=== PATIENT | female | born 1950 | race Caucasian/White ===

== ENCOUNTER → 2017-07-28 10:14 | Outpatient (CLI) | payer MEDICARE, OTHER, SELFPAY | PROVIDERS: Family Provider Family Medicine Geriatric Medicine; PCP Family Medicine Geriatric Medicine; Visit Provider Family Medicine Geriatric Medicine | DX: I10 Essential (primary) hypertension (principal); E11.9 Type 2 diabetes mellitus without complications; E55.9 Vitamin D deficiency, unspecified ==

== ENCOUNTER 2017-09-12 08:30 | Outpatient (RCR) | payer MEDICARE, OTHER, SELFPAY ==
--- NOTE | 2017-05-26 12:43 | HP.PTEVAL_ITS ---
Patient's Visit Information ANA BRAGG is a 66 year old F referred to Physical Therapy by Lenny TELLO with a diagnosis of vertigo. Date of Evaluation: 05/26/17 Physical Therapist: Nav Lee DPT, OC - Visit Plan Frequency: 1-2x /Week Duration: 4-6 Weeks Plan: Treat positional ex and maneuvers as needed. Balance as needed after positional is resolved. Back to functiona and adaptation ex as necessary. - Subjective Subjective: April 25 fell on ice and hit head in parking lot. Went to [facility] for 10 days with concusiion and intracranial hemmorhage. Went to rehab in [place] for a number of weeks and then went home for home health. In the meantime went to neuro and sent for vestibular therapy instead of home health. Issues are dizzy and balance related. Had none of these prior. 5-6 Catscans and found a brain bleed. Had patch for dizzyness whcih helped. Takes meclizine to this day which helps. Doctor wants her to cut back but she cannot. Currently has head in a box feeling sometimes balance off. Gets spinning turning in bed or sits up or stand suddenly or lying down. It lasts 10 -15 seconds. Rarely feels normal. Gets tired quick and it is worse. Uses cane now, not prior. Wants to get back to normal as prior to this fall. No falls since this incident. Works at [employer] and wants to return 24 hours per week. Dresses self, shower self and bathroomI. House duties are suffereing. Staying home alot. Enjoys reading and gym but cannot do that now. Last time was at gym was the week this happened at [facility] or [employer]. No recent MEDINA, nausea only if real dizzy. - Objective Walks with cane back to [facility] room mod I. Slow. Trasnfers I with UE. Steps reciprocal and needs rail. C/S AROM is hesitant but not painful. UE AROM WFL adn strength 4+/5. + L hallpike kevin for up torsional nystagmus 15 seconds...treated with Patrice Bowman and then much better after retesting but still positive and treated again. Walked out mod I with cane feeling some better. - Balance Scores Functional Gait Assessment Score: 19 % Disability: 36.6700 - Goals Goal 1:: Abolish dizzyness wtih position change Goal Time Frame: 2-4 Weeks Goal 2:: Pt feel 90% better overall and ready to get to gym again. Goal Time Frame: 4-6 Weeks Goal 3:: No dizzyness for a period of 2 weeks. Goal Time Frame: 4-6 Weeks - Rehabilitation Potential Physical Therapy Diagnosis: L PBBV and post concussion. Rehabilitation Potential: Good - Anticipated Interventions Patient/Client Instruction: Educate patient on: Condition, Plan of Care For the Purpose of:: To increase tolerance to activity/condition/position, To improve safety with gait Therapeutic Exercise to Include: Balance training Comment: positional ex and treatments. balance. return to function. For the Purpose of:: To improve balance, To improve safety with gait Thank you for the opportunity to evaluate your patient. For Medicare and Medicare HMO plans, please review the plan of care and approve it. It will need to be FAXED BACK to us at [phone] for Medicare purposes. Please let me know if there are questions or concerns regarding this plan of care. Physician Signature: Date:
--- NOTE | 2017-06-30 14:12 | HP.PTREVAL_ITS ---
Lenny Chi Konstantin, It has been my pleasure to treat ANA BRAGG over the last 4 visits for vertigo. Please see the progress note below for an update on the physical therapy plan of care! Subjective: Only dizzy if real tired adn it is more balance than dizzy. Spinning and dizzy is gone. Not avoiding kya activities except working frequently as she fatigues. Still using cane out and about. Objective/Function: No change to FGA, no dizzyness with VOR horiz or vertical. Plan Plan: f/u two weeks and as needed for 2-4 weeks for balance progression and ensure progress. Goals Goal 1:: Abolish dizzyness wtih position change Goal Time Frame: 2-4 Weeks Goal Progress: Goal Met Goal 2:: Pt feel 90% better overall and ready to get to gym again. Goal Time Frame: 4-6 Weeks Goal Progress: Progressing Goal 3:: No dizzyness for a period of 2 weeks. Goal Time Frame: 4-6 Weeks Goal Progress: Goal Met Goal 4:: 26/30 FGA and feel 75% improved balance. Goal Time Frame: 2-4 Weeks Goal Progress: NEW GOAL Anticipated Interventions Patient/Client Instruction: Educate patient on: Condition, Plan of Care For the Purpose of:: To increase tolerance to activity/condition/position, To improve safety with gait Therapeutic Exercise to Include: Balance training Comment: positional ex and treatments. balance. return to function. For the Purpose of:: To improve balance, To improve safety with gait Please do not hesitate to contact me at [phone] by phone or Fax: if you have questions or concerns regarding this new plan of care! Sincerely, Nav Lee, DPT, OC
--- NOTE | 2017-08-29 10:08 | HP.PTREVAL_ITS ---
Lenny Chi Konstantin, It has been my pleasure to treat ANA BRAGG over the last 7 visits for vertigo. Please see the progress note below for an update on the physical therapy plan of care! Subjective: kjnkj Objective/Function: Improving FGA no positive positional tests. Plan Plan: f/u two weeks for FGA, check positional and see if patient more confident to work in garden or give workaround of holding on to stick etc. Goals Goal 1:: Abolish dizzyness wtih position change Goal Time Frame: 2-4 Weeks Goal Progress: Goal Met Goal 2:: Pt feel 90% better overall and ready to get to gym again. Goal Time Frame: 4-6 Weeks Goal Progress: Progressing Goal 3:: No dizzyness for a period of 2 weeks. Goal Time Frame: 4-6 Weeks Goal Progress: Goal Met Goal 4:: 26/30 FGA and feel 75% improved balance. Goal Time Frame: 2-4 Weeks Goal Progress: Goal Met Goal 5:: Bend and recover adn walk on grass without AD safe and I. Goal Time Frame: 2-4 Weeks Goal Progress: NEW GOAL Anticipated Interventions Patient/Client Instruction: Educate patient on: Condition, Plan of Care For the Purpose of:: To increase tolerance to activity/condition/position, To improve safety with gait Therapeutic Exercise to Include: Balance training Comment: positional ex and treatments. balance. return to function. For the Purpose of:: To improve balance, To improve safety with gait Please do not hesitate to contact me at [phone] by phone or Fax: if you have questions or concerns regarding this new plan of care! Sincerely, Nav Lee, ERIST, OC
--- NOTE | 2017-09-12 08:47 | HP.PTDCSUM_ITS ---
HP - PT D/C Summary It has been my pleasure to treat ANA BRAGG under orders from Lenny Pryor , for the diagnosis of vertigo for a total of 8 visit(s). Discharge Date: 09/12/17 Please see the following information for a summary of their discharge status. - Subjective Subjective: Pretty good, no dizzyness and normal activities. Practicing bending over and getting better. Balance is pretty good, no falls, uses cane outside every now and then. Will see Konstantin next week. - Overall Improvement % Improvement: 90 - Objective Objective/Function: - B Hallpike. FGA very good and much improved - Goals Goal 1:: Abolish dizzyness wtih position change Goal Progress: Goal Met Goal 2:: Pt feel 90% better overall and ready to get to gym again. Goal Progress: Goal Met Goal 3:: No dizzyness for a period of 2 weeks. Goal Progress: Goal Met Goal 4:: FGA and feel 75% improved balance. Goal Progress: Goal Met Goal 5:: Bend and recover adn walk on grass without AD safe and I. Goal Progress: subjectively - Plan Plan: D/C - D/C Information Discharge Comments: Doing well, no dizzyness and much improved balance. Will f/ u with doctor next week and continue home balance ex. If there are questions or concerns regarding this patient's physical therapy, please feel free to call me at [phone]. Thank you for the referral of this patient. Sincerely, Nav Lee, DPT, OC
--- NOTE | 2017-09-12 08:52 | HP.PTCOM ---
PT Communication Note 09/12/[address] Lenny Pryor , Sincerely, Nav Lee, DPT, OC Contact Information
== END 2017-09-12 19:00 | disposition home or self-care (01) ==
LOC: PT 08:30
PROVIDERS: Family Provider Family Medicine Geriatric Medicine; PCP Family Medicine Geriatric Medicine; Visit Provider Family Medicine Geriatric Medicine
DX: I62.9 Nontraumatic intracranial hemorrhage, unspecified (principal)
CPT/HCPCS: 97162; 97530

== ENCOUNTER 2017-12-01 10:00 | Outpatient (RCR) | payer MEDICARE, OTHER, SELFPAY ==
--- NOTE | 2017-11-28 09:57 | HP.PTEVAL ---
Patient's Visit Information ANA BRAGG is a 67 year old F referred to Physical Therapy by Lenny Pryor with a diagnosis of intracranial hemmorhage. Date of Evaluation: 11/28/17 Physical Therapist: Nav Lee DPT, OC - Visit Plan Frequency: 1-2x /Week Duration: 2-4 Weeks Plan: 1-2x/week for 2-4 as needed for positional and balance treatemnts and other vestibular if necessary. - Subjective Subjective: Balance is still off and now getting dizzy again. Had PT prior and was better qithout dizzyness for a month and balance was better. Now it is occurring with lying and sitiing up and dissyness/spinning lasts a couple minutes. Usually happens when rolls to L. Used a cane for a while. Fell 2x outside once while weeding last week and the other time in the shower looking up getting dizzyness. Saw neurologist and head is better. Was back to normal for a month after September treatments, no psinning and decent balance. Came back around Labor day. Woke up in middle of night one time. Hard to walk straight for 2 days at one point. Works with handicap at [email or web address] and is hard, has missed some days. - Objective Wallks staggery but I back to PT I. c/s AROM WFL but hesitant to look up. + R HD up torsional for 12 seconds. + L HD up torsional 3 seconds. Treated with R Gracie today and education. FGA - Balance Scores Functional Gait Assessment Score: 23 % Disability: 23.3400 - Goals Goal 1:: abolish vertigo with lying down. Goal Time Frame: 4-6 Weeks Goal 2:: Balance at 26/30 adn feel 100% back to normal without AD. Goal Time Frame: 2-4 Weeks - Rehabilitation Potential Physical Therapy Diagnosis: BPPV Rehabilitation Potential: Good - Anticipated Interventions Patient/Client Instruction: Educate patient on: Condition, Plan of Care For the Purpose of:: To increase tolerance to activity/condition/position Therapeutic Exercise to Include: Balance training Comment: positional For the Purpose of:: To increase tolerance to activity/condition/position, To improve gait and locomotor functions Thank you for the opportunity to evaluate your patient. For Medicare and Medicare HMO plans, please review the plan of care and approve it. It will need to be FAXED BACK to us at [phone] for Medicare purposes. Please let me know if there are questions or concerns regarding this plan of care. Physician Signature: Date:
--- NOTE | 2018-02-07 10:54 | HP.PT.NRP ---
HP - Discharge Summary (1) - Patient Information ANA BRAGG was seen in my office for initial evaluation on 11/28/17. The following Plan of Care was established for this patient: Initial Frequency: 1-2x /Week Initial Duration: 2-4 Weeks - Anticipated Interventions Patient/Client Instruction: Educate patient on: Condition, Plan of Care For the Purpose of:: To increase tolerance to activity/condition/position Therapeutic Exercise to Include: Balance training For the Purpose of:: To increase tolerance to activity/condition/position, To improve gait and locomotor functions This patient was last seen in our office 12/01/17. Pertinent comments regarding their Physical therapy will appear below: Pt seen for two visits of positional treatments adn was to f/u weekly until dizzyness gone. She has neglected to scheudle any further visits. at this point, it has been over two months and I will discontinue due to non attendance. At this point I will be discontinuing this patient from physical therapy. I would be happy to see this patient again in the future if found appropriate by the physician. Thank you! Nav Lee, DPT, OC
== END 2017-12-01 19:00 | disposition home or self-care (01) ==
LOC: PT 10:00
PROVIDERS: Family Provider Family Medicine Geriatric Medicine; PCP Family Medicine Geriatric Medicine; Visit Provider Family Medicine Geriatric Medicine
DX: I62.9 Nontraumatic intracranial hemorrhage, unspecified (principal); R42 Dizziness and giddiness; R26.89 Other abnormalities of gait and mobility
CPT/HCPCS: 97162; 97530

== ENCOUNTER → 2018-03-22 12:43 | Outpatient (CLI) | payer MEDICARE, SELFPAY ==
[2018-03-22 13:24] LABS: Absolute Neutrophil Count 2.5 X10^3/uL (2.0-7.7); Basophil# 0.03 X10^3/uL; Basophil% 0.7 % (0-1); Eosinophil# 0.07 X10^3/uL; Eosinophils% 1.6 % (0-5); Hematocrit 34.1 % (37-47); Hemoglobin 9.6 g/dl (12.0-15.0); Lymphocyte % 33.7 % (19-41); Mean Corp Hgb Conc 28.2 g/gl (32-36); Mean Corpuscular Hgb 19.7 pg (27.0-32.0); Monocyte# 0.39 X10^3/uL; Monocyte% 8.8 % (0-10); Neutrophil # 2.45 X10^3/uL (2.7-7.7); Platelet Count 295 K/mm3 (150-450); RBC Distribution Width CV 18.7 % (11.6-14.6); RBC Distribution Width SD 47.5 fl (35.1-43.9); Red Blood Count 4.87 M/mm3 (4.2-5.4); White Blood Count 4.5 K/mm3 (4.4-11.0)
[2018-03-22 13:26] LABS: Differential Indicated SCAN CRITERIA MET; POSITIVE COUNT NO; POSITIVE DIFFERENTIAL NO; POSITIVE MORPHOLOGY YES
[2018-03-22 14:00] LABS: Vitamin D,25 Hydroxy 18.3 ng/mL (29.95-100.01)
[2018-03-22 14:07] LABS: ALB/GLOB Ratio 1.1 RATIO (0.9-2.4); AST(SGOT) 14 U/L (15-37); Alanine Aminotransfer ALT/SGPT 16 U/L (13-56); Albumin, Serum 3.9 g/dL (3.2-5.0); Alkaline Phosphatase 82 U/L (45-117); Anion Gap 8 (5-15); BUN 9 mg/dL (7-18); BUN/Creat Ratio 13.5 RATIO (10-20); Calcium,Total 8.6 mg/dL (8.5-10.1); Chloride 110 mmol/L (98-107); Creatinine, Serum 0.67 mg/dL (0.55-1.02); EST Glomerular Filtration Rate 94 mL/min (>60); Est Glom Filt Rate - Afr Amer 114 mL/min (>60); Globulin 3.6 g/dL (2.2-4.2); Glucose 103 mg/dL (74-106); Potassium 3.7 mmol/L (3.5-5.1); Protein, Total 7.5 g/dL (6.4-8.2); Sodium Level 142 mmol/L (136-145); Thyroid Stim Hormone (TSH) 0.55 uIU/mL (0.358-3.74)
== END ==
PROVIDERS: Family Provider Family Medicine Geriatric Medicine; PCP Family Medicine Geriatric Medicine; Visit Provider Family Medicine Geriatric Medicine
DX: E11.9 Type 2 diabetes mellitus without complications (principal); I10 Essential (primary) hypertension; E55.9 Vitamin D deficiency, unspecified
CPT/HCPCS: 36415; 80053; 82306; 84443; 85025

== ENCOUNTER → 2018-05-19 10:52 | Outpatient (CLI) | payer MEDICARE, SELFPAY | PROVIDERS: Family Provider Family Medicine Geriatric Medicine; PCP Family Medicine Geriatric Medicine; Referring Provider Family Medicine Geriatric Medicine; Visit Provider Family Medicine Geriatric Medicine | DX: R68.83 Chills (without fever) (principal) | CPT/HCPCS: 87633 ==

== ENCOUNTER → 2018-09-08 10:30 | Outpatient (CLI) | payer MEDICARE, SELFPAY ==
--- NOTE | 2018-09-05 12:30 | HP.PCM_ITS ---
History and Physical History and Physical Patient Name: Ada SilvermanOB: 1950 From: ALEJANDRO COLUNGA PA-C DATE OF SURGERY: 09/20/2018 SCHEDULED PROCEDURE: Left reverse total shoulder arthroplasty HISTORY OF PRESENT ILLNESS: Preoperative history and physical exam was performed on September 04, 2018. This is a 68-year-old female who is been having ongoing pain in her nondominant left shoulder for several months. Patient's pain is primarily with overhead use or reaching out to the side. She has pain over the lateral aspect of the shoulder. Pain can reach as high as a 10/10 with activity. Patient states the pain does awaken her at night. Patient has had MRI which does show glenohumeral osteoarthritis and rotator cuff tear of the left shoulder. Patient has tried tramadol, Tylenol, as needed for pain control. She has not seen significant improvement. She does have limited motion in the left side when compared to her right dominant shoulder. Patient denies any chest pain, shortness of breath, fevers chills, recent infections. Patient does have a medical history pertinent for pulmonary embolism in 2012. She was initially treated with Xarelto it had repeat CT scans which were negative. Patient has been off anticoagulation. Patient has also had previous gastric bypass in 2013. She is unable to take aspirin or any nonsteroidal anti-inflammatories due to gastric bypass. After failing conservative measures and discussing treatment options with Dr. Pérez Jung, the patient does wish to proceed with a left reverse total shoulder arthroplasty. REVIEW OF SYSTEMS: ROS: Const: Reports change in appetite, but denies anorexia, fever, hard of hearing, vision problems CV: Denies chest pain, heart murmur, irregular heartbeat and peripheral vascular disease. Resp: Denies asthma, cough, pneumonia, sleep apnea, SOB, tuberculosis and wheezing. GI: Denies constipation, diarrhea, difficulty swallowing, heartburn, nausea, bloody stools and vomiting. : Urinary: denies incontinence. Musculo: Reports trouble walking, but denies leg swelling, limp and weakness. Skin: Reports history of shingles, but denies Raynaud's and tattoo. Neuro: Denies ambulatory dysfunction, dizziness, numbness/tingling and tremor. Psych: Reports depression and insomnia, but denies anxiety, mental illness and stress. Michael/Lymph: Denies anemia, bleeding/bruising tendency and past transfusion. Reviewed, no changes. PAST MEDICAL HISTORY: Advance Care Plan: No Advance Directives Effective Date: 04/14/2018 PMH: Medical Problems: Arthritis History Of Phlebitis - 2012 Pulmonary Embolism - 2012 Accidents: RT Ankle Fracture 1975 Brain Injury - (04/2017) FALL Surgical Hx: Colon Resection - 2013 [facility] Hysterectomy - 1987 [facility] Tubal Ligation - 1976 [facility] Rt knee Unicompartmental, Gastric Bypass 2013 [facility], Carpal Tunnel Release RT Hip Replacement RT - (07/01/2014) [email or web address] Paul Cataracts Removed Knee Replacement LT - (07/14/2015) [email or web address] Revision RT Uni To TKR - (11/20/2015) [email or web address] Anesthesia Complications: None Assistive Devices: None Reviewed, no changes. SOCIAL HISTORY: SH: Marital: .Occupation: [email or web address].Work Status: Currently Working.Hand Dominance: Right-handed. Personal Habits: Cigarette Use: Never Smoked Cigarettes.Alcohol: Occasionally.Drug Use: Denies Use.Enjoy Exercising: Exercises 1-3 X/Week. Reviewed and updated. VITALS: Ht: 63 Wt: 227lb Wt k.967 BMI: 40.2 BP: 160/92 Pulse: 64 T: 98.4 T: 36.9C ALLERGIES: Aspirin Steroids Anti-Inflammatories NSAIDs MEDICATIONS: Effexor XR 150 mg 1 cap PO daily, Vitamin D 5000 Units 1 tab PO daily, Multivitamins 1 cap PO daily, Tramadol HCL 50 mg 1-2 by mouth every 4-6 hours as needed pain, Vitamin B12 1 injection monthly, Gabapentin 300 mg 2 caps qpm PRE-OP EXAM: General appearance:NORMAL Other: Eyes: Conjunctivae and lids: NORMAL Pupils: ERR Ears, Nose, Mouth, and Throat: NORMAL Other: Inspection of lips, teeth and gums: NORMAL Other: Neck: Examination of neck: no masses noted. Respiratory: Assessment of respiratory effort: NORMAL Other: Auscultation of lungs: clear to auscultation no wheezes, rhonchi or rales. Cardiovascular: Auscultation of heart: regular rate and rhythm, no murmurs, gallops or rubs. Gastrointestinal: Exam of abdomen: soft, nontender, nondistended bowel sounds present. PHYSICAL EXAMINATION: On exam of the left shoulder it is cool to touch without erythema. Range of motion left shoulder external rotation 10, internal rotation back pocket, fo rward elevation 90 actively and 100 passively. Patient does have scapular dyskinesia on the left. Positive crepitus with range of motion. Resisted range of motion: 4/5 supraspinatus strength on the left. Sensation intact to light touch. Neurovascularly intact. IMAGING STUDIES: Previous x-rays of the left shoulder reveal severe glenohumeral osteoarthritis with complete loss of joint space, subchondral sclerosis, and large inferior osteophytes on both the glenoid and humeral head. [facility] 2018 which does reveal rotator cuff tear with severe cuff tear arthropathy with severe arthrosis of the joint and retracted rotator cuff. IMPRESSION: 1. Severe right shoulder rotator cuff arthropathy with severe glenohumeral osteoarthritis and retracted rotator cuff tear 2. History of pulmonary embolism 2012. 3. History of gastric bypass 2013: Unable to take aspirin or nonsteroidal anti- inflammatories PLAN: Dr. Pérez Jung did discuss and review with the patient all treatment options including surgical versus nonsurgical options. Patient does wish to proceed with the above-stated procedure. Potential risks, benefits, and complications of the procedure were discussed in detail including but not limited to , infection, nerve and blood vessel damage, persistent pain, numbness, tingling, paresthesias, blood clot, pulmonary embolism, and requirement for possible further surgery. The patient expressed full understanding and has no further questions for the doctor. Patient does agree to proceed with the above-stated procedure and has signed the surgery consent form. This dictation was created using voice recognition software. Phonetic and/or grammatical errors may exist.. ___ I have re-examined the patient. There are no clinical changes since date of exam. ___ See progress notes for changes. ___ Dictated on admission Date: Time: Signature:
[2018-09-08 10:22] VITALS: BP 158/77; PULSE 61; RESP 16; TEMP 36.4; O2SAT 100; BMI 40.3
[2018-09-08 11:10] LABS: Absolute Lymphocyte Count 1.29 X10^3/ul (0.83-4.51); Absolute Neutrophil Count 2.2 X10^3/uL (2.0-7.7); Basophil# 0.02 X10^3/uL; Basophil% 0.5 % (0-1); Eosinophil# 0.11 X10^3/uL; Eosinophils% 2.7 % (0-5); Hematocrit 30.7 % (37-47); Hemoglobin 8.9 g/dl (12.0-15.0); Lymphocyte # 1.29 X10^3/ul (4.0); Lymphocyte % 32.2 % (19-41); Mean Corpuscular Hgb 19.6 pg (27.0-32.0); Mean Corpuscular Volume 67.6 fL (81-99); Mean Platelet Vol. 10.1 fl (6.2-12.0); Neutrophil # 2.18 X10^3/uL (2.7-7.7); Neutrophil % 54.4 % (47-70); POSITIVE DIFFERENTIAL NO; Platelet Count 271 K/mm3 (150-450); RBC Distribution Width CV 18.7 % (11.6-14.6); RBC Distribution Width SD 45.4 fl (35.1-43.9); Red Blood Count 4.54 M/mm3 (4.2-5.4)
[2018-09-08 11:11] LABS: Differential Indicated SCAN CRITERIA MET; POSITIVE COUNT NO; POSITIVE MORPHOLOGY YES
[2018-09-08 11:17] LABS: International Normalized Ratio 1.1; Prothrombin Time (Protime)PT. 13.5 SECONDS (11.7-14.9)
[2018-09-08 11:18] LABS: Partial Thromboplast Time 27.5 Seconds (24.1-36.2)
[2018-09-08 11:20] LABS: AST(SGOT) 14 U/L (15-37); Alanine Aminotransfer ALT/SGPT 12 U/L (13-56); Albumin, Serum 3.4 g/dL (3.2-5.0); Alkaline Phosphatase 77 U/L (45-117); Anion Gap 2 (5-15); BUN 11 mg/dL (7-18); BUN/Creat Ratio 17.2 RATIO (10-20); Bilirubin, Direct 0.09 mg/dL (0.00-0.30); Calcium,Total 8.5 mg/dL (8.5-10.1); Chloride 110 mmol/L (98-107); Creatinine, Serum 0.64 mg/dL (0.55-1.02); EST Glomerular Filtration Rate 99 mL/min (>60); Est Glom Filt Rate - Afr Amer 120 mL/min (>60); Estimated Creatinine Clearance 45.78 ml/min; Globulin 3.2 g/dL (2.2-4.2); Glucose 98 mg/dL (74-106); Potassium 4.2 mmol/L (3.5-5.1); Protein, Total 6.6 g/dL (6.4-8.2); Sodium Level 141 mmol/L (136-145)
[2018-09-08 11:42] LABS: Hypochromasia 2+; Microcytosis 1+
== END ==
PROVIDERS: Anesthesiology; Family Provider Family Medicine Geriatric Medicine; PCP Family Medicine Geriatric Medicine; Referring Provider Specialist; Visit Provider Specialist
DX: Z01.812 Encounter for preprocedural laboratory examination (principal); M19.011 Primary osteoarthritis, right shoulder; M75.102 Unspecified rotator cuff tear or rupture of left shoulder, not specified as traumatic; Z86.711 Personal history of pulmonary embolism; Z98.84 Bariatric surgery status; Z79.899 Other long term (current) drug therapy; Z88.6 Allergy status to analgesic agent; Z96.652 Presence of left artificial knee joint
CPT/HCPCS: 80048; 80076; 83036; 85025; 85610; 85730; 87081

== ENCOUNTER → 2018-10-19 12:03 | Outpatient (CLI) | payer MEDICARE, SELFPAY ==
[2018-09-08 10:22] VITALS: BMI 40.3
[2018-10-19 12:16] VITALS: BP 153/98; PULSE 67; RESP 16; TEMP 36.6; O2SAT 98; BMI 38.9
== END ==
PROVIDERS: Family Provider Family Medicine Geriatric Medicine; PCP Family Medicine Geriatric Medicine; Referring Provider Family Medicine Geriatric Medicine; Visit Provider Family Medicine Geriatric Medicine
DX: D50.9 Iron deficiency anemia, unspecified (principal); K90.9 Intestinal malabsorption, unspecified
CPT/HCPCS: 96365; J1756; J7050; A4216

== ENCOUNTER → 2018-10-23 12:59 | Outpatient (CLI) | payer MEDICARE, SELFPAY ==
[2018-10-19 12:16] VITALS: BMI 38.9
[2018-10-23 12:40] LABS: Absolute Lymphocyte Count 1.52 X10^3/uL (0.83-4.51); Absolute Neutrophil Count 2.6 X10^3/uL (2.0-7.7); Basophil# 0.03 X10^3/uL; Basophil% 0.6 % (0-1); Eosinophil# 0.17 X10^3/uL; Eosinophils% 3.5 % (0-5); Hematocrit 33.9 % (37-47); Hemoglobin 9.5 g/dL (12.0-15.0); Lymphocyte # 1.52 X10^3/ul (4.0); Lymphocyte % 31.7 % (19-41); Mean Corpuscular Hgb 19.4 pg (27.0-32.0); Mean Corpuscular Volume 69.2 fL (81-99); Mean Platelet Vol. 10.7 fl (6.2-12.0); Monocyte# 0.42 X10^3/uL; Monocyte% 8.8 % (0-10); NRBC Flagged by Analyzer 0 % (0-5); Neutrophil # 2.64 X10^3/uL (2.7-7.7); Neutrophil % 55.2 % (47-70); POSITIVE MORPHOLOGY YES; Platelet Count 311 K/mm3 (150-450); RBC Distribution Width CV 20.8 % (11.6-14.6); RBC Distribution Width SD 46.8 fl (35.1-43.9); White Blood Count 4.8 K/mm3 (4.4-11.0)
[2018-10-23 12:42] LABS: Differential Indicated SCAN CRITERIA MET
[2018-10-23 13:04] LABS: Vitamin D,25 Hydroxy 23.7 ng/mL (29.95-100.01)
[2018-10-23 13:06] LABS: Anisocytosis 1+; Hypochromasia 2+; Platelet Estimate ADEQUATE (ADEQ); Polychromasia 1+
[2018-10-23 13:07] LABS: Ovalocyte 1+
[2018-10-23 13:18] VITALS: BP 137/48; PULSE 65; RESP 16; TEMP 35.9; O2SAT 100; BMI 38.9
[2018-10-23 13:26] LABS: ALB/GLOB Ratio 0.9 RATIO (0.9-2.4); AST(SGOT) 15 U/L (15-37); Alanine Aminotransfer ALT/SGPT 17 U/L (13-56); Albumin, Serum 3.5 g/dL (3.2-5.0); Alkaline Phosphatase 85 U/L (45-117); Anion Gap 6 (5-15); BUN 8 mg/dL (7-18); BUN/Creat Ratio 11.2 RATIO (10-20); Calcium,Total 8.9 mg/dL (8.5-10.1); Chloride 107 mmol/L (98-107); Cholesterol 175 mg/dL (200); Creatinine, Serum 0.71 mg/dL (0.55-1.02); EST Glomerular Filtration Rate 87 mL/min (>60); Est Glom Filt Rate - Afr Amer 106 mL/min (>60); Estimated Creatinine Clearance 45.78 ml/min; Globulin 3.7 g/dL (2.2-4.2); Glucose 114 mg/dL (74-106); High Density Lipoprotein 72 mg/dL; Potassium 4.3 mmol/L (3.5-5.1); Protein, Total 7.2 g/dL (6.4-8.2); Sodium Level 141 mmol/L (136-145); Thyroid Stim Hormone (TSH) 1.27 uIU/mL (0.358-3.74); Triglycerides 76 mg/dL; Very Low Density Lipoprotein 15 mg/dL (5-40)
== END ==
PROVIDERS: Family Provider Family Medicine Geriatric Medicine; PCP Family Medicine Geriatric Medicine; Referring Provider Family Medicine Geriatric Medicine; Visit Provider Family Medicine Geriatric Medicine
DX: E55.9 Vitamin D deficiency, unspecified (principal); E11.9 Type 2 diabetes mellitus without complications; E78.5 Hyperlipidemia, unspecified; I10 Essential (primary) hypertension; D50.9 Iron deficiency anemia, unspecified; K90.9 Intestinal malabsorption, unspecified
CPT/HCPCS: 96365; 36415; 80053; 80061; 82306; 84443; 85025; J1756; J7050; A4216

== ENCOUNTER → 2018-10-25 09:58 | Outpatient (CLI) | payer MEDICARE, SELFPAY ==
[2018-10-19 12:16] VITALS: BMI 38.9
[2018-10-23 13:18] VITALS: BMI 38.9
[2018-10-25 10:13] VITALS: BP 154/82; PULSE 65; RESP 16; TEMP 36.1; BMI 35.4
== END ==
PROVIDERS: Family Provider Family Medicine Geriatric Medicine; PCP Family Medicine Geriatric Medicine; Referring Provider Family Medicine Geriatric Medicine; Visit Provider Family Medicine Geriatric Medicine
DX: D50.9 Iron deficiency anemia, unspecified (principal); K90.9 Intestinal malabsorption, unspecified
CPT/HCPCS: 96365; J1756; J7050

== ENCOUNTER → 2018-10-27 09:34 | Outpatient (CLI) | payer MEDICARE, SELFPAY ==
[2018-10-19 12:16] VITALS: BMI 38.9
[2018-10-25 10:13] VITALS: BMI 35.4
[2018-10-27 09:57] VITALS: BP 129/85; PULSE 64; RESP 18; TEMP 36.4; O2SAT 99; BMI 35.4
== END ==
PROVIDERS: Family Provider Family Medicine Geriatric Medicine; PCP Family Medicine Geriatric Medicine; Referring Provider Family Medicine Geriatric Medicine; Visit Provider Family Medicine Geriatric Medicine
DX: D50.9 Iron deficiency anemia, unspecified (principal); K90.9 Intestinal malabsorption, unspecified
CPT/HCPCS: 96365; J1756; J7050; A4216

== ENCOUNTER → 2018-10-30 13:56 | Outpatient (CLI) | payer MEDICARE, SELFPAY ==
[2018-10-19 12:16] VITALS: BMI 38.9
[2018-10-27 09:57] VITALS: BMI 35.4
[2018-10-30 14:12] VITALS: BP 134/65; PULSE 73; RESP 16; TEMP 36.6; O2SAT 100; BMI 35.4
== END ==
PROVIDERS: Family Provider Family Medicine Geriatric Medicine; PCP Family Medicine Geriatric Medicine; Referring Provider Family Medicine Geriatric Medicine; Visit Provider Family Medicine Geriatric Medicine
DX: D50.9 Iron deficiency anemia, unspecified (principal); K90.9 Intestinal malabsorption, unspecified
CPT/HCPCS: 96365; J1756; J7050; A4216

== ENCOUNTER → 2018-11-03 13:25 | Outpatient (CLI) | payer MEDICARE, SELFPAY ==
[2018-10-30 14:12] VITALS: BMI 35.4
[2018-11-03 13:51] LABS: Hematocrit 36.7 % (37-47); Hemoglobin 10.4 g/dL (12.0-15.0); POSITIVE MORPHOLOGY YES
== END ==
PROVIDERS: Family Provider Family Medicine Geriatric Medicine; PCP Family Medicine Geriatric Medicine; Referring Provider Family Medicine Geriatric Medicine; Visit Provider Family Medicine Geriatric Medicine
DX: D50.9 Iron deficiency anemia, unspecified (principal); D64.9 Anemia, unspecified
CPT/HCPCS: 36415; 85014; 85018

== ENCOUNTER → 2019-01-08 | Outpatient (CLI) | payer MEDICARE, SELFPAY ==
[2018-10-30 14:12] VITALS: BMI 35.4
--- NOTE | 2019-01-08 17:15 | RAD_ITS ---
STUDY: X-RAY - ABDOMEN/PELVIS REASON FOR EXAM: Female, 68 years old. Abdominal cramps TECHNIQUE: 3 COMPARISON: None. FINDINGS: Normal visualized lung bases. There is an unremarkable bowel gas pattern. There is no demonstrated free abdominal air. The visualized liver, spleen and kidneys are grossly normal in size and morphology. Surgical clips in the left upper quadrant. Normal soft tissue structures. Degenerative vertebral changes. A right hip prosthesis is noted. RAD/Abd Inc Decub and/or Erect IMPRESSION: No acute pathology of the abdomen and pelvis. Electronically Signed: Jacky Stout DO at 21:49 EDT Tel [phone], Service support ,
== END | disposition home or self-care (01) ==
PROVIDERS: Family Provider Family Medicine Geriatric Medicine; PCP Family Medicine Geriatric Medicine; Referring Provider Family Medicine Geriatric Medicine; Visit Provider Family Medicine Geriatric Medicine
DX: N39.0 Urinary tract infection, site not specified (principal); R10.9 Unspecified abdominal pain
CPT/HCPCS: 74019; 87086; 87088

== ENCOUNTER 2019-01-12 18:47 | Emergency (ER) | payer MEDICARE, SELFPAY ==
[2018-10-30 14:12] VITALS: BMI 35.4
[2019-01-12 18:48] VITALS: BP 162/122; PULSE 114; RESP 17; TEMP 36.7; O2SAT 97; BMI 40.7
--- NOTE | 2019-01-12 18:59 | CT_ITS ---
We are attempting to reach an attending provider to discuss findings. An addendum with communication details will be sent when the communication is complete. HISTORY: CONSTIPATION X 2 WEEKS, NO MEDICATIONS HELPING, HX GASTRIC BYPASS, DIAB, SMALL BOWEL OBSTRUCTION IN PAST TECHNIQUE: Helically acquired images were obtained of the abdomen and pelvis following the intravenous administration of 100ML ml of Gastrografin Tamp; 100mL Isovue-370 Iodinated contrast. 2D reformats. Oral contrast was administered. A radiation dose optimization technique was used for this scan. COMPARISON: X-ray from January 08, 2019 FINDINGS: # of images incl. paperwork: [id number] LUNG BASES: Within the posterior aspect of the left lower lobe there is a pulmonary nodule that measures 9 mm, as measured on lung windows. Some pleural parenchymal scarring is present adjacent to osteophytes in the azygoesophageal recess. Surgical clips are present within the posterior mediastinum inferiorly at the gastroesophageal junction related to the patient's gastric bypass CT abdomen: Degenerative disc disease with enthesophytes and facet arthropathy. Previous right hip prosthesis. Left hip arthritis. Sacroiliac joint arthritis. Hip enthesophytes. The gallbladder is distended. Some tiny gallstones are present within the gallbladder fundus near the gallbladder neck. Liver, spleen, pancreas, and right adrenal gland, are normal. Within the medial limb of the left adrenal gland there is a 17 x 15 mm adrenal nodule of the density of about 60 Hounsfield units.. The left kidney is normal. The right kidney has a in exophytic mass extending inferiorly from the inferior pole of the right kidney that measures 8.8 cm in long axis dimensions. This mass is a central density of -3 Hounsfield units, consistent with a benign cyst. The mass may be contributing to minimal right hydronephrosis. I cannot follow the right ureter all the way to the pelvis, but the visualized portions of the right ureter are without stones. The aorta is diseased with atherosclerotic plaque and tortuous. There is dense calcific plaque at the origin of the SMA, the celiac trunk, each of the renal arteries, and the SCOTT. All of those vessels, however, do appear to be patent.. CT pelvis: Large abdominal and pelvic ascites is present. The uterus is not identified and may have been resected. The appendix is not identified. The bladder is mildly decompressed. Abscesses are present within the pelvis. There likely has been rupture of the bowel lumen. Whether this is from acute appendicitis, terminal ileitis, or colitis I cannot differentiate. The possibility of the disease within the pelvis been related to a ruptured ovarian lesion is also within the differential. There are some calcifications associated with the right adnexal rim enhancing loculated mass. Within the right adnexal, right hemipelvis region the largest most focal area of loculated fluid with rim enhancement and calcification measures 7.9 x 6.1 cm. There are some additional loculations and rim enhancement posteriorly around the pelvic ascites. CT/Abdomen/Pelvis WITH Contrast IMPRESSION: Indeterminant study. Large ascites extending up around the liver and spleen and within the pelvis. The focal pathology is within the right hemipelvis with areas that it least a 7.9 x 6.1 cm loculated rim-enhancing fluid collection that contains some calcifications. I cannot determine if this is due to perhaps a ruptured benign cystic teratoma, a ruptured appendicitis, or additional possible small bowel or colonic rupture and resultant abscess. I believe ruptured right ovarian neoplasm is the most likely etiology, however, tubo-ovarian abscess is within the differential. A ruptured appendix and resultant abscess with appendicolith is also within the differential. I does believe that is less likely. Individualized dose optimization techniques were used for this CT. at 2200 Reported and signed by: Carlos Martinez MD Electronically Signed: Carlos Martinez MD at 21:59 EDT Tel , Service support ,
--- NOTE | 2019-01-12 19:03 | ED.DCSUM_ITS ---
History of Present Illness Chief Complaint: Constipation Informant: Patient Onset: Days Context: Gradual Onset Timing: Intermittent Current Severity: Moderate Maximum Severity: Moderate Narrative: The patient presents to the emergency department with abdominal cramping. The patient states that she has been having the symptoms for about the past 10 days. She is been having pain in bilateral lower quadrants. She is been nauseated with a few bouts of vomiting. She states that she saw her primary care in the office a few days ago. She had plain films of her abdomen was diagnosed with constipation. She states she took magnesium citrate and laxatives. She states that she is been moving her bowels and is been loose and watery. She states however, that her pain is not improved. She denies any fevers. She denies any chills or sweats. She did have a gastric bypass done 4 years ago at [facility]. She is not on anticoagulants. Prior similar symptoms: No Recent Illness/Hospitalization: No Past Medical History - Allergies and Home Meds Allergies/Adverse Reactions: Allergies aspirin Adverse Reaction (Verified 09/08/18 09:55) Other D/T STOMACH SURGERY NSAIDS (Non-Steroidal Anti-Inflamma Adverse Reaction (Verified 09/08/18 09:55) Other D/T STOMACH SURGERY STEROIDS Adverse Reaction (Uncoded 09/08/18 09:55) Other D/T STOMACH SURGERY Primary Care Physician: Lenny Pryor Chi, MD [Primary Care Provider] - Prior records reviewed: Yes Past Medical History: - Surgical History: cataract, gastric bypass, hysterectomy, total hip arthroplasty, total knee arthroplasty, - Smoking Status: Never smoker - Family History Paternal Family History: Reports: Hypertension Maternal Family History: Reports: Cancer, Diabetes, Heart Disease, Hypertension Review of Systems General: Denies: Chills, Fever, Sweats Eyes: Denies: Visual changes - bilaterally, Diplopia ENT: Denies: Rhinorrhea, Sore throat Cardiovascular: Denies: Chest pain, Palpitations Respiratory: Denies: Dyspnea, Cough, Dyspnea on exertion Gastrointestinal: Reports: Abdominal pain, Nausea, Constipation. Denies: Vomiting, Diarrhea, Melena, Hematochezia Genitourinary: Denies: Dysuria, Hematuria, Frequency Musculoskeletal: Denies: Back pain, Extremity Pain Skin: Denies: Rash, Wounds Neurological: Denies: Headache, Weakness, Numbness Physical Exam Vital Signs/Narrative: Vital Signs Temp Pulse Resp BP Pulse Ox 11/01/19 18:48 98.1 F 114 H 17 162/122 H 97 Inital Vital Signs reviewed: Yes General: Well nourished, Well developed, No Acute Distress Head: Normocephalic, Atraumatic Eyes: Perrl, EOMI ENT: Moist mucous membranes, No rhinorrhea Neck: Supple, Nontender Cardiovascular: Regular rate, Regular rhythm, No murmurs Respiratory: No distress, CTA bilaterally, Chest nontender Abdomen: Soft, Nondistended, Normal bowel sounds, Tender. Negative for: Guarding, Rebound tenderness Back: Nontender, Normal Inspection Extremities: Nontender, No edema Skin: Normal color, No rash Neurological: Alert, Oriented x3, Cranial nerves II-XII grossly intact, Normal Strength, Normal Sensation Psychological: Normal affect, Normal Mood Diagnostic/Tx/Re-eval Clinical Impression(s) from Imaging Studies Abdomen/Pelvis CT 01/12/19 18:59 IMPRESSION: Indeterminant study. Large ascites extending up around the liver and spleen and within the pelvis. The focal pathology is within the right hemipelvis with areas that it least a 7.9 x 6.1 cm loculated rim-enhancing fluid collection that contains some calcifications. I cannot determine if this is due to perhaps a ruptured benign cystic teratoma, a ruptured appendicitis, or additional possible small bowel or colonic rupture and resultant abscess. I believe ruptured right ovarian neoplasm is the most likely etiology, however, tubo-ovarian abscess is within the differential. A ruptured appendix and resultant abscess with appendicolith is also within the differential. I does believe that is less likely. Individualized dose optimization techniques were used for this CT. at 2200 Reported and signed by: Carlos Martinez MD Electronically Signed: Carlos Martinez MD at 21:59 EDT Tel , Service support , ADDENDUM: 01/12/19 3123 IMPRESSION: Indeterminant study. Large ascites extending up around the liver and spleen and within the pelvis. The focal pathology is within the right hemipelvis with areas that it least a 7.9 x 6.1 cm loculated rim-enhancing fluid collection that contains some calcifications. I cannot determine if this is due to perhaps a ruptured benign cystic teratoma, a ruptured appendicitis, or additional possible small bowel or colonic rupture and resultant abscess. I believe ruptured right ovarian neoplasm is the most likely etiology, however, tubo-ovarian abscess is within the differential. A ruptured appendix and resultant abscess with appendicolith is also within the differential. I does believe that is less likely. Individualized dose optimization techniques were used for this CT. at 2200 Reported and signed by: Carlos Martinez MD N.B. : The above information has been verbally conveyed by Carlos Martinez MD to Fuad Smith MD, MD, on 01/12/2019 22:06:43 (ET). Electronically Signed: Carlos Martinez MD at 21:59 EDT Tel , Service support , ADDENDUM: 01/12/19 2215 IMPRESSION: Indeterminant study. Large ascites extending up around the liver and spleen and within the pelvis. The focal pathology is within the right hemipelvis with areas that it least a 7.9 x 6.1 cm loculated rim-enhancing fluid collection that contains some calcifications. I cannot determine if this is due to perhaps a ruptured benign cystic teratoma, a ruptured appendicitis, or additional possible small bowel or colonic rupture and resultant abscess. I believe ruptured right ovarian neoplasm is the most likely etiology, however, tubo-ovarian abscess is within the differential. A ruptured appendix and resultant abscess with appendicolith is also within the differential. I does believe that is less likely. Individualized dose optimization techniques were used for this CT. at 2200 Reported and signed by: Carlos Martinez MD Electronically Signed: Carlos Martinez MD at 22:06 EDT Tel , Service support , N.B. : The above information has been verbally conveyed by Carlos Martinez MD to Fuad Smith MD, MD, on 01/12/2019 22:06:43 (ET). Abnormal Lab Results 01/12/19 01/12/19 01/12/19 19:10 19:10 20:25 WBC 9.0 RBC 5.40 Hgb 13.9 Hct 45.2 MCV 83.7 MCH 25.7 L MCHC 30.8 L RDW Std Deviation 62.1 H RDW Coeff of Pawel 20.3 H Plt Count 368 MPV 10.4 Immature Gran % (Auto) 0.200 Neut % (Auto) 70.3 H Lymph % (Auto) 16.8 L [place] % (Auto) 8.3 Eos % (Auto) 3.7 Baso % (Auto) 0.7 Absolute Neuts (auto) 6.3 Absolute Lymphs (auto) 1.50 Nucleated RBC % 0 Platelet Estimate ADEQUATE Anisocytosis 1+ Ovalocytes 1+ Sodium 139 Potassium 4.3 Chloride 105 Carbon Dioxide 27.0 Anion Gap 7 BUN 12 Creatinine 0.71 Estim Creat Clear Calc 45.78 Est GFR (MDRD) Af Amer 106 Est GFR (MDRD) Non-Af 88 BUN/Creatinine Ratio 17.0 Glucose 194 H Calcium 8.8 Total Bilirubin 0.50 AST 18 ALT 10 L Alkaline Phosphatase 81 Total Protein 6.9 Albumin 3.3 Globulin 3.6 Albumin/Globulin Ratio 0.9 Urine Color Yellow Urine Clarity Clear Urine pH 6.0 Ur Specific [place] 1.015 Urine Protein Negative Urine Glucose (UA) Normal Urine Ketones 5 H Urine Occult Blood Negative Urine Nitrite Negative Urine Bilirubin Negative Urine Urobilinogen Normal Ur Leukocyte Esterase 500 H Urine RBC 0 SEEN Urine WBC 10-25 SEEN Ur Squamous Epith Cells 0-5 SEEN Ur Transition Epith Cell 0-5 SEEN Urine Bacteria 0 SEEN Hyaline Casts 0-5 SEEN Urine Mucus 1+ - Medical Decision Making Patient presents to the emergency department with worsening lower quadrant pain. Clinically, she does not sound as if she is constipated. She is moving her b owels without issue. She is been nauseated with few bouts of vomiting. I was concerned for bowel obstruction especially given her prior surgery. Screening labs were obtained and were unremarkable. The patient was given analgesics with some improvement. She was given fluids. The patient underwent CT which showed multiple abnormal findings. It does appear as if she has a primary ovarian mass with pelvic abscess and no ascites. I did review this with the radiologist. I do feel the patient is going to require higher level of care. She was discussed with Dr. Padilla, gynecologic oncologist at [facility] and accepted. She will be transferred. Working on Impression 1. Pelvic mass 2. New ascites 3. Pelvic abscess ED Disposition - Plan for ED Patient: Referrals: Lenny Pryor Chi, MD [Primary Care Provider] -
[2019-01-12] MEDS: 0.9% Normal Saline 1,000 ML 1000 ML IV (19:20)
[2019-01-12] MEDS: proMETHazine 25 MG/ML Syringe 6.25 MG IV (19:20)
[2019-01-12] MEDS: Morphine 4 MG/ML Syringe IV ×2 (19:20→21:12)
[2019-01-12 19:56] LABS: Absolute Neutrophil Count 6.3 X10^3/uL (2.0-7.7); Basophil# 0.06 X10^3/uL; Basophil% 0.7 % (0-1); Eosinophil# 0.33 X10^3/uL; Eosinophils% 3.7 % (0-5); Hematocrit 45.2 % (37-47); Hemoglobin 13.9 g/dL (12.0-15.0); Lymphocyte % 16.8 % (19-41); Mean Corp Hgb Conc 30.8 g/dL (32-36); Mean Corpuscular Hgb 25.7 pg (27.0-32.0); Mean Corpuscular Volume 83.7 fL (81-99); Mean Platelet Vol. 10.4 fl (6.2-12.0); Monocyte# 0.74 X10^3/uL; Monocyte% 8.3 % (0-10); NRBC Flagged by Analyzer 0 % (0-5); Neutrophil % 70.3 % (47-70); POSITIVE MORPHOLOGY YES; Platelet Count 368 K/mm3 (150-450); RBC Distribution Width CV 20.3 % (11.6-14.6); RBC Distribution Width SD 62.1 fl (35.1-43.9)
[2019-01-12 20:10] LABS: ALB/GLOB Ratio 0.9 RATIO (0.9-2.4); AST(SGOT) 18 U/L (15-37); Alanine Aminotransfer ALT/SGPT 10 U/L (13-56); Albumin, Serum 3.3 g/dL (3.2-5.0); Alkaline Phosphatase 81 U/L (45-117); Anion Gap 7 (5-15); BUN 12 mg/dL (7-18); Calcium,Total 8.8 mg/dL (8.5-10.1); Chloride 105 mmol/L (98-107); Creatinine, Serum 0.71 mg/dL (0.55-1.02); EST Glomerular Filtration Rate 88 mL/min (>60); Est Glom Filt Rate - Afr Amer 106 mL/min (>60); Estimated Creatinine Clearance 45.78 ml/min; Globulin 3.6 g/dL (2.2-4.2); Glucose 194 mg/dL (74-106); Potassium 4.3 mmol/L (3.5-5.1); Protein, Total 6.9 g/dL (6.4-8.2); Sodium Level 139 mmol/L (136-145)
[2019-01-12 20:13] LABS: Differential Indicated SCAN CRITERIA MET
[2019-01-12 20:39] LABS: Bacteria 0 SEEN /hpf (None Seen); Red Blood Cells-Urine 0 SEEN /hpf (0-5)
[2019-01-12 20:52] LABS: Anisocytosis 1+; Ovalocyte 1+; Platelet Estimate ADEQUATE (ADEQ)
[2019-01-12 20:52] LABS: Color, Urine Yellow (Yellow); Glucose, Dipstick Normal (Normal); Ketone-Dipstick 5 mg/dl (Negative); Leukocyte Esterase-Dipstick 500 /ul (Negative); Nitrite-Dipstick Negative (Negative); Occult Blood-Urine Negative /ul (Negative); Protein-Dipstick Negative (Negative); Specific Gravity, Urine 1.015 (1.002-1.030); Urine Bilirubin Dipstick Negative (Negative); Urine Clarity Clear (Clear); Urine Urobilinogen Normal (Normal)
[2019-01-12 21:01] LABS: Hyaline Cast 0-5 SEEN /lpf (0-5); Mucous, Urine 1+ /hpf (<or=2+)
[2019-01-12 21:02] LABS: Squamous Epithelial Cells - UA 0-5 SEEN /hpf (5-10)
[2019-01-12 21:03] LABS: Transitional Epithelial - Ur 0-5 SEEN /hpf (0-5)
[2019-01-12 21:04] LABS: White Blood Cells 10-25 SEEN /hpf (0-5)
[2019-01-12 21:05] VITALS: BP 161/75; PULSE 84; RESP 18; O2SAT 100
[2019-01-12] MEDS: HYDROmorphone 1 MG/ML Syringe IV (22:51)
[2019-01-12 23:20] VITALS: BP 162/72; PULSE 67; RESP 18; TEMP 36.9; O2SAT 94
== END 2019-01-12 23:51 | disposition short-term general hospital (02) ==
LOC: ED 19:42
PROVIDERS: Emergency Provider Emergency Medicine; Family Provider Family Medicine Geriatric Medicine; PCP Family Medicine Geriatric Medicine
DX: R19.00 Intra-abdominal and pelvic swelling, mass and lump, unspecified site (principal); R18.8 Other ascites; N73.9 Female pelvic inflammatory disease, unspecified; K59.00 Constipation, unspecified; Z82.49 Family history of ischemic heart disease and other diseases of the circulatory system; Z88.6 Allergy status to analgesic agent; Z98.84 Bariatric surgery status; Z90.710 Acquired absence of both cervix and uterus
CPT/HCPCS: 74177; 80053; 81001; 85025; 96361; 96365; 96375; 96376; 99284; J7030; J7050; Q9967; A4216

== ENCOUNTER 2019-01-21 01:28 | Inpatient (IN) | payer MEDICARE, SELFPAY ==
[2019-01-21] VITALS (17 sets, daily range): BP systolic 130–168; BP diastolic 78–124; PULSE 88–128; RESP 16–23; TEMP 35.7–37.1; O2SAT 90–100; BMI 43.4; BMI 42.5
--- NOTE | 2019-01-21 01:38 | CT_ITS ---
STUDY: CT ABDOMEN AND PELVIS WITHOUT CONTRAST REASON FOR EXAM: Female, 68 years old. Recent diagnosis of ovarian cancer and prior gastric bypass surgery and hysterectomy. RADIATION DOSAGE (If Supplied By Facility): CTDIvol = ( 20.39 ) mGy, DLP = ( 1064.48 ) mGycm TECHNIQUE: Transaxial images were obtained from the dome of the diaphragm to the symphysis pubis without oral contrast, and without intravenous contrast. Sagittal and coronal images were reconstructed. Individualized dose optimization techniques were used for this CT. COMPARISON: 01/12/2019. FINDINGS: There is mild bilateral basilar atelectasis. There is minimal left effusion. The visualized portions of the heart are within normal limits. Normal liver. Gallbladder is overdistended with tiny increased density along the gallbladder neck which may indicate small stones. Normal spleen. Normal pancreas. There is large amount of ascites, increased in the interval. Mild hypertrophy of the bilateral adrenal glands. There is a large round, low-attenuation structure within the lower pole of the right kidney measuring 8.0 x 8.2 cm compatible with a simple cyst. Remainder of the right kidney within normal limits. Normal left kidney. There is suggestion of partial gastrectomy with sutures at the level of the stomach. Normal small intestine. The colon is a normal in caliber with scattered nonspecific debris. Distinct appendix not visualized. There is diffuse atherosclerotic calcification of the abdominal aorta, without a demonstrated aneurysm. Normal inferior vena cava. Normal retroperitoneum. There is evidence of irregular appearance with soft tissue density involving the anterior peritoneal fat which may indicate omental metastases. Urinary bladder is decompressed. Masslike density within the right side of the pelvis demonstrated measuring approximately 6.9 x 5.5 cm. Given expected location of the right adnexa, this could represent an ovarian neoplasm. There is evidence of ascites within the pelvis. Normal abdominal wall. There are diffuse degenerative changes of the visualized lumbar spine. CT/Abdomen/Pelvis without Cont IMPRESSION: Large amount of ascites, overall progressed in the interval. Questionable irregular stranding of the anterior peritoneal fat which may indicate omental caking/metastases in the context of right pelvic/ovarian mass. Right renal cyst as described above. Remainder of abdominal viscera are unremarkable. Electronically Signed: Alycia Hull MD at 3:20 EST , Service support ,
--- NOTE | 2019-01-21 01:38 | RAD_ITS ---
STUDY: X-RAY CHEST REASON FOR EXAM: Female, 68 years old. Shortness of breath. TECHNIQUE: Single AP portable view of the chest. COMPARISON: 11/21/2015. FINDINGS: The lungs are underexpanded with mild right perihilar atelectasis, otherwise clear. There is no demonstrated pleural abnormality. Normal size heart. Normal mediastinum and tu. Normal visualized pulmonary arteries. There is atherosclerotic calcification of the aortic arch with tortuosity. There are diffuse degenerative changes of the visualized thoracic spine. There is degenerative osteoarthritis of the bilateral shoulders. There is no demonstrated abnormality of the visualized soft tissue structures of the upper abdomen. RAD/Chest 1 View (Portable) IMPRESSION: Right perihilar atelectasis, otherwise no acute process identified. Electronically Signed: Alycia Hull MD at 2:38 EST , Service support ,
--- NOTE | 2019-01-21 01:54 | ED.VIS.GEN ---
History of Present Illness Chief Complaint: Abd Pain Narrative: Patient presenting for evaluation secondary to abdominal pain, nausea and vomiting, inability to tolerate p.o., and shortness of breath. Patient has had a recent history of diagnosis within the last week of ovarian cancer. Patient was at [facility] for this, and was discharged on Tuesday with symptomatic treatment pending a treatment plan. Patient was informed that she was informed of her positive biopsy results this weekend, and states that they were going to come up with a treatment plan for her by next Tuesday. Patient states that progressively since she has been discharged she has been dealing with increasing abdominal girth, inability to wear her close, shortness of breath, and tonight she has developed worsening abdominal pain with inability to tolerate p.o. Patient denies any fevers. She denies any chest pain. Past Medical History - Allergies and Home Meds Allergies/Adverse Reactions: Allergies aspirin Adverse Reaction (Verified 09/08/18 09:55) Other D/T STOMACH SURGERY NSAIDS (Non-Steroidal Anti-Inflamma Adverse Reaction (Verified 09/08/18 09:55) Other D/T STOMACH SURGERY STEROIDS Adverse Reaction (Uncoded 09/08/18 09:55) Other D/T STOMACH SURGERY Primary Care Physician: Lenny Pryor Chi, MD [Primary Care Provider] - Past Medical History: - - Ovarian cancer Surgical History: cataract, gastric bypass, hysterectomy, total hip arthroplasty, total knee arthroplasty, - Smoking Status: Never smoker - Family History Paternal Family History: Reports: Hypertension Maternal Family History: Reports: Cancer, Diabetes, Heart Disease, Hypertension Review of Systems General: Reports: Malaise. Denies: Fever Eyes: Denies: Visual changes - bilaterally, Diplopia ENT: Denies: Rhinorrhea, Sore throat Cardiovascular: Denies: Chest pain Respiratory: Reports: Dyspnea Gastrointestinal: Reports: Abdominal pain, Nausea, Vomiting, - - Abdominal distention Genitourinary: Denies: Dysuria, Hematuria, Frequency Musculoskeletal: Denies: Back pain, Extremity Pain Skin: Denies: Rash, Wounds Neurological: Denies: Headache, Weakness, Numbness Psych: Denies: Depression Endocrine: Denies: Polyuria, Polydipsia Hematologic: Denies: Easy bruising Physical Exam Vital Signs/Narrative: Vital Signs Temp Pulse Resp BP Pulse Ox 01/21/19 01:34 96.3 F L 118 H 23 H 154/124 H 94 01/21/19 01:30 96.3 F L 101 H 22 H 157/102 H 90 Inital Vital Signs reviewed: Yes General: - - Somewhat ill-appearing female, no acute distress currently Head: Normocephalic, Atraumatic Eyes: Perrl, EOMI. Negative for: Pale conjunctiva, Scleral icterus ENT: Moist mucous membranes Neck: Supple, Nontender Cardiovascular: Regular rhythm, No murmurs, Tachycardia, - - 2+ radial pulses bilaterally symmetric Respiratory: - - Somewhat increased work of respiration with shallow respirations, but no abnormal lung sounds Abdomen: - - Abdomen is distended and diffusely tender but not rigid. No evidence of guarding or rebound. Back: Nontender, Normal Inspection Extremities: Nontender, No edema Skin: Normal color, No rash Neurological: Alert, Oriented x3, Cranial nerves II-XII grossly intact, Normal Strength, Normal Sensation Psychological: Normal affect, Normal Mood Diagnostic/Tx/Re-eval Chest X-Ray - ED: 1 View, Read by ED Physician, Read by Radiologist, - - Poor inspiratory effort, but no evidence of acute infiltrate - Medical Decision Making Patient presented for evaluation secondary to abdominal pain, nausea and vomiting, and shortness of breath in the setting of recent diagnosis of ovarian cancer. IV was established laboratory studies were obtained. Patient was given a dose of morphine and Zofran as well as fluids for treatment of her symptoms. Laboratory work-up of the patient shows interval development of a leukocytosis. Metabolic panel demonstrates mild acidosis with bicarbonate of 20 with no elevation of the patient's anion gap. Chest x-ray by my personal review as well as radiology shows poor inspiration but no evidence of acute pathology. CT abdomen and pelvis demonstrates interval development of severe ascites within the abdomen as well as inflammation of the patient's mesentery likely consistent with metastasis of the patient's tumor. Patient at this time has symptomatic ascites with significant abdominal distention causing a decreased functional capacity of the patient's lungs with hypoxia requiring oxygen supplementation. Given the fact that this is the weekend, and there is no interventional radiology available I did offer to the patient that I could attempt therapeutic paracentesis in the emergency department. This was to avoid to the patient having to wait until Tuesday at this facility for intervention, versus being transferred to [facility]. As noted in the procedure note she did consent to this. Unfortunately as also noted in the procedure note I was unsuccessful and being able to drain the patient's ascites. The patient will be admitted for supplemental oxygen, hydration, pain control, and for therapeutic paracentesis. Procedures Procedure(s): Patient was given informed written consent about abdominal paracentesis for therapeutic reasons. Risks included bleeding, infection, ascites leak, intestinal perforation, procedure failure, and pain. Patient voiced understanding of these risks and signed informed consent. Patient was placed supine. Abdominal ultrasound was utilized to localize the patient's ascites fluid, and to ensure that the epigastric vessels were not overlying the left lower quadrant site where paracentesis was decided to be performed. The site was marked with a skin marker. Patient's skin was prepped with chlorhexidine. Due to the patient having a pendulous abdomen, traction was applied via nursing in a superior and rightward direction. Patient was draped in a sterile fashion, and then was again prepped with chlorhexidine. Patient was anesthetized using 1% lidocaine, a total of 10 cc and was infiltrated using a 25-gauge needle. A small incision was made utilizing a 11 blade scalpel. Thoracentesis kit with a safety needle was utilized, and was affixed to a 60 cc syringe to test for placement within the peritoneum. This was incrementally advanced at 0.5 cm intervals with withdrawal of the plunger. Initially this was advanced to a level of approximately 4 cm. I was able to get a small amount of fluid, and I attempted to advance the catheter over the safety needle. The safety needle was then removed and the catheter was attached to a vacuum bottle. There was no fluid removed at this time. The catheter was removed. A sterile ultrasound was used for a second attempt. A second safety needle was utilized under direct ultrasound guidance. It was guided into a pocket of ascities. There was good return of ascities into the 60cc syringe and about 20cc was removed into the syringe. The catheter was slid into the peritoneum over the needle and then the apparatus was again attached to a new vacuum bottle. There was no return of ascities despite positioning of the patient, abdominal pressure, and manipulation of the catheter. At this time the procedure was aborted. Absorbent dressing was placed over top of the patient's puncture site. Patient tolerated all of this procedure well. ED Disposition - Plan for ED Patient: Disposition: Acute Care Hospital [facility] Diagnosis: Ascites, Ovarian cancer, Hypoxia Referrals: Konstantin,Lenny Chi, MD [Primary Care Provider] -
[2019-01-21] MEDS: morphine 8 MG/ML Syringe IV (02:15)
[2019-01-21] MEDS: 0.9% Normal Saline 1,000 ML 1000 ML IV (02:15)
[2019-01-21] MEDS: proMETHazine 25 MG/ML Syringe 6.25 MG IV (02:16)
[2019-01-21 02:29] LABS: Absolute Lymphocyte Count 1.01 X10^3/uL (0.83-4.51); Absolute Neutrophil Count 11.8 X10^3/uL (2.0-7.7); Basophil# 0.08 X10^3/uL; Basophil% 0.5 % (0-1); Eosinophil# 0.26 X10^3/uL; Eosinophils% 1.8 % (0-5); Hematocrit 45.9 % (37-47); Hemoglobin 14.4 g/dL (12.0-15.0); Lymphocyte # 1.01 X10^3/ul (4.0); Lymphocyte % 6.9 % (19-41); Mean Corp Hgb Conc 31.4 g/dL (32-36); Mean Corpuscular Hgb 26.3 pg (27.0-32.0); Mean Corpuscular Volume 83.8 fL (81-99); Mean Platelet Vol. 9.5 fl (6.2-12.0); Monocyte% 8.9 % (0-10); NRBC Flagged by Analyzer 0 % (0-5); Neutrophil # 11.75 X10^3/uL (2.7-7.7); Neutrophil % 80.7 % (47-70); Platelet Count 514 K/mm3 (150-450); RBC Distribution Width CV 17.9 % (11.6-14.6); RBC Distribution Width SD 52.6 fl (35.1-43.9); Red Blood Count 5.48 M/mm3 (4.2-5.4); White Blood Count 14.6 K/mm3 (4.4-11.0)
[2019-01-21 02:47] LABS: ALB/GLOB Ratio 0.7 RATIO (0.9-2.4); AST(SGOT) 12 U/L (15-37); Alanine Aminotransfer ALT/SGPT 12 U/L (13-56); Albumin, Serum 2.5 g/dL (3.2-5.0); Alkaline Phosphatase 57 U/L (45-117); Anion Gap 14 (5-15); BUN 26 mg/dL (7-18); BUN/Creat Ratio 35.5 RATIO (10-20); Chloride 99 mmol/L (98-107); Creatinine, Serum 0.73 mg/dL (0.55-1.02); EST Glomerular Filtration Rate 84 mL/min (>60); Est Glom Filt Rate - Afr Amer 102 mL/min (>60); Estimated Creatinine Clearance 45.78 ml/min; Globulin 3.7 g/dL (2.2-4.2); Glucose 173 mg/dL (74-106); Potassium 4.6 mmol/L (3.5-5.1); Protein, Total 6.2 g/dL (6.4-8.2); Sodium Level 133 mmol/L (136-145)
[2019-01-21 03:25] LABS: International Normalized Ratio 1.5; Prothrombin Time (Protime)PT. 17.8 SECONDS (11.7-14.9)
[2019-01-21] MEDS: Morphine 4 MG/ML Syringe IV (05:52)
--- NOTE | 2019-01-21 06:11 | HP.PCM_ITS ---
History of Present Illness The patient is a 68 year old F [] Past Medical History Past Medical History (Chronic Problems): Chronic Problems Osteoarthritis of knees, bilateral (Chronic) Depression (Chronic) Degenerative joint disease (DJD) of lumbar spine (Chronic) Spinal stenosis (Chronic) MARIA ANTONIA (obstructive sleep apnea) (Chronic) Generalized osteoarthrosis (Chronic) Adult BMI 30+ (Chronic) Vitamin B12 deficiency (Chronic) Pulmonary embolism (Chronic) Neuropathic pain (Chronic) Allergies aspirin Adverse Reaction (Verified 09/08/18 09:55) Other D/T STOMACH SURGERY NSAIDS (Non-Steroidal Anti-Inflamma Adverse Reaction (Verified 09/08/18 09:55) Other D/T STOMACH SURGERY STEROIDS Adverse Reaction (Uncoded 09/08/18 09:55) Other D/T STOMACH SURGERY Home Medications: Ambulatory Orders Medication Instructions Recorded Cyanocobalamin (Vitamin B-12) 1,000 mcg IM QMONTH 06/18/14 [Vitamin B-12] Gabapentin [Neurontin] 600 mg PO QHS 06/18/14 Cholecalciferol (VIT D3) [Vitamin 1,000 unit PO DAILY 09/08/18 D] Venlafaxine XR [Effexor Xr] 75 mg PO QHS 09/08/18 traMADol [Ultram (G)] 100 mg PO QHS 09/08/18 Surgical History: cataract, gastric bypass, hysterectomy, total hip arthroplasty, total knee arthroplasty, - Psychiatric History: Depression [employer]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 Smoking Status: Never smoker - *Family History Paternal History Items: Hypertension Maternal History Items: Cancer, Diabetes, Heart Disease, Hypertension - Physical Exam Vitals/I&O's: Vital Signs Temp Pulse Resp BP Pulse Ox 98.7 F 109 H 19 H 156/118 H 98 01/21/19 05:00 01/21/19 05:00 01/21/19 05:00 01/21/19 05:00 01/21/19 05:00 Oxygen Flow Rate (L/min) 2 Oxygen Delivery Method Nasal Cannula Weight: 111.3 kg Body Mass Index (BMI) 43.4 Finger Stick Blood Glucose 129 Intake and Output for Last 24 Hours 01/19/19 01/20/19 01/21/19 23:59 23:59 23:59 Intake Total 1000 / 1000 Balance 1000 / 1000 Laboratory Results 01/21/19 02:10: WBC 14.6 H, RBC 5.48 H, Hgb 14.4, Hct 45.9, MCV 83.8, MCH 26.3 L , MCHC 31.4 L, RDW Std Deviation 52.6 H, RDW Coeff of Pawel 17.9 H, Plt Count 514 H, MPV 9.5, Immature Gran % (Auto) 1.200 H, Neut % (Auto) 80.7 H, Lymph % (Auto) 6.9 L, [place] % (Auto) 8.9, Eos % (Auto) 1.8, Baso % (Auto) 0.5, Absolute Neuts (auto) 11.8 H, Absolute Lymphs (auto) 1.01, Nucleated RBC % 0 01/21/19 02:10: Sodium 133 L, Potassium 4.6, Chloride 99, Carbon Dioxide 20.0 L, Anion Gap 14, BUN 26 H, Creatinine 0.73, Estim Creat Clear Calc 45.78, Est GFR (MDRD) Af Amer 102, Est GFR (MDRD) Non-Af 84, BUN/Creatinine Ratio 35.5 H, Glucose 173 H, Calcium 9.0, Total Bilirubin 0.40, AST 12 L, ALT 12 L, Alkaline Phosphatase 57, Total Protein 6.2 L, Albumin 2.5 L, Globulin 3.7, Albumin/Globulin Ratio 0.7 L 01/21/19 02:10: PT 17.8 H, INR 1.5, APTT 41.0 H Assessment/Plan All Active Problems Medical management (Acute)
--- NOTE | 2019-01-21 08:26 | PCM.HP.STD ---
Problem List (1) Morbid (severe) obesity due to excess calories Status: Chronic (2) History of gastric bypass Status: Chronic (3) Ascites Status: Chronic Qualifiers: Ascites type: malignant Qualified Code(s): R18.0 - Malignant ascites (4) Ovarian cancer Status: Chronic (5) Degenerative joint disease (DJD) of lumbar spine Status: Chronic (6) Depression Status: Chronic (7) Generalized osteoarthrosis Status: Chronic (8) Neuropathic pain Status: Chronic (9) MARIA ANTONIA (obstructive sleep apnea) Status: Chronic (10) Spinal stenosis Status: Chronic (11) Vitamin B12 deficiency Status: Chronic (12) Hyponatremia Status: Acute (13) Thrombocytosis Status: Acute (14) Coagulopathy Status: Acute (15) Hyperglycemia Status: Acute (16) Pulmonary embolus Status: Resolved History of Present Illness Date of Admission: 01/21/19 Chief Complaint: SOB The patient is a 68 year old F with a past medical history of osteoarthritis, pulmonary embolus in 2013, obesity, hx of Gastric bypass(lost 200 lbs) and recently diagnosed Ovarian CA who presented to the ED at [facility] on 01/21/19 c/o SOB. She was recently at [facility] for abdominal distention and ascites and was diagnosed with ovarian cancer on a diagnostic paracentesis. she tells me that only 2 small tubes of fluid were removed. She was discharged on 01/16/2019. In the evening of 01/16/2019 she suddenly developed shortness of breath which is getting progressively worse. Also complains of chest pain and this is worse when she takes a deep breath. She has nausea and also has vomiting. She is unable to take any significant amount of food or fluid. She tells me she is gained 30 pounds over the past 3 weeks. She is vomiting basically everything that is put in her mouth. she is extremely constipated and has had only a few small BM's in the past few weeks despite stool softeners , laxatives and enemas at [facility]. She is having reflux of gastric acid into her mouth. she is also c/o sweats but, has not taken her temperature. she denies cough, dysuria. Vital signs at presentation to the emergency department were temperature 96.3, pulse rate 101, blood pressure 157/102, respiratory rate 22 and she was 90% saturated on room air. Oxygen saturation on 2 L/min is 94 to 100% and she feels better and the respiratory rate came down. The white blood cell count is elevated at 14.6 and she has 81% neutrophils and 1.2% immature granulocytes. Platelets are high at 514,000. PT is 17.8. Sodium was low at 133 and the carbon dioxide is 20. Potassium is 4.6. The BUN is 26 with a creatinine of 0.73. Random blood sugar is elevated at 173. LFTs are unremarkable. Albumin is low at 2.5. A noncontrasted CT scan of the abdomen and pelvis today shows a large amount of ascites with irregular stranding of the anterior peritoneal fat which may indicate omental caking/metastasis in the context of ovarian CA. There is a right pelvic mass. There is mild bilateral hypertrophy of the adrenal glands and a right renal cyst. I ordered a D-Dimer which is markedly elevated at 10.45. She has an irregular heart rate and after stat CTA of the chest/abdomen/pelvis she will be transferred to the progressive care unit. Past Medical History Past Medical History (Chronic Problems): Chronic Problems Ascites (Chronic) Ovarian cancer (Chronic) Morbid (severe) obesity due to excess calories (Chronic) History of gastric bypass (Chronic) Depression (Chronic) Degenerative joint disease (DJD) of lumbar spine (Chronic) Spinal stenosis (Chronic) MARIA ANTONIA (obstructive sleep apnea) (Chronic) Generalized osteoarthrosis (Chronic) Vitamin B12 deficiency (Chronic) Neuropathic pain (Chronic) Allergies aspirin Adverse Reaction (Verified 09/08/18 09:55) Other D/T STOMACH SURGERY NSAIDS (Non-Steroidal Anti-Inflamma Adverse Reaction (Verified 09/08/18 09:55) Other D/T STOMACH SURGERY STEROIDS Adverse Reaction (Uncoded 09/08/18 09:55) Other D/T STOMACH SURGERY Home Medications: Ambulatory Orders Medication Instructions Recorded Cyanocobalamin (Vitamin B-12) 1,000 mcg IM QMONTH 06/18/14 [Vitamin B-12] Gabapentin [Neurontin] 600 mg PO QHS 06/18/14 Cholecalciferol (VIT D3) [Vitamin 1,000 unit PO DAILY 09/08/18 D] Venlafaxine XR [Effexor Xr] 75 mg PO QHS 09/08/18 traMADol [Ultram (G)] 100 mg PO QHS 09/08/18 Acetaminophen [Tylenol Extra 1,000 mg PO Q6H PRN PRN 01/21/19 Strength] Oxycodone [Oxyir] 5 mg PO Q4H PRN PRN 01/21/19 Surgical History: cataract, gastric bypass, hysterectomy, total hip arthroplasty, total knee arthroplasty, - Psychiatric History: Depression 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 She has maternal aunt with cervical cancer., Diabetes, Heart Disease, Hypertension Review of Systems Constitutional: Reports: Night Sweats. Denies: Chills, Fever, Weight Change Eyes: Denies: Blurred vision HEENT: Denies: Difficulty Swallowing, Head Aches, Sinus Congestion, Sinus Drainage Cardiovascular: Reports: Chest Pain - With deep breaths, - - Is unable to lie flat due to shortness of breath. Denies: Light Headedness, Palpitations, Syncope Respiratory: Reports: Shortness of Breath, Shortness of breath at rest, Shortness of breath upon exertion. Denies: Cough, Hemoptysis, Sputum production, Wheezing Gastrointestinal: Reports: Abdominal Pain, Nausea, Vomiting Genitourinary: Denies: Dysuria Musculoskeletal: Denies: Joint Pain, Joint Tenderness Skin: Reports: - - She has 2 puncture sites on the abdomen from paracentesis at [facility] and from the Ed today with attempted paracentesis. Denies: Jaundice, Rash, Wounds Neurological: Denies: Numbness, Tingling, Focal weakness Psychiatric: Denies: Anxiety, Depression, Homicidal Ideations, Suicidal Ideations Endocrine: Reports: - - She has gained 30 pounds in the past 3 weeks. Hematologic/ Lymphatic: Denies: Easy Bruising, Easy Bleeding VTE Information - Inpt Only VTE Present on Admission: No VTE Mechan Device Prophylaxis: Knee High CIARAN Hose VTE Pharm Prophylaxis ordered?: Yes Patient Problems: Active and Suspected Problems Hyponatremia (Acute) Thrombocytosis (Acute) Coagulopathy (Acute) Hyperglycemia (Acute) - Physical Exam Vitals/I&O's: Vital Signs Temp Pulse Resp BP Pulse Ox 97.7 F L 114 H 22 H 159/79 H 99 01/21/19 07:50 01/21/19 07:50 01/21/19 07:50 01/21/19 07:50 01/21/19 07:50 Oxygen Flow Rate (L/min) 2 Oxygen Delivery Method Nasal Cannula Weight: 239 lb 13.807 oz Body Mass Index (BMI) 42.5 Finger Stick Blood Glucose 129 Intake and Output for Last 24 Hours 01/19/19 01/20/19 01/21/19 23:59 23:59 23:59 Intake Total 1000 / 1000 Output Total 100 / 100 Balance 900 / 900 General: Alert, Oriented x3, Cooperative, Well developed, Well nourished, - - looks uncomfortable HEENT: Atraumatic, PERRLA, EOMI, Normocephalic Oral: Dry Mucosa Neck: Supple, No JVD, Negative Carotid Bruits, No Nodes, Trachea Midline, - - Carotids have brisk upstroke and good pulse volume bilaterally Lungs: Clear to auscultation, Normal air movement, Diminished - in the bases Cardiovascular: Normal S1, Normal S2, No murmurs, Irregular Rate, No rub noted, No Gallop Abdomen: Bowel Sounds Present, Soft, Distended, Tender - mild tenderness with palpation diffusely but, no guarding Extremities: No clubbing, No edema, No Calf Tenderness, Cyanosis - of the toes BL, Diminished Peripheral Pulses, - - The pedal pulses are not palpable and the feet are very cold with cyanotic toes. I can doppler the PT pulses and the R DP easily but, it was very difficult to find the L DP and it was very weak. Skin: No rashes, No breakdown Musculoskeletal: No Tenderness to Palpation of Joints or Extremities Neurological: Cranial nerves II-XII grossly intact, Neuro grossly intact Psych/Mental Status: Normal Affect, Appropriate, - - frustrated because she was in the hospital recently and she feels worse not better and she is trying to deal with the recent diagnosis of Ovarian CA. Laboratory Results 01/21/19 02:10: WBC 14.6 H, RBC 5.48 H, Hgb 14.4, Hct 45.9, MCV 83.8, MCH 26.3 L, MCHC 31.4 L, RDW Std Deviation 52.6 H, RDW Coeff of Pawel 17.9 H, Plt Count 514 H, MPV 9.5, Immature Gran % (Auto) 1.200 H, Neut % (Auto) 80.7 H, Lymph % (Auto) 6.9 L, [place] % (Auto) 8.9, Eos % (Auto) 1.8, Baso % (Auto) 0.5, Absolute Neuts (auto) 11.8 H, Absolute Lymphs (auto) 1.01, Nucleated RBC % 0 01/21/19 02:10: Sodium 133 L, Potassium 4.6, Chloride 99, Carbon Dioxide 20.0 L, Anion Gap 14, BUN 26 H, Creatinine 0.73, Estim Creat Clear Calc 45.78, Est GFR (MDRD) Af Amer 102, Est GFR (MDRD) Non-Af 84, BUN/Creatinine Ratio 35.5 H, Glucose 173 H, Calcium 9.0, Total Bilirubin 0.40, AST 12 L, ALT 12 L, Alkaline Phosphatase 57, Total Protein 6.2 L, Albumin 2.5 L, Globulin 3.7, Albumin/Globulin Ratio 0.7 L 01/21/19 02:10: PT 17.8 H, INR 1.5, APTT 41.0 H 01/21/19 02:10: D-Dimer Quant (PE/DVT) Pending Current Medications Cyanocobalamin (Vitamin B12) 1,000 mcg IM QMONTH ONE Stop: 02/11/19 10:01 Gabapentin (Neurontin) 600 mg PO QHS [facility] Sodium Chloride () 250 mls @ 15 mls/hr IV .[id number] PRN PRN Reason: Saline Flush Sodium Chloride () 10 - 40 ml IV UD PRN PRN Reason: SALINE FLUSH Tramadol HCl (Ultram) 100 mg PO QHS [facility] Venlafaxine HCl (Effexor Xr) 75 mg PO QHS [facility] Assessment/Plan All Active Problems Hyponatremia (Acute) Thrombocytosis (Acute) Coagulopathy (Acute) Hyperglycemia (Acute) Pulmonary embolus (Resolved) Pulmonary embolism (Resolved) Impressions 1. SOB- sudden onset. Recently diagnosed with Ovarian CA with ascites. + hx of VTE in the past. Elevated D-Dimer but, CTA of the chest negative for PE. No calf pain. SOB likely related to severe ascites. Therapeutic paracentesis in the AM. PT, PTT in the AM. 2. recently diagnosed ovarian CA - at [facility]. Wants to see a oncologist in [place]. Will consult Dr. Kessler/Jatin to see her tomorrow. 3. severe ascites - malignant. 4. hx of gastric bypass - having early satiety and nausea 5. constipation 6. MARIA ANTONIA 7. Depression 8. OA 9. spinal stenosis 10. Hyponatremia 11. hx of PE in the past 12. coagulopathy - mild Therapeutic US with paracentesis in the AM Recheck the lab in the AM Consult [place] [facility]-patient would like a second opinion and she would like to be treated in [place] rather than in [place] at the [facility] Start Lasix 40 mg IV twice daily and Aldactone 25 mg twice daily Supplemental oxygen Lovenox 40 mg subcu daily for DVT prophylaxis, hold in the a.m. for paracentesis Dulcolax suppository now for constipation Start lactulose twice daily for chronic constipation Protonix 40 mg p.o. daily for ulcer prophylaxis - may have an ulceration now due to recent stress.....may need endoscopy if the Nausea does not resolve Code Visit Inpatient E&M: 32692 Init Hosp L3
[2019-01-21 08:35] LABS: D-Dimer Quantitative (DVT/PE) 10.45 FEU/ug/m (0.27-0.49)
--- NOTE | 2019-01-21 08:46 | NURSING ---
Respiratory aware of order for ABG's.
[2019-01-21 09:06] LABS: Allen Test POS; Base Excess -2 mmol/L (-2 to +2); Bicarbonate 22.9 mmol/L (22-26); Blood Gas Specimen Type ART; O2 Delivery Device Nasal Can; PO2 106 mmHG (75-100); SITE R Radial; SO2 98 % (95-99); Time Given 852; Total Carbon Dioxide 24 mmol/L; pCO2 38.7 mmHg (35-45); pH 7.38 (7.35-7.45)
--- NOTE | 2019-01-21 09:11 | CT_ITS ---
STUDY: CTA OF THE ABDOMINAL AORTA AND BILATERAL LOWER EXTREMITIES REASON FOR EXAM: Female, 68 years old. Elevated d-dimer, diminished pulses in the lower extremities, history of ovarian cancer RADIATION DOSAGE (If Supplied By Facility): CTDIvol = ( 11.38 ) mGy, DLP = ( 3098.54 ) mGycm TECHNIQUE: Axial CT angiography multi-detector data acquisition was obtained from the to the following intravenous administration of IV Isovue 370 125. Axial images and MIP images were reconstructed from the axial data set. Post-processing of the angiographic images was performed, with multiplanar reformation and 3D reconstruction. Individualized dose optimization techniques were used for this CT. TECHNICAL QUALITY: Good COMPARISON: None. Descriptors of Narrowing: None (0%) Mild (< 50%) Moderate (50-70%) Severe (70-90%) Subtotal/Total Occlusion (90-100%) Non-Evaluable (technically non-diagnostic FINDINGS: Abdominal aorta: Mild atherosclerotic calcifications and tortuosity. No significant stenosis. Celiac and superior mesenteric arteries: Calcifications at the origin of the celiac axis with moderate stenosis. The superior mesenteric artery is unremarkable. Inferior mesenteric artery: No demonstrated narrowing. Right renal artery(arteries): Mild atherosclerotic calcifications at its origin. Left renal artery(arteries): Mild atherosclerotic calcifications at its origin. Right common iliac artery: No demonstrated narrowing. Right external iliac artery: No demonstrated narrowing. Right internal iliac artery: No demonstrated narrowing. Left common iliac artery: No demonstrated narrowing. Left external iliac artery: No demonstrated narrowing. Left internal iliac artery: No demonstrated narrowing. RIGHT LOWER EXTREMITY Right common femoral artery: No demonstrated narrowing. Right profundus femoris: No demonstrated narrowing. Right superficial femoral: No demonstrated narrowing. Right popliteal artery: Difficult to evaluate due to knee prosthesis. Right tibioperoneal trunk: No demonstrated narrowing. Right anterior tibial artery: No demonstrated narrowing. Right posterior tibial artery: No demonstrated narrowing. Right peroneal artery: No demonstrated narrowing. LEFT LOWER EXTREMITY Left common femoral artery: No demonstrated narrowing. Left profundus femoris: No demonstrated narrowing. Left superficial femoral: No demonstrated narrowing. Left popliteal artery: Difficult to evaluate due to new prosthesis. Left tibioperoneal trunk: No demonstrated narrowing. Left anterior tibial artery: No demonstrated narrowing. Left posterior tibial artery: No demonstrated narrowing. Left peroneal artery: No demonstrated narrowing. Incidentally noted is large ascites. The gallbladder is distended. There may be small gallstones. There is no evidence of bowel obstruction. CT/CTA Abd w/Runoff W/WO Contrast IMPRESSION: No significant stenosis in both lower extremities with 3 vessels runoff to the lower legs. Atherosclerotic changes at the origin of the celiac axis. Large amount of ascites. Electronically Signed: Daren Berger MD at 12:02 EST Tel , Service support ,
--- NOTE | 2019-01-21 09:11 | CT_ITS ---
STUDY: CTA CHEST REASON FOR EXAM: Female, 68 years old. Elevated d-dimer, diminished pulses RADIATION DOSAGE (If Supplied By Facility): CTDIvol = ( 11.38 ) mGy, DLP = ( 3098.54 ) mGycm TECHNIQUE: The examination was performed with the intravenous administration of IV 100mL Isovue-370 125. Post-processing of the angiographic images was performed, with multiplanar reformation and 3D reconstruction. Individualized dose optimization techniques were used for this CT. COMPARISON: None. FINDINGS: There is limited enhancement of the main pulmonary artery and right and left pulmonary arteries. There is limited enhancement of the bilateral peripheral pulmonary arteries. There is no demonstrated pulmonary embolism. There is atherosclerotic calcification of the aortic arch with tortuosity. There is no demonstrated aortic dissection. Normal heart and pericardium. There are calcifications of the coronary arteries. Normal mediastinum. Normal hilar regions. There is peribronchial thickening. The lungs are well expanded. Normal pulmonary parenchyma. Small left pleural effusion. Normal chest wall structures. There are degenerative changes of thoracic spine. Limited cuts through the upper abdomen show postsurgical changes at the GE junction with retrocardiac hiatal hernia. There are cirrhotic changes within the liver and diffuse ascites CT/CTA Chest W/WO Contrast IMPRESSION: No demonstrated PE, or thoracic aortic aneurysm or dissection. However, the contrast bolus within the pulmonary arteries is not optimal and a subtle filling defect could be present overlooked, particularly in the distal vessels Chronic interstitial changes in both lung st[place], no superimposed infiltrate, there is a small left pleural effusion Degenerative bony changes Cirrhotic liver with diffuse ascites Post surgical changes at the GE junction with retrocardiac hiatal hernia Electronically Signed: Rainer Mcguire MD at 11:39 EST , Service support ,
[2019-01-21 09:12] LABS: Hemoglobin A1c 5.7 % (4.2-6.3)
--- NOTE | 2019-01-21 09:12 | RAD_ITS ---
STUDY: X-RAY - ABDOMEN/PELVIS REASON FOR EXAM: Female, 68 years old. Lower abdominal pain, constipation TECHNIQUE: 3 AP views COMPARISON: 01/08/2019 FINDINGS: Normal visualized lung bases. There is an unremarkable bowel gas pattern. There is no demonstrated free abdominal air. The visualized liver, spleen and kidneys are grossly normal in size and morphology. Normal soft tissue structures. There are diffuse degenerative changes of the visualized lumbar spine, and pelvis. Replaced right hip joint free of complication RAD/Abdomen Single View IMPRESSION: No acute findings, no interval change Electronically Signed: Rainer Mcguire MD at 10:46 EST , Service support ,
--- NOTE | 2019-01-21 09:20 | EKG12_ITS ---
Test Reason : TACHYCARDIA Blood Pressure : / mmHG Vent. Rate : 115 BPM Atrial Rate : 115 BPM P-R Int : 136 ms QRS Dur : 084 ms QT Int : 302 ms P-R-T Axes : -09 117 -49 degrees QTc Int : 417 ms Sinus tachycardia with Premature atrial complexes Left posterior fascicular block Cannot rule out Anterior infarct , age undetermined ST & T wave abnormality, consider inferior ischemia Abnormal ECG When compared with ECG of 21-JAN-2019 10:05, MANUAL COMPARISON REQUIRED, DATA IS UNCONFIRMED Confirmed by MERCEDES ORTIZ ([id number]), industrial editor JEAN CARLOS CANALES ([id number]) on 01/26/2019 11:33:38 AM Referred By: JERZY Confirmed By:MERCEDES ORTIZ
[2019-01-21] MEDS: proMETHazine 25 MG/ML Syringe 12.5 MG IV ×3 (09:28→18:16)
[2019-01-21] MEDS: 0.9% Saline Lock 10 ML Syringe IV ×2 (09:29→20:13)
[2019-01-21 10:12] LABS: Thyroid Stim Hormone (TSH) 4.22 uIU/mL (0.358-3.74)
[2019-01-21] MEDS: Furosemide 40 MG/4 ML Vial IV (14:14)
[2019-01-21 15:11] LABS: Bacteria 0 SEEN /hpf (None Seen); Mucous, Urine 0 SEEN /hpf (<or=2+); Red Blood Cells-Urine 0 SEEN /hpf (0-5); Squamous Epithelial Cells - UA 0 SEEN /hpf (5-10)
[2019-01-21 15:14] LABS: Color, Urine Yellow (Yellow); Glucose, Dipstick Normal (Normal); Ketone-Dipstick 5 mg/dl (Negative); Leukocyte Esterase-Dipstick 25 /ul (Negative); Nitrite-Dipstick Negative (Negative); Occult Blood-Urine Negative /ul (Negative); Protein-Dipstick Negative (Negative); Urine Bilirubin Dipstick Negative (Negative); Urine Clarity Sl. Cloudy (Clear); Urine Urobilinogen Normal (Normal)
[2019-01-21 15:23] LABS: White Blood Cells 0-5 SEEN /hpf (0-5)
[2019-01-21 15:28] LABS: Urine Sodium 83 mmol/L (Not Establ.)
--- NOTE | 2019-01-21 16:28 | US_ITS ---
PROCEDURE: Ultrasound guided paracentesis. DATE OF EXAMINATION: January 22, 2019. INDICATION: Female, 68 years old. Ascites. PHYSICIAN: Doug Isaacs M.D. TECHNIQUE: The risks, benefits, and alternatives to the procedure were explained to the patient. The specific risks of bleeding, infection, and damage to bowel were detailed and accepted. Witnessed informed consent was obtained. The abdomen was ultrasonographically surveyed. An appropriate pocket of fluid was identified at the left upper quadrant. The skin were cleaned and prepped in the usual sterile fashion. Using ultrasound guidance, the peritoneal cavity was accessed with a 5-Nepalese paracentesis needle/catheter system. The trocar was removed. A total of 7400 ml of elliott-colored fluid were removed from the peritoneal cavity. The catheter was removed and a sterile dressing was applied. The procedure was well tolerated. US/Paracentesis with US IMPRESSION: Ultrasound guided paracentesis. Electronically Signed: Doug Isaacs, at 14:26 EST , Service support ,
[2019-01-21] MEDS: fentaNYL 25 MCG Patch TRANSDERM. (17:18)
[2019-01-21] MEDS: Bisacodyl 10 MG Suppository RECTAL (17:18)
[2019-01-21] MEDS: fentaNYL 100 MCG/2 ML Ampul 25 MCG IV (20:13)
[2019-01-21] MEDS: Enoxaparin 40 MG/0.4 ML Syringe SC (21:34)
[2019-01-21] MEDS: Lactulose 20 GM/30 ML UDC PO (21:35)
[2019-01-21] MEDS: Pantoprazole Sodium 40 MG Tablet PO (21:35)
[2019-01-21] MEDS: Venlafaxine XR 75 MG Capsule PO (21:35)
[2019-01-21] MEDS: Spironolactone 25 MG Tablet PO (21:36)
[2019-01-22] VITALS (12 sets, daily range): BP systolic 129–151; BP diastolic 61–105; PULSE 89–114; RESP 12–20; TEMP 36.2–36.8; O2SAT 96–100
--- NOTE | 2019-01-22 00:15 | EKG12_ITS ---
Test Reason : Blood Pressure : / mmHG Vent. Rate : 114 BPM Atrial Rate : 114 BPM P-R Int : 144 ms QRS Dur : 086 ms QT Int : 314 ms P-R-T Axes : 006 088 -44 degrees QTc Int : 432 ms Sinus tachycardia with occasional Premature ventricular complexes T wave abnormality, consider inferior ischemia Abnormal ECG When compared with ECG of 20-NOV-2015 19:58, Premature ventricular complexes are now Present Vent. rate has increased BY 43 BPM T wave inversion now evident in Inferior leads Nonspecific T wave abnormality now evident in Anterolateral leads Confirmed by CHRISTIN DRUMMOND, PAU ([id number]), makeup editor VANESSA TONEY ([id number]) on 01/30/2019 1:20:46 PM Referred By: CAYLA Confirmed By:MARIAM WALLER MD
[2019-01-22] MEDS: 0.9% Saline Lock 10 ML Syringe IV ×11 (01:52→20:54)
[2019-01-22] MEDS: fentaNYL 100 MCG/2 ML Ampul 25 MCG IV ×5 (01:52→20:53)
[2019-01-22] MEDS: proMETHazine 25 MG/ML Syringe 12.5 MG IV ×5 (02:10→18:47)
[2019-01-22] MEDS: proCHLORPERazine 10 MG/2 ML Vial 5 MG IV (05:40)
[2019-01-22 06:06] LABS: International Normalized Ratio 1.6; Prothrombin Time (Protime)PT. 18.5 SECONDS (11.7-14.9)
[2019-01-22 06:07] LABS: Partial Thromboplast Time 44.9 Seconds (24.1-36.2)
[2019-01-22 06:11] LABS: Anion Gap 14 (5-15); BUN 30 mg/dL (7-18); BUN/Creat Ratio 32.3 RATIO (10-20); Calcium,Total 8.9 mg/dL (8.5-10.1); Chloride 96 mmol/L (98-107); Creatinine, Serum 0.93 mg/dL (0.55-1.02); EST Glomerular Filtration Rate 64 mL/min (>60); Est Glom Filt Rate - Afr Amer 78 mL/min (>60); Estimated Creatinine Clearance 49.22 ml/min; Glucose 190 mg/dL (74-106); Magnesium 2.2 mg/dL (1.6-2.6); Phosphorus 3.8 mg/dL (2.5-4.9); Potassium 4.6 mmol/L (3.5-5.1); Sodium Level 133 mmol/L (136-145)
--- NOTE | 2019-01-22 08:23 | PN_ITS ---
Subjective: Chief complaint: Follow-up after admission for massive ascites and recently diagnosed ovarian cancer as well as shortness of breath. Patient seen and examined. No acute events overnight. Today, she said that her breathing is getting better especially but she has been not ambulating much. She still having abdominal distention, no abdominal pain. Denied nausea or vomiting. Her vital signs are stable. - Physical Exam Vitals/I&O's: Vital Signs Temp Pulse Resp BP Pulse Ox 97.8 F 96 14 141/89 H 97 01/22/19 07:50 01/22/19 07:50 01/22/19 07:50 01/22/19 07:50 01/22/19 07:50 Oxygen Flow Rate (L/min) 1 Oxygen Delivery Method Nasal Cannula Weight: 239 lb 13.807 oz Body Mass Index (BMI) 42.5 Finger Stick Blood Glucose 129 Intake and Output for Last 24 Hours 01/20/19 01/21/19 01/22/19 23:59 23:59 23:59 Intake Total 1100 / 1100 0 / 0 Output Total 200 / 200 325 / 325 Balance 900 / 900 -325 / -325 General: Alert, Oriented x3, Cooperative, No apparent distress HEENT: Atraumatic, PERRLA, EOMI, Normocephalic Oral: Moist Mucosa, No Gingival or Mucosal Lesions/ Ulcerations Neck: Supple, No JVD, Negative Carotid Bruits, Trachea Midline, Thyroid Normal Size and Texture Lungs: Clear to auscultation, No rhonchi, No wheeze, No rales, Diminished Cardiovascular: Regular rate, Regular Rhythm, Normal S1, Normal S2, PMI Normal Abdomen: Bowel Sounds Present, Soft, Non Tender, Distended, Obese, - - Ascites. Extremities: No clubbing, No cyanosis, No edema Skin: No rashes, No breakdown Lymphatic: No Cervical, Supraclavicular, or Inguinal Adenopathy Neurological: Cranial nerves II-XII grossly intact, Motor Exam 5/5 strength throughout Psych/Mental Status: Normal Affect, Appropriate, Alert and oriented to time, p lace, person, mood and affect Laboratory Results 01/21/19 02:10: D-Dimer Quant (PE/DVT) 10.45 H* 01/21/19 02:10: Hemoglobin A1c 5.7 01/21/19 02:10: TSH 4.22 H 01/21/19 09:01: Specimen Type ART, Sample Site R Radial, pH 7.38, Bicarbonate Actual 22.9, POC Total CO2 24, Base Excess -2, O2 Saturation 98, ABG pCO2 38.7, ABG pO2 106 H, Paramjit Test POS, O2 Delivery Device Nasal Can, Liter Flow 2.0, Blood Gas Notified Whom RD DRUMMOND, Blood Gas Notified Time 852 01/21/19 15:02: Urine Creatinine 40.70 01/21/19 15:02: Urine Color Yellow, Urine Clarity Sl. Cloudy, Urine pH 5.0, Ur Specific [place] 1.010, Urine Protein Negative, Urine Glucose (UA) Normal, Urine Ketones 5 H, Urine Occult Blood Negative, Urine Nitrite Negative, Urine Bilirubin Negative, Urine Urobilinogen Normal, Ur Leukocyte Esterase 25 H, Urine RBC 0 SEEN, Urine WBC 0-5 SEEN, Ur Squamous Epith Cells 0 SEEN, Urine Bacteria 0 SEEN, Urine Mucus 0 SEEN 01/21/19 15:02: Ur Random Sodium 83 01/22/19 05:25: PT 18.5 H, INR 1.6, APTT 44.9 H 01/22/19 05:25: Sodium 133 L, Potassium 4.6, Chloride 96 L, Carbon Dioxide 23.0, Anion Gap 14, BUN 30 H, Creatinine 0.93, Estim Creat Clear Calc 49.22, Est GFR (MDRD) Af Amer 78, Est GFR (MDRD) Non-Af 64, BUN/Creatinine Ratio 32.3 H, Glucose 190 H, Calcium 8.9, Phosphorus 3.8, Magnesium 2.2 Clinical Impression(s) from Imaging Studies Abdomen/Pelvis CT 01/21/19 01:38 IMPRESSION: Large amount of ascites, overall progressed in the interval. Questionable irregular stranding of the anterior peritoneal fat which may indicate omental caking/metastases in the context of right pelvic/ovarian mass. Right renal cyst as described above. Remainder of abdominal viscera are unremarkable. Electronically Signed: Alycia Hull MD at 3:20 EST , Service support , Chest X-Ray 01/21/19 01:38 IMPRESSION: Right perihilar atelectasis, otherwise no acute process identified. Electronically Signed: Alycia Hull MD at 2:38 EST , Service support , Abdomen/Pelvis CTA 01/21/19 09:11 IMPRESSION: No significant stenosis in both lower extremities with 3 vessels runoff to the lower legs. Atherosclerotic changes at the origin of the celiac axis. Large amount of ascites. Electronically Signed: Daren Berger MD at 12:02 EST Tel , Service support , Chest CTA 01/21/19 09:11 IMPRESSION: No demonstrated PE, or thoracic aortic aneurysm or dissection. However, the contrast bolus within the pulmonary arteries is not optimal and a subtle filling defect could be present overlooked, particularly in the distal vessels Chronic interstitial changes in both lung strickalnd, no superimposed infiltrate, there is a small left pleural effusion Degenerative bony changes Cirrhotic liver with diffuse ascites Post surgical changes at the GE junction with retrocardiac hiatal hernia Electronically Signed: Rainer Mcguire MD at 11:39 EST , Service support , KUB X-Ray 01/21/19 09:12 IMPRESSION: No acute findings, no interval change Electronically Signed: Rainer Mcguire MD at 10:46 EST , Service support , Current Medications Cyanocobalamin (Vitamin B12) 1,000 mcg IM QMONTH ONE Stop: 02/11/19 10:01 Fentanyl (Duragesic Patch) 25 mcg TRANSDERM. Q3D@1000 ZHOU Last Admin: 01/21/19 17:18 Dose: 25 mcg Documented by: Fentanyl Citrate (Sublimaze (100mcg Ampule)) 25 mcg IV Q3H PRN PRN Reason: pain >4 Last Admin: 01/22/19 01:52 Dose: 25 mcg Documented by: Furosemide (Lasix) 40 mg IV BID@1000,1800 ZHOU Gabapentin (Neurontin) 600 mg PO QHS ZHOU Last Admin: 01/21/19 21:41 Dose: Not Given Documented by: Sodium Chloride () 250 mls @ 15 mls/hr IV .[id number] PRN PRN Reason: Saline Flush Lactulose (Chronulac, Cephulac) 20 gm PO BID [facility] Last Admin: 01/21/19 21:35 Dose: 20 gm Documented by: Pantoprazole Sodium (Protonix) 40 mg PO DAILY [facility] Promethazine HCl (Phenergan) 12.5 mg IV Q4H PRN PRN PRN Reason: NAUSEA/VOMITING Last Admin: 01/22/19 06:14 Dose: 12.5 mg Documented by: Simethicone (Mylicon) 80 mg PO PCHS [facility] Last Admin: 01/21/19 22:52 Dose: Not Given Documented by: Sodium Chloride () 10 - 40 ml IV UD PRN PRN Reason: SALINE FLUSH Last Admin: 01/22/19 06:14 Dose: 10 ml Documented by: Spironolactone (Aldactone) 25 mg PO BID [facility] Last Admin: 01/21/19 21:36 Dose: 25 mg Documented by: Tramadol HCl (Ultram) 50 mg PO Q6H PRN PRN PRN Reason: pain 2-4 Venlafaxine HCl (Effexor Xr) 75 mg PO QHS [facility] Last Admin: 01/21/19 21:35 Dose: 75 mg Documented by: Medical Necessity - Tobacco Use Smoking Status: Never smoker Assessment/Plan This is a 68 years old female patient presented to the emergency room because of abdominal pain shortness of breath and she was found to have massive ascites in context of recent diagnosis of ovarian cancer and she was admitted for treatment. #1 massive ascites: CT scan abdomen and pelvis without contrast revealed large amount of ascites, no other acute findings. CTA abdomen reviewed, no evidence of significant vascular disease. On CTA chest, it was reported as liver cirrhosis with diffuse ascites although on the CT scan abdomen, liver was reported as normal. This ascites is likely malignant secondary to ovarian cancer. Paracentesis attempted in the ED yesterday but failed. Still symptomatic with abdominal distention and pain. Her vital signs are stable. She is on IV Lasix and Aldactone. Plan for therapeutic paracentesis today. TSH was slightly high but free T4 and total T4 was normal. Plan: Repeat CBC and BMP tomorrow morning. 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 Sodium is 133, remained stable. #3 coagulopathy: Unclear etiology, could be related to cancer versus liver cirrhosis. INR today is 1.6, no evidence of active bleeding. Hemoglobin and hematocrit are stable. #4 elevated d-dimer: CTA chest was negative for PE or dissection. Unclear etiology. #5 recent diagnosis of ovarian cancer: This was diagnosed around 2 weeks ago, never been treated for it. Oncology consulted. #6 depression: Continue Effexor. #7 DVT prophylaxis: SCDs. This note was generated with [employer] dictation software. It may contain incorrect words, spelling, and punctuation that were not noted in checking the note before signing. Code Visit Inpatient E&M: 08830 Subs Hosp L2
[2019-01-22] MEDS: Spironolactone 25 MG Tablet PO ×2 (08:36→20:58)
[2019-01-22] MEDS: Furosemide 40 MG/4 ML Vial IV ×2 (08:38→17:08)
[2019-01-22 08:50] LABS: Free T3 1.7 pg/mL (2.18-3.98); T4 Free Direct 1.25 ng/dL (0.76-1.46); T4 Total, Thyroxin 8.4 ug/dL (4.8-13.9)
--- NOTE | 2019-01-22 11:07 | CASEMGMT ---
Assessment- SW completed assessment with patient. Her was also present Living situation- Patient lives with her in a 1 story home with 3 entry steps. PCP: Dr Pryor Specialists: Dr Padilla- Pipe Straightener with [facility] who specializes in chemo for women with gynecologic cancers. She is planning on switching to [facility] Oncology Pharmacy: [facility] DME: cane, walker, and bedside commode ADL's/IADL's: Patient is normally independent in all activities of daily living. Past SNF/rehab: None Past HH: None LW: No POA: No SW met with patient and her . SW introduced self and role at [facility]. Patient was lying in bed noticeably short of breath. She agreed to proceed with assessment questions. SW kept it short. At this time patient is not sure she will need anything. CARLITA and RN CM to follow. Celsa GUTIERREZ QUALITY ASSURANCE SUPERVISOR CHASSIS
--- NOTE | 2019-01-22 13:06 | CON.PCM_ITS ---
- Problem List (1) Ovarian cancer Status: Chronic (2) Ascites Status: Chronic Qualifiers: Ascites type: malignant Qualified Code(s): R18.0 - Malignant ascites Consult Referring Physician: Hospitalist Consult Results: Advanced ovarian cancer Subjective Date of Service:: 01/22/19 Chief Complaint: Abdominal distention History of Present Illness: 68-year-old female with medical history notable for morbid obesity despite prior gastric bypass, history of pulmonary embolism postoperative but no prior history of malignancies. He is status post hysterectomy several decades ago for benign disease with excessive bleeding. She presents with a 1 to 2 months history of increasing abdominal distention, constipation, nausea and vomiting, and anorexia but yet gaining weight. She was seen at [facility] ER January 12, [address] scan of the abdomen and pelvis revealed ascites and an adnexal mass among other abnormalities concerning for bowel involvement in the malignant process. She was transferred to [facility] where she underwent a biopsy and was seen by [facility] KEE[facility] oncology,Dr Smith, who informed the patient that she has an advanced ovarian cancer, that surgery and chemotherapy make part of the treatment though a definitive treatment plan was not made yet. She was discharged with a follow-up in 2 weeks. However, she experienced increasing abdominal pain and dyspnea and came back to [facility] ER and got admitted to the medical service. Past Medical History: Chronic Problems Ascites (Chronic) Ovarian cancer (Chronic) Morbid (severe) obesity due to excess calories (Chronic) History of gastric bypass (Chronic) Depression (Chronic) Degenerative joint disease (DJD) of lumbar spine (Chronic) Spinal stenosis (Chronic) MARIA ANTONIA (obstructive sleep apnea) (Chronic) Generalized osteoarthrosis (Chronic) Vitamin B12 deficiency (Chronic) Neuropathic pain (Chronic) Past Medical/Surgical History: Past Medical History - Most Recent Inpatient Visit Past Medical History Start: 01/21/19 07:54 Text: Status: Complete Freq: ONCE Protocol: Document 01/21/19 07:54 TC (Rec: 01/21/19 08:14 TC [id number]) BMI Required to complete PMH What is Patient's BMI 42.5 Neurologic Medical History Hx Stroke/TIA No Hx Dementia/Alzheimer's No Hx Parkinson's Disease No Hx Seizures No Hx Multiple Sclerosis No Hx Migraines No Cardiac Medical History VTE Present on Admission No Hx of Deep Vein Thrombosis/VTE/PE Yes: DVT in genet legs, PE 2014 Hx Hypertension Yes: RESOLVED AFTER GASTRIC SX X 5 YEARS Hx Chest Pain/Angina Yes Hx Heart Attack Yes: 20YEARS AGO Hx Cardiac Surgery/Stents/Etc. 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 SPECIALIST 2 YRS MOODISPAW Hx Anticoagulant Therapy Yes: was on in the past Query Text:(Coumadin, Aspirin, Plavix, Xarelto, etc.) Hx Pain in Legs when Walking/Leg Cramps Yes Respiratory Medical History Hx COPD No Hx Emphysema No Hx Smoking No Smoking Status Never smoker Hx Tobacco Use in last 12 months No Hx Sleep Apnea Yes: RESOLVED CPAP No: since lost weight BIPAP No STOP Results Positive GI Medical History Hx Ulcer Yes: IN PAST Hx Hepatitis No Hx Cirrhosis No Hx GI Bleed No Hx Unplanned Weight Loss No Genitourinary Medical History Indwelling Catheter in Place on Arrival/ No Admission Hx Renal Disease No Hx Dialysis No Musculoskeletal History Hx Arthritis Yes: knee, ankle, feet, shoulder, lower back. Hx Rheumatoid Arthritis No Endocrine Medical History Hx Diabetes Yes: previous Hx Thyroid Disease No Hematologic Medical History Hx of Blood Transfusion No Hx of Transfusion in last 3 Months No Ever experience any problems with No transfusion(s)? Hx of Preganancy in last 3 Months No Nurse Filling Out Transfusion & TCLEVIDEN Questions: Date: 01/21/19 Time: 08:13 Psycho/Social Medical History Hx Depression Yes Hx Anxiety Yes Hx Behavior Disorder No Hx Alcohol Use No Hx Substance Use No Other Medical History Hx Blood Disorders No Hx Anemia Yes Hx Cancer Yes: ovarian Cancer Hx Drug Resistant Organism No Wound/Pressure Injury Present on Arrival No /Admission Query Text:If yes, chart assessment in Shift/Clinical Findings Central Line/PICC/VAD Present on Arrival No /Admission Antibiotics within last 7 days? No Risk for Readmission Number of Risk Factors 8 At Risk for Readmission Patient is At Risk For Readmission Patient is eligible for Call Back Y Paternal Family History: Hypertension Maternal Family History: Cancer - Her maternal grandmother had breast cancer. She has maternal aunt with cervical cancer., Diabetes, Heart Disease, Hypertension - Social History Smoking Status: Never smoker Tobacco Use: Non-smoker Alcohol: None Drugs: None Allergies/Adverse Reactions: Allergy/AdvReac Type Severity Reaction Status Date / Time aspirin AdvReac Other Verified 09/08/18 09:55 NSAIDS (Non-Steroidal AdvReac Other Verified 09/08/18 09:55 Anti-Inflamma STEROIDS AdvReac Other Uncoded 09/08/18 09:55 Review of Systems Constitutional:: Reports: Weakness, Fatigue, Weight gain, Appetite change. Denies: Fever, Sweats, Weight loss, Chills Cardiovascular:: Reports: Dyspnea on exertion, Peripheral edema, Shortness of breath. Denies: Chest pain, Palpitations, Orthopnea, PND Respiratory: Reports: Shortness of Breath. Denies: Cough, Hemoptysis, Wheezing Gastrointestinal:: Reports: Abdominal pain, Nausea, Vomiting, Constipation. Denies: Diarrhea, Hematochezia Genitourinary: Denies: Dysuria, Hematuria, 15, Flank pain Musculoskeletal:: Reports: Back pain. Denies: Myalgia, Arthralgia Skin: Reports: -. Denies: Rash, Skin Changes, Wounds Neurological:: Denies: Headache, Dizziness, Visual changes, Tinnitus, Hearing loss Psychiatric: Denies: Anxiety, Depression, Homicidal Ideations, Suicidal Ideations Vital Signs Height 5 ft 3 in Weight: 108.8 kg Weight in Pounds 239.9 lbs Pulse Ox 100 Temperature 98.1 F Pulse Rate 104 Respiratory Rate 20 Blood Pressure 150/75 Blood Pressure Position Semi-Fowlers - Physical Exam General: Alert, Oriented x3, No apparent distress, - - Morbidly obese, ECOG 2 HEENT: Atraumatic, PERRLA, EOMI, Normocephalic Oropharynx:: Dry mucosa Neck:: Supple, Trachea midline. Negative for: JVD, bilateral Cardiac:: Regular rate, Regular rhythm, Normal S1, Normal S2. Negative for: Murmur Lungs: Clear to auscultation, Diminished - At the bases, Excusion symmetrical. Negative for: Rhonchi, Wheezes Abdomen:: Non-tender - No peritonism, Distended, Obese Extremities:: Edema. Negative for: Cyanosis Neurological: Neuro grossly intact Skin:: Ecchymosis - At sites of venipuncture. Negative for: Lesions, Rash, Petechiae Psychiatric:: Appropriate affect, Euthymic Lymphatics:: Negative for: Cervical lymphadenopathy, Supraclavicular lymphadenopathy Laboratory Data: Laboratory Tests 01/22/19 01/22/19 01/22/19 Range/Units 05:25 05:25 05:25 PT 18.5 H (11.7-14.9) SECONDS INR 1.6 APTT 44.9 H (24.1-36.2) Seconds Sodium 133 L (136-145) mmol/L Potassium 4.6 (3.5-5.1) mmol/L Chloride 96 L (98-107) mmol/L Carbon Dioxide 23.0 (21.0-32.0) mmol/L Anion Gap 14 (5-15) BUN 30 H (7-18) mg/dL Creatinine 0.93 (0.55-1.02) mg/dL Estim Creat Clear Calc 49.22 ml/min Est GFR (MDRD) Af Amer 78 (>60) mL/min Est GFR (MDRD) Non-Af 64 (>60) mL/min BUN/Creatinine Ratio 32.3 H (10-20) RATIO Glucose 190 H (74-106) mg/dL Calcium 8.9 (8.5-10.1) mg/dL Phosphorus 3.8 (2.5-4.9) mg/dL Magnesium 2.2 (1.6-2.6) mg/dL Free T4 1.25 (0.76-1.46) ng/dL Thyroxine (T4) 8.4 (4.8-13.9) ug/dL Free T3 pg/dL 1.7 L (2.18-3.98) pg/mL Urine Color (Yellow) Urine Clarity (Clear) Urine pH (5.0 - 8.0) Ur Specific [place] (1.002-1.030) Urine Protein (Negative) mg/dl Urine Glucose (UA) (Normal) mg/dl Urine Ketones (Negative) mg/dl Urine Occult Blood (Negative) /ul Urine Nitrite (Negative) Urine Bilirubin (Negative) mg/dL Urine Urobilinogen (Normal) mg/dl Ur Leukocyte Esterase (Negative) /ul Urine RBC (0-5) /hpf Urine WBC (0-5) /hpf Ur Squamous Epith Cells (5-10) /hpf Urine Bacteria (None Seen) /hpf Urine Mucus (<or=2+) /hpf Ur Random Sodium (Not Establ.) mmol/L Urine Creatinine (NO RANGE EST.) mg/dL 01/21/19 01/21/19 01/21/19 Range/Units 15:02 15:02 15:02 PT (11.7-14.9) SECONDS INR APTT (24.1-36.2) Seconds Sodium (136-145) mmol/L Potassium (3.5-5.1) mmol/L Chloride (98-107) mmol/L Carbon Dioxide (21.0-32.0) mmol/L Anion Gap (5-15) BUN (7-18) mg/dL Creatinine (0.55-1.02) mg/dL Estim Creat Clear Calc ml/min Est GFR (MDRD) Af Amer (>60) mL/min Est GFR (MDRD) Non-Af (>60) mL/min BUN/Creatinine Ratio (10-20) RATIO Glucose (74-106) mg/dL Calcium (8.5-10.1) mg/dL Phosphorus (2.5-4.9) mg/dL Magnesium (1.6-2.6) mg/dL Free T4 (0.76-1.46) ng/dL Thyroxine (T4) (4.8-13.9) ug/dL Free T3 pg/dL (2.18-3.98) pg/mL Urine Color Yellow (Yellow) Urine Clarity Sl. Cloudy (Clear) Urine pH 5.0 (5.0 - 8.0) Ur Specific [place] 1.010 (1.002-1.030) Urine Protein Negative (Negative) mg/dl Urine Glucose (UA) Normal (Normal) mg/dl Urine Ketones 5 H (Negative) mg/dl Urine Occult Blood Negative (Negative) /ul Urine Nitrite Negative (Negative) Urine Bilirubin Negative (Negative) mg/dL Urine Urobilinogen Normal (Normal) mg/dl Ur Leukocyte Esterase 25 H (Negative) /ul Urine RBC 0 SEEN (0-5) /hpf Urine WBC 0-5 SEEN (0-5) /hpf Ur Squamous Epith Cells 0 SEEN (5-10) /hpf Urine Bacteria 0 SEEN (None Seen) /hpf Urine Mucus 0 SEEN (<or=2+) /hpf Ur Random Sodium 83 (Not Establ.) mmol/L Urine Creatinine 40.70 (NO RANGE EST.) mg/dL Diagnostic Data: Diagnostic Data Abdomen/Pelvis CT 01/21/19 01:38 IMPRESSION: Large amount of ascites, overall progressed in the interval. Questionable irregular stranding of the anterior peritoneal fat which may indicate omental caking/metastases in the context of right pelvic/ovarian mass. Right renal cyst as described above. Remainder of abdominal viscera are unremarkable. Electronically Signed: Alycia Hull MD at 3:20 EST , Service support , Chest X-Ray 01/21/19 01:38 IMPRESSION: Right perihilar atelectasis, otherwise no acute process identified. Electronically Signed: Alycia Hull MD at 2:38 EST , Service support , Abdomen/Pelvis CTA 01/21/19 09:11 IMPRESSION: No significant stenosis in both lower extremities with 3 vessels runoff to the lower legs. Atherosclerotic changes at the origin of the celiac axis. Large amount of ascites. Electronically Signed: Daren Berger MD at 12:02 EST Tel , Service support , Chest CTA 01/21/19 09:11 IMPRESSION: No demonstrated PE, or thoracic aortic aneurysm or dissection. However, the contrast bolus within the pulmonary arteries is not optimal and a subtle filling defect could be present overlooked, particularly in the distal vessels Chronic interstitial changes in both lung strickland, no superimposed infiltrate, there is a small left pleural effusion Degenerative bony changes Cirrhotic liver with diffuse ascites Post surgical changes at the GE junction with retrocardiac hiatal hernia Electronically Signed: Rainer Mcguire MD at 11:39 EST , Service support , KUB X-Ray 01/21/19 09:12 IMPRESSION: No acute findings, no interval change Electronically Signed: Rainer Mcguire MD at 10:46 EST , Service support , Assessment and Plan 68-year-old female with malignant ascites and adnexal mass that appears to involve the bowel most consistent with an advanced complicated, ruptured ovarian cancer. Abdominal abscess formation due to bowel involvement cannot be ruled out. Standard treatment is surgical debulking followed by systemic chemo therapy. I met with the patient and her and advised [facility]CR[employer] [employer]OOK KEEPER oncology surgical evaluation. Patient was recently seen at [facility] by Dr Smith, and a follow-up appointment for definitive management was given to her but she is too anxious to wait. I offered them an evaluation at [facility] but she decli blair. She however would favor receiving any systemic chemotherapy locally at [place] close to home which I would be happy to prescribe after surgery. Patient is a high risk for surgical morbidity and mortality due to her comorbid obesity, and history of pulmonary embolism postop. Hemalatha Kessler MD Teacher Tutor, [facility] Divisions of Medical Oncology & Hematology Department of Internal Medicine [place] [id number] This note was generated using a voice recognition system software. Although it was reviewed by the author prior to finalization, it may still contain incorrect words, spelling, and punctuation that were not noted when reviewing prior to saving. If a clinically significant typo or inaccurately typed phrase is noted, please notify the author. Medications: Prescriptions This Visit Medication Instructions Recorded Acetaminophen [Tylenol Extra 1,000 mg PO Q6H PRN PRN 01/21/19 Strength] Oxycodone [Oxyir] 5 mg PO Q4H PRN PRN 01/21/19 Medications Added to Medication List This Visit Category Date Time Status Cyanocobalamin [Vitamin B12] Med 02/11/19 10:00 Once 1,000 mcg IM QMONTH ONE Furosemide [Lasix] Med 01/22/19 10:00 Active 40 mg IV BID@1000,1800 Pantoprazole Sodium [Protonix] Med 01/22/19 10:00 Active 40 mg PO DAILY Primary Care Provider: Lenny Pryor MD Referring Provider:
--- NOTE | 2019-01-22 18:21 | DS.PCM_ITS ---
Discharge Date and Diagnosis Date of Admission: 01/21/19 Date of Discharge: 01/22/19 - Primary Discharge Diagnosis #1 massive malignant ascites, status post therapeutic paracentesis. #2 right adnexal mass with bowel involvement, possible ruptured ovarian cancer versus abdominal abscess. 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 #4 coagulopathy, could be secondary to cancer versus liver cirrhosis. #5 elevated d-dimer, CTA chest was negative for PE or dissection. #6 recent diagnosis of ovarian cancer, never been treated for it. - Secondary Discharge Diagnosis Chronic Problems Ascites (Chronic) Ovarian cancer (Chronic) Morbid (severe) obesity due to excess calories (Chronic) History of gastric bypass (Chronic) Depression (Chronic) Degenerative joint disease (DJD) of lumbar spine (Chronic) Spinal stenosis (Chronic) MARIA ANTONIA (obstructive sleep apnea) (Chronic) Generalized osteoarthrosis (Chronic) Vitamin B12 deficiency (Chronic) Neuropathic pain (Chronic) Hospital Course and Treatment Imaging Results: Clinical Impression(s) from Imaging Studies Abdomen/Pelvis CT 01/21/19 01:38 IMPRESSION: Large amount of ascites, overall progressed in the interval. Questionable irregular stranding of the anterior peritoneal fat which may indicate omental caking/metastases in the context of right pelvic/ovarian mass. Right renal cyst as described above. Remainder of abdominal viscera are unremarkable. Electronically Signed: Alycia Hull MD at 3:20 EST , Service support , Chest X-Ray 01/21/19 01:38 IMPRESSION: Right perihilar atelectasis, otherwise no acute process identified. Electronically Signed: Alycia Hull MD at 2:38 EST , Service support , Abdomen/Pelvis CTA 01/21/19 09:11 IMPRESSION: No significant stenosis in both lower extremities with 3 vessels runoff to the lower legs. Atherosclerotic changes at the origin of the celiac axis. Large amount of ascites. Electronically Signed: Daren Berger MD at 12:02 EST Tel , Service support , Chest CTA 01/21/19 09:11 IMPRESSION: No demonstrated PE, or thoracic aortic aneurysm or dissection. However, the contrast bolus within the pulmonary arteries is not optimal and a subtle filling defect could be present overlooked, particularly in the distal vessels Chronic interstitial changes in both lung strickland, no superimposed infiltrate, there is a small left pleural effusion Degenerative bony changes Cirrhotic liver with diffuse ascites Post surgical changes at the GE junction with retrocardiac hiatal hernia Electronically Signed: Ranier Mcguire MD at 11:39 EST , Service support , KUB X-Ray 01/21/19 09:12 IMPRESSION: No acute findings, no interval change Electronically Signed: Rainer Mcguire MD at 10:46 EST , Service support , Paracentesis Ultrasound 01/21/19 16:28 IMPRESSION: Ultrasound guided paracentesis. Electronically Signed: Doug Isaacs, at 14:26 EST , Service support , Dr. Kessler, oncology. Operations: None Procedures: Paracentesis Summary of Care Provided: This is a 68 years old female patient presented to the emergency room because of abdominal pain shortness of breath and she was found to have massive ascites in context of recent diagnosis of ovarian cancer. #1 massive malignant ascites: In the setting of recent diagnosis of ovarian cancer. She underwent there with paracentesis and 7400 mL of elliott-colored fluid was drained. CT scan abdomen and pelvis without contrast revealed large amount of ascites, no other acute findings. CTA abdomen reviewed, no evidence of significant vascular disease. On CTA chest, it was reported as liver cirrhosis with diffuse ascites although on the CT scan abdomen, liver was reported as normal. #2 right adnexal mass with bone involvement, possible ruptured ovarian cancer versus abdominal abscesses: Oncology consulted and reviewed the imaging studies. Dr. Kessler stated that there is bone involvement of the right adnexal mass which could be ruptured ovarian cancer and abdominal abscesses formation cannot be ruled out. He states that at this time, no indication for chemotherapy and patient is need to be evaluated for debulking surgery and then she may need to be treated with chemotherapy after surgery. He recommended to transfer the patient back to [facility] for evaluation. 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 Sodium was 133, remained stable. #3 coagulopathy: There was no clear-cut etiology, could be related to cancer versus liver cirrhosis. INR today is 1.6, no evidence of active bleeding. Hemoglobin and hematocrit are stable. #4 elevated d-dimer: CTA chest was negative for PE or dissection. Unclear etiology. #5 recent diagnosis of ovarian cancer: This was diagnosed around 2 weeks ago, never been treated for it. Patient transferred to [facility] for evaluation for debulking surgery of the ovarian cancer according to oncology recommendations, I spoke with the transfer line and I spoke with the [employer] oncologist at the [facility] and patient was accepted for transfer. Patient was transferred in stable condition. This note was generated with [email or web address] dictation software. It may contain incorrect words, spelling, and punctuation that were not noted in checking the note before signing. - Physical Exam Vitals/I&O's: Vital Signs Temp Pulse Resp BP Pulse Ox 97.8 F 114 H 17 134/75 H 97 01/22/19 16:05 01/22/19 16:05 01/22/19 16:05 01/22/19 16:05 01/22/19 16:05 Oxygen Flow Rate (L/min) [4] 1 Oxygen Flow Rate (L/min) [3] 1 Oxygen Flow Rate (L/min) [2] 1 Oxygen Flow Rate (L/min) [1 ( 1 Initial Baseline)] Oxygen Flow Rate (L/min) 1 Oxygen Delivery Method [4] Nasal Cannula Oxygen Delivery Method [3] Nasal Cannula Oxygen Delivery Method [2] Nasal Cannula Oxygen Delivery Method [1 ( Nasal Cannula Initial Baseline)] Oxygen Delivery Method Nasal Cannula Weight: 239 lb 13.807 oz Body Mass Index (BMI) 42.5 Finger Stick Blood Glucose 129 Intake and Output for Last 24 Hours 01/20/19 01/21/19 01/22/19 23:59 23:59 23:59 Intake Total 1100 / 1100 360 / 360 Output Total 200 / 200 7925 / 7925 Balance 900 / 900 -7565 / -7565 General: Alert, Oriented x3, Cooperative, No apparent distress HEENT: Atraumatic, PERRLA, EOMI, Normocephalic Oral: Moist Mucosa, No Gingival or Mucosal Lesions/ Ulcerations Neck: Supple, No JVD, Negative Carotid Bruits, Trachea Midline, Thyroid Normal Size and Texture Lungs: Clear to auscultation, Normal air movement, No rhonchi, No wheeze, No rales, Diminished Cardiovascular: Regular rate, Regular Rhythm, Normal S1, Normal S2, PMI Normal Abdomen: Bowel Sounds Present, Soft, Non Tender, No Hepato-splenomegaly, Distended Extremities: No clubbing, No cyanosis, No edema Skin: No rashes, No breakdown Lymphatic: No Cervical, Supraclavicular, or Inguinal Adenopathy Neurological: Cranial nerves II-XII grossly intact, Neuro grossly intact Psych/Mental Status: Normal Affect, Appropriate Laboratory Results 01/22/19 05:25: PT 18.5 H, INR 1.6, APTT 44.9 H 01/22/19 05:25: Sodium 133 L, Potassium 4.6, Chloride 96 L, Carbon Dioxide 23.0, Anion Gap 14, BUN 30 H, Creatinine 0.93, Estim Creat Clear Calc 49.22, Est GFR (MDRD) Af Amer 78, Est GFR (MDRD) Non-Af 64, BUN/Creatinine Ratio 32.3 H, Glucose 190 H, Calcium 8.9, Phosphorus 3.8, Magnesium 2.2 01/22/19 05:25: Free T4 1.25, Thyroxine (T4) 8.4, Free T3 pg/dL 1.7 L Current Medications Cyanocobalamin (Vitamin B12) 1,000 mcg IM QMONTH ONE Stop: 02/11/19 10:01 Fentanyl (Duragesic Patch) 25 mcg TRANSDERM. Q3D@1000 Z[facility] Last Admin: 01/21/19 17:18 Dose: 25 mcg Documented by: Fentanyl Citrate (Sublimaze (100mcg Ampule)) 25 mcg IV Q3H PRN PRN Reason: pain >4 Last Admin: 01/22/19 17:37 Dose: 25 mcg Documented by: Furosemide (Lasix) 40 mg IV BID@1000,1800 [facility] Last Admin: 01/22/19 17:08 Dose: 40 mg Documented by: Gabapentin (Neurontin) 600 mg PO QHS [facility] Last Admin: 01/21/19 21:41 Dose: Not Given Documented by: Sodium Chloride () 250 mls @ 15 mls/hr IV .[id number] PRN PRN Reason: Saline Flush Lactulose (Chronulac, Cephulac) 20 gm PO BID [facility] Last Admin: 01/22/19 08:28 Dose: Not Given Documented by: Pantoprazole Sodium (Protonix) 40 mg PO DAILY [facility] Last Admin: 01/22/19 08:49 Dose: Not Given Documented by: Promethazine HCl (Phenergan) 12.5 mg IV Q4H PRN PRN PRN Reason: NAUSEA/VOMITING Last Admin: 01/22/19 14:26 Dose: 12.5 mg Documented by: Simethicone (Mylicon) [address] [facility] Last Admin: 01/22/19 17:09 Dose: 80 mg Documented by: Sodium Chloride () 10 - 40 ml IV UD PRN PRN Reason: SALINE FLUSH Last Admin: 01/22/19 17:37 Dose: 10 ml Documented by: Spironolactone (Aldactone) 25 mg PO BID [facility] Last Admin: 01/22/19 08:36 Dose: 25 mg Documented by: Tramadol HCl (Ultram) 50 mg PO Q6H PRN PRN PRN Reason: pain 2-4 Venlafaxine HCl (Effexor Xr) 75 mg PO QHS [facility] Last Admin: 01/21/19 21:35 Dose: 75 mg Documented by: Home Medications: Medications to take at Discharge Cyanocobalamin (Vitamin B-12) [Vitamin B-12] 1,000 mcg IM QMONTH 06/18/14 Gabapentin [Neurontin] 600 mg PO QHS 06/18/14 Cholecalciferol (VIT D3) [Vitamin D] 1,000 unit PO DAILY 09/08/18 Venlafaxine XR [Effexor Xr] 75 mg PO QHS 09/08/18 traMADol [Ultram (G)] 100 mg PO QHS 09/08/18 Acetaminophen [Tylenol Extra Strength] 1,000 mg PO Q6H PRN PRN 01/21/19 Oxycodone [Oxyir] 5 mg PO Q4H PRN PRN 01/21/19 Primary Care Physician: Lenny Pryor Chi, MD [Primary Care Provider] - Disposition: Acute care Hospital Minutes spent on discharge:: 32 Patient Condition:: Stable Medical Necessity - Tobacco Use Smoking Status: Never smoker Tobacco Use: Non-smoker Meaningful Use Info Meaningful Use Diagnoses (Choose all that apply): None applicable Code Visit Inpatient E&M: 52279 Disch Hosp
--- NOTE | 2019-01-22 18:37 | NURSING ---
REPORT CALLED TO NELL KNOX AT [facility]
[2019-01-22] MEDS: Gabapentin 600 MG Tablet PO (20:58)
[2019-01-22] MEDS: Venlafaxine XR 75 MG Capsule PO (20:58)
== END 2019-01-22 21:15 | disposition short-term general hospital (02) | DRG 755 ==
LOC: ED 07:08 → MS3 07:22 → PCU 10:34
PROVIDERS: Admitting Provider Internal Medicine; Emergency Provider Emergency Medicine; Family Provider Family Medicine Geriatric Medicine; PCP Family Medicine Geriatric Medicine; Visit Provider Hospitalist
DX: C56.9 Malignant neoplasm of unspecified ovary (principal); R18.0 Malignant ascites; E22.2 Syndrome of inappropriate secretion of antidiuretic hormone; D68.9 Coagulation defect, unspecified; Z68.41 Body mass index [BMI] 40.0-44.9, adult; L02.211 Cutaneous abscess of abdominal wall; F32.9 Major depressive disorder, single episode, unspecified; Z86.711 Personal history of pulmonary embolism; Z90.710 Acquired absence of both cervix and uterus; E66.01 Morbid (severe) obesity due to excess calories; Z98.84 Bariatric surgery status; G47.33 Obstructive sleep apnea (adult) (pediatric); R79.89 Other specified abnormal findings of blood chemistry; K74.60 Unspecified cirrhosis of liver; K59.00 Constipation, unspecified
CPT/HCPCS: 36415; 36600; 49083; 71045; 71275; 74018; 74176; 75635; 80048; 80053; 81001; 82570; 82803; 83036; 83735; 84100; 84300; 84436; 84439; 84443; 84481; 85025; 85379; 85610; 85730; 87086; 87088; 93005; 97802; 99251; 99285; Q9967; A4216; G0463; J1940

== ENCOUNTER 2019-01-29 15:43 | Emergency (ER) | payer MEDICARE, SELFPAY ==
[2019-01-21 07:54] VITALS: BMI 42.5
[2019-01-29 15:45] VITALS: BP 135/88; PULSE 96; RESP 18; TEMP 36.7; O2SAT 100; BMI 38.2
--- NOTE | 2019-01-29 16:16 | ED.DCSUM_ITS ---
History of Present Illness Chief Complaint: Abd Pain Narrative: Patient presenting for evaluation secondary to abdominal pain nausea vomiting and shortness of breath. Patient has the recent unfortunate diagnosis of metastatic ovarian cancer. She was at this facility approximately a week ago secondary to hypoxia as a result of massive ascites and was admitted and had ultrasound-guided paracentesis for drainage. Patient had a right sided anterior chest port placed at [facility] last week, and was started on chemotherapy last Tuesday. Patient reports that since she has had her chemotherapy she has had progressively worsening abdominal pain, distention, and now has persistent nausea and vomiting and reports that she is unable to keep anything down. She denies any chest pain. She denies any fevers associated with this. Pain in her abdomen is diffuse and aching and throbbing. Review of systems otherwise negative. Past Medical History - Allergies and Home Meds Allergies/Adverse Reactions: Allergies aspirin Adverse Reaction (Verified 09/08/18 09:55) Other D/T STOMACH SURGERY NSAIDS (Non-Steroidal Anti-Inflamma Adverse Reaction (Verified 09/08/18 09:55) Other D/T STOMACH SURGERY STEROIDS Adverse Reaction (Uncoded 09/08/18 09:55) Other D/T STOMACH SURGERY Primary Care Physician: Lenny Pryor Chi, MD [Primary Care Provider] - Past Medical History: - - Ovarian cancer Surgical History: cataract, gastric bypass, hysterectomy, total hip arthroplasty, total knee arthroplasty, - Smoking Status: Never smoker - Family History Maternal Family History: Reports: Cancer - Her maternal grandmother had breast cancer. She has maternal aunt with cervical cancer., Diabetes, Heart Disease, Hypertension Paternal Family History: Reports: Hypertension Review of Systems General: Denies: Chills, Fever, Sweats Eyes: Denies: Visual changes - bilaterally, Diplopia ENT: Denies: Rhinorrhea, Sore throat Cardiovascular: Denies: Chest pain, Palpitations Respiratory: Reports: Dyspnea Gastrointestinal: Reports: Abdominal pain, Nausea, Vomiting Genitourinary: Denies: Dysuria, Hematuria, Frequency Musculoskeletal: Denies: Back pain, Extremity Pain Skin: Denies: Rash, Wounds Neurological: Denies: Headache, Weakness, Numbness Physical Exam Vital Signs/Narrative: Vital Signs Temp Pulse Resp BP Pulse Ox 01/29/19 15:45 98.1 F 96 18 135/88 H 100 Inital Vital Signs reviewed: Yes General: Well nourished, Well developed, No Acute Distress Head: Normocephalic, Atraumatic Eyes: Perrl, EOMI. Negative for: Pale conjunctiva ENT: Moist mucous membranes, No rhinorrhea Neck: Supple, Nontender Cardiovascular: Regular rate, Regular rhythm, No murmurs Respiratory: No distress, CTA bilaterally, Chest nontender Abdomen: - - Multiple areas of bruising on patient's abdomen. Mild distention. No guarding or rebound tenderness noted. Mild diffuse tenderness. Extremities: Nontender, Edema Skin: Normal color Neurological: Alert, Oriented x3, Cranial nerves II-XII grossly intact, Normal Strength, Normal Sensation Psychological: Normal affect, Normal Mood Diagnostic/Tx/Re-eval - Medical Decision Making Patient presented secondary to abdominal pain and nausea and vomiting in setting of recent diagnosis with cancer. Patient had an IV established through her chest port, and was given Dilaudid Zofran and fluids. She had improvement of her heart rate, and significant improvement of her nausea as well as her pain. CBC does not demonstrate evidence of significant neutropenia or leukopenia. Chemistry does not show significant electrolyte derangements. Mild elevation of the patient's potassium. Patient was able to pass a p.o. challenge in the emergency department. I had a discussion with Dr. Moscoso who was covering for [facility] oncology, and he states that he will call patient tomorrow and will follow her up in the office on Tuesday. Patient will be discharged with a course of Phenergan suppositories to be taken when she has refractory vomiting. Patient voices understanding of discharge instructions, and she was discharged significantly improved condition. ED Disposition - Plan for ED Patient: Disposition: Home or Assisted Living Diagnosis: Nausea and vomiting, Ovarian cancer Instructions: VOMITING (8y-Adult) Prescriptions: proMETHazine suppository [Phenergan Suppository] 25 mg RECTAL Q6H PRN PRN #20 suppos. PRN Reason: Nausea Prescription Printed Referrals: Gonzalo Moscoso DO [STAFF PHYSICIAN] - (Tuesday at 3pm)
[2019-01-29] MEDS: 0.9% Normal Saline 1,000 ML 1000 ML IV ×2 (16:32→18:22)
[2019-01-29] MEDS: HYDROmorphone 1 MG/ML Syringe IV (16:33)
[2019-01-29] MEDS: Ondansetron 4 MG/2 ML Vial IV (16:33)
[2019-01-29 16:49] LABS: Absolute Lymphocyte Count 0.31 X10^3/uL (0.83-4.51); Absolute Neutrophil Count 10.9 X10^3/uL (2.0-7.7); Eosinophils% 0.9 % (0-5); Hematocrit 38.4 % (37-47); Hemoglobin 12.2 g/dL (12.0-15.0); Lymphocyte # 0.31 X10^3/ul (4.0); Lymphocyte % 2.7 % (19-41); Mean Corp Hgb Conc 31.8 g/dL (32-36); Mean Corpuscular Hgb 26.7 pg (27.0-32.0); Mean Platelet Vol. 10.5 fl (6.2-12.0); Monocyte# 0.08 X10^3/uL; Monocyte% 0.7 % (0-10); NRBC Flagged by Analyzer 0 % (0-5); Neutrophil # 10.91 X10^3/uL (2.7-7.7); POSITIVE DIFFERENTIAL YES; Platelet Count 317 K/mm3 (150-450); RBC Distribution Width CV 16.8 % (11.6-14.6); RBC Distribution Width SD 48.6 fl (35.1-43.9); Red Blood Count 4.57 M/mm3 (4.2-5.4); White Blood Count 11.6 K/mm3 (4.4-11.0)
[2019-01-29 17:02] LABS: ALB/GLOB Ratio 0.6 RATIO (0.9-2.4); AST(SGOT) 26 U/L (15-37); Alanine Aminotransfer ALT/SGPT 30 U/L (13-56); Albumin, Serum 2.1 g/dL (3.2-5.0); Alkaline Phosphatase 55 U/L (45-117); Anion Gap 8 (5-15); BUN 33 mg/dL (7-18); BUN/Creat Ratio 40.6 RATIO (10-20); Calcium,Total 8.1 mg/dL (8.5-10.1); Chloride 100 mmol/L (98-107); Creatinine, Serum 0.81 mg/dL (0.55-1.02); EST Glomerular Filtration Rate 75 mL/min (>60); Est Glom Filt Rate - Afr Amer 91 mL/min (>60); Estimated Creatinine Clearance 68.92 ml/min; Globulin 3.4 g/dL (2.2-4.2); Glucose 218 mg/dL (74-106); Potassium 5.2 mmol/L (3.5-5.1); Protein, Total 5.5 g/dL (6.4-8.2); Sodium Level 131 mmol/L (136-145)
[2019-01-29 17:46] LABS: Differential Indicated SCAN CRITERIA MET
[2019-01-29 17:50] LABS: Anisocytosis 1+; Hypochromasia 1+; Ovalocyte 1+; Platelet Estimate ADEQUATE (ADEQ)
[2019-01-29 17:54] VITALS: BP 130/84; PULSE 102; RESP 16; O2SAT 96
[2019-01-29 18:19] LABS: International Normalized Ratio 1.9; Partial Thromboplast Time 38.8 Seconds (24.1-36.2); Prothrombin Time (Protime)PT. 21.8 SECONDS (11.7-14.9)
[2019-01-29] MEDS: oxyCODONE 5 MG Tablet PO (18:22)
[2019-01-29 19:04] VITALS: BP 135/88; PULSE 99; RESP 16; O2SAT 96
== END 2019-01-29 19:41 | disposition home or self-care (01) ==
PROVIDERS: Emergency Provider Emergency Medicine; Family Provider Family Medicine Geriatric Medicine; PCP Family Medicine Geriatric Medicine
DX: R11.2 Nausea with vomiting, unspecified (principal); C56.9 Malignant neoplasm of unspecified ovary; R18.8 Other ascites; Z82.49 Family history of ischemic heart disease and other diseases of the circulatory system; Z88.6 Allergy status to analgesic agent; Z45.2 Encounter for adjustment and management of vascular access device; Z90.710 Acquired absence of both cervix and uterus; Z98.84 Bariatric surgery status
CPT/HCPCS: 36591; 80053; 85025; 85610; 85730; 99285; J7030; A4216; J2405

== ENCOUNTER 2019-01-31 16:24 | Inpatient (IN) | payer MEDICARE, SELFPAY ==
[2019-01-31] VITALS (8 sets, daily range): BP systolic 134–177; BP diastolic 74–133; PULSE 84–106; RESP 13–18; TEMP 36.4–36.8; O2SAT 97–100; BMI 38.9; BMI 43.5; BMI 43.6
--- NOTE | 2019-01-31 16:40 | EKG12_ITS ---
Test Reason : SOB Blood Pressure : / mmHG Vent. Rate : 093 BPM Atrial Rate : 170 BPM P-R Int : 128 ms QRS Dur : 078 ms QT Int : 330 ms P-R-T Axes : 032 112 020 degrees QTc Int : 410 ms Sinus tachycardia with Blocked Premature atrial complexes Left posterior fascicular block Nonspecific T wave abnormality Abnormal ECG Confirmed by CHRISTIN DRUMMOND, PAU ([id number]), photography editor JEAN CARLOS CANALES ([id number]) on 02/02/2019 12:37:06 PM Referred By: Apurva Alfaro Confirmed By:MARIAM WALLER MD
--- NOTE | 2019-01-31 16:45 | RAD_ITS ---
STUDY: X-RAY CHEST REASON FOR EXAM: Female, 68 years old. Chest pain, SOB. TECHNIQUE: Portable chest. COMPARISON: 01/21/2019. FINDINGS: Port-A-Cath terminates in the superior vena cava. Low lung volumes. The lungs are clear. There is no demonstrated pleural abnormality. Normal size heart. Normal mediastinum and tu. Normal visualized pulmonary arteries. Normal visualized aortic arch and descending thoracic aorta. Degenerative changes of the shoulders bilaterally. Mild degenerative changes of the thoracic spine. Soft tissues and bony structures are otherwise unremarkable. RAD/Chest 1 View (Portable) IMPRESSION: No acute findings. Electronically Signed: Arina Saucedo MD at 17:09 EST Tel , Service support ,
[2019-01-31] MEDS: Morphine 4 MG/ML Syringe IV (17:05)
[2019-01-31] MEDS: Ondansetron 4 MG/2 ML Vial IV (17:06)
[2019-01-31 17:12] LABS: Absolute Lymphocyte Count 0.32 X10^3/uL (0.83-4.51); Absolute Neutrophil Count 1.5 X10^3/uL (2.0-7.7); Basophil# 0.01 X10^3/uL; Basophil% 0.5 % (0-1); Eosinophil# 0.12 X10^3/uL; Eosinophils% 5.9 % (0-5); Hematocrit 39.4 % (37-47); Hemoglobin 12.5 g/dL (12.0-15.0); Lymphocyte # 0.32 X10^3/ul (4.0); Lymphocyte % 15.8 % (19-41); Mean Corp Hgb Conc 31.7 g/dL (32-36); Mean Corpuscular Hgb 26.5 pg (27.0-32.0); Mean Corpuscular Volume 83.7 fL (81-99); Mean Platelet Vol. 9.6 fl (6.2-12.0); Monocyte# 0.05 X10^3/uL; Monocyte% 2.5 % (0-10); NRBC Flagged by Analyzer 0 % (0-5); Neutrophil # 1.51 X10^3/uL (2.7-7.7); Neutrophil % 74.8 % (47-70); POSITIVE DIFFERENTIAL YES; POSITIVE MORPHOLOGY YES; Platelet Count 272 K/mm3 (150-450); RBC Distribution Width CV 16.1 % (11.6-14.6); RBC Distribution Width SD 46.8 fl (35.1-43.9); Red Blood Count 4.71 M/mm3 (4.2-5.4)
[2019-01-31 17:20] LABS: Differential Indicated SCAN CRITERIA MET
[2019-01-31 17:23] LABS: International Normalized Ratio 2.1; Prothrombin Time (Protime)PT. 23.9 SECONDS (11.7-14.9)
[2019-01-31 17:25] LABS: ALB/GLOB Ratio 0.7 RATIO (0.9-2.4); AST(SGOT) 47 U/L (15-37); Alanine Aminotransfer ALT/SGPT 42 U/L (13-56); Albumin, Serum 2.2 g/dL (3.2-5.0); Alkaline Phosphatase 52 U/L (45-117); Anion Gap 9 (5-15); BUN 23 mg/dL (7-18); BUN/Creat Ratio 37.3 RATIO (10-20); Chloride 101 mmol/L (98-107); Creatinine, Serum 0.62 mg/dL (0.55-1.02); EST Glomerular Filtration Rate 103 mL/min (>60); Est Glom Filt Rate - Afr Amer 124 mL/min (>60); Estimated Creatinine Clearance 45.78 ml/min; Globulin 3.1 g/dL (2.2-4.2); Glucose 203 mg/dL (74-106); Potassium 4.9 mmol/L (3.5-5.1); Protein, Total 5.3 g/dL (6.4-8.2); Sodium Level 133 mmol/L (136-145)
[2019-01-31 17:51] LABS: Differential Comment SCANNED
--- NOTE | 2019-01-31 17:58 | ED.DCSUM_ITS ---
- ER Visit Summary Date of Service: 01/31/19 Chief Complaint: Shortness of breath History of Present Illness: The patient is a 68 F with shortness of breath which is gradual in onset and continuous. She attributes to increasing ascites. She has abdominal and back pain, decreased oral intake, nausea, vomiting, and decreased energy. She has a history of metastatic ovarian cancer. She is currently on chemotherapy and follows with Dr. Moscoso. Last chemotherapy was 6 days ago. She had a paracentesis 2 weeks ago where they drained 14 L. She also had a CTA of her chest on January 21 which was negative for PE. Physical Examination: Afebrile and vital signs unremarkable except for heart rate of 103. Patient appears uncomfortable. Lungs are clear. Heart is regular. Abdomen is distended with fluid wave. Test Results: EKG showed sinus rhythm at a rate of 93 with PACs. Chest x-ray showed nothing acute. White count 2.0, sodium 133, glucose 203, BUN 23, AST 47, INR 2.1 and PTT 36. Troponin normal. Emergency Department Course and Treatment: Patient was treated with morphine and Zofran while awaiting results. Labs, EKG, and chest x-ray as above. Patient will likely need diuresis and paracentesis. Hospitalist was contacted for further care. Oncology did call in, and they will be rounding tomorrow to see her. Treatment Plan: As above Disposition: Admission Impression: 1. Ascites 2. Ovarian cancer This note was generated with [employer] dictation software. It may contain incorrect words, spelling, and punctuation that were not noted in review of the chart prior to signing ED Disposition - Plan for ED Patient: Referrals: Lenny Pryor Chi, MD [Primary Care Provider] -
--- NOTE | 2019-01-31 18:04 | NURSING ---
307 RONN ASCITES, OVARIAN CA
--- NOTE | 2019-01-31 18:45 | HP.PCM_ITS ---
Problem List (1) Ascites Status: Acute Qualifiers: Ascites type: malignant Qualified Code(s): R18.0 - Malignant ascites (2) Ovarian cancer Status: Chronic History of Present Illness Date of Admission: 01/31/19 The patient is a 68 year old F who was recently diagnosed with metastatic ovarian cancer (1 month ago) who has had a progressive onset and worsening of SOB. She is attributing this to her ascites. She has had a CTA of her chest on 01/21 that was neg for PE and a B LE dopplers about 1 week ago that was neg for DVT. She states that she has had a paracentesis about 2 weeks ago (01/21) where 14 L were removed and that did improve her SOB at that time. She is also c/o nausea/vomiting/abdominal pain and poor PO intake. Her last chemo was 6 days ago and when she has completed her bruno-adjuvant chemo she is to undergo tumor debulking at [facility]. She sees Dr. Moscoso for oncology and he is aware that she is here. Her sats are stable on 2 L NC. She is not moving much because she states that staying still makes her more comfortable. She is expressing that she just wants all of this to be done. She states that her family is not all that accepting of this yet and is adamant that she be treated. She states that she would not want heroic measures in the event of a CPA. Past Medical History Past Medical History (Chronic Problems): Chronic Problems Ovarian cancer (Chronic) Morbid (severe) obesity due to excess calories (Chronic) History of gastric bypass (Chronic) Depression (Chronic) Degenerative joint disease (DJD) of lumbar spine (Chronic) Spinal stenosis (Chronic) MARIA ANTONIA (obstructive sleep apnea) (Chronic) Generalized osteoarthrosis (Chronic) Vitamin B12 deficiency (Chronic) Neuropathic pain (Chronic) Allergies aspirin Adverse Reaction (Verified 01/31/19 16:24) Other D/T STOMACH SURGERY NSAIDS (Non-Steroidal Anti-Inflamma Adverse Reaction (Verified 01/31/19 16:24) Other D/T STOMACH SURGERY STEROIDS Adverse Reaction (Uncoded 01/31/19 16:24) Other D/T STOMACH SURGERY Home Medications: Ambulatory Orders Medication Instructions Recorded Cyanocobalamin (Vitamin B-12) 1,000 mcg IM QMONTH 06/18/14 [Vitamin B-12] Gabapentin [Neurontin] 600 mg PO QHS 06/18/14 Cholecalciferol (VIT D3) [Vitamin 1,000 unit PO DAILY 09/08/18 D] Venlafaxine XR [Effexor Xr] 75 mg PO QHS 09/08/18 traMADol [Ultram (G)] 100 mg PO QHS 09/08/18 Acetaminophen [Tylenol Extra 1,000 mg PO Q6H PRN PRN 01/21/19 Strength] Oxycodone [Oxyir] 5 mg PO Q4H PRN PRN 01/21/19 proMETHazine suppository 25 mg RECTAL Q6H PRN PRN #20 01/29/19 [Phenergan Suppository] suppos. Surgical History: cataract, gastric bypass, hysterectomy, total hip arthroplasty, total knee arthroplasty, - Psychiatric History: Depression [employer] History: No pertinent [employer] history Lives: Spouse/ Significant Other Smoking Status: Never smoker Tobacco Use: Non-smoker Alcohol: None Drugs: None - *Family History Maternal History Items: Cancer - Her maternal grandmother had breast cancer. She has maternal aunt with cervical cancer., Diabetes, Heart Disease, Hypertension Paternal History Items: Hypertension Review of Systems Constitutional: Reports: Anorexia, Malaise, Weakness, Weight Change, Fatigue. Denies: Chills, Fever, Night Sweats Eyes: Denies: Blurred vision, Cataracts, Conjunctivae Inflammation, Double vision, Drainage, Eyelid Inflammation, Pain, Redness, Vision Change HEENT: Denies: Difficulty Hearing, Difficulty Swallowing, Dysphasia, Ear Pain, Eye Pain, Hard of Hearing, Head Aches, Hearing Changes, Nasal bleeding, Nasal Congestion, Post Nasal Drip, Sinus Congestion, Sinus Drainage, Sore Throat, Visual Changes Cardiovascular: Reports: Edema, Orthopnea. Denies: Chest Pain, Claudication, Chest Pressure, Chest Tightness, Heaviness, Light Headedness, Palpitations, Paroxysmal Noc. Dyspnea, Syncope Respiratory: Reports: Shortness of Breath, Shortness of breath at rest, Shortness of breath upon exertion. Denies: Cough, Hemoptysis, Pleuritic Pain, Sputum production, Wheezing Gastrointestinal: Reports: Abdominal Pain, Constipation, Dyspepsia, Nausea. Denies: Diarrhea, Hematemesis, Hematochezia, Melena, Vomiting Genitourinary: Reports: Dysuria, Frequency, Hematuria, Hesitancy, Incontinence, Nocturia, Retention, Urgency Musculoskeletal: Denies: Arm Pain, Back Pain, Foot Pain, Hand Pain, Joint Pain, Joint stiffness, Joint swelling, Joint Tenderness, Leg Pain, Muscle pain, Neck Pain, Shoulder Pain Skin: Denies: Dryness, Jaundice, Lesions, Pruritis, Rash, Skin Changes, Wounds Neurological: Denies: Balance problems, Blurred vision, Double vision, Slurred speech, Confusion, Difficulty swallowing, Focal weakness, Headaches, Incoordination, Numbness, Tingling, Tremor, Seizures Psychiatric: Reports: Depression. Denies: Anxiety, Homicidal Ideations, Suicidal Ideations Endocrine: Reports: Change in Body Habitus. Denies: Heat/ Cold Intolerance, Polydipsia, Polyuria Hematologic/ Lymphatic: Reports: Easy Bruising. Denies: Adenopathy, Anemia, Easy Bleeding, Petechiae, Purpura VTE Information - Inpt Only VTE Present on Admission: No VTE Mechan Device Prophylaxis: SCD's VTE Pharm Prophylaxis ordered?: Yes - Physical Exam Vitals/I&O's: Vital Signs Temp Pulse Resp BP Pulse Ox 97.5 F L 90 13 143/91 H 98 01/31/19 16:25 01/31/19 17:24 01/31/19 17:24 01/31/19 17:24 01/31/19 17:24 Oxygen Flow Rate (L/min) 2 Oxygen Delivery Method Nasal Cannula Weight: 99.79 kg Body Mass Index (BMI) 38.9 Finger Stick Blood Glucose 129 General: Alert, Oriented x3, Cooperative, Lethargic, - - appears fatigued, tearful at times, reluctant to move HEENT: Atraumatic, PERRLA, EOMI, Normocephalic, EAC Clear Oral: No Gingival or Mucosal Lesions/ Ulcerations, Dry Mucosa, - Neck: Supple, No JVD, Negative Carotid Bruits, Negative Hepatojugular Reflux, No Nodes, No Nuchal Rigidity, Trachea Midline, Thyroid Normal Size and Texture Lungs: No rhonchi, No wheeze, Diminished - Bases B, Short of Breath, Tachypneic Cardiovascular: Regular rate, Regular Rhythm, Normal S1, Normal S2, No murmurs, No Ectopic Activity, No rub noted, No Gallop, - - Med Port R Chest-clean and dry with well healing incision Abdomen: Bowel Sounds Present, Soft, Guarding, Hepatomegaly, Tender, No hernias noted, - - +Fluid wave, Ecchymosis abdomen 2/2 injections Extremities: Edema, Peripheral Pulses Normal Skin: No rashes, No breakdown, Ulcer/ Wound, - - appears mildly jaundice Musculoskeletal: No Tenderness to Palpation of Joints or Extremities, Muscle Wasting Lymphatic: No Cervical, Supraclavicular, or Inguinal Adenopathy Neurological: Cranial nerves II-XII grossly intact, Deep Tendon Reflexes 2+/4 and Symmetrical, Neuro grossly intact, Motor Exam 5/5 strength throughout Psych/Mental Status: Appropriate, Depressed, - - good eye contact Laboratory Results 01/31/19 17:00: WBC 2.0 L, RBC 4.71, Hgb 12.5, Hct 39.4, MCV 83.7, MCH 26.5 L, MCHC 31.7 L, RDW Std Deviation 46.8 H, RDW Coeff of Pawel 16.1 H, Plt Count 272, MPV 9.6, Immature Gran % (Auto) 0.500, Neut % (Auto) 74.8 H, Lymph % (Auto) 15.8 L, [place] % (Auto) 2.5, Eos % (Auto) 5.9 H, Baso % (Auto) 0.5, Absolute Neuts (auto) 1.5 L, Absolute Lymphs (auto) 0.32 L, Nucleated RBC % 0, Differential Comment SCANNED, Diff Path Review July01/31/19 17:00: Sodium 133 L, Potassium 4.9, Chloride 101, Carbon Dioxide 23.0, Anion Gap 9, BUN 23 H, Creatinine 0.62, Estim Creat Clear Calc 45.78, Est GFR (MDRD) Af Amer 124, Est GFR (MDRD) Non-Af 103, BUN/Creatinine Ratio 37.3 H, Glucose 203 H, Calcium 8.0 L, Total Bilirubin 0.40, AST 47 H, ALT 42, Alkaline Phosphatase 52, Troponin I < 0.015, Total Protein 5.3 L, Albumin 2.2 L, Globulin 3.1, Albumin/Globulin Ratio 0.7 L 01/31/19 17:00: PT 23.9 H, INR 2.1, APTT 36.0 Assessment/Plan All Active Problems Ascites (Acute) SOB -suspect related to acities -had an neg CTA 01/21 for this SOB -sats stable -CXR over all benign -diuresis and para in am -supplemental O2 as needed -may benefit from albumin with lasix if creatinine increases with diuresis Malignant Ascites -has had a paracentesis about 2 week ago where 12 L of fluid withdrawn -paracentesis tomorrow -Lasix today--> 40 mg BID -would consider Albumin tomorrow with paracentesis suspected to be large volume Ovarian Ca -diagnosed 1 month ago -has undergone 2 rounds of chemo -most recent was 6 days ago -plan is for debulking in future -pt having 2nd thoughts about going through all of this--> is clear that her treatment is to be life sustaining and not life saving -I encouraged her to talk further with Dr. Moscoso about her reservations (states he has mentioned palliative care to her) -pt very clear that she want no life saving measures in the event of of a cardiopulmonary arrest -PO intake has been very poor -med port R IJ placed at [facility] Tuesday (01/27)--> ok to use -consult Dr. Moscoso Hyperglycemia -check A1c -SSI q 6 hrs Neutropenia -2/2 chemo -repeat am CBC Mild Hyponatremia -suspect related to volume status -repeat lab in am B LE edema -had neg US per pt last week -repeat -diuresis Back and Abdominal Pain -Dilaudid 1 mg q 4 hrs prn Nausea -pt states that not much has helped -will trial low dose haldol for this IV -Para should help as well Depression -continue Effexor DVT prophylaxis -Lovenox SCD H/O gastric bypass -poor PO intake -will need to watch closely for nutritional deficiencies -MVI Code status -extensive d/w pt regarding this and she is very clear and of sound mind and in the event of a CPA she states that she would not want any heroic measures Code Visit Inpatient E&M: [id number] Init Hosp L3
[2019-01-31 19:57] LABS: Hemoglobin A1c 6.4 % (4.2-6.3)
[2019-01-31] MEDS: 0.9% Saline Lock 10 ML Syringe IV (20:10)
[2019-01-31] MEDS: proMETHazine 25 MG/ML Syringe 6.25 MG IV (20:49)
[2019-01-31] MEDS: HYDROmorphone 1 MG/ML Syringe IV (20:50)
--- NOTE | 2019-01-31 21:13 | NURSING ---
Imaging called pt to have a paracentesis on 02/01 requesting blood thinners be held..told the Deirdre Hubbard RN.
[2019-02-01] VITALS (15 sets, daily range): BP systolic 106–167; BP diastolic 62–105; PULSE 76–142; RESP 12–22; TEMP 36.4–36.9; O2SAT 96–100
[2019-02-01 00:01] LABS: Bedside Glucose 154 mg/dL (70-110)
[2019-02-01] MEDS: proMETHazine 25 MG/ML Syringe 6.25 MG IV ×4 (01:17→20:24)
[2019-02-01] MEDS: HYDROmorphone 1 MG/ML Syringe IV ×5 (01:18→22:40)
[2019-02-01] MEDS: Famotidine 200 MG/20 ML MDV 20 MG in 0.9% Normal Saline (Pres. free 8 ML 300 MG IV ×3 (02:34→22:39)
[2019-02-01] MEDS: BMX LIQUID 180 ML 10 ML PO ×3 (02:38→22:41)
[2019-02-01] MEDS: hydrALAZINE 20 MG/ML Vial 10 MG IV (04:08)
[2019-02-01 05:46] LABS: Bedside Glucose 168 mg/dL (70-110)
[2019-02-01] MEDS: 0.9% Saline Lock 10 ML Syringe IV ×3 (06:38→11:29)
[2019-02-01 06:48] LABS: Absolute Lymphocyte Count 0.28 X10^3/uL (0.83-4.51); Absolute Neutrophil Count 0.6 X10^3/uL (2.0-7.7); Basophil# 0.01 X10^3/uL; Eosinophil# 0.11 X10^3/uL; Eosinophils% 10.7 % (0-5); Hematocrit 39.6 % (37-47); Hemoglobin 12.2 g/dL (12.0-15.0); Lymphocyte # 0.28 X10^3/ul (4.0); Lymphocyte % 27.2 % (19-41); Mean Corp Hgb Conc 30.8 g/dL (32-36); Mean Corpuscular Hgb 26.1 pg (27.0-32.0); Mean Corpuscular Volume 84.8 fL (81-99); Mean Platelet Vol. 9.6 fl (6.2-12.0); Monocyte# 0.05 X10^3/uL; Monocyte% 4.9 % (0-10); NRBC Flagged by Analyzer 0 % (0-5); Neutrophil # 0.58 X10^3/uL (2.7-7.7); Neutrophil % 56.2 % (47-70); POSITIVE COUNT YES; POSITIVE DIFFERENTIAL YES; POSITIVE MORPHOLOGY YES; Platelet Count 270 K/mm3 (150-450); RBC Distribution Width CV 16.4 % (11.6-14.6); RBC Distribution Width SD 48.5 fl (35.1-43.9); Red Blood Count 4.67 M/mm3 (4.2-5.4)
[2019-02-01 06:57] LABS: International Normalized Ratio 1.2; Prothrombin Time (Protime)PT. 14.6 SECONDS (11.7-14.9)
[2019-02-01 07:00] LABS: Differential Indicated SCAN CRITERIA MET
[2019-02-01 07:04] LABS: ALB/GLOB Ratio 0.7 RATIO (0.9-2.4); AST(SGOT) 23 U/L (15-37); Alanine Aminotransfer ALT/SGPT 33 U/L (13-56); Albumin, Serum 2.1 g/dL (3.2-5.0); Alkaline Phosphatase 50 U/L (45-117); Anion Gap 7 (5-15); BUN 23 mg/dL (7-18); BUN/Creat Ratio 38.4 RATIO (10-20); Chloride 102 mmol/L (98-107); EST Glomerular Filtration Rate 106 mL/min (>60); Est Glom Filt Rate - Afr Amer 129 mL/min (>60); Estimated Creatinine Clearance 45.78 ml/min; Glucose 185 mg/dL (74-106); Magnesium 2.1 mg/dL (1.6-2.6); Phosphorus 2.4 mg/dL (2.5-4.9); Potassium 4.9 mmol/L (3.5-5.1); Protein, Total 5.1 g/dL (6.4-8.2); Sodium Level 133 mmol/L (136-145)
--- NOTE | 2019-02-01 09:13 | ONC.CON.INP2 ---
- Problem List (1) Ovarian cancer Status: Acute (2) Ascites Status: Acute Qualifiers: Ascites type: malignant Qualified Code(s): R18.0 - Malignant ascites (3) Chemotherapy induced nausea and vomiting Status: Acute (4) Chemotherapy induced neutropenia Status: Acute Subjective Chief Complaint: Shortness of Breath/Ascites History of Present Illness: HPI:?Patient is a 68-year-old female with a past medical history significant for left parietal extracranial hematoma and mild right frontal subarachnoid hemorrhage following a fall in April 2017,?osteoarthritis, pulmonary embolism in 2013, obesity, gastric bypass surgery (loss 200 pounds) and ovarian cancer. ? Patient presented to the emergency room at [facility] on 01/12/2019 with complaints of abdominal pain and cramping. Symptoms have been going on for about 10 days prior to presentation. She was nauseated as well and had vomited several times. She was seen by her PCP and initially diagnosed with constipation following plain films of the abdomen. She took magnesium citrate and had bowel movements to the point where they became loose and watery. Pain however did not improve. ? CT A/P 01/12/2019: LUNG BASES: Within the posterior aspect of the left lower lobe there is a pulmonary nodule that measures 9 mm, as measured on lung windows. Some pleural parenchymal scarring is present adjacent to osteophytes in the azygoesophageal recess. Surgical clips are present within the posterior mediastinum inferiorly at the gastroesophageal junction related to the patient's gastric bypass ? CT abdomen: Degenerative disc disease with enthesophytes and facet arthropathy. Previous right hip prosthesis. Left hip arthritis. Sacroiliac joint arthritis. Hip enthesophytes. ? The gallbladder is distended. Some tiny gallstones are present within the gallbladder fundus near the gallbladder neck. Liver, spleen, pancreas, and right adrenal gland, are normal. Within the medial limb of the left adrenal gland there is a 17 x 15 mm adrenal nodule of the density of about 60 Hounsfield units.. The left kidney is normal. The right kidney has a in exophytic mass extending inferiorly from the inferior pole of the right kidney that measures 8.8 cm in long axis dimensions. This mass is a central density of -3 Hounsfield units, consistent with a benign cyst. The mass may be contributing to minimal right hydronephrosis. I cannot follow the right ureter all the way to the pelvis, but the visualized portions of the right ureter are without stones. The aorta is diseased with atherosclerotic plaque and tortuous. There is dense calcific plaque at the origin of the SMA, the celiac trunk, each of the renal arteries, and the SCOTT. All of those vessels, however, do appear to be patent.. ? CT pelvis: Large abdominal and pelvic ascites is present. The uterus is not identified and may have been resected. The appendix is not identified. The bladder is mildly decompressed. Abscesses are present within the pelvis. There likely has been rupture of the bowel lumen. Whether this is from acute appendicitis, terminal ileitis, or colitis I cannot differentiate. The possibility of the disease within the pelvis been related to a ruptured ovarian lesion is also within the differential. There are some calcifications associated with the right adnexal rim enhancing loculated mass. Within the right adnexal, right hemipelvis region the largest most focal area of loculated fluid with rim enhancement and calcification measures 7.9 x 6.1 cm. There are some additional loculations and rim enhancement posteriorly around the pelvic ascites. ? Patient was transferred to the gynecologic oncology surgical service at [facility]. ? CA125 01/13 was 140 U/mL. ? Patient underwent CT guided biopsy of omental mass for cytology and culture on 01/15. ? Pathology: Pelvic mass, needle core biopsy ?High grade malignant neoplasm, favor poorly-differentiated carcinoma; see comment. COMMENT Needle core biopsy sections demonstrate an epithelioid and spindled malignant neoplasm, flanked at its edges focally by benign-appearing epithelium. ?Immunohistochemical stains were performed and evaluated at the [facility] using block A1, which show that the tumor is diffusely positive for AE1/3 and CAM5.2, but negative for D240 and calretinin. Additionally, the tumor shows partial PAX8 positivity, and diffuse PAX8 and ER expression by the benign appearing epithelium at its edges. ?These findings favor that this tumor is a poorly-differentiated carcinoma (as opposed to a mesothelioma or sarcoma), but it is difficult by histology to further classify it. ?Partial expression of PAX8, as well as the adjacent epithelium that is positive for PAX8 and ER, suggest that it could be Mullerian in origin, but are not entirely specific. ? Pain was controlled on a PO regimen. A significant portion of her pain was thought to be due to constipation as patient reported no bowel movement for about a week prior to admission and imaging demonstrated large stool burden. She received a bowel regimen of colace and miralax, a dulcolax suppository and fleet enema x2 over her stay with a bowel movement noted on HD#4. She was stable for discharge on HD#4. ? Patient discharge on 01/16. ? Presented back to the emergency department at [facility] on 01/21. CT abdomen and pelvis demonstrated progression of ascites with questionable irregular stranding of the anterior peritoneal fat potentially representing omental caking/metastases. ? Patient was admitted overnight and underwent therapeutic paracentesis of 800 cc and then transferred to [facility]. ? CTA A/P 01/21/2019: Abdominal aorta: ?Mild atherosclerotic calcifications and tortuosity. ?No significant stenosis. Celiac and superior mesenteric arteries: ?Calcifications at the origin of the celiac axis with moderate stenosis. ?The superior mesenteric artery is unremarkable. Inferior mesenteric artery: ?No demonstrated narrowing. Right renal artery(arteries): ?Mild atherosclerotic calcifications at its origin. Left renal artery(arteries): ?Mild atherosclerotic calcifications at its origin. ? ? Incidentally noted is large ascites. ?The gallbladder is distended. ?There may be small gallstones. ?There is no evidence of bowel obstruction. ? IMPRESSION: No significant stenosis in both lower extremities with 3 vessels runoff to the lower legs. Atherosclerotic changes at the origin of the celiac axis. Large amount of ascites. ? Transferred?back to [facility] 01/22/2019: from OSH in the setting of malignant ascites for symptomatic control.?Received paracentesis at outside hospital with 800cc?[procedure note indicates 7400 cc removed--no cytology performed PM 01/31/2019]?removed and symptomatic improvement. Patient exhibited some tachycardia upon arrival with irregularity, EKG showed LVH and PACs. Cardiology was consulted and echo was performed with EF 57%, cardiology recommended no further investigation. DVT ultrasounds were performed for LE edema, which were negative. Palliative medicine was consulted for nausea and pain control, and home medication was adjusted. CT from OSH was re-reviewed with radiology, and was found to show critical stenosis of the celiac artery with collaterals, bilateral occulusion of anterior tibial and peronial arteries. Vascular surgery was consulted to evaluate, and recommended?no?acute need for surgical intervention, statin therapy, and antiplatelet therapy. Plan was made to proceed with neoadjuvant chemotherapy, and patient received carbo/taxol on 01/25. Patient was noted to have 3 days of hallucinations on 01/25, and was placed on delirium precautions. Patient received a port with IR on 01/27?after ID approval. Patient was discharged on 01/27 (PPD0), hemodynamically stable and with follow up with editor continuity and script onc, for chemotherapy, and for repeat paracentesis in one week scheduled. ? Was seen back in emergency room on 2 days ago on 01/29 for worsening abdominal pain, distention and persistent nausea and vomiting. She was given IV hydration along with Dilaudid and Zofran. Patient was discharged with Phenergan suppositories and instructed to follow up locally. I saw the patient for the first time in the office yesterday. She was prostrate from nausea and pain. She was directed to the emergency room. Laboratory workup demonstrated neutropenia. No fever. She has massive ascites and requires therapeutic paracentesis. Her nausea and vomiting run controlled. She is not able to eat and therefore maintain any form of nutrition at this point. Past Medical History: Chronic Problems Morbid (severe) obesity due to excess calories (Chronic) History of gastric bypass (Chronic) Depression (Chronic) Degenerative joint disease (DJD) of lumbar spine (Chronic) Spinal stenosis (Chronic) MARIA ANTONIA (obstructive sleep apnea) (Chronic) Generalized osteoarthrosis (Chronic) Vitamin B12 deficiency (Chronic) Neuropathic pain (Chronic) Past Medical/Surgical History: Past Medical History - Most Recent Inpatient Visit Past Medical History Start: 01/31/19 18:26 Text: Status: Complete Freq: ONCE Protocol: Document 01/31/19 18:56 [facility] [place] (Rec: 01/31/19 18:58 [facility] [place] [id number]) BMI Required to complete PMH What is Patient's BMI 43.6 Past Medical History Unable History Recalled No Query Text:Pt Unable/Family Not Present Neurologic Medical History Hx Stroke/TIA No Hx Dementia/Alzheimer's No Hx Parkinson's Disease No Hx Seizures No Hx Multiple Sclerosis No Hx Migraines No Cardiac Medical History VTE Present on Admission No Hx of Deep Vein Thrombosis/VTE/PE Yes: DVT in genet legs, PE 2013 Hx Hypertension Yes: RESOLVED AFTER GASTRIC SX X 5 YEARS Hx Chest Pain/Angina Yes Hx Heart Attack Yes: 20YEARS AGO Hx Cardiac Surgery/Stents/Etc. No Hx Heart Failure No Hx Pacemaker/AICD No Hx Irregular Heartbeat and/or Afib Yes: Afib, Hx Anticoagulant Therapy Yes Query Text:(Coumadin, Aspirin, Plavix, Xarelto, etc.) Hx Pain in Legs when Walking/Leg Cramps Yes Respiratory Medical History Hx COPD No Hx Emphysema No Hx Smoking No Smoking Status Never smoker Hx Tobacco Use in last 12 months No Hx Sleep Apnea Yes: RESOLVED CPAP No BIPAP No STOP Results Positive GI Medical History Hx Ulcer Yes: IN PAST Hx Hepatitis No Hx Cirrhosis No Hx GI Bleed No Hx Unplanned Weight Loss No Genitourinary Medical History Indwelling Catheter in Place on Arrival/ No Admission Hx Renal Disease No Hx Dialysis No Musculoskeletal History Hx Arthritis Yes: knee, ankle, feet, shoulder, lower back. Hx Rheumatoid Arthritis No Endocrine Medical History Hx Diabetes Yes Hx Thyroid Disease No Hematologic Medical History Hx of Blood Transfusion No Hx of Transfusion in last 3 Months No Ever experience any problems with No transfusion(s)? Hx of Preganancy in last 3 Months No Nurse Filling Out Transfusion & SGESSEL Questions: Date: 01/31/19 Time: 18:58 Psycho/Social Medical History Hx Depression Yes Hx Anxiety Yes Hx Behavior Disorder No Hx Alcohol Use No Hx Substance Use No Other Medical History Hx Blood Disorders No Hx Anemia Yes Hx Cancer Yes: ovarian Cancer Hx Drug Resistant Organism No Wound/Pressure Injury Present on Arrival No: to be assessed per primary /Admission rn Query Text:If yes, chart assessment in Shift/Clinical Findings Central Line/PICC/VAD Present on Arrival Yes /Admission Antibiotics within last 7 days? No Risk for Readmission Number of Risk Factors 8 At Risk for Readmission Patient is At Risk For Readmission Patient is eligible for Call Back Y Paternal Family History: Hypertension Maternal Family History: Cancer - Her maternal grandmother had breast cancer. She has maternal aunt with cervical cancer., Diabetes, Heart Disease, Hypertension - Social History Lives: Spouse/ Significant Other Smoking Status: Never smoker Tobacco Use: Non-smoker Alcohol: None Drugs: None Allergies/Adverse Reactions: Allergy/AdvReac Type Severity Reaction Status Date / Time aspirin AdvReac Other Verified 01/31/19 16:24 NSAIDS (Non-Steroidal AdvReac Other Verified 01/31/19 16:24 Anti-Inflamma STEROIDS AdvReac Other Uncoded 01/31/19 16:24 Vital Signs Height 1.6 m Weight: 111.6 kg Weight in Pounds 246.0 lbs Pulse Ox 97 Temperature 97.6 F Pulse Rate 89 Respiratory Rate 18 Blood Pressure [BP] 130/92 Blood Pressure 128/88 Blood Pressure Position [BP] Semi-Fowlers Blood Pressure Position Semi-Fowlers - Physical Exam General: Alert, Oriented x3 Oropharynx:: Dry mucosa Cardiac:: Regular rhythm Lungs: Normal air movement Abdomen:: - - the abdomen is tensely distended. Laboratory Data: Laboratory Tests 02/01/19 02/01/19 02/01/19 Range/Units 06:35 06:35 06:35 WBC 1.0 L* (4.4-11.0) K/mm3 RBC 4.67 (4.2-5.4) M/mm3 Hgb 12.2 (12.0-15.0) g/dL Hct 39.6 (37-47) % MCV 84.8 (81-99) fL MCH 26.1 L (27.0-32.0) pg MCHC 30.8 L (32-36) g/dL RDW Std Deviation 48.5 H (35.1-43.9) fl RDW Coeff of Pawel 16.4 H (11.6-14.6) % Plt Count 270 (150-450) K/mm3 MPV 9.6 (6.2-12.0) fl Immature Gran % (Auto) 0.000 (0.0-0.9) % Neut % (Auto) 56.2 (47-70) % Lymph % (Auto) 27.2 (19-41) % Richardson % (Auto) 4.9 (0-10) % Eos % (Auto) 10.7 H (0-5) % Baso % (Auto) 1.0 (0-1) % Absolute Neuts (auto) 0.6 L (2.0-7.7) X10^3/uL Absolute Lymphs (auto) 0.28 L (0.83-4.51) X10^3/uL Nucleated RBC % 0 (0-5) % Differential Comment Diff Path Review July PT 14.6 (11.7-14.9) SECONDS INR 1.2 APTT (24.1-36.2) Seconds Sodium 133 L (136-145) mmol/L Potassium 4.9 (3.5-5.1) mmol/L Chloride 102 (98-107) mmol/L Carbon Dioxide 24.0 (21.0-32.0) mmol/L Anion Gap 7 (5-15) BUN 23 H (7-18) mg/dL Creatinine 0.60 (0.55-1.02) mg/dL Estim Creat Clear Calc 45.78 ml/min Est GFR (MDRD) Af Amer 129 (>60) mL/min Est GFR (MDRD) Non-Af 106 (>60) mL/min BUN/Creatinine Ratio 38.4 H (10-20) RATIO Glucose 185 H (74-106) mg/dL Hemoglobin A1c (4.2-6.3) % Calcium 8.0 L (8.5-10.1) mg/dL Phosphorus 2.4 L (2.5-4.9) mg/dL Magnesium 2.1 (1.6-2.6) mg/dL Total Bilirubin 0.40 (0.20-1.00) mg/dL AST 23 (15-37) U/L ALT 33 (13-56) U/L Alkaline Phosphatase 50 (45-117) U/L Troponin I (<0.045) ng/mL Total Protein 5.1 L (6.4-8.2) g/dL Albumin 2.1 L (3.2-5.0) g/dL Globulin 3.0 (2.2-4.2) g/dL Albumin/Globulin Ratio 0.7 L (0.9-2.4) RATIO POC Glucose (70-110) mg/dL 02/01/19 01/31/19 01/31/19 Range/Units 05:35 23:27 17:00 WBC (4.4-11.0) K/mm3 RBC (4.2-5.4) M/mm3 Hgb (12.0-15.0) g/dL Hct (37-47) % MCV (81-99) fL MCH (27.0-32.0) pg MCHC (32-36) g/dL RDW Std Deviation (35.1-43.9) fl RDW Coeff of Pawel (11.6-14.6) % Plt Count (150-450) K/mm3 MPV (6.2-12.0) fl Immature Gran % (Auto) (0.0-0.9) % Neut % (Auto) (47-70) % Lymph % (Auto) (19-41) % Richardson % (Auto) (0-10) % Eos % (Auto) (0-5) % Baso % (Auto) (0-1) % Absolute Neuts (auto) (2.0-7.7) X10^3/uL Absolute Lymphs (auto) (0.83-4.51) X10^3/uL Nucleated RBC % (0-5) % Differential Comment Diff Path Review PT (11.7-14.9) SECONDS INR APTT (24.1-36.2) Seconds Sodium (136-145) mmol/L Potassium (3.5-5.1) mmol/L Chloride (98-107) mmol/L Carbon Dioxide (21.0-32.0) mmol/L Anion Gap (5-15) BUN (7-18) mg/dL Creatinine (0.55-1.02) mg/dL Estim Creat Clear Calc ml/min Est GFR (MDRD) Af Amer (>60) mL/min Est GFR (MDRD) Non-Af (>60) mL/min BUN/Creatinine Ratio (10-20) RATIO Glucose (74-106) mg/dL Hemoglobin A1c 6.4 H (4.2-6.3) % Calcium (8.5-10.1) mg/dL Phosphorus (2.5-4.9) mg/dL Magnesium (1.6-2.6) mg/dL Total Bilirubin (0.20-1.00) mg/dL AST (15-37) U/L ALT (13-56) U/L Alkaline Phosphatase (45-117) U/L Troponin I (<0.045) ng/mL Total Protein (6.4-8.2) g/dL Albumin (3.2-5.0) g/dL Globulin (2.2-4.2) g/dL Albumin/Globulin Ratio (0.9-2.4) RATIO POC Glucose 168 H 154 H (70-110) mg/dL 01/31/19 01/31/19 01/31/19 Range/Units 17:00 17:00 17:00 WBC 2.0 L (4.4-11.0) K/mm3 RBC 4.71 (4.2-5.4) M/mm3 Hgb 12.5 (12.0-15.0) g/dL Hct 39.4 (37-47) % MCV 83.7 (81-99) fL MCH 26.5 L (27.0-32.0) pg MCHC 31.7 L (32-36) g/dL RDW Std Deviation 46.8 H (35.1-43.9) fl RDW Coeff of Pawel 16.1 H (11.6-14.6) % Plt Count 272 (150-450) K/mm3 MPV 9.6 (6.2-12.0) fl Immature Gran % (Auto) 0.500 (0.0-0.9) % Neut % (Auto) 74.8 H (47-70) % Lymph % (Auto) 15.8 L (19-41) % Richardson % (Auto) 2.5 (0-10) % Eos % (Auto) 5.9 H (0-5) % Baso % (Auto) 0.5 (0-1) % Absolute Neuts (auto) 1.5 L (2.0-7.7) X10^3/uL Absolute Lymphs (auto) 0.32 L (0.83-4.51) X10^3/uL Nucleated RBC % 0 (0-5) % Differential Comment SCANNED Diff Path Review July PT 23.9 H (11.7-14.9) SECONDS INR 2.1 APTT 36.0 (24.1-36.2) Seconds Sodium 133 L (136-145) mmol/L Potassium 4.9 (3.5-5.1) mmol/L Chloride 101 (98-107) mmol/L Carbon Dioxide 23.0 (21.0-32.0) mmol/L Anion Gap 9 (5-15) BUN 23 H (7-18) mg/dL Creatinine 0.62 (0.55-1.02) mg/dL Estim Creat Clear Calc 45.78 ml/min Est GFR (MDRD) Af Amer 124 (>60) mL/min Est GFR (MDRD) Non-Af 103 (>60) mL/min BUN/Creatinine Ratio 37.3 H (10-20) RATIO Glucose 203 H (74-106) mg/dL Hemoglobin A1c (4.2-6.3) % Calcium 8.0 L (8.5-10.1) mg/dL Phosphorus (2.5-4.9) mg/dL Magnesium (1.6-2.6) mg/dL Total Bilirubin 0.40 (0.20-1.00) mg/dL AST 47 H (15-37) U/L ALT 42 (13-56) U/L Alkaline Phosphatase 52 (45-117) U/L Troponin I < 0.015 (<0.045) ng/mL Total Protein 5.3 L (6.4-8.2) g/dL Albumin 2.2 L (3.2-5.0) g/dL Globulin 3.1 (2.2-4.2) g/dL Albumin/Globulin Ratio 0.7 L (0.9-2.4) RATIO POC Glucose (70-110) mg/dL Diagnostic Data: Diagnostic Data Chest X-Ray 01/31/19 16:45 IMPRESSION: No acute findings. Electronically Signed: Arina Saucedo MD at 17:09 EST Tel , Service support , Assessment and Plan 1) Ascites Assessment: -Presumably malignant and the cause of most of her symptoms including pain and nausea. Plan: -Paracentesis today. 2) Ovarian cancer. Assessment: -Stage unknown, but likely III/IV. -I discussed with the patient this morning that currently prognosis is not clear as she just had first chemotherapy treatment a week ago. Explained that if the cancer starts responding hopefully the ascites production will decrease and the continued hope would be that she would be a candidate for interval debulking surgery following cycle 3 of treatment. Plan: -Continue supportive care. 3) Neutropenia. Assessment: -given that she is hospitalized and significantly ill, growth factor indicated. Plan: -GranX 480 ?g daily until neutrophil recovery. 4) chemotherapy-induced nausea and vomiting. Assessment: -Partly driven by ascites. Plan: -It would be okay to increase Phenergan 12.5 mg IV every 6 hours when necessary. I also discussed with the patient this morning that I think discharged to skilled care would be very reasonable as she is currently considerable supportive care through the next couple weeks. I would also schedule for at least 2 therapeutic paracenteses week for the time being. Medications: Medications Added to Medication List This Visit Category Date Time Status Bmx Liquid Med 02/01/19 01:58 Active 10 ml PO Q3H PRN PRN Famotidine 200 MG/20 ML MDV [Pepcid 200 MG/20 ML MDV] Med 02/01/19 01:58 Active 20 mg 0.9% Normal Saline (Pres. free [Sodium Chloride] 8 ml IV Q12 Furosemide [Lasix] Med 02/01/19 10:00 Active 40 mg IV BID@1000,1800 Mag Hydrox/Al Hydrox/Simeth [Mylanta II] Med 02/01/19 01:57 Active 15 - 30 ml PO Q4H PRN PRN Nystatin Powder [Mycostatin Powder] Med 02/01/19 10:00 Active 1 applic TOPICAL BID Tbo-Filgrastim [Granix] Med 02/01/19 10:00 Active 480 mcg SC DAILY Primary Care Provider: Lenny Pryor MD Referring Provider: Apurva Alfaro DO
--- NOTE | 2019-02-01 09:22 | PN_ITS ---
Patient Problems: Active and Suspected Problems Chemotherapy induced nausea and vomiting (Acute) Chemotherapy induced neutropenia (Acute) Subjective: Follow-up on metastatic ovarian CA: Patient was seen and examined. She was tearful with her siblings and her present at the bedside. She expresses frustration generally about being sick and not sure what her prognosis is. She says she just wants to have some quality of life. She is on chemotherapy only to please her sisters. She denied any fever or chills or diarrhea. Complains of generalized pain, worse in her abdomen. Associated with nausea and poor appetite. She also has some pain in her mouth and on her tongue. Objective: General: Alert, Oriented x3, Cooperative, tearful at times HEENT: Atraumatic, PERRLA, EOMI, Normocephalic Oral: No Gingival or Mucosal Lesions/ Ulcerations, Dry Mucosa, whitish discoloration of tongue Neck: Supple, No JVD, Negative Carotid Bruits, Negative Hepatojugular Reflux, No Nodes, No Nuchal Rigidity, Trachea Midline, Thyroid Normal Size and Texture Lungs: No rhonchi, No wheeze, Diminished - at the lung bases, vesicular BS Cardiovascular: Regular rate, Regular Rhythm, Normal S1, Normal S2, No murmurs, No Ectopic Activity, No rub noted, No Gallop, - - Med Port R Chest-clean and dry with well healing incision Abdomen: Bowel Sounds Present, Soft, Guarding, Hepatomegaly, generalized tenderness, No hernias noted, - - +Fluid wave, Ecchymosis abdomen Extremities: Edema, Peripheral Pulses Normal Skin: No rashes, No breakdown, Ulcer/ Wound, - - appears mildly jaundice Musculoskeletal: No Tenderness to Palpation of Joints or Extremities, Muscle Wasting Lymphatic: No Cervical, Supraclavicular, or Inguinal Adenopathy Neurological: Cranial nerves II-XII grossly intact, Deep Tendon Reflexes 2+/4 and Symmetrical, Neuro grossly intact, Motor Exam 5/5 strength throughout Psych/Mental Status: Appropriate, Depressed Vitals/I&O's: Vital Signs Temp Pulse Resp BP Pulse Ox 97.6 F L 89 18 128/88 H 97 02/01/19 07:29 02/01/19 07:29 02/01/19 07:29 02/01/19 07:29 02/01/19 07:37 Oxygen Flow Rate (L/min) 2 Oxygen Delivery Method Nasal Cannula Weight: 111.6 kg Body Mass Index (BMI) 43.5 Finger Stick Blood Glucose 129 Intake and Output for Last 24 Hours 01/30/19 01/31/19 02/01/19 23:59 23:59 23:59 Intake Total 510 / 610 110 / 110 Output Total 175 / 175 Balance 510 / 435 -65 / -65 Laboratory Results 01/31/19 17:00: WBC 2.0 L, RBC 4.71, Hgb 12.5, Hct 39.4, MCV 83.7, MCH 26.5 L, MCHC 31.7 L, RDW Std Deviation 46.8 H, RDW Coeff of Pawel 16.1 H, Plt Count 272, MPV 9.6, Immature Gran % (Auto) 0.500, Neut % (Auto) 74.8 H, Lymph % (Auto) 15.8 L, [place] % (Auto) 2.5, Eos % (Auto) 5.9 H, Baso % (Auto) 0.5, Absolute Neuts (auto) 1.5 L, Absolute Lymphs (auto) 0.32 L, Nucleated RBC % 0, Differential Comment SCANNED, Diff Path Review July01/31/19 17:00: Sodium 133 L, Potassium 4.9, Chloride 101, Carbon Dioxide 23.0, Anion Gap 9, BUN 23 H, Creatinine 0.62, Estim Creat Clear Calc 45.78, Est GFR (MDRD) Af Amer 124, Est GFR (MDRD) Non-Af 103, BUN/Creatinine Ratio 37.3 H, Glucose 203 H, Calcium 8.0 L, Total Bilirubin 0.40, AST 47 H, ALT 42, Alkaline Phosphatase 52, Troponin I < 0.015, Total Protein 5.3 L, Albumin 2.2 L, Globulin 3.1, Albumin/Globulin Ratio 0.7 L 01/31/19 17:00: PT 23.9 H, INR 2.1, APTT 36.0 01/31/19 17:00: Hemoglobin A1c 6.4 H 01/31/19 23:27: POC Glucose 154 H 02/01/19 05:35: POC Glucose 168 H 02/01/19 06:35: WBC 1.0 L*, RBC 4.67, Hgb 12.2, Hct 39.6, MCV 84.8, MCH 26.1 L, MCHC 30.8 L, RDW Std Deviation 48.5 H, RDW Coeff of Pawel 16.4 H, Plt Count 270, MPV 9.6, Immature Gran % (Auto) 0.000, Neut % (Auto) 56.2, Lymph % (Auto) 27.2, [place] % (Auto) 4.9, Eos % (Auto) 10.7 H, Baso % (Auto) 1.0, Absolute Neuts (auto) 0.6 L, Absolute Lymphs (auto) 0.28 L, Nucleated RBC % 0, Diff Path Review July02/01/19 06:35: PT 14.6, INR 1.2 02/01/19 06:35: Sodium 133 L, Potassium 4.9, Chloride 102, Carbon Dioxide 24.0, Anion Gap 7, BUN 23 H, Creatinine 0.60, Estim Creat Clear Calc 45.78, Est GFR (MDRD) Af Amer 129, Est GFR (MDRD) Non-Af 106, BUN/Creatinine Ratio 38.4 H, Glucose 185 H, Calcium 8.0 L, Phosphorus 2.4 L, Magnesium 2.1, Total Bilirubin 0.40, AST 23, ALT 33, Alkaline Phosphatase 50, Total Protein 5.1 L, Albumin 2.1 L, Globulin 3.0, Albumin/Globulin Ratio 0.7 L Current Medications Acetaminophen (Tylenol) 650 mg PO Q6H PRN PRN PRN Reason: Non-cardiac pain (mod-severe) Al Hydroxide/Mg Hydroxide (Mylanta Ii) 15 - 30 ml PO Q4H PRN PRN PRN Reason: INDIGESTION Bisacodyl (Dulcolax) 10 mg RECTAL DAILY PRN PRN Reason: Constipation Furosemide (Lasix) 40 mg IV BID@1000,1800 ZHOU Hydralazine HCl (Apresoline Iv) 10 mg IV Q4H PRN PRN PRN Reason: SBP > 160 Last Admin: 02/01/19 04:08 Dose: 10 mg Documented by: Hydromorphone HCl (Dilaudid Inj) 1 mg IV Q4H PRN PRN PRN Reason: Pain Score 1-10/10 Last Admin: 02/01/19 05:30 Dose: 1 mg Documented by: Famotidine 20 mg/ Sodium (Chloride) 10 mls @ 300 mls/hr IV Q12 COUNT INCLUDES THE [facility] Last Infusion: 02/01/19 02:36 Dose: Infused Documented by: Insulin Human Lispro (Humalog Kwikpen (Bkc)) 0 unit SC Q6 ZHOU; Protocol Last Admin: 02/01/19 05:36 Dose: Not Given Documented by: Lidocaine/Diphenhydr/Alum/Mg/Simeth () 10 ml PO Q3H PRN PRN PRN Reason: sore mouth Last Admin: 02/01/19 05:39 Dose: 10 ml Documented by: Nutritional Formula (Lactose Free) (Glucerna Shake) 120 ml PO 4X/DAY COUNT INCLUDES THE [facility] Last Admin: 01/31/19 20:54 Dose: Not Given Documented by: Nystatin (Mycostatin Powder) 1 applic TOPICAL BID COUNT INCLUDES THE [facility]; Protocol Promethazine HCl (Phenergan) 6.25 mg IV Q4H PRN PRN PRN Reason: NAUSEA/VOMITING Last Admin: 02/01/19 09:06 Dose: 6.25 mg Documented by: Sodium Chloride () 10 - 40 ml IV UD PRN PRN Reason: SALINE FLUSH Last Admin: 02/01/19 09:06 Dose: 10 ml Documented by: Tbo-Filgrastim (Granix) 480 mcg SC DAILY COUNT INCLUDES THE [facility] Venlafaxine HCl (Effexor Xr) 75 mg PO QHS COUNT INCLUDES THE [facility] Last Admin: 01/31/19 21:05 Dose: Not Given Documented by: STROKE Vital Signs/Narrative: Vital Signs Temp Pulse Resp BP BP Pulse Ox 02/01/19 07:37 97 02/01/19 07:29 97.6 F L 89 18 128/88 H 100 02/01/19 05:26 109 H 130/92 H 98 Medical Necessity - Tobacco Use Smoking Status: Never smoker Tobacco Use: Non-smoker Assessment/Plan All Active Problems Chemotherapy induced nausea and vomiting (Acute) Chemotherapy induced neutropenia (Acute) Ascites (Acute) Ovarian cancer (Acute) 1. Dyspnea/acute hypoxic respiratory insufficiency secondary to progressive malignant ascites, On 2 L of oxygen, continue to wean off oxygen for SPO2 more than 94% 2. Malignant ascites secondary to #3, status post paracentesis 2 weeks ago, Going for repeat paracentesis today. Plan for IV albumin if patient should have more taken out during paracentesis Continue on lasix IV for now due to nausea, will switch to p.o. Lasix and Aldactone from tomorrow 3. Metastatic ovarian CA, on chemotherapy, oncology following Patient complains of generalized pain and nausea Continue on IV Dilaudid 4. Neutropenia, drop in WBC count to 1.0 from 2.0 Absolute neutrophil count of 600 We will continue on chemoprophylaxis 5. Hypophosphatemia, Phos 2.4, replaced, recheck in am 6. Hyperglycemia/prediabetes, HbA1c 6.4 7. DVT prophylaxis Code Visit Inpatient E&M: 59803 Subs Hosp L2
--- NOTE | 2019-02-01 10:51 | NURSING ---
information faxed to Hospice
[2019-02-01] MEDS: 0.9% Normal Saline 1,000 ML 100 ML IV (11:27)
[2019-02-01] MEDS: TBO-FILGRASTIM 480 MCG/0.8 ML ML SC (11:30)
[2019-02-01] MEDS: Furosemide 40 MG/4 ML Vial IV ×2 (11:30→18:54)
[2019-02-01] MEDS: Na Biphos/Potassium Phosphate PACKET 1 PACKET PO ×2 (11:34→14:39)
--- NOTE | 2019-02-01 11:34 | CASEMGMT ---
ABILIO LENZ Re-admission note: Prior Admission: 01/21/19 thru 01/22/19. Pt was just recently diagnoses with Metastatic Ovarian CA. Presented to ED with SOB and admitted with Ascites. Had Ultrasound-guided paracentesis and had 14 L removed. Transferred to [facility]. Had one ER visit between admissions on 01/29/18 for abd pain, N/V. Given IV dilaudid, Zofran, and fluids. Discharged home. Re-admitted 01/31/19. Presented to ER w/SOB, N/V, abd pain and poor PO intake. Admitted with: Ascites. Sees Dr Moscoso as an out-pt and getting chemo. Last chemo 6 days ago. Silke XIONGN RN CM
[2019-02-01] MEDS: Nystatin Powder 15gm Bottle 1 APPLIC TOPICAL ×2 (11:51→22:40)
[2019-02-01 12:20] LABS: Bedside Glucose 161 mg/dL (70-110)
--- NOTE | 2019-02-01 13:11 | CASEMGMT ---
Social Work Note Charge Nurse updated this worker that [facility] called pt's Palacio and Palacio was not agreeable to Palliative Care referral at this time. SW was asked to speak with pt regarding meeting with Palliative. SW met with pt and introduced self and role at [facility]. Pt is alert and orientated x4, has family present in room. Pt gave this worker permission to speak to her in front of her guest. One of the family members present is pt's sister Lucía. SW briefly educated pt on Palliative Care. Pt agreeable to initially meeting with [facility] to discuss Palliative Care. Pt asked that [facility] call her sister Lucía ([phone]) to arrange meeting time. SW placed a call to [facility] and spoke with RN Olesya. Olesya asked if she can speak with Lucía now with this worker's phone. SW brought this worker's phone into pt's room and handed phone to Lucía. Palliative Care meeting has been arranged for 3:00pm tomorrow. CARLITA asked pt and pt's family to make sure pt's Palacio knows about the meeting. Lucía states she will update pt's Palacio on meeting time. Plan: Palliative Care meeting tomorrow at 3:00pm Shelby SOUTH, [employer]
[2019-02-01] MEDS: Albumin Human 25% (100 mL) 25 GM/100 ML BAG IV (14:34)
--- NOTE | 2019-02-01 18:45 | US_ITS ---
PROCEDURE: Ultrasound guided paracentesis. DATE OF EXAMINATION: February 01, 2019. INDICATION: Female, 68 years old. Ascites. PHYSICIAN: Doug Isaacs M.D. TECHNIQUE: The risks, benefits, and alternatives to the procedure were explained to the patient. The specific risks of bleeding, infection, and damage to bowel were detailed and accepted. Witnessed informed consent was obtained. The abdomen was ultrasonographically surveyed. An appropriate pocket of fluid was identified at the right lower quadrant. The skin were cleaned and prepped in the usual sterile fashion. Using ultrasound guidance, the peritoneal cavity was accessed with a 5-[place] paracentesis needle/catheter system. The trocar was removed. A total of 7650 ml of elliott-colored fluid were removed from the peritoneal cavity. The catheter was removed and a sterile dressing was applied. The procedure was well tolerated. US/Paracentesis with US IMPRESSION: Ultrasound guided paracentesis. Electronically Signed: Doug Isaacs, at 12:38 EST , Service support ,
[2019-02-01] MEDS: NYSTATIN 500,000 UNIT/5 ML UDC 500000 UNIT PO (18:55)
--- NOTE | 2019-02-01 21:59 | ART_ITS ---
Reason For Study: Decreased pulses Procedure A bilateral lower extremity continuous wave Doppler with analog waveform analysis and ankle brachial indexes. Left Segmental Pressures Left brachial= 120mmHg. Left posterior tibial artery = 139mmHg. Left dorsalis pedis artery = 137mmHg. The left dorsalis pedis waveforms are triphasic. The left posterior tibial artery waveforms are triphasic. Right Segmental Pressures Right brachial= 115mmHg. Right posterior tibial artery = 148mmHg. Right dorsalis pedis artery = 146mmHg. The right dorsalis pedis waveforms are triphasic. The right posterior tibial artery waveforms are triphasic. Indices The right ankle brachial index by the dorsalis pedis is 1.22. The right ankle brachial index by the posterior tibial artery is 1.23. The left ankle brachial index by the dorsalis pedis is 1.14. The left ankle brachial index by the posterior tibial artery is 1.16. Interpretation Summary Normal bilateral lower extremity ankle brachial indices at rest. Normal bilateral posterior tibial and dorsalis pedis triphasic doppler waveforms Ordering Physician: Lisa Loja Referring Physician: Lenny Pryor Chi Performed By: Shelby Lundy RVT
[2019-02-01] MEDS: Venlafaxine XR 75 MG Capsule PO (22:40)
[2019-02-01] MEDS: Metoprolol Tartrate 5 MG/5 ML Vial IV (22:40)
--- NOTE | 2019-02-01 22:56 | NURSING ---
Patient requested for her Palacio to be called, this RN called and patient is talking to him now.
[2019-02-02] VITALS (9 sets, daily range): BP systolic 113–153; BP diastolic 67–81; PULSE 88–106; RESP 16–18; TEMP 36.2–36.6; O2SAT 98–100
[2019-02-02] MEDS: Ondansetron 4 MG/2 ML Vial IV (00:49)
[2019-02-02] MEDS: Metoprolol Tartrate 5 MG/5 ML Vial IV (02:40)
[2019-02-02] MEDS: proMETHazine 25 MG/ML Syringe 6.25 MG IV ×2 (02:40→06:47)
[2019-02-02] MEDS: 0.9% Saline Lock 10 ML Syringe IV ×7 (02:41→23:36)
[2019-02-02] MEDS: HYDROmorphone 1 MG/ML Syringe IV ×2 (03:00→08:40)
[2019-02-02 05:41] LABS: Absolute Lymphocyte Count 0.29 X10^3/uL (0.83-4.51); Absolute Neutrophil Count 0.2 X10^3/uL (2.0-7.7); Eosinophil# 0.03 X10^3/uL; Eosinophils% 4.5 % (0-5); Hematocrit 37.5 % (37-47); Hemoglobin 12.1 g/dL (12.0-15.0); Lymphocyte # 0.29 X10^3/ul (4.0); Lymphocyte % 43.9 % (19-41); Mean Corp Hgb Conc 32.3 g/dL (32-36); Mean Corpuscular Volume 83.7 fL (81-99); Mean Platelet Vol. 9.7 fl (6.2-12.0); Monocyte# 0.17 X10^3/uL; Monocyte% 25.8 % (0-10); NRBC Flagged by Analyzer 0 % (0-5); Neutrophil # 0.16 X10^3/uL (2.7-7.7); Neutrophil % 24.3 % (47-70); POSITIVE COUNT YES; POSITIVE DIFFERENTIAL YES; POSITIVE MORPHOLOGY YES; Platelet Count 212 K/mm3 (150-450); RBC Distribution Width CV 16.1 % (11.6-14.6); Red Blood Count 4.48 M/mm3 (4.2-5.4)
[2019-02-02 06:03] LABS: Albumin, Serum 1.9 g/dL (3.2-5.0); BUN 20 mg/dL (7-18); BUN/Creat Ratio 29.5 RATIO (10-20); Calcium,Total 7.4 mg/dL (8.5-10.1); Chloride 98 mmol/L (98-107); Creatinine, Serum 0.68 mg/dL (0.55-1.02); EST Glomerular Filtration Rate 92 mL/min (>60); Est Glom Filt Rate - Afr Amer 112 mL/min (>60); Estimated Creatinine Clearance 45.78 ml/min; Glucose 194 mg/dL (74-106); Phosphorus 2.9 mg/dL (2.5-4.9); Potassium 4.2 mmol/L (3.5-5.1); Sodium Level 131 mmol/L (136-145)
[2019-02-02 06:34] LABS: White Blood Count 0.7 K/mm3 (4.4-11.0)
[2019-02-02 06:35] LABS: Differential Indicated SCAN CRITERIA MET
--- NOTE | 2019-02-02 08:42 | PN_ITS ---
Patient Problems: Active and Suspected Problems Chemotherapy induced nausea and vomiting (Acute) Chemotherapy induced neutropenia (Acute) Subjective: Had high volume paracentesis yesterday. [place] better and was able to sit up for a while. Had loose BM yesterday and has flatus. However, frequent vomiting with ongoing nausea last pm after trying to eat. Pain under control with periodic hydromorphone. - Physical Exam Vitals/I&O's: Vital Signs Temp Pulse Resp BP Pulse Ox 97.9 F 88 18 114/75 98 02/02/19 02:35 02/02/19 02:50 02/02/19 03:35 02/02/19 02:50 02/02/19 06:45 Oxygen Flow Rate (L/min) [3] 2 Oxygen Flow Rate (L/min) [2] 2 Oxygen Flow Rate (L/min) [1 ( 2 Initial Baseline)] Oxygen Flow Rate (L/min) 2 Oxygen Delivery Method [3] Nasal Cannula Oxygen Delivery Method [2] Nasal Cannula Oxygen Delivery Method [1 ( Nasal Cannula Initial Baseline)] Oxygen Delivery Method Nasal Cannula Weight: 111.6 kg Body Mass Index (BMI) 43.5 Finger Stick Blood Glucose 129 Intake and Output for Last 24 Hours 01/31/19 02/01/19 02/02/19 23:59 23:59 23:59 Intake Total 510 / 610 1191.17 / 1191.17 Output Total 1375 / 1375 500 / 500 Balance 510 / 435 -183.83 / -183.83 -500 / -500 General: Alert, Oriented x3 Oral: Dry Mucosa Lungs: Normal air movement Cardiovascular: Regular Rhythm Abdomen: - - less distended. No tenderness. Fullness in the upper abdomen. Extremities: - - lower extremity swelling stable. Laboratory Results 02/01/19 12:00: POC Glucose 161 H 02/02/19 05:30: WBC 0.7 L*, RBC 4.48, Hgb 12.1, Hct 37.5, MCV 83.7, MCH 27.0, MCHC 32.3, RDW Std Deviation 47.0 H, RDW Coeff of Pawel 16.1 H, Plt Count 212, MPV 9.7, Immature Gran % (Auto) 1.500 H, Neut % (Auto) 24.3 L, Lymph % (Auto) 43.9 H , [place] % (Auto) 25.8 H, Eos % (Auto) 4.5, Baso % (Auto) 0.0, Absolute Neuts (auto) 0.2 L, Absolute Lymphs (auto) 0.29 L, Nucleated RBC % 0, Diff Path Review May foll 02/02/19 05:30: Sodium 131 L, Potassium 4.2, Chloride 98, Carbon Dioxide 25.0, BUN 20 H, Creatinine 0.68, Estim Creat Clear Calc 45.78, Est GFR (MDRD) Af Amer 112, Est GFR (MDRD) Non-Af 92, BUN/Creatinine Ratio 29.5 H, Glucose 194 H, Calcium 7.4 L, Phosphorus 2.9, Albumin 1.9 L Current Medications Acetaminophen (Tylenol) 650 mg PO Q6H PRN PRN PRN Reason: Non-cardiac pain (mod-severe) Al Hydroxide/Mg Hydroxide (Mylanta Ii) 15 - 30 ml PO Q4H PRN PRN PRN Reason: INDIGESTION Bisacodyl (Dulcolax) 10 mg RECTAL DAILY PRN PRN Reason: Constipation Furosemide (Lasix) 40 mg IV BID@1000,1800 ZHOU Last Admin: 02/01/19 18:54 Dose: 40 mg Documented by: Hydralazine HCl (Apresoline Iv) 10 mg IV Q4H PRN PRN PRN Reason: SBP > 160 Last Admin: 02/01/19 04:08 Dose: 10 mg Documented by: Hydromorphone HCl (Dilaudid Inj) 1 mg IV Q4H PRN PRN PRN Reason: Pain Score 1-10/10 Last Admin: 02/02/19 03:00 Dose: 1 mg Documented by: Famotidine 20 mg/ Sodium (Chloride) 10 mls @ 300 mls/hr IV Q12 [facility] Last Infusion: 02/01/19 22:49 Dose: Infused Documented by: Insulin Human Lispro (Humalog Kwikpen (Bkc)) 0 unit SC Q6 [facility]HOU; Protocol Last Admin: 02/02/19 05:17 Dose: Not Given Documented by: Lidocaine/Diphenhydr/Alum/Mg/Simeth () 10 ml PO Q3H PRN PRN PRN Reason: sore mouth Last Admin: 02/01/19 22:41 Dose: 10 ml Documented by: Nystatin (Mycostatin Powder) 1 applic TOPICAL BID [facility]; Protocol Last Admin: 02/01/19 22:40 Dose: 1 applicatio Documented by: Nystatin (Nystatin) 500,000 unit PO 4X/DAY [facility] Last Admin: 02/01/19 22:39 Dose: Not Given Documented by: Potassium Phos/Sodium Phos (Neutra-Phos Packet) 1 packet PO 4X/DAY [facility] Last Admin: 02/01/19 22:41 Dose: Not Given Documented by: Promethazine HCl (Phenergan) 12.5 mg IV Q6H [facility] Sodium Chloride () 10 - 40 ml IV UD PRN PRN Reason: SALINE FLUSH Last Admin: 02/02/19 06:47 Dose: 20 ml Documented by: Tbo-Filgrastim (Granix) 480 mcg SC DAILY [facility] Last Admin: 02/01/19 11:30 Dose: 480 mcg Documented by: Venlafaxine HCl (Effexor Xr) 75 mg PO QHS [facility] Last Admin: 02/01/19 22:40 Dose: 75 mg Documented by: Medical Necessity - Tobacco Use Smoking Status: Never smoker Tobacco Use: Non-smoker Assessment/Plan All Active Problems Chemotherapy induced nausea and vomiting (Acute) Chemotherapy induced neutropenia (Acute) Ascites (Acute) Ovarian cancer (Acute) 1) Ascites Assessment: -Presumably malignant and the cause of most of her symptoms including pain and nausea. Plan: -Would plan for US with potential paracentesis twice weekly. -Diuresis. -Would request cytology on next sample from paracentesis. 2) Ovarian cancer. Assessment: -Stage unknown, but likely III/IV. -Again reviewed with her that currently prognosis is not clear as she just had first chemotherapy treatment 8 days ago. Explained that if the cancer starts responding hopefully the ascites production will decrease and the continued hope would be that she would be a candidate for interval debulking surgery following cycle 3 of treatment. Plan: -Continue supportive care. 3) Neutropenia. Assessment: -Given that she is hospitalized and significantly ill, growth factor was indicated. -Remains neutropenic but afebrile. Plan: -GranX 480 ?g daily until neutrophil recovery. 4) Chemotherapy-induced nausea and vomiting. Assessment: -multifactorial. Patient has ongoing ascites. She also has history of gastric bypass surgery.she underwent EGD and colonoscopy on October 12, [address] Holland. I was able to get the reports. An EGD esophagus was normal. Gastric pouch was noted to be small. There were no mucosal abnormalities. The anastomotic site was easily transversed with the scope and random small bowel biopsies demonstrated unremarkable small intestinal mucosa. Colonoscopy significant for diverticular disease. Plan: -Stop Zofran. -Increase Phenergan to 12.5 mg IV and schedule dose q 6 hours. -Ascites management as above. -Encouraged her to remain NPO with exception of sips water. -IV H2 krystian. -May need to repeat EGD if nausea continues. -Would also consider TPN for the time being. 5) H/O DVT/PE. Assessment: -Patient had multiple PEs in 2013 following a long car trip to [place]. She remains at very high risk given active malignancy, obesity and immobility. -Nothing currently to suggest GI bleeding. Plan: -Restart anticoagulation with Lovenox for now.
[2019-02-02] MEDS: Nystatin Powder 15gm Bottle 1 APPLIC TOPICAL ×2 (09:08→20:48)
[2019-02-02] MEDS: Famotidine 200 MG/20 ML MDV 20 MG in 0.9% Normal Saline (Pres. free 8 ML 300 MG IV ×2 (09:14→20:55)
[2019-02-02] MEDS: proMETHazine 25 MG/ML Syringe 12.5 MG IV ×3 (09:15→20:36)
[2019-02-02] MEDS: TBO-FILGRASTIM 480 MCG/0.8 ML ML SC (09:15)
[2019-02-02] MEDS: BMX LIQUID 180 ML 10 ML PO ×2 (09:17→20:50)
--- NOTE | 2019-02-02 09:44 | EKG12_ITS ---
Test Reason : TACHYCARDIA Blood Pressure : / mmHG Vent. Rate : 090 BPM Atrial Rate : 090 BPM P-R Int : 122 ms QRS Dur : 102 ms QT Int : 330 ms P-R-T Axes : 033 104 -22 degrees QTc Int : 403 ms Normal sinus rhythm Nonspecific T wave abnormality Abnormal ECG When compared with ECG of 31-JAN-2019 17:02, MANUAL COMPARISON REQUIRED, DATA IS UNCONFIRMED Confirmed by ONEL DRUMMOND, RYAN ([id number]), legal editor JEAN CARLOS CANALES ([id number]) on 02/05/2019 10:08:56 AM Referred By: Apurva Alfaro Confirmed By:RYAN SYKES MD
--- NOTE | 2019-02-02 09:48 | NURSING ---
notified resp that ekg is ordered
[2019-02-02 10:12] LABS: Magnesium 1.6 mg/dL (1.6-2.6)
[2019-02-02 10:51] LABS: Pathologist Review Reviewed
[2019-02-02 10:52] LABS: Pathologist Review Reviewed
[2019-02-02] MEDS: Enoxaparin 40 MG/0.4 ML Syringe SC (10:53)
[2019-02-02 10:54] LABS: Pathologist Review Reviewed
[2019-02-02] MEDS: Furosemide 40 MG Tablet PO ×2 (10:54→18:25)
--- NOTE | 2019-02-02 10:55 | PN_ITS ---
Patient Problems: Active and Suspected Problems Chemotherapy induced nausea and vomiting (Acute) Chemotherapy induced neutropenia (Acute) Subjective: Follow-up on metastatic ovarian CA: Patient was seen and examined. She felt some relief after a paracentesis. More than 7.4 L of fluid were removed. She received IV albumin. Patient subsequently had abdominal discomfort with intractable nausea and vomiting. She complains of feeling very tired. Overnight, patient was tachycardic and received IV Lopressor. Appeared to have atrial fibrillation. EKG shows sinus tachycardia. When I discussed with her the goals of care, she states that she discussed her management plan with her and they have agreed to continue with the current management until there is nothing they could do anymore. Palliative care has been consulted. Discussed patient's care with oncology, oncology recommended continue with chemotherapy, if patient was agreeable, and also to do future twice weekly paracentesis, starting TPN for nutrition. Her Zofran was switched to Phenergan. Objective: Physcial exam: General: Alert, Oriented x3, Cooperative, tearful at times HEENT: Atraumatic, PERRLA, EOMI, Normocephalic Oral: No Gingival or Mucosal Lesions/ Ulcerations, Dry Mucosa, whitish discoloration of tongue Neck: Supple, No JVD, Negative Carotid Bruits, Negative Hepatojugular Reflux, No Nodes, No Nuchal Rigidity, Trachea Midline, Thyroid Normal Size and Texture Lungs: No rhonchi, No wheeze, Diminished - at the lung bases, vesicular BS Cardiovascular: tachycardic, irregular Rhythm, Normal S1, Normal S2, 3/6 holosystolic murmur, No Ectopic Activity, No rub noted, No Gallop, - - Med Port R Chest-clean and dry with well healing incision Abdomen: Bowel Sounds Present, Soft, Guarding, Hepatomegaly, generalized tenderness, No hernias noted, - - +Fluid wave, Ecchymosis abdomen Extremities: Edema, Peripheral Pulses Normal Skin: No rashes, No breakdown, Ulcer/ Wound, - - appears mildly jaundice Musculoskeletal: No Tenderness to Palpation of Joints or Extremities, Muscle Wasting Lymphatic: No Cervical, Supraclavicular, or Inguinal Adenopathy Neurological: Cranial nerves II-XII grossly intact, Deep Tendon Reflexes 2+/4 and Symmetrical, Neuro grossly intact, Motor Exam 5/5 strength throughout Psych/Mental Status: Appropriate, Depressed Vitals/I&O's: Vital Signs Temp Pulse Resp BP Pulse Ox 97.7 F L 89 16 123/75 H 100 02/02/19 09:00 02/02/19 09:00 02/02/19 09:00 02/02/19 09:00 02/02/19 09:00 Oxygen Flow Rate (L/min) [3] 2 Oxygen Flow Rate (L/min) [2] 2 Oxygen Flow Rate (L/min) [1 ( 2 Initial Baseline)] Oxygen Flow Rate (L/min) 2 Oxygen Delivery Method [3] Nasal Cannula Oxygen Delivery Method [2] Nasal Cannula Oxygen Delivery Method [1 ( Nasal Cannula Initial Baseline)] Oxygen Delivery Method Nasal Cannula Weight: 111.6 kg Body Mass Index (BMI) 43.5 Finger Stick Blood Glucose 129 Intake and Output for Last 24 Hours 01/31/19 02/01/19 02/02/19 23:59 23:59 23:59 Intake Total 510 / 610 1191.17 / 1191.17 Output Total 1375 / 1375 500 / 500 Balance 510 / 435 -183.83 / -183.83 -490 / -490 Laboratory Results 01/31/19 17:00: Diff Path Review Reviewed 02/01/19 06:35: Diff Path Review Reviewed 02/01/19 12:00: POC Glucose 161 H 02/02/19 05:30: WBC 0.7 L*, RBC 4.48, Hgb 12.1, Hct 37.5, MCV 83.7, MCH 27.0, MCHC 32.3, RDW Std Deviation 47.0 H, RDW Coeff of Pawel 16.1 H, Plt Count 212, MPV 9.7, Immature Gran % (Auto) 1.500 H, Neut % (Auto) 24.3 L, Lymph % (Auto) 43.9 H , [place] % (Auto) 25.8 H, Eos % (Auto) 4.5, Baso % (Auto) 0.0, Absolute Neuts (auto) 0.2 L, Absolute Lymphs (auto) 0.29 L, Nucleated RBC % 0, Diff Path Review Reviewed 02/02/19 05:30: Sodium 131 L, Potassium 4.2, Chloride 98, Carbon Dioxide 25.0, BUN 20 H, Creatinine 0.68, Estim Creat Clear Calc 45.78, Est GFR (MDRD) Af Amer 112, Est GFR (MDRD) Non-Af 92, BUN/Creatinine Ratio 29.5 H, Glucose 194 H, Calcium 7.4 L, Phosphorus 2.9, Albumin 1.9 L 02/02/19 05:30: Magnesium 1.6 Current Medications Acetaminophen (Tylenol) 1,000 mg PO Q6H PRN PRN PRN Reason: Pain Score 4-5/10 Al Hydroxide/Mg Hydroxide (Mylanta Ii) 15 - 30 ml PO Q4H PRN PRN PRN Reason: INDIGESTION Bisacodyl (Dulcolax) 10 mg RECTAL DAILY PRN PRN Reason: Constipation Cholecalciferol (Vitamin D) 1,000 unit PO DAILY [facility] Last Admin: 02/02/19 10:53 Dose: 1,000 unit Documented by: Enoxaparin Sodium (Lovenox) 40 mg SC DAILY@0600 [facility] Last Admin: 02/02/19 10:53 Dose: 40 mg Documented by: Furosemide (Lasix) 40 mg PO BID@1000,1800 [facility] Last Admin: 02/02/19 10:54 Dose: 40 mg Documented by: Gabapentin (Neurontin) 600 mg PO QHS [facility] Hydralazine HCl (Apresoline Iv) 10 mg IV Q4H PRN PRN PRN Reason: SBP > 160 Last Admin: 02/01/19 04:08 Dose: 10 mg Documented by: Hydromorphone HCl (Dilaudid Inj) 2 mg IV Q4H PRN PRN PRN Reason: Pain Score 1-10/10 Famotidine 20 mg/ Sodium (Chloride) 10 mls @ 300 mls/hr IV Q12 [facility] Last Infusion: 02/02/19 09:27 Dose: Infused Documented by: Insulin Human Lispro (Humalog Kwikpen (Bkc)) 0 unit SC Q6 [facility]; Protocol Last Admin: 02/02/19 05:17 Dose: Not Given Documented by: Lidocaine/Diphenhydr/Alum/Mg/Simeth () 10 ml PO Q3H PRN PRN PRN Reason: sore mouth Last Admin: 02/02/19 09:17 Dose: 10 ml Documented by: Nystatin (Mycostatin Powder) 1 applic TOPICAL BID [facility]; Protocol Last Admin: 02/02/19 09:08 Dose: 1 applicatio Documented by: Nystatin (Nystatin) 500,000 unit PO 4X/DAY [facility] Last Admin: 02/02/19 10:53 Dose: 500,000 unit Documented by: Potassium Phos/Sodium Phos (Neutra-Phos Packet) 1 packet PO 4X/DAY [facility] Last Admin: 02/02/19 10:53 Dose: 1 packet Documented by: Promethazine HCl (Phenergan) 12.5 mg IV Q6H [facility] Last Admin: 02/02/19 09:15 Dose: 12.5 mg Documented by: Sodium Chloride () 10 - 40 ml IV UD PRN PRN Reason: SALINE FLUSH Last Admin: 02/02/19 09:16 Dose: 20 ml Documented by: Tbo-Filgrastim (Granix) 480 mcg SC DAILY [facility] Last Admin: 02/02/19 09:15 Dose: 480 mcg Documented by: Venlafaxine HCl (Effexor Xr) 75 mg PO QHS [facility] Last Admin: 02/01/19 22:40 Dose: 75 mg Documented by: STROKE Vital Signs/Narrative: Vital Signs Temp Pulse Resp BP Pulse Ox 02/02/19 09:00 97.7 F L 89 16 123/75 H 100 Medical Necessity - Tobacco Use Smoking Status: Never smoker Tobacco Use: Non-smoker Assessment/Plan All Active Problems Chemotherapy induced nausea and vomiting (Acute) Chemotherapy induced neutropenia (Acute) Ascites (Acute) Ovarian cancer (Acute) 1. Tachycardia, patient alternating from sinus tachycardia to atrial fibrillation, with episodes of nonsustained VT May be secondary to hypomagnesemia, history of paroxysmal atrial fibrillation According to patient, no more atrial fibrillation after his bypass surgery Will replace magnesium, continue to monitor 2. Hypomagnesemia, Mg 1.6, replace, recheck in a.m. 3. Dyspnea/acute hypoxic respiratory insufficiency secondary to progressive malignant ascites, On 2 L of oxygen, continue to wean off oxygen for SPO2 more than 94% 4. Intractable nausea and vomiting likely secondary to malignancy, recent chemotherapy History of gastric bypass surgery Discussed with oncology, will start patient on TPN 5. Malignant ascites secondary to #3, status post paracentesis 2 weeks ago, Status post paracentesis, will aim for repeat paracentesis on Tuesday 6. Metastatic ovarian CA, on chemotherapy, oncology following Patient complains of generalized pain and nausea Continue on IV Dilaudid 7. Neutropenia, WBC 0.7, ANC 200 On Granix, trend CBCD 8. Hypophosphatemia,replaced, recheck in am 9. Hyperglycemia/prediabetes, HbA1c 6.4, continue with blood glucose check and insulin sliding scale 10. DVT prophylaxis Code Visit Inpatient E&M: 75661 Subs Hosp L3
[2019-02-02] MEDS: HYDROmorphone 1 MG/ML Syringe 2 MG IV ×2 (12:25→20:55)
--- NOTE | 2019-02-02 12:27 | CASEMGMT ---
Social Work Note SW updated that SNF is being recommended for pt for therapy. SW met with pt and introduced self and role at [facility]. Pt is alert and orientated x3. SW spoke with pt regarding SNF and provided pt with list of area SNF that accept pt's insurance. PT asked about TCU. SW explained to pt that TCU or any SNF are not going to accept pt that is doing chemotherapy and if pt chooses SNF then chemotherapy would need to be discontinued. Pt states that she was under the impression that Dr. Moscoso was still trying to figure out her chemotherapy. SW explained that this worker will at least put pt's name on TCU list in the event that pt is agreeable to discontinuing her chemotherapy and that pt will not need to be on TPN on discharge. Pt states understanding. SW placed a call to referral line and provided referral. Plan: SNF pending chemotherapy and TPN. SW will follow up with pt on Tuesday to confirm discharge plans. Shelby Vela DIRECTOR OF HOME ECONOMICS, [employer]
[2019-02-02] MEDS: NYSTATIN 500,000 UNIT/5 ML UDC 500000 UNIT PO ×2 (14:10→20:49)
[2019-02-02] MEDS: Na Biphos/Potassium Phosphate PACKET 1 PACKET PO (14:11)
[2019-02-02] MEDS: proCHLORPERazine 10 MG/2 ML Vial IV ×2 (18:25→23:36)
[2019-02-02] MEDS: Venlafaxine XR 75 MG Capsule PO (20:48)
[2019-02-02] MEDS: Gabapentin 300 MG Capsule 600 MG PO (20:49)
[2019-02-02] MEDS: Insulin Lispro 100 UNIT/ML INSULN.PEN SC (23:48)
[2019-02-03 00:41] LABS: Bedside Glucose 171 mg/dL (70-110)
--- NOTE | 2019-02-03 01:02 | NURSING ---
pt refused tele
[2019-02-03 02:35] VITALS: BP 115/61; PULSE 95; RESP 16; TEMP 36.3; O2SAT 98
[2019-02-03] MEDS: proMETHazine 25 MG/ML Syringe 12.5 MG IV ×3 (02:38→22:44)
[2019-02-03] MEDS: 0.9% Saline Lock 10 ML Syringe IV ×7 (02:39→22:49)
[2019-02-03] MEDS: BMX LIQUID 180 ML 10 ML PO ×4 (02:39→14:40)
[2019-02-03 05:23] LABS: Absolute Lymphocyte Count 0.33 X10^3/uL (0.83-4.51); Absolute Neutrophil Count 0.5 X10^3/uL (2.0-7.7); Basophil# 0.02 X10^3/uL; Basophil% 1.6 % (0-1); Eosinophil# 0.03 X10^3/uL; Eosinophils% 2.4 % (0-5); Hematocrit 36.9 % (37-47); Hemoglobin 11.8 g/dL (12.0-15.0); Lymphocyte # 0.33 X10^3/ul (4.0); Lymphocyte % 26.8 % (19-41); Mean Corpuscular Hgb 26.7 pg (27.0-32.0); Mean Corpuscular Volume 83.5 fL (81-99); Mean Platelet Vol. 9.5 fl (6.2-12.0); Monocyte# 0.39 X10^3/uL; Monocyte% 31.7 % (0-10); NRBC Flagged by Analyzer 0 % (0-5); Neutrophil # 0.45 X10^3/uL (2.7-7.7); Neutrophil % 36.7 % (47-70); POSITIVE COUNT YES; POSITIVE DIFFERENTIAL YES; POSITIVE MORPHOLOGY YES; Platelet Count 181 K/mm3 (150-450); RBC Distribution Width CV 15.8 % (11.6-14.6); RBC Distribution Width SD 46.2 fl (35.1-43.9); Red Blood Count 4.42 M/mm3 (4.2-5.4)
[2019-02-03 05:26] LABS: Differential Indicated SCAN CRITERIA MET; White Blood Count 1.2 K/mm3 (4.4-11.0)
[2019-02-03] MEDS: HYDROmorphone 1 MG/ML Syringe 2 MG IV (05:26)
[2019-02-03] MEDS: proCHLORPERazine 10 MG/2 ML Vial IV (05:27)
[2019-02-03] MEDS: Insulin Lispro 100 UNIT/ML INSULN.PEN SC ×3 (05:40→17:13)
[2019-02-03] MEDS: Enoxaparin 40 MG/0.4 ML Syringe SC (05:40)
[2019-02-03 05:41] LABS: ALB/GLOB Ratio 0.6 RATIO (0.9-2.4); AST(SGOT) 12 U/L (15-37); Alanine Aminotransfer ALT/SGPT 22 U/L (13-56); Albumin, Serum 1.6 g/dL (3.2-5.0); Alkaline Phosphatase 47 U/L (45-117); Anion Gap 9 (5-15); BUN 22 mg/dL (7-18); BUN/Creat Ratio 27.5 RATIO (10-20); Calcium,Total 7.3 mg/dL (8.5-10.1); Chloride 97 mmol/L (98-107); EST Glomerular Filtration Rate 76 mL/min (>60); Est Glom Filt Rate - Afr Amer 92 mL/min (>60); Estimated Creatinine Clearance 57.22 ml/min; Globulin 2.8 g/dL (2.2-4.2); Glucose 168 mg/dL (74-106); Magnesium 1.7 mg/dL (1.6-2.6); Potassium 3.8 mmol/L (3.5-5.1); Protein, Total 4.4 g/dL (6.4-8.2); Sodium Level 133 mmol/L (136-145)
[2019-02-03 05:51] LABS: Bedside Glucose 163 mg/dL (70-110)
--- NOTE | 2019-02-03 05:55 | ECHOD_ITS ---
Reason For Study: Arrhythmia Procedure This was a 2D Doppler, Color Flow transthoracic echocardiogram. Exam performed portable in patient room. Left Ventricle Normal LV size. Left ventricular systolic function is normal. The estimated ejection fraction is 55 %. No regional wall motion abnormalities noted. Right Ventricle Normal RV size. Normal systolic function. Atria Normal left atrium. Normal right atrium. Mitral Valve Mild focal mitral valve calcification, bileaflet. Mild (1+) eccentric mitral valve insufficiency. Tricuspid Valve Normal tricuspid valve. Aortic Valve Normal aortic valve. Pulmonic Valve Normal pulmonic valve. Great Vessels Normal aortic root. The pulmonary artery is normal size. Normal inferior vena cava. Pericardium/Pleural No pericardial effusion. MMode/2D Measurements & Calculations LVIDd: 3.9 cm IVSd: 1.0 cm Ao root diam: 3.2 cm LVIDs: 2.6 cm LVPWd: 1.2 cm RVDd: 3.2 cm FS: 34.8 % LAV(MOD-bp): 42.4 ml LVAd ap4: 17.5 cm2 SV(MOD-sp4): 29.4 ml LAV(MOD-bp) Indexed: 20.1 ml/m2 EDV(MOD-sp4): 43.8 ml LAV(MOD-sp2): 49.2 ml EDV(sp4-el): 44.1 ml LAV(MOD-sp4): 35.0 ml LVAs ap4: 9.2 cm2 ESV(MOD-sp4): 14.4 ml ESV(sp4-el): 14.3 ml EF(MOD-sp4): 67.1 % EF(sp4-el): 67.6 % SV(sp4-el): 29.8 ml LA A4 area: 15.4 cm2 LA dimension(2D): 3.3 cm RA A4 area: 13.6 cm2 Doppler Measurements & Calculations MV E max mary: 55.4 cm/sec Ao V2 max: 169.3 cm/sec LV V1 max: 127.4 cm/sec Ao max P.6 mmHg LV V1 max P.5 mmHg Ao V2 mean: 121.6 cm/sec Ao mean P.6 mmHg Ao V2 VTI: 22.7 cm PA V2 max: 136.5 cm/sec Interpretation Summary Normal LV size. Left ventricular systolic function is normal. The estimated ejection fraction is 55 %. Structurally normal valves. Ordering Physician: Jacy Davison Referring Physician: Lenny Pryor Chi Performed By: Heather Houston RDCS, RVT
--- NOTE | 2019-02-03 06:00 | EKG12_ITS ---
Test Reason : AM EKG Blood Pressure : / mmHG Vent. Rate : 133 BPM Atrial Rate : 163 BPM P-R Int : 000 ms QRS Dur : 096 ms QT Int : 310 ms P-R-T Axes : 000 120 -43 degrees QTc Int : 461 ms Atrial fibrillation Left posterior fascicular block T wave abnormality, consider inferior ischemia Abnormal ECG When compared with ECG of 02-FEB-2019 10:07, MANUAL COMPARISON REQUIRED, DATA IS UNCONFIRMED Confirmed by MERCEDES ORTIZ ([id number]), order editor VANESSA TONEY ([id number]) on 02/09/2019 11:50:19 AM Referred By: Apurva Alfaro Confirmed By:MERCEDES ORTIZ
--- NOTE | 2019-02-03 07:15 | PCM.PN.HOSP ---
Patient Problems: Active and Suspected Problems Chemotherapy induced nausea and vomiting (Acute) Chemotherapy induced neutropenia (Acute) Subjective: Follow-up on metastatic ovarian CA: Patient was seen and examined. She still has nausea and vomiting. Had a BM last night. No fever or chills. Discussed with Dr. Moscoso, TPN will be started today. Objective: Physcial exam: General: Alert, Oriented x3, Cooperative, flat affect HEENT: Atraumatic, PERRLA, EOMI, Normocephalic Oral: No Gingival or Mucosal Lesions/ Ulcerations, Dry Mucosa, whitish discoloration of tongue Neck: Supple, No JVD, Negative Carotid Bruits, Negative Hepatojugular Reflux, No Nodes, No Nuchal Rigidity, Trachea Midline, Thyroid Normal Size and Texture Lungs: No rhonchi, No wheeze, Diminished - at the lung bases, vesicular BS Cardiovascular: tachycardic, irregular Rhythm, Normal S1, Normal S2, 3/6 holosystolic murmur, No Ectopic Activity, No rub noted, No Gallop, - - Med Port R Chest-clean and dry with well healing incision Abdomen: Bowel Sounds Present, Soft, Guarding, Hepatomegaly, generalized tenderness, No hernias noted, - - +Fluid wave, Ecchymosis abdomen Extremities: Edema, Peripheral Pulses Normal Skin: No rashes, No breakdown, Ulcer/ Wound, - - appears mildly jaundice Musculoskeletal: No Tenderness to Palpation of Joints or Extremities, Muscle Wasting Lymphatic: No Cervical, Supraclavicular, or Inguinal Adenopathy Neurological: Cranial nerves II-XII grossly intact, Deep Tendon Reflexes 2+/4 and Symmetrical, Neuro grossly intact, Motor Exam 5/5 strength throughout Psych/Mental Status: Appropriate, Depressed Vitals/I&O's: Vital Signs Temp Pulse Resp BP Pulse Ox 97.3 F L 95 16 115/61 98 02/03/19 02:35 02/03/19 02:35 02/03/19 02:35 02/03/19 02:35 02/03/19 02:35 Oxygen Flow Rate (L/min) [3] 2 Oxygen Flow Rate (L/min) [2] 2 Oxygen Flow Rate (L/min) [1 ( 2 Initial Baseline)] Oxygen Flow Rate (L/min) 2 Oxygen Delivery Method [3] Nasal Cannula Oxygen Delivery Method [2] Nasal Cannula Oxygen Delivery Method [1 ( Nasal Cannula Initial Baseline)] Oxygen Delivery Method Nasal Cannula Weight: 111.6 kg Body Mass Index (BMI) 43.5 Finger Stick Blood Glucose 129 Intake and Output for Last 24 Hours 02/01/19 02/02/19 02/03/19 23:59 23:59 23:59 Intake Total 1191.17 / 1191.17 274 / 274 Output Total 1375 / 1375 1050 / 1050 200 / 200 Balance -183.83 / -183.83 -776 / -776 -200 / -200 Laboratory Results 01/31/19 17:00: Diff Path Review Reviewed 02/01/19 06:35: Diff Path Review Reviewed 02/02/19 05:30: Diff Path Review Reviewed 02/02/19 05:30: Magnesium 1.6 02/02/19 23:35: POC Glucose 171 H 02/03/19 05:10: WBC 1.2 L*, RBC 4.42, Hgb 11.8 L, Hct 36.9 L, MCV 83.5, MCH 26.7 L, MCHC 32.0, RDW Std Deviation 46.2 H, RDW Coeff of Pawel 15.8 H, Plt Count 181, MPV 9.5, Immature Gran % (Auto) 0.800, Neut % (Auto) 36.7 L, Lymph % (Auto) 26.8, [place] % (Auto) 31.7 H, Eos % (Auto) 2.4, Baso % (Auto) 1.6 H, Absolute Neuts (auto) 0.5 L, Absolute Lymphs (auto) 0.33 L, Nucleated RBC % 0, Diff Path Review May 02/03/19 05:10: Sodium 133 L, Potassium 3.8, Chloride 97 L, Carbon Dioxide 27.0, Anion Gap 9, BUN 22 H, Creatinine 0.80, Estim Creat Clear Calc 57.22, Est GFR (MDRD) Af Amer 92, Est GFR (MDRD) Non-Af 76, BUN/Creatinine Ratio 27.5 H, Glucose 168 H, Calcium 7.3 L, Magnesium 1.7, Total Bilirubin 0.40, AST 12 L, ALT 22, Alkaline Phosphatase 47, Total Protein 4.4 L, Albumin 1.6 L, Globulin 2.8, Albumin/Globulin Ratio 0.6 L 02/03/19 05:37: POC Glucose 163 H Current Medications Acetaminophen (Tylenol) 1,000 mg PO Q6H PRN PRN PRN Reason: Pain Score 4-5/10 Al Hydroxide/Mg Hydroxide (Mylanta Ii) 15 - 30 ml PO Q4H PRN PRN PRN Reason: INDIGESTION Bisacodyl (Dulcolax) 10 mg RECTAL DAILY PRN PRN Reason: Constipation Cholecalciferol (Vitamin D) 1,000 unit PO DAILY [facility] Last Admin: 02/02/19 11:37 Dose: Not Given Documented by: Enoxaparin Sodium (Lovenox) 40 mg SC DAILY@0600 [facility] Last Admin: 02/03/19 05:40 Dose: 40 mg Documented by: Furosemide (Lasix) 40 mg PO BID@1000,1800 [facility] Last Admin: 02/02/19 18:25 Dose: 40 mg Documented by: Gabapentin (Neurontin) 600 mg PO QHS [facility] Last Admin: 02/02/19 20:49 Dose: 600 mg Documented by: Hydralazine HCl (Apresoline Iv) 10 mg IV Q4H PRN PRN PRN Reason: SBP > 160 Last Admin: 02/01/19 04:08 Dose: 10 mg Documented by: Hydromorphone HCl (Dilaudid Inj) 2 mg IV Q4H PRN PRN PRN Reason: Pain Score 1-10/10 Last Admin: 02/03/19 05:26 Dose: 2 mg Documented by: Famotidine 20 mg/ Sodium (Chloride) 10 mls @ 300 mls/hr IV Q12 [facility] Last Infusion: 02/02/19 20:57 Dose: Infused Documented by: Magnesium Sulfate 2 gm/ Sodium (Chloride) 104 mls @ 52 mls/hr IV X1 ONE Stop: 02/03/19 09:13 Insulin Human Lispro (Humalog Kwikpen (Bkc)) 0 unit SC Q6 [facility]; Protocol Last Admin: 02/03/19 05:40 Dose: 1 units Documented by: Lidocaine/Diphenhydr/Alum/Mg/Simeth () 10 ml PO Q3H PRN PRN PRN Reason: sore mouth Last Admin: 02/03/19 05:41 Dose: 10 ml Documented by: Nystatin (Mycostatin Powder) 1 applic TOPICAL BID [facility]; Protocol Last Admin: 02/02/19 20:48 Dose: 1 applicatio Documented by: Nystatin (Nystatin) 500,000 unit PO 4X/DAY [facility] Last Admin: 02/02/19 20:49 Dose: 500,000 unit Documented by: Potassium Phos/Sodium Phos (Neutra-Phos Packet) 1 packet PO 4X/DAY [facility] Last Admin: 02/02/19 20:49 Dose: Not Given Documented by: Prochlorperazine Edisylate (Compazine Iv) 10 mg IV Q4H PRN PRN PRN Reason: 2nd line for nausea, vomiting. Last Admin: 02/03/19 05:27 Dose: 10 mg Documented by: Promethazine HCl (Phenergan) 12.5 mg IV Q6H [facility] Last Admin: 02/03/19 02:38 Dose: 12.5 mg Documented by: Sodium Chloride () 10 - 40 ml IV UD PRN PRN Reason: SALINE FLUSH Last Admin: 02/03/19 05:27 Dose: 30 ml Documented by: Tbo-Filgrastim (Granix) 480 mcg SC DAILY [facility] Last Admin: 02/02/19 09:15 Dose: 480 mcg Documented by: Venlafaxine HCl (Effexor Xr) 75 mg PO QHS [facility] Last Admin: 02/02/19 20:48 Dose: 75 mg Documented by: Medical Necessity - Tobacco Use Smoking Status: Never smoker Tobacco Use: Non-smoker Assessment/Plan All Active Problems Chemotherapy induced nausea and vomiting (Acute) Chemotherapy induced neutropenia (Acute) Ascites (Acute) Ovarian cancer (Acute) 1. Tachycardia, patient alternating from sinus tachycardia to atrial fibrillation, with episodes of nonsustained VT, improved Will continue to monitor 2. Hypomagnesemia, Mg 1.7, replace, recheck in a.m. 3. Dyspnea/acute hypoxic respiratory insufficiency secondary to progressive malignant ascites, On 2 L of oxygen, continue to wean off oxygen for SPO2 more than 94% 4. Intractable nausea and vomiting likely secondary to malignancy, recent chemotherapy History of gastric bypass surgery Discussed with oncology, will start patient on TPN 5. Malignant ascites secondary to #3, status post paracentesis 2 weeks ago, Status post paracentesis, will aim for repeat paracentesis on Tuesday 6. Metastatic ovarian CA, on chemotherapy, oncology following Patient complains of generalized pain and nausea Continue on IV Dilaudid 7. Neutropenia, WBC 0.7, ANC 200 On Granix, trend CBCD 8. Hypophosphatemia,replaced, recheck in am 9. Hyperglycemia/prediabetes, HbA1c 6.4, continue with blood glucose check and insulin sliding scale 10. DVT prophylaxis Code Visit Inpatient E&M: 66930 Subs Hosp L2
[2019-02-03 07:36] VITALS: O2SAT 96
[2019-02-03 08:52] VITALS: BP 106/71; PULSE 80; RESP 20; TEMP 36.6; O2SAT 96
[2019-02-03] MEDS: Nystatin Powder 15gm Bottle 1 APPLIC TOPICAL ×2 (09:09→22:56)
[2019-02-03] MEDS: TBO-FILGRASTIM 480 MCG/0.8 ML ML SC (09:09)
[2019-02-03] MEDS: Furosemide 40 MG Tablet PO ×2 (09:09→17:15)
[2019-02-03] MEDS: NYSTATIN 500,000 UNIT/5 ML UDC 500000 UNIT PO ×4 (09:10→22:55)
[2019-02-03] MEDS: Famotidine 200 MG/20 ML MDV 20 MG in 0.9% Normal Saline (Pres. free 8 ML 300 MG IV ×2 (11:35→22:29)
[2019-02-03] MEDS: Ondansetron ODT 4 MG Tablet PO (11:35)
[2019-02-03] MEDS: Acetaminophen 650 MG/20 ML UDC 1000 MG PO (11:35)
--- NOTE | 2019-02-03 11:36 | NS ---
If parenteral nutrition support preferred by MD, rec 2L 20%Dex/5%AA w/ 250cc 20% lipids 3x/wk to provide ~ 2000 eliot / 100 gm pro/day. Please check baseline prealb and lipid panel. As pt w/ functioning gut - rec Enteral nutrition support - would use Jevity 1.5 at goal rate 65 cc/hr with 100 cc H2O flush every 4 hrs to provide ~ 2340 eliot / 100 gm pro / 1785 cc free water /day. Would start tf at 25 cc/hr and increase by 20 cc/hr as pt tolerates until goal rate achieved. Homa Sánchez RDN, LD [ End ]
--- NOTE | 2019-02-03 11:42 | NURSING ---
Dr. Davison requested this RN call paramedic to notify of request to being TPN. Notified that [facility] will not pay for TPN- Dr. Cam states she wants to start today and doesn't plan to sent pt anywhere on this. This RN notified paramedic and she states she will be up to assess pt shortly.
[2019-02-03 11:56] LABS: Bedside Glucose 166 mg/dL (70-110)
--- NOTE | 2019-02-03 12:55 | CASEMGMT ---
Social Work Patient requesting to speak with social work. Met with patient in room. Patient stating to plan to put chemotherapy on hold while patient transitions to TCU. Patient stating first choice is TCU and do not want to go outside this hospital. Per prior social work notes possible TPN. Patient already on list for TCU pending status of TPN. [place]
--- NOTE | 2019-02-03 13:58 | PN_ITS ---
Patient Problems: Active and Suspected Problems Chemotherapy induced nausea and vomiting (Acute) Chemotherapy induced neutropenia (Acute) Subjective: Frequent nausea but no vomiting. Was able to walk a little earlier today with PT. Pain under better control. - Physical Exam Vitals/I&O's: Vital Signs Temp Pulse Resp BP Pulse Ox 98 F 80 20 H 106/71 96 02/03/19 08:52 02/03/19 08:52 02/03/19 08:52 02/03/19 08:52 02/03/19 08:52 Oxygen Flow Rate (L/min) [3] 2 Oxygen Flow Rate (L/min) [2] 2 Oxygen Flow Rate (L/min) [1 ( 2 Initial Baseline)] Oxygen Flow Rate (L/min) 2 Oxygen Delivery Method [3] Nasal Cannula Oxygen Delivery Method [2] Nasal Cannula Oxygen Delivery Method [1 ( Nasal Cannula Initial Baseline)] Oxygen Delivery Method Nasal Cannula Weight: 111.6 kg Body Mass Index (BMI) 43.5 Finger Stick Blood Glucose 129 Intake and Output for Last 24 Hours 02/01/19 02/02/19 02/03/19 23:59 23:59 23:59 Intake Total 1191.17 / 1191.17 274 / 274 114.25 / 114.25 Output Total 1375 / 1375 1050 / 1050 200 / 200 Balance -183.83 / -183.83 -776 / -776 -85.75 / -85.75 General: Alert, Oriented x3 Oral: - - Moister mucosa. Lungs: Normal air movement Cardiovascular: Regular Rhythm Abdomen: - - Vague fullness upper abdomen. Fluid wave. No significant reaccumulation of ascites right now. Extremities: - - Less swelling. Laboratory Results 02/02/19 23:35: POC Glucose 171 H 02/03/19 05:10: WBC 1.2 L*, RBC 4.42, Hgb 11.8 L, Hct 36.9 L, MCV 83.5, MCH 26.7 L, MCHC 32.0, RDW Std Deviation 46.2 H, RDW Coeff of Pawel 15.8 H, Plt Count 181, MPV 9.5, Immature Gran % (Auto) 0.800, Neut % (Auto) 36.7 L, Lymph % (Auto) 26.8, Toole % (Auto) 31.7 H, Eos % (Auto) 2.4, Baso % (Auto) 1.6 H, Absolute Neuts (auto) 0.5 L, Absolute Lymphs (auto) 0.33 L, Nucleated RBC % 0, Diff Path Review July02/03/19 05:10: Sodium 133 L, Potassium 3.8, Chloride 97 L, Carbon Dioxide 27.0, Anion Gap 9, BUN 22 H, Creatinine 0.80, Estim Creat Clear Calc 57.22, Est GFR (MDRD) Af Amer 92, Est GFR (MDRD) Non-Af 76, BUN/Creatinine Ratio 27.5 H, Glucose 168 H, Calcium 7.3 L, Magnesium 1.7, Total Bilirubin 0.40, AST 12 L, ALT 22, Alkaline Phosphatase 47, Total Protein 4.4 L, Albumin 1.6 L, Globulin 2.8, Albumin/Globulin Ratio 0.6 L 02/03/19 05:37: POC Glucose 163 H 02/03/19 11:33: POC Glucose 166 H Current Medications Acetaminophen (Tylenol Liquid) 1,000 mg PO Q8 [facility] Last Admin: 02/03/19 11:35 Dose: 1,000 mg Documented by: Al Hydroxide/Mg Hydroxide (Mylanta Ii) 15 - 30 ml PO Q4H PRN PRN PRN Reason: INDIGESTION Bisacodyl (Dulcolax) 10 mg RECTAL DAILY PRN PRN Reason: Constipation Cholecalciferol (Vitamin D) 1,000 unit PO DAILY [facility] Last Admin: 02/03/19 09:16 Dose: Not Given Documented by: Enoxaparin Sodium (Lovenox) 40 mg SC DAILY@0600 [facility] Last Admin: 02/03/19 05:40 Dose: 40 mg Documented by: Furosemide (Lasix) 40 mg PO BID@1000,1800 [facility] Last Admin: 02/03/19 09:09 Dose: 40 mg Documented by: Gabapentin (Neurontin) 600 mg PO QHS [facility] Last Admin: 02/02/19 20:49 Dose: 600 mg Documented by: Hydralazine HCl (Apresoline Iv) 10 mg IV Q4H PRN PRN PRN Reason: SBP > 160 Last Admin: 02/01/19 04:08 Dose: 10 mg Documented by: Hydromorphone HCl (Dilaudid Inj) 2 mg IV Q4H PRN PRN PRN Reason: Pain Score 1-10/10 Last Admin: 02/03/19 05:26 Dose: 2 mg Documented by: Famotidine 20 mg/ Sodium (Chloride) 10 mls @ 300 mls/hr IV Q12 [facility] Last Infusion: 02/03/19 11:51 Dose: Infused Documented by: Insulin Human Lispro (Humalog Kwikpen (Bkc)) 0 unit SC Q6 [facility]; Protocol Last Admin: 02/03/19 11:36 Dose: 1 units Documented by: Lidocaine/Diphenhydr/Alum/Mg/Simeth () 10 ml PO Q3H PRN PRN PRN Reason: sore mouth Last Admin: 02/03/19 09:14 Dose: 10 ml Documented by: Nystatin (Mycostatin Powder) 1 applic TOPICAL BID [facility]; Protocol Last Admin: 02/03/19 09:09 Dose: 1 applicatio Documented by: Nystatin (Nystatin) 500,000 unit PO 4X/DAY [facility] Last Admin: 02/03/19 09:10 Dose: 500,000 unit Documented by: Ondansetron HCl (Zofran Odt) 4 mg PO Q6H PRN PRN PRN Reason: NAUSEA/VOMITING Last Admin: 02/03/19 11:35 Dose: 4 mg Documented by: Potassium Phos/Sodium Phos (Neutra-Phos Packet) 1 packet PO 4X/DAY [facility] Last Admin: 02/03/19 09:05 Dose: Not Given Documented by: Prochlorperazine Edisylate (Compazine Iv) 10 mg IV Q4H PRN PRN PRN Reason: 2nd line for nausea, vomiting. Last Admin: 02/03/19 05:27 Dose: 10 mg Documented by: Promethazine HCl (Phenergan) 12.5 mg IV Q6H PRN PRN PRN Reason: NAUSEA Sodium Chloride () 10 - 40 ml IV UD PRN PRN Reason: SALINE FLUSH Last Admin: 02/03/19 08:59 Dose: 20 ml Documented by: Tbo-Filgrastim (Granix) 480 mcg SC DAILY [facility] Last Admin: 02/03/19 09:09 Dose: 480 mcg Documented by: Venlafaxine HCl (Effexor Xr) 75 mg PO QHS [facility] Last Admin: 02/02/19 20:48 Dose: 75 mg Documented by: Medical Necessity - Tobacco Use Smoking Status: Never smoker Tobacco Use: Non-smoker Assessment/Plan All Active Problems Chemotherapy induced nausea and vomiting (Acute) Chemotherapy induced neutropenia (Acute) Ascites (Acute) Ovarian cancer (Acute) 1) Ascites Assessment: -Presumably malignant and the cause of most of her symptoms including pain and n ausea. Plan: -Would plan for US with potential paracentesis twice weekly. -Continued diuresis. -Would request cytology on next sample from paracentesis. 2) Ovarian cancer. Assessment: -Stage unknown, but likely III/IV. -Sister from [place] here today--again reviewed that currently prognosis is not clear as she just had first chemotherapy treatment. -Very reasonable to continue full supportive care. Plan: -Continue supportive care. 3) Neutropenia. Assessment: -Given that she is hospitalized and significantly ill, growth factor was indicated. -Remains neutropenic but ANC increasing. Plan: -GranX 480 ?g daily until neutrophil recovery. 4) Chemotherapy-induced nausea and vomiting. Assessment: -Improving with only taking fluids. Plan: -Continue antiemetics. -Ascites management as above. -Encouraged her to remain NPO with exception of sips water/juices. -IV H2 krystian. -May need to repeat EGD if nausea continues. -TPN ordered. 5) H/O DVT/PE. Assessment: -Patient had multiple PEs in 2013 following a long car trip to [place]. She remains at very high risk given active malignancy, obesity and immobility. -Nothing currently to suggest GI bleeding. Plan: -Continue prophylactic Lovenox. Would recommend plan to SNF that would be willing to have her with TPN.
[2019-02-03 14:33] VITALS: BP 110/66; PULSE 88; RESP 18; TEMP 36.9; O2SAT 100
[2019-02-03] MEDS: HYDROmorphone 1 MG/ML Syringe IV (16:25)
[2019-02-03 17:26] LABS: Bedside Glucose 189 mg/dL (70-110)
[2019-02-03 22:27] VITALS: BP 106/56; PULSE 82; RESP 18; TEMP 36.4; O2SAT 99
[2019-02-03] MEDS: Venlafaxine XR 75 MG Capsule PO (22:52)
[2019-02-03] MEDS: Gabapentin 300 MG Capsule 600 MG PO (22:52)
[2019-02-03] MEDS: Acetaminophen 500 MG Tablet 1000 MG PO (22:52)
[2019-02-04] MEDS: Insulin Lispro 100 UNIT/ML INSULN.PEN SC ×4 (01:23→18:56)
[2019-02-04 01:31] LABS: Bedside Glucose 269 mg/dL (70-110)
[2019-02-04] MEDS: 0.9% Saline Lock 10 ML Syringe IV ×9 (01:31→22:54)
[2019-02-04] MEDS: HYDROmorphone 1 MG/ML Syringe IV ×3 (01:31→18:54)
[2019-02-04 05:58] VITALS: BP 109/57; PULSE 97; RESP 18; TEMP 36.6; O2SAT 99
[2019-02-04] MEDS: Enoxaparin 40 MG/0.4 ML Syringe SC (06:03)
[2019-02-04] MEDS: Acetaminophen 500 MG Tablet 1000 MG PO (06:08)
[2019-02-04 06:11] LABS: Bedside Glucose 243 mg/dL (70-110)
[2019-02-04 06:32] LABS: Absolute Lymphocyte Count 0.86 X10^3/uL (0.83-4.51); Basophil# 0.02 X10^3/uL; Basophil% 0.3 % (0-1); Eosinophil# 0.11 X10^3/uL; Eosinophils% 1.7 % (0-5); Hematocrit 37.8 % (37-47); Lymphocyte # 0.86 X10^3/ul (4.0); Lymphocyte % 13.7 % (19-41); Mean Corp Hgb Conc 31.7 g/dL (32-36); Mean Corpuscular Hgb 26.4 pg (27.0-32.0); Mean Corpuscular Volume 83.3 fL (81-99); Mean Platelet Vol. 10.4 fl (6.2-12.0); Monocyte# 1.17 X10^3/uL; Monocyte% 18.6 % (0-10); NRBC Flagged by Analyzer 0.5 % (0-5); Neutrophil # 4.03 X10^3/uL (2.7-7.7); POSITIVE MORPHOLOGY YES; Platelet Count 184 K/mm3 (150-450); RBC Distribution Width CV 15.6 % (11.6-14.6); RBC Distribution Width SD 45.6 fl (35.1-43.9); Red Blood Count 4.54 M/mm3 (4.2-5.4); White Blood Count 6.3 K/mm3 (4.4-11.0)
[2019-02-04 06:47] LABS: Differential Indicated SCAN CRITERIA MET
[2019-02-04 06:54] LABS: ALB/GLOB Ratio 0.6 RATIO (0.9-2.4); AST(SGOT) 9 U/L (15-37); Alanine Aminotransfer ALT/SGPT 21 U/L (13-56); Albumin, Serum 1.5 g/dL (3.2-5.0); Alkaline Phosphatase 51 U/L (45-117); Anion Gap 10 (5-15); BUN 27 mg/dL (7-18); BUN/Creat Ratio 29.4 RATIO (10-20); Calcium,Total 7.4 mg/dL (8.5-10.1); Chloride 95 mmol/L (98-107); Creatinine, Serum 0.92 mg/dL (0.55-1.02); EST Glomerular Filtration Rate 65 mL/min (>60); Est Glom Filt Rate - Afr Amer 79 mL/min (>60); Estimated Creatinine Clearance 49.76 ml/min; Globulin 2.7 g/dL (2.2-4.2); Glucose 276 mg/dL (74-106); Magnesium 2.1 mg/dL (1.6-2.6); Phosphorus 2.8 mg/dL (2.5-4.9); Potassium 3.4 mmol/L (3.5-5.1); Protein, Total 4.2 g/dL (6.4-8.2); Sodium Level 132 mmol/L (136-145)
[2019-02-04 07:14] LABS: Toxic Granulation 1+
[2019-02-04 07:59] VITALS: O2SAT 95
[2019-02-04] MEDS: Ondansetron ODT 4 MG Tablet PO (08:45)
[2019-02-04] MEDS: proMETHazine 25 MG/ML Syringe 12.5 MG IV ×3 (08:52→22:32)
[2019-02-04] MEDS: BMX LIQUID 180 ML 10 ML PO (09:06)
--- NOTE | 2019-02-04 10:08 | NURSING ---
spoke with [facility] pharmacist- states okay to give both Krider and Pepcid in port loop hub while Clinimix is infusing- no need to stop clinimix infusion, should not be any difficulties with incompatability.
--- NOTE | 2019-02-04 10:22 | PCM.PN.HOSP ---
Patient Problems: Active and Suspected Problems Chemotherapy induced nausea and vomiting (Acute) Chemotherapy induced neutropenia (Acute) Subjective: Follow-up on intractable nausea and vomiting/malignant ascites: Seen and examined. Feels a little better. Denied any fever or chills. Still has nausea but less vomiting. No other acute events overnight TPN was started yesterday. Objective: Physcial exam: General: Alert, Oriented x3, Cooperative, flat affect HEENT: Atraumatic, PERRLA, EOMI, Normocephalic Oral: No Gingival or Mucosal Lesions/ Ulcerations, Dry Mucosa, whitish discoloration of tongue Neck: Supple, No JVD, Negative Carotid Bruits, Negative Hepatojugular Reflux, No Nodes, No Nuchal Rigidity, Trachea Midline, Thyroid Normal Size and Texture Lungs: No rhonchi, No wheeze, Diminished - at the lung bases, vesicular BS Cardiovascular: tachycardic, irregular Rhythm, Normal S1, Normal S2, 3/6 holosystolic murmur, No Ectopic Activity, No rub noted, No Gallop, - - Med Port R Chest-clean and dry with well healing incision Abdomen: Bowel Sounds Present, Soft, Guarding, Hepatomegaly, generalized tenderness, No hernias noted, - - +Fluid wave, Ecchymosis abdomen Extremities: Edema, Peripheral Pulses Normal Skin: No rashes, No breakdown, Ulcer/ Wound, - - appears mildly jaundice Musculoskeletal: No Tenderness to Palpation of Joints or Extremities, Muscle Wasting Lymphatic: No Cervical, Supraclavicular, or Inguinal Adenopathy Neurological: Cranial nerves II-XII grossly intact, Deep Tendon Reflexes 2+/4 and Symmetrical, Neuro grossly intact, Motor Exam 5/5 strength throughout Psych/Mental Status: Appropriate, Depressed Vitals/I&O's: Vital Signs Temp Pulse Resp BP Pulse Ox 97.8 F 97 18 109/57 L 95 02/04/19 05:58 02/04/19 05:58 02/04/19 05:58 02/04/19 05:58 02/04/19 07:59 Oxygen Flow Rate (L/min) [3] 2 Oxygen Flow Rate (L/min) [2] 2 Oxygen Flow Rate (L/min) [1 ( 2 Initial Baseline)] Oxygen Flow Rate (L/min) 2 Oxygen Delivery Method [3] Nasal Cannula Oxygen Delivery Method [2] Nasal Cannula Oxygen Delivery Method [1 ( Nasal Cannula Initial Baseline)] Oxygen Delivery Method Nasal Cannula Weight: 111.6 kg Body Mass Index (BMI) 43.5 Finger Stick Blood Glucose 129 Intake and Output for Last 24 Hours 02/02/19 02/03/19 02/04/19 23:59 23:59 23:59 Intake Total 274 / 274 244.25 / 244.25 100 / 100 Output Total 1050 / 1050 550 / 550 100 / 100 Balance -776 / -776 -305.75 / -305.75 0 / 0 Laboratory Results 02/03/19 11:33: POC Glucose 166 H 02/03/19 17:10: POC Glucose 189 H 02/04/19 01:22: POC Glucose 269 H 02/04/19 05:55: WBC 6.3, RBC 4.54, Hgb 12.0, Hct 37.8, MCV 83.3, MCH 26.4 L, MCHC 31.7 L, RDW Std Deviation 45.6 H, RDW Coeff of Pawel 15.6 H, Plt Count 184, MPV 10.4, Immature Gran % (Auto) 1.700 H, Neut % (Auto) 64.0, Lymph % (Auto) 13.7 L, Allen % (Auto) 18.6 H, Eos % (Auto) 1.7, Baso % (Auto) 0.3, Absolute Neuts (auto) 4.0, Absolute Lymphs (auto) 0.86, Nucleated RBC % 0.5, Differential Comment , Toxic Granulation 1+ 02/04/19 05:55: Sodium 132 L, Potassium 3.4 L, Chloride 95 L, Carbon Dioxide 27.0, Anion Gap 10, BUN 27 H, Creatinine 0.92, Estim Creat Clear Calc 49.76, Est GFR (MDRD) Af Amer 79, Est GFR (MDRD) Non-Af 65, BUN/Creatinine Ratio 29.4 H, Glucose 276 H, Calcium 7.4 L, Phosphorus 2.8, Magnesium 2.1, Total Bilirubin 0.30, AST 9 L, ALT 21, Alkaline Phosphatase 51, Total Protein 4.2 L, Albumin 1.5 L, Globulin 2.7, Albumin/Globulin Ratio 0.6 L 02/04/19 06:01: POC Glucose 243 H Current Medications Acetaminophen (Tylenol) 1,000 mg PO Q8 [facility] Last Admin: 02/04/19 06:08 Dose: 500 mg Documented by: Al Hydroxide/Mg Hydroxide (Mylanta Ii) 15 - 30 ml PO Q4H PRN PRN PRN Reason: INDIGESTION Bisacodyl (Dulcolax) 10 mg RECTAL DAILY PRN PRN Reason: Constipation Cholecalciferol (Vitamin D) 1,000 unit PO DAILY [facility] Last Admin: 02/03/19 09:16 Dose: Not Given Documented by: Enoxaparin Sodium (Lovenox) 40 mg SC DAILY@0600 [facility] Last Admin: 02/04/19 06:03 Dose: 40 mg Documented by: Furosemide (Lasix) 40 mg PO BID@1000,1800 [facility] Last Admin: 02/03/19 17:15 Dose: 40 mg Documented by: Gabapentin (Neurontin) 600 mg PO QHS [facility] Last Admin: 02/03/19 22:52 Dose: 600 mg Documented by: Hydralazine HCl (Apresoline Iv) 10 mg IV Q4H PRN PRN PRN Reason: SBP > 160 Last Admin: 02/01/19 04:08 Dose: 10 mg Documented by: Hydromorphone HCl (Dilaudid Inj) 1 - 2 mg IV Q4H PRN PRN PRN Reason: Pain Score 1-10/10 Last Admin: 02/04/19 08:52 Dose: 1 mg Documented by: Famotidine 20 mg/ Sodium (Chloride) 10 mls @ 300 mls/hr IV Q12 [facility] Last Infusion: 02/03/19 22:32 Dose: Infused Documented by: Amino Acids/Electrolytes (Clinimix E 5%-20% Solution 2000 Ml) 2,000 mls @ 84 mls/hr IV .[id number] [facility] Stop: 02/04/19 15:48 Last Admin: 02/03/19 16:35 Dose: 84 mls/hr Documented by: Amino Acids/Electrolytes (Clinimix E 5%-20% Solution 2000 Ml) 2,000 mls @ 84 mls/hr IV .[id number] [facility] Stop: 02/05/19 15:48 Insulin Human Lispro (Humalog Kwikpen (Bkc)) 0 unit SC Q6 [facility]; Protocol Last Admin: 02/04/19 06:01 Dose: 2 units Documented by: Lidocaine/Diphenhydr/Alum/Mg/Simeth () 10 ml PO Q3H PRN PRN PRN Reason: sore mouth Last Admin: 02/04/19 09:06 Dose: 10 ml Documented by: Nystatin (Mycostatin Powder) 1 applic TOPICAL BID [facility]; Protocol Last Admin: 02/03/19 22:56 Dose: 2 applicatio Documented by: Nystatin (Nystatin) 500,000 unit PO 4X/DAY [facility] Last Admin: 02/03/19 22:55 Dose: 500,000 unit Documented by: Ondansetron HCl (Zofran Odt) 4 mg PO Q6H PRN PRN PRN Reason: NAUSEA/VOMITING Last Admin: 02/04/19 08:45 Dose: 4 mg Documented by: Potassium Phos/Sodium Phos (Neutra-Phos Packet) 1 packet PO 4X/DAY [facility] Last Admin: 02/03/19 22:55 Dose: Not Given Documented by: Prochlorperazine Edisylate (Compazine Iv) 10 mg IV Q4H PRN PRN PRN Reason: 2nd line for nausea, vomiting. Last Admin: 02/03/19 05:27 Dose: 10 mg Documented by: Promethazine HCl (Phenergan) 12.5 mg IV Q6H PRN PRN PRN Reason: NAUSEA Last Admin: 02/04/19 08:52 Dose: 12.5 mg Documented by: Sodium Chloride () 10 - 40 ml IV UD PRN PRN Reason: SALINE FLUSH Last Admin: 02/04/19 08:53 Dose: 10 ml Documented by: Venlafaxine HCl (Effexor Xr) 75 mg PO QHS [facility] Last Admin: 02/03/19 22:52 Dose: 75 mg Documented by: STROKE Vital Signs/Narrative: Vital Signs Pulse Ox 02/04/19 07:59 95 Medical Necessity - Tobacco Use Smoking Status: Never smoker Tobacco Use: Non-smoker Assessment/Plan All Active Problems Chemotherapy induced nausea and vomiting (Acute) Chemotherapy induced neutropenia (Acute) Ascites (Acute) Ovarian cancer (Acute) 1. Intractable nausea and vomiting in a patient was history of malignant ascites, on chemotherapy, status post paracentesis Patient continues to have persistent nausea and vomiting Started on TPN, 2. Hypokalemia secondary to vomiting, Potassium is 3.4, replaced, recheck in a.m. 3. Hypomagnesemia, replaced 4. Dyspnea/acute hypoxic respiratory insufficiency secondary to progressive malignant ascites, On 2 L of oxygen, continue to wean off oxygen for SPO2 more than 94% 5. Malignant ascites secondary to #3, status post paracentesis 2 weeks ago, Status post paracentesis, will aim for repeat paracentesis on Tuesday 6. Metastatic ovarian CA, on chemotherapy, oncology following Patient complains of generalized pain and nausea Continue on IV Dilaudid 7. Neutropenia, resolved, WBC is normal Will discontinue Granix 8. Hypophosphatemia,resolved 9. Hyperglycemia/prediabetes, HbA1c 6.4, continue with blood glucose check and insulin sliding scale 10. DVT prophylaxis Code Visit Inpatient E&M: 79632 Subs Hosp L2
[2019-02-04 10:34] VITALS: BP 113/63; PULSE 77; RESP 18; TEMP 36.6; O2SAT 98
[2019-02-04] MEDS: Famotidine 200 MG/20 ML MDV 20 MG in 0.9% Normal Saline (Pres. free 8 ML 300 MG IV ×2 (10:40→22:54)
[2019-02-04] MEDS: Furosemide 40 MG Tablet PO (10:43)
[2019-02-04] MEDS: Nystatin Powder 15gm Bottle 1 APPLIC TOPICAL ×2 (10:45→22:21)
[2019-02-04] MEDS: proCHLORPERazine 10 MG/2 ML Vial IV ×2 (10:55→18:49)
[2019-02-04 11:25] LABS: Bedside Glucose 290 mg/dL (70-110)
--- NOTE | 2019-02-04 11:28 | NUR.TO.PHY ---
Family rubbing hemp oil salve on patient's feet
--- NOTE | 2019-02-04 15:01 | PN_ITS ---
Patient Problems: Active and Suspected Problems Chemotherapy induced nausea and vomiting (Acute) Chemotherapy induced neutropenia (Acute) Subjective: Taking in small amounts of fluids. No vomiting. Thinks she can take pills, but has to do so one at a time spaced out. Pain under good control. Occasional delirium. Very anxious at night and when walking due to dyspnea. - Physical Exam Vitals/I&O's: Vital Signs Temp Pulse Resp BP Pulse Ox 97.9 F 77 18 113/63 98 02/04/19 10:34 02/04/19 10:34 02/04/19 10:34 02/04/19 10:34 02/04/19 10:34 Oxygen Flow Rate (L/min) [3] 2 Oxygen Flow Rate (L/min) [2] 2 Oxygen Flow Rate (L/min) [1 ( 2 Initial Baseline)] Oxygen Flow Rate (L/min) 2 Oxygen Delivery Method [3] Nasal Cannula Oxygen Delivery Method [2] Nasal Cannula Oxygen Delivery Method [1 ( Nasal Cannula Initial Baseline)] Oxygen Delivery Method Room Air Weight: 111.6 kg Body Mass Index (BMI) 43.5 Finger Stick Blood Glucose 129 Intake and Output for Last 24 Hours 02/02/19 02/03/19 02/04/19 23:59 23:59 23:59 Intake Total 274 / 274 244.25 / 244.25 230.25 / 230.25 Output Total 1050 / 1050 550 / 550 400 / 400 Balance -776 / -776 -305.75 / -305.75 -169.75 / -169.75 Laboratory Results 02/03/19 17:10: POC Glucose 189 H 02/04/19 01:22: POC Glucose 269 H 02/04/19 05:55: WBC 6.3, RBC 4.54, Hgb 12.0, Hct 37.8, MCV 83.3, MCH 26.4 L, MCHC 31.7 L, RDW Std Deviation 45.6 H, RDW Coeff of Pawel 15.6 H, Plt Count 184, MPV 10.4, Immature Gran % (Auto) 1.700 H, Neut % (Auto) 64.0, Lymph % (Auto) 13.7 L, Daniels % (Auto) 18.6 H, Eos % (Auto) 1.7, Baso % (Auto) 0.3, Absolute Neuts (auto) 4.0, Absolute Lymphs (auto) 0.86, Nucleated RBC % 0.5, Differential Comment , Toxic Granulation 1+ 02/04/19 05:55: Sodium 132 L, Potassium 3.4 L, Chloride 95 L, Carbon Dioxide 27.0, Anion Gap 10, BUN 27 H, Creatinine 0.92, Estim Creat Clear Calc 49.76, Est GFR (MDRD) Af Amer 79, Est GFR (MDRD) Non-Af 65, BUN/Creatinine Ratio 29.4 H, Glucose 276 H, Calcium 7.4 L, Phosphorus 2.8, Magnesium 2.1, Total Bilirubin 0.30, AST 9 L, ALT 21, Alkaline Phosphatase 51, Total Protein 4.2 L, Albumin 1.5 L, Globulin 2.7, Albumin/Globulin Ratio 0.6 L 02/04/19 06:01: POC Glucose 243 H 02/04/19 11:11: POC Glucose 290 H Current Medications Al Hydroxide/Mg Hydroxide (Mylanta Ii) 15 - 30 ml PO Q4H PRN PRN PRN Reason: INDIGESTION Bisacodyl (Dulcolax) 10 mg RECTAL DAILY PRN PRN Reason: Constipation Cholecalciferol (Vitamin D) 1,000 unit PO DAILY [facility] Last Admin: 02/04/19 10:43 Dose: 1,000 unit Documented by: Enoxaparin Sodium (Lovenox) 40 mg SC DAILY@0600 [facility] Last Admin: 02/04/19 06:03 Dose: 40 mg Documented by: Furosemide (Lasix) 40 mg PO BID@1000,1800 [facility] Last Admin: 02/04/19 10:43 Dose: 40 mg Documented by: Gabapentin (Neurontin) 300 mg PO TID [facility] Hydralazine HCl (Apresoline Iv) 10 mg IV Q4H PRN PRN PRN Reason: SBP > 160 Last Admin: 02/01/19 04:08 Dose: 10 mg Documented by: Hydromorphone HCl (Dilaudid Inj) 1 - 2 mg IV Q4H PRN PRN PRN Reason: Pain Score 1-10/10 Last Admin: 02/04/19 08:52 Dose: 1 mg Documented by: Famotidine 20 mg/ Sodium (Chloride) 10 mls @ 300 mls/hr IV Q12 [facility] Last Infusion: 02/04/19 10:42 Dose: Infused Documented by: Amino Acids/Electrolytes (Clinimix E 5%-20% Solution 2000 Ml) 2,000 mls @ 84 mls/hr IV .[id number] [facility] Stop: 02/04/19 15:48 Last Admin: 02/03/19 16:35 Dose: 84 mls/hr Documented by: Amino Acids/Electrolytes (Clinimix E 5%-20% Solution 2000 Ml) 2,000 mls @ 84 mls/hr IV .[id number] [facility] Stop: 02/05/19 15:48 Sodium Chloride () 250 mls @ 15 mls/hr IV .[id number] PRN PRN Reason: Saline Flush Last Infusion: 02/04/19 11:52 Dose: 15 mls/hr Documented by: Insulin Human Lispro (Humalog Kwikpen (Bkc)) 0 unit SC Q6 [facility]; Protocol Last Admin: 02/04/19 11:11 Dose: 3 units Documented by: Lidocaine/Diphenhydr/Alum/Mg/Simeth () 10 ml PO Q3H PRN PRN PRN Reason: sore mouth Last Admin: 02/04/19 09:06 Dose: 10 ml Documented by: Lorazepam (Ativan) 1 mg IV QHS [facility] Nystatin (Mycostatin Powder) 1 applic TOPICAL BID [facility]; Protocol Last Admin: 02/04/19 10:45 Dose: 1 applicatio Documented by: Nystatin (Nystatin) 500,000 unit PO 4X/DAY [facility] Last Admin: 02/04/19 10:45 Dose: Not Given Documented by: Potassium Phos/Sodium Phos (Neutra-Phos Packet) 1 packet PO 4X/DAY [facility] Last Admin: 02/04/19 10:45 Dose: Not Given Documented by: Prochlorperazine Edisylate (Compazine Iv) 10 mg IV Q4H PRN PRN PRN Reason: 2nd line for nausea, vomiting. Last Admin: 02/04/19 10:55 Dose: 10 mg Documented by: Promethazine HCl (Phenergan) 12.5 mg IV Q6H PRN PRN PRN Reason: NAUSEA Last Admin: 02/04/19 08:52 Dose: 12.5 mg Documented by: Sodium Chloride () 10 - 40 ml IV UD PRN PRN Reason: SALINE FLUSH Last Admin: 02/04/19 10:42 Dose: 10 ml Documented by: Venlafaxine HCl (Effexor Xr) 75 mg PO QHS [facility] Last Admin: 02/03/19 22:52 Dose: 75 mg Documented by: Medical Necessity - Tobacco Use Smoking Status: Never smoker Tobacco Use: Non-smoker Assessment/Plan All Active Problems Chemotherapy induced nausea and vomiting (Acute) Chemotherapy induced neutropenia (Acute) Ascites (Acute) Ovarian cancer (Acute) 1) Ascites Assessment: -Presumably malignant and the cause of most of her symptoms including pain and nausea. Plan: -Would plan for US with potential paracentesis twice weekly. -On for tomorrow. -Continued diuresis. -Would request cytology on next sample from paracentesis. 2) Ovarian cancer. Assessment: -Stage unknown, but likely III/IV. -Sister from [place] here today--again reviewed that currently prognosis is not clear as she just had first chemotherapy treatment. -Very reasonable to continue full supportive care. Plan: -Continue supportive care. 3) Neutropenia. Assessment: -Given that she is hospitalized and significantly ill, growth factor was indicated. -Neutrophils recovered. Plan: -Can d/c Granix. 4) Chemotherapy-induced nausea and vomiting. Assessment: -Improving with only taking fluids. -She clearly is a candidate for TPN since cannot maintain oral nutrition and chemotherapy may be significantly life prolonging. Plan: -Continue antiemetics, but stop Zofran. -Ascites management as above. -Encouraged her to continue sips water/juices. -IV H2 krystian. -May need to repeat EGD if nausea continues. -Continue TPN. 5) H/O DVT/PE. Assessment: -Patient had multiple PEs in 2013 following a long car trip to [place]. She remains at very high risk given active malignancy, obesity and immobility. -Nothing currently to suggest GI bleeding. Plan: -Continue prophylactic Lovenox. Would recommend plan to SNF that would be willing to have her with TPN.
[2019-02-04 19:06] LABS: Bedside Glucose 276 mg/dL (70-110)
[2019-02-04 22:16] VITALS: BP 109/68; PULSE 72; RESP 16; TEMP 37.4; O2SAT 97
[2019-02-04] MEDS: Gabapentin 300 MG Capsule PO (22:21)
[2019-02-04] MEDS: NYSTATIN 500,000 UNIT/5 ML UDC 500000 UNIT PO (22:22)
[2019-02-05] VITALS (10 sets, daily range): BP systolic 84–149; BP diastolic 46–94; PULSE 88–128; RESP 12–28; TEMP 36.4–36.9; O2SAT 92–100
--- NOTE | 2019-02-05 | FLU_PTH ---
PATIENT: ANA BRAGG LOC: PCU U#:[id number] AGE/SX: 68/F ROOM: [facility] RE01/31/[address]: Dr. Jacy Davison MD : [id number] BED: 1 DIS: 02/06/2019 SPEC #: [id number] RECD: 02/05/19 14:30 STATUS: MARGA REMaria Esther #: [id number] MIRIAM: 02/05/19 00:[address]: Jacy Davison DEPT: CYTOLOGY RECD BY: Karen Asencio ENTERED: 02/06/19 10:38 SP TYPE: Fluid OTHR DR: DO Dr. Lenny Bobby Chi, MD Tissues: PARACENTESIS FLUID Procedures: Special Stain Group II Surgery Specimen Level IV Cytospin Fluid HEADER OPERATION: Paracentesis PRE-OP DIAGNOSIS: SOB/malignant ascites, ovarian CA TISSUE SUBMITTED: Paracentesis fluid for cytology DIAGNOSIS CYTOLOGY Paracentesis fluid for cytology (cytospin and cell block): Negative for malignant cells. See comment. SJ:rg 02/07/19 COMMENT Correlation with clinical, radiologic findings and appropriate follow up are necessary. If there is a high suspicion of malignancy, biopsy of the lesion is suggested if clinically indicated. CYTOLOGY STUDY Slides are reviewed. CYTOLOGY GROSS Received is 105 ml of cloudy yellow fluid labeled with the patient's name and and designated per the requisition as paracentesis. Submitted for cytology preparation including cell block. /CC:cc 02/06/19 TC:5 CPT: 60488, 41311
[2019-02-05] MEDS: Insulin Lispro 100 UNIT/ML INSULN.PEN SC ×4 (00:40→18:31)
[2019-02-05] MEDS: 0.9% Saline Lock 10 ML Syringe IV ×10 (00:41→18:53)
[2019-02-05] MEDS: HYDROmorphone 1 MG/ML Syringe IV ×4 (00:42→22:40)
[2019-02-05] MEDS: proCHLORPERazine 10 MG/2 ML Vial IV ×3 (00:50→18:53)
[2019-02-05 00:51] LABS: Bedside Glucose 237 mg/dL (70-110)
[2019-02-05] MEDS: proMETHazine 25 MG/ML Syringe 12.5 MG IV ×3 (06:00→22:39)
[2019-02-05] MEDS: Gabapentin 300 MG Capsule PO (06:04)
[2019-02-05] MEDS: Enoxaparin 40 MG/0.4 ML Syringe SC (06:11)
[2019-02-05 06:45] LABS: Bedside Glucose 322 mg/dL (70-110)
[2019-02-05 06:46] LABS: Hemoglobin 12.6 g/dL (12.0-15.0); Mean Corp Hgb Conc 31.5 g/dL (32-36); Mean Corpuscular Hgb 26.4 pg (27.0-32.0); Mean Corpuscular Volume 83.7 fL (81-99); Mean Platelet Vol. 9.5 fl (6.2-12.0); POSITIVE COUNT YES; POSITIVE DIFFERENTIAL YES; POSITIVE MORPHOLOGY YES; Platelet Count 145 K/mm3 (150-450); RBC Distribution Width CV 16.1 % (11.6-14.6); RBC Distribution Width SD 46.6 fl (35.1-43.9); Red Blood Count 4.78 M/mm3 (4.2-5.4); White Blood Count 15.7 K/mm3 (4.4-11.0)
[2019-02-05 06:50] LABS: Differential Indicated MANUAL DIFF
[2019-02-05 06:53] LABS: International Normalized Ratio 1.4; Prothrombin Time (Protime)PT. 17.2 SECONDS (11.7-14.9)
[2019-02-05 06:56] LABS: ALB/GLOB Ratio 0.5 RATIO (0.9-2.4); AST(SGOT) 6 U/L (15-37); Alanine Aminotransfer ALT/SGPT 19 U/L (13-56); Albumin, Serum 1.6 g/dL (3.2-5.0); Alkaline Phosphatase 64 U/L (45-117); Anion Gap 10 (5-15); BUN 33 mg/dL (7-18); BUN/Creat Ratio 35.8 RATIO (10-20); Calcium,Total 7.7 mg/dL (8.5-10.1); Chloride 94 mmol/L (98-107); Creatinine, Serum 0.92 mg/dL (0.55-1.02); EST Glomerular Filtration Rate 65 mL/min (>60); Est Glom Filt Rate - Afr Amer 78 mL/min (>60); Estimated Creatinine Clearance 49.76 ml/min; Globulin 3.1 g/dL (2.2-4.2); Glucose 312 mg/dL (74-106); Phosphorus 2.6 mg/dL (2.5-4.9); Potassium 3.8 mmol/L (3.5-5.1); Protein, Total 4.7 g/dL (6.4-8.2); Sodium Level 131 mmol/L (136-145)
[2019-02-05 07:18] LABS: Eosinophil 2 % (0-5); Hypochromasia RARE; Lymphocyte 9 % (19-41); Metamyelocyte 2 % (0-1); Monocyte 7 % (0-10); Neutrophil-Band 4 % (0-5); Neutrophil-Segmented 76 % (47-70); Platelet Estimate ADEQUATE (ADEQ); Red Cell Morphology N CYTIC NORMAL (NORM C&C); Total Cells Counted 100 (MANUAL DIFF); Toxic Granulation RARE
[2019-02-05 07:19] LABS: Absolute Lymphocyte Count 1.41 X10^3/uL (0.83-4.51); Absolute Neutrophil Count 12.6 X10^3/uL (2.0-7.7)
--- NOTE | 2019-02-05 08:17 | US_ITS ---
PROCEDURE: ULTRASOUND GUIDED PARACENTESIS CLINICAL HISTORY: Female, 68 years old. CONSENT: Time-Out Called: Yes. Consent form signed: Yes. PT-PTT Levels Checked: Yes. SEDATION: No TECHNIQUE: FINDINGS: FLUID PRE-PROCEDURE There is posterior enhancement. The findings appear anechoic. There is no loculation. Amount of fluid drained: 5220ml of light elliott fluid drained. Residual image volume: US/Paracentesis with US IMPRESSION: Uneventful Paracentesis Electronically Signed: Mary Raphael, at 16:33 EST Tel , Service support ,
--- NOTE | 2019-02-05 09:39 | CASEMGMT ---
Social Work Note CARLITA spoke with physician. Physician states Granix has been discontinued and TPN will be discontinued. SW reviewed notes and pt does plan on stopping chemotherapy at discharge. CARLITA placed a call to Maggi with TCU. Maggi states she will run pt's medications through pharmacy and determine if TCU is able to accept. CARLITA informed Maggi that the plan is TCU tomorrow pending pre-cert. Maggi states understanding. Plan: TCU pending acceptance and pre-cert Shelby Vela DEAF TEACHER, CUSTOMER SUCCESS INTERN
[2019-02-05] MEDS: Furosemide 40 MG Tablet PO ×2 (10:20→18:34)
[2019-02-05] MEDS: Nystatin Powder 15gm Bottle 1 APPLIC TOPICAL (10:21)
[2019-02-05] MEDS: NYSTATIN 500,000 UNIT/5 ML UDC 500000 UNIT PO (10:22)
--- NOTE | 2019-02-05 11:01 | CASEMGMT ---
SW let pt know that TCU can take her and precert will be started. SW explained that as long as insurance approves her, she will be able to go there. Pt states understanding. SW will continue to follow. RODERICK Wood
[2019-02-05] MEDS: Famotidine 200 MG/20 ML MDV 20 MG in 0.9% Normal Saline (Pres. free 8 ML 300 MG IV (11:05)
--- NOTE | 2019-02-05 11:05 | CASEMGMT ---
Addendum entered by Marylu Adams 02/05/19 11:14: SW gave pt copies of LW/POA with phone number to SW on the floor. SW let her know if she would like to complete them while still in the hospital to call the SW, otherwise the SW in TCU may be able to assist her in completing the forms. Pt states understanding. RODERICK Wood Original Note: SW spoke w/pt about LW/POA. Pt has not completed them but is interested in doing the forms. Pt is very short of breath at present, SW explained can come back another day, and if we are not able to complete the forms while here the SW in TCU may be able to help her with them. Pt states understanding and agreeable to this. SW did leave a message for SW in TCU letting her know this pt may want to complete LW/POA forms when there. RODERICK Wood
[2019-02-05 12:56] LABS: Bedside Glucose 367 mg/dL (70-110)
[2019-02-05 14:11] LABS: Pathologist Review Reviewed
[2019-02-05 14:15] LABS: Pathologist Review Reviewed
--- NOTE | 2019-02-05 14:35 | PN_ITS ---
Patient Problems: Active and Suspected Problems Chemotherapy induced nausea and vomiting (Acute) Chemotherapy induced neutropenia (Acute) Subjective: Follow-up on intractable nausea and vomiting/malignant ascites: Patient was seen and examined. She is able to tolerate oral intake. Still nauseous but improved. She will be going for paracentesis today. Objective: Physcial exam: General: Alert, Oriented x3, Cooperative, flat affect HEENT: Atraumatic, PERRLA, EOMI, Normocephalic Oral: No Gingival or Mucosal Lesions/ Ulcerations, Dry Mucosa, whitish discoloration of tongue Neck: Supple, No JVD, Negative Carotid Bruits, Negative Hepatojugular Reflux, No Nodes, No Nuchal Rigidity, Trachea Midline, Thyroid Normal Size and Texture Lungs: No rhonchi, No wheeze, Diminished - at the lung bases, vesicular BS Cardiovascular: tachycardic, irregular Rhythm, Normal S1, Normal S2, 3/6 holosystolic murmur, No Ectopic Activity, No rub noted, No Gallop, - - Med Port R Chest-clean and dry with well healing incision Abdomen: Bowel Sounds Present, Soft, Guarding, Hepatomegaly, generalized tenderness, No hernias noted, - - +Fluid wave, Ecchymosis abdomen Extremities: Edema, Peripheral Pulses Normal Skin: No rashes, No breakdown, Ulcer/ Wound, - - appears mildly jaundice Musculoskeletal: No Tenderness to Palpation of Joints or Extremities, Muscle Wasting Lymphatic: No Cervical, Supraclavicular, or Inguinal Adenopathy Neurological: Cranial nerves II-XII grossly intact, Deep Tendon Reflexes 2+/4 and Symmetrical, Neuro grossly intact, Motor Exam 5/5 strength throughout Psych/Mental Status: Appropriate, Depressed Vitals/I&O's: Vital Signs Temp Pulse Resp BP Pulse Ox 97.6 F L 91 18 115/65 97 02/05/19 13:33 02/05/19 13:33 02/05/19 13:33 02/05/19 13:33 02/05/19 13:33 Oxygen Flow Rate (L/min) [3] 2 Oxygen Flow Rate (L/min) [2] 2 Oxygen Flow Rate (L/min) [1 ( 2 Initial Baseline)] Oxygen Flow Rate (L/min) 2 Oxygen Delivery Method [3] Nasal Cannula Oxygen Delivery Method [2] Nasal Cannula Oxygen Delivery Method [1 ( Nasal Cannula Initial Baseline)] Oxygen Delivery Method Room Air Weight: 111.6 kg Body Mass Index (BMI) 43.5 Finger Stick Blood Glucose 129 Intake and Output for Last 24 Hours 02/03/19 02/04/19 02/05/19 23:59 23:59 23:59 Intake Total 244.25 / 244.25 2407.25 / 2407.25 2101.6 / 2101.6 Output Total 550 / 550 650 / 650 150 / 150 Balance -305.75 / -305.75 1757.25 / 1757.25 1951.6 / 1951.6 Laboratory Results 02/03/19 05:10: Diff Path Review Reviewed 02/04/19 18:39: POC Glucose 276 H 02/05/19 00:36: POC Glucose 237 H 02/05/19 06:08: POC Glucose 322 H 02/05/19 06:30: WBC 15.7 H, RBC 4.78, Hgb 12.6, Hct 40.0, MCV 83.7, MCH 26.4 L, MCHC 31.5 L, RDW Std Deviation 46.6 H, RDW Coeff of Pawel 16.1 H, Plt Count 145 L, MPV 9.5, Neut % (Auto) Not Reportable, Absolute Neuts (auto) 12.6 H, Absolute Lymphs (auto) 1.41, Total Counted 100, Neutrophils % (Manual) 76 H, Band Neutrophils % 4, Lymphocytes % (Manual) 9 L, Monocytes % (Manual) 7, Eosinophils % (Manual) 2, Metamyelocytes % 2 H, Diff Path Review Reviewed, Toxic Granulation RARE, Platelet Estimate ADEQUATE, RBC Morphology N CYTIC, Hypochromasia RARE 02/05/19 06:30: Sodium 131 L, Potassium 3.8, Chloride 94 L, Carbon Dioxide 27.0, Anion Gap 10, BUN 33 H, Creatinine 0.92, Estim Creat Clear Calc 49.76, Est GFR (MDRD) Af Amer 78, Est GFR (MDRD) Non-Af 65, BUN/Creatinine Ratio 35.8 H, Glucose 312 H, Calcium 7.7 L, Phosphorus 2.6, Magnesium 2.0, Total Bilirubin 0.20, AST 6 L, ALT 19, Alkaline Phosphatase 64, Total Protein 4.7 L, Albumin 1.6 L, Globulin 3.1, Albumin/Globulin Ratio 0.5 L 02/05/19 06:30: PT 17.2 H, INR 1.4 02/05/19 12:44: POC Glucose 367 H Current Medications Al Hydroxide/Mg Hydroxide (Mylanta Ii) 15 - 30 ml PO Q4H PRN PRN PRN Reason: INDIGESTION Bisacodyl (Dulcolax) 10 mg RECTAL DAILY PRN PRN Reason: Constipation Cholecalciferol (Vitamin D) 1,000 unit PO DAILY [facility] Last Admin: 02/05/19 10:42 Dose: Not Given Documented by: Enoxaparin Sodium (Lovenox) 40 mg SC DAILY@0600 [facility] Last Admin: 02/05/19 06:11 Dose: 40 mg Documented by: Furosemide (Lasix) 40 mg PO BID@1000,1800 [facility] Last Admin: 02/05/19 10:20 Dose: 40 mg Documented by: Gabapentin (Neurontin) 300 mg PO TID [facility] Last Admin: 02/05/19 13:32 Dose: Not Given Documented by: Hydralazine HCl (Apresoline Iv) 10 mg IV Q4H PRN PRN PRN Reason: SBP > 160 Last Admin: 02/01/19 04:08 Dose: 10 mg Documented by: Hydromorphone HCl (Dilaudid Inj) 1 - 2 mg IV Q4H PRN PRN PRN Reason: Pain Score 1-10/10 Last Admin: 02/05/19 11:19 Dose: 1 mg Documented by: Famotidine 20 mg/ Sodium (Chloride) 10 mls @ 300 mls/hr IV Q12 [facility] Last Infusion: 02/05/19 11:08 Dose: Infused Documented by: Amino Acids/Electrolytes (Clinimix E 5%-20% Solution 2000 Ml) 2,000 mls @ 84 mls/hr IV .[id number] [facility] Stop: 02/05/19 15:48 Last Infusion: 02/05/19 13:52 Dose: 0 mls/hr Documented by: Sodium Chloride () 250 mls @ 15 mls/hr IV .[id number] PRN PRN Reason: Saline Flush Last Infusion: 02/04/19 13:00 Dose: 0 mls/hr Documented by: Insulin Human Lispro (Humalog Kwikpen (Bkc)) 0 unit SC Q6 [facility]; Protocol Last Admin: 02/05/19 12:47 Dose: 4 units Documented by: Lidocaine/Diphenhydr/Alum/Mg/Simeth () 10 ml PO Q3H PRN PRN PRN Reason: sore mouth Last Admin: 02/04/19 09:06 Dose: 10 ml Documented by: Lorazepam (Ativan) 1 mg IV QHS [facility] Last Admin: 02/05/19 04:31 Dose: Not Given Documented by: Nystatin (Mycostatin Powder) 1 applic TOPICAL BID [facility]; Protocol Last Admin: 02/05/19 10:21 Dose: 1 applicatio Documented by: Nystatin (Nystatin) 500,000 unit PO 4X/DAY [facility] Last Admin: 02/05/19 13:32 Dose: Not Given Documented by: Potassium Phos/Sodium Phos (Neutra-Phos Packet) 1 packet PO 4X/DAY [facility] Last Admin: 02/05/19 13:32 Dose: Not Given Documented by: Prochlorperazine Edisylate (Compazine Iv) 10 mg IV Q4H PRN PRN PRN Reason: 2nd line for nausea, vomiting. Last Admin: 02/05/19 11:19 Dose: 10 mg Documented by: Promethazine HCl (Phenergan) 12.5 mg IV Q6H PRN PRN PRN Reason: NAUSEA Last Admin: 02/05/19 13:45 Dose: 12.5 mg Documented by: Sodium Chloride () 10 - 40 ml IV UD PRN PRN Reason: SALINE FLUSH Last Admin: 02/05/19 13:47 Dose: 20 ml Documented by: Venlafaxine HCl (Effexor Xr) 75 mg PO QHS [facility] Last Admin: 02/04/19 22:21 Dose: Not Given Documented by: STROKE Vital Signs/Narrative: Vital Signs Temp Pulse Resp BP Pulse Ox 02/05/19 13:33 97.6 F L 91 18 115/65 97 02/05/19 10:57 98.4 F 93 18 107/81 H 97 Medical Necessity - Tobacco Use Smoking Status: Never smoker Tobacco Use: Non-smoker Assessment/Plan All Active Problems Chemotherapy induced nausea and vomiting (Acute) Chemotherapy induced neutropenia (Acute) Ascites (Acute) Ovarian cancer (Acute) 1. Intractable nausea and vomiting secondary to chemotherapy Improving, will continue to encourage oral intake Continue on TPN Discontinue TPN tomorrow on discharge 2. Hypokalemia secondary to vomiting, resolved Will recheck in am 3. Hypomagnesemia, replaced 4. Dyspnea/acute hypoxic respiratory insufficiency secondary to progressive malignant ascites, Off oxygen, continue to encourage use of incentive spirometer. 5. Malignant ascites secondary to #3, status post paracentesis 2 weeks ago, Repeat paracentesis today 6. Metastatic ovarian CA, on chemotherapy, oncology following Patient complains of generalized pain and nausea Continue on IV Dilaudid, will continue same 7. Neutropenia, resolved, WBC is normal Off Granix 8. Hypophosphatemia,resolved 9. Hyperglycemia/prediabetes, HbA1c 6.4, continue with blood glucose check and insulin sliding scale 10. DVT prophylaxis with Lovenox SC Code Visit Inpatient E&M: 94537 Subs Hosp L2
--- NOTE | 2019-02-05 14:55 | NURSING ---
REPORT CALLED TO ABILIO GRIMM.
[2019-02-05 15:03] LABS: Acid Fast Stain SEE PATHOLOGY REPORT; Cytology, Body Fluid / CSF SEE PATHOLOGY REPORT
[2019-02-05 15:23] LABS: Body Fluid Mononuclear WBC # 0.356 10^3/uL; Body Fluid Mononuclear WBC % 66.2 %; Body Fluid Polynuclear WBC # 0.182 10^3/uL; Body Fluid Polynuclear WBC % 33.8 %; Body Fluid Total Cells Counted 0.553 10^3/ul; Red Cell Count/Body Fluid 0.003 10^6/ul; White Blood Count/Body Fluid 0.538 10^3/uL
[2019-02-05 15:25] LABS: Auto B Fluid Analyzer BKGD Ct COUNTS W/IN LIMITS (W/IN LIMITS)
[2019-02-05 15:26] LABS: Appearance/Body Fluid CLOUDY; Color/Body Fluid YELLOW; Source- Body Fluid OTHER
[2019-02-05 16:15] LABS: Glucose, Body Fluid 308 mg/dL (40-70); LDH,Body Fluid 232 Units/l (Not Establ.)
--- NOTE | 2019-02-05 16:49 | CHAPLAIN ---
Two attempts made; patient is unavailable; family members are gathered but ask that this mold yard worker return another time for patient
[2019-02-05 17:01] LABS: Lymphocytes 63 %; Mesothelial Cells 2 %; Monocytes 7 %; Neutrophil (Segs) 25 %
[2019-02-05 17:03] LABS: Other Cell Type/BF 3 %
[2019-02-05 17:04] LABS: Body Fluid QC Type(s) BF4Q
[2019-02-05 18:50] LABS: Bedside Glucose 328 mg/dL (70-110)
--- NOTE | 2019-02-05 19:33 | EKG12_ITS ---
Test Reason : CP Blood Pressure : / mmHG Vent. Rate : 134 BPM Atrial Rate : 187 BPM P-R Int : 000 ms QRS Dur : 096 ms QT Int : 280 ms P-R-T Axes : 000 111 -64 degrees QTc Int : 418 ms Atrial fibrillation Left posterior fascicular block ST & T wave abnormality, consider inferior ischemia Abnormal ECG When compared with ECG of 03-FEB-2019 05:41, MANUAL COMPARISON REQUIRED, DATA IS UNCONFIRMED Confirmed by MERCEDES ORTIZ ([id number]), technical editor VANESSA TONEY ([id number]) on 02/09/2019 11:51:17 AM Referred By: Apurva Alfaro Confirmed By:MERCEDES ORTIZ
--- NOTE | 2019-02-05 19:38 | PCM.PN.BLA ---
Progress Note Notified that patient had excruciating burning chest pain of 9 out of 10. Nurses initiated EKG. Ordered a troponin series. Will give GI cocktail x1. STROKE Vital Signs/Narrative: Vital Signs Temp Pulse Resp BP Pulse Ox 02/05/19 19:29 97.8 F 88 20 H 120/60 95 02/05/19 18:57 97.7 F L 100 18 112/46 L 98
[2019-02-05] MEDS: Mag Hydrox/Al Hydrox/Simeth 30 ML UDC PO (19:47)
--- NOTE | 2019-02-05 20:25 | PCM.HOSP.N ---
Hospitalist Note Patient with chest pain and palpitations this evening. Patient was found to be in atrial fibrillation with RVR with a heart rate in the 130s. On EKG. Went to examine the patient and patient on exam is irregularly irregular. Patient was placed on telemetry and heart rate was in the 100s but in atrial fibrillation. Plan is to send the patient to the progressive care unit, start metoprolol tartrate 25 mg twice daily with the first dose this evening. Given the patient's extensive tumor burden, I feel the risk of anticoagulation would outweigh the benefits. Patient has a noted allergy to aspirin and so that will be held as well. I did discuss the risks and benefits of anticoagulation with the patient and her . Patient is already had an echocardiogram that showed an normal ejection fraction during this admission.
--- NOTE | 2019-02-05 20:31 | NURSING ---
REPORT CALLED TO PCU- PT TO BE TRANSPORTED
--- NOTE | 2019-02-05 20:45 | NURSING ---
Pt transferred to PCU at this time d/t A-fib / EKG changes after c/o chest pain. First Troponin drawn by this RN prior to transfer
[2019-02-05] MEDS: Metoprolol Tartrate 25 MG Tablet PO (21:31)
[2019-02-06] VITALS (31 sets, daily range): BP systolic 82–126; BP diastolic 56–89; PULSE 82–124; RESP 7–18; TEMP 36.3–36.6; O2SAT 94–100
[2019-02-06 00:41] LABS: Bedside Glucose 184 mg/dL (70-110)
[2019-02-06] MEDS: 0.9% Saline Lock 10 ML Syringe IV ×3 (03:43→06:23)
[2019-02-06] MEDS: dilTIAZem 25 MG/5 ML Vial 10 MG IV BOLUS (03:43)
[2019-02-06 05:21] LABS: Bedside Glucose 197 mg/dL (70-110)
[2019-02-06] MEDS: HYDROmorphone 1 MG/ML Syringe IV (05:22)
[2019-02-06] MEDS: proMETHazine 25 MG/ML Syringe 12.5 MG IV (05:23)
[2019-02-06 05:25] LABS: Hematocrit 42.8 % (37-47); Hemoglobin 13.6 g/dL (12.0-15.0); Mean Corp Hgb Conc 31.8 g/dL (32-36); Mean Corpuscular Hgb 26.2 pg (27.0-32.0); Mean Corpuscular Volume 82.5 fL (81-99); Mean Platelet Vol. 9.8 fl (6.2-12.0); POSITIVE COUNT YES; POSITIVE DIFFERENTIAL YES; POSITIVE MORPHOLOGY YES; Platelet Count 151 K/mm3 (150-450); RBC Distribution Width CV 15.9 % (11.6-14.6); Red Blood Count 5.19 M/mm3 (4.2-5.4); White Blood Count 16.5 K/mm3 (4.4-11.0)
[2019-02-06 05:52] LABS: Anion Gap 9 (5-15); BUN 40 mg/dL (7-18); BUN/Creat Ratio 40.8 RATIO (10-20); Calcium,Total 7.7 mg/dL (8.5-10.1); Chloride 95 mmol/L (98-107); Creatinine, Serum 0.98 mg/dL (0.55-1.02); EST Glomerular Filtration Rate 60 mL/min (>60); Est Glom Filt Rate - Afr Amer 73 mL/min (>60); Estimated Creatinine Clearance 46.71 ml/min; Glucose 185 mg/dL (74-106); Potassium 4.6 mmol/L (3.5-5.1); Sodium Level 131 mmol/L (136-145)
[2019-02-06] MEDS: dilTIAZem 25 MG/5 ML Vial 5 MG IV BOLUS (06:18)
[2019-02-06 06:20] LABS: Differential Indicated MANUAL DIFF
[2019-02-06] MEDS: Enoxaparin 120 MG/0.8 ML Syringe 110 MG SC (06:34)
[2019-02-06 06:43] LABS: Absolute Neutrophil Count 1.7 X10^3/uL (2.0-7.7); Lymphocyte 10 % (19-41); Metamyelocyte 1 % (0-1); Monocyte 2 % (0-10); Neutrophil # 1.65 X10^3/uL (2.7-7.7); Neutrophil-Band 3 % (0-5); Neutrophil-Segmented 84 % (47-70); Total Cells Counted 100 (MANUAL DIFF); Toxic Granulation 2+
[2019-02-06 06:44] LABS: Absolute Lymphocyte Count 1.65 X10^3/uL (0.83-4.51); Lymphocyte # 1.65 X10^3/ul (4.0)
--- NOTE | 2019-02-06 09:27 | EKG12_ITS ---
Test Reason : RHYTHM Blood Pressure : / mmHG Vent. Rate : 107 BPM Atrial Rate : 277 BPM P-R Int : 000 ms QRS Dur : 090 ms QT Int : 328 ms P-R-T Axes : 000 106 -24 degrees QTc Int : 437 ms Atrial fibrillation with rapid ventricular response Rightward axis Anterior infarct , age undetermined Abnormal ECG When compared with ECG of 05-FEB-2019 19:48, MANUAL COMPARISON REQUIRED, DATA IS UNCONFIRMED Confirmed by MERCEDES ORTIZ ([id number]), editor book VANESSA TONEY ([id number]) on 02/09/2019 11:58:51 AM Referred By: Apurva Alfaro Confirmed By:MERCEDES ORTIZ
--- NOTE | 2019-02-06 09:28 | CASEMGMT ---
Social Work Note CARLITA spoke with Maggi who states pt has been approved for TCU. CARLITA updated Dc GUTIERREZ on floor. Shelby Vela HRIS COORDINATOR, VOCATIONAL COUNSELOR
[2019-02-06] MEDS: proMETHazine 25 MG Tablet 12.5 MG PO (10:16)
[2019-02-06] MEDS: HYDROmorphone 1 MG/ML Syringe 2 MG IV (10:47)
[2019-02-06] MEDS: Metoprolol Tartrate 25 MG Tablet PO (10:48)
[2019-02-06 11:50] LABS: Bedside Glucose 221 mg/dL (70-110)
[2019-02-06] MEDS: Insulin Lispro 100 UNIT/ML INSULN.PEN SC ×2 (12:27→16:15)
--- NOTE | 2019-02-06 12:38 | PCM.TXEXTCAR ---
- Diet Regular diet - Routine Orders/Code Status Routine Lab Work: CBC - within 3 days, BMP - within 3 days Code Status: DNRCC-A - Wound(s) R medial upper arm Wound Type: old midline R foot Wound Type: Abrasion rt abd Wound Type: Puncture - Therapies Weight Bearing: Weight bearing as tolerated Physical Therapy: Eval and Treat Occupational Therapy: Eval and Treat Speech Therapy: Eval and Treat - Allergies/Procedures Done in Hospital Allergies/Adverse Reactions: Allergies aspirin Adverse Reaction (Verified 01/31/19 16:24) Other D/T STOMACH SURGERY NSAIDS (Non-Steroidal Anti-Inflamma Adverse Reaction (Verified 01/31/19 16:24) Other D/T STOMACH SURGERY STEROIDS Adverse Reaction (Uncoded 01/31/19 16:24) Other D/T STOMACH SURGERY Procedures: 2-D Echocardiogram - Type of Care/Length of Stay Estimated LOS: Convalescent Care Less Than 30 days Type of Care Needed: Skilled Rehab Potential: Fair Prognosis: Fair - Additional Orders/Day of Discharge Day of Discharge: 02/06/19 - Dietary and Speech Recommendations Dietitian Recommendations/Changes: Rec wean TPN as po intake improves. If TPN to continue, rec continue current 2L 20%Dextrose / 5%AA with 250 cc 20% lipids 2x/wk. Rec liberal Regular diet as pt tolerates with snacks between meals as desired - Follow Up Care Primary Care Physician: Lenny Pryor Chi, MD [Primary Care Provider] - Please follow up with your Primary Care Physician in: within 1-2 weeks Please Follow Up With: Gonzalo Moscoso, When: Follow-up with Dr. Moscoso in 2 weeks
--- NOTE | 2019-02-06 14:05 | CHAPLAIN ---
Type of Pastoral Visit _x__ Initial Visit ___ Follow-up Visit ___ On-call Visit ___ General Patient Visit ___ Spiritual Assessment ___ Family Conference ___ Bereavement ___ Rapid Response ___ Code Blue ___ Other (describe below) Pastoral Care Referral From _x__ Patient ___ Family ___ Nurse ___ Physician ___ Cleat Thrower ___ Power Screwdriver Operator ___ Other (describe below) Sacrament/Intervention _x__ Active listening ___ Anointing ___ Sabianist ___ Bereavement ___ Communion _x__ Tavia exploration ___ ___ Life review _x__ Prayer ___ Reconciliation ___ Sacrament of Sick _x__ Supportive presence ___ Wedding ___ Other (describe below) Pastoral Comments patient is connected to a adventist and states that whatever happens it is a win situation (because of my tavia in God); pt also has a question of spiritual matters; prayers welcomed; future visits would be accepted and welcomed
--- NOTE | 2019-02-06 14:26 | DS.PCM_ITS ---
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 (Acute) Malignant ascites (Acute) Atrial fibrillation with rapid ventricular response (Acute) Appetite loss (Acute) Shortness of breath (Acute) Date of Admission: 01/31/19 Date of Discharge: 02/06/19 - Primary Discharge Diagnosis Active and Suspected Problems Intractable nausea and vomiting secondary chemotherapy Hypokalemia Hypomagnesemia Progressive malignant ascites Neutropenia - Secondary Discharge Diagnosis Chronic Problems Morbid (severe) obesity due to excess calories (Chronic) History of gastric bypass (Chronic) Depression (Chronic) Degenerative joint disease (DJD) of lumbar spine (Chronic) Spinal stenosis (Chronic) MARIA ANTONIA (obstructive sleep apnea) (Chronic) Generalized osteoarthrosis (Chronic) Vitamin B12 deficiency (Chronic) Neuropathic pain (Chronic) Hospital Course and Treatment Imaging Results: Clinical Impression(s) from Imaging Studies Chest X-Ray 01/31/19 16:45 IMPRESSION: No acute findings. Electronically Signed: Arina Saucedo MD at 17:09 EST Tel , Service support , Paracentesis Ultrasound 02/01/19 18:45 IMPRESSION: Ultrasound guided paracentesis. Electronically Signed: Doug Isaacs, at 12:38 EST , Service support , Paracentesis Ultrasound 02/05/19 08:17 IMPRESSION: Uneventful Paracentesis Electronically Signed: Mary Raphael, at 16:33 EST Tel , Service support , Oncology Operations: None Procedures: 2-D Echocardiogram Summary of Care Provided: The patient is a 68 year old F with PMHx of metastatic ovarian cancer diagnosed 1 month ago, follows with oncology in the outpatient, and who was admitted with progressive shortness of breath related to her ascites. Patient had a recent CT of the chest on 01/21/19 which was negative for PE. Lower extremity Dopplers were also negative for acute DVT. She had paracentesis 2 days prior to admission and 14L of ascitic fluid were removed with resultant improvement in his shortness of breath. Patient was admitted to the telemetry floor and underwent ultrasound-guided paracentesis and about 7.6 L of fluid were removed. Over the course of patient's stay, she had severeintractable nausea and vomiting with resultant electrolyte disturbance which were replaced. Patient received multiple doses of antiemetics, IV fluids. She was also given TPN through her med port for about 3 days. Patient was also was found to be neutropenic, started on Granix. Oncology was following patient throughout her hospital stay. With improvement in her oral intake, patient was switched to oral antiemetics and pain medications. A day prior to her discharge, patient had abdominal thrombosis for which more than 5 L of fluid were removed. She subsequently went into A. fib with RVR and was transferred to the progressive care unit and started on Cardizem drip as well as metoprolol. The day of discharge, patient had improved, she was rate controlled. She was discharged on metoprolol po. She needs to have scheduled paracentesis, preferably twice a week- Tuesday and . 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 Her HR improved with the Cardizem drip. She was switched off Cardizem drip more than 2 hours prior to discharge. She was started on metoprolol 25 mg twice daily. She denied any worsening nausea or abdominal discomfort. Her pills and antiemetics were switched to p.o. Objective: Physcial exam: General: Alert, Oriented x3, Cooperative, flat affect HEENT: Atraumatic, PERRLA, EOMI, Normocephalic Oral: No Gingival or Mucosal Lesions/ Ulcerations, Dry Mucosa, whitish discoloration of tongue Neck: Supple, No JVD, Negative Carotid Bruits, Negative Hepatojugular Reflux, No Nodes, No Nuchal Rigidity, Trachea Midline, Thyroid Normal Size and Texture Lungs: No rhonchi, No wheeze, Diminished - at the lung bases, vesicular BS Cardiovascular: tachycardic, irregular Rhythm, Normal S1, Normal S2, 3/6 holosystolic murmur, No Ectopic Activity, No rub noted, No Gallop, - - Med Port R Chest-clean and dry with well healing incision Abdomen: Bowel Sounds Present, Soft, Guarding, Hepatomegaly, generalized tenderness, No hernias noted, - - +Fluid wave, Ecchymosis abdomen Extremities: Edema, Peripheral Pulses Normal Skin: No rashes, No breakdown, Ulcer/ Wound, - - appears mildly jaundice Musculoskeletal: No Tenderness to Palpation of Joints or Extremities, Muscle Wasting Lymphatic: No Cervical, Supraclavicular, or Inguinal Adenopathy Neurological: Cranial nerves II-XII grossly intact, Deep Tendon Reflexes 2+/4 and Symmetrical, Neuro grossly intact, Motor Exam 5/5 strength throughout Psych/Mental Status: Appropriate, Depressed - Physical Exam Vitals/I&O's: Vital Signs Temp Pulse Resp BP Pulse Ox 97.8 F 82 12 98/72 99 02/06/19 12:30 02/06/19 13:30 02/06/19 13:30 02/06/19 13:30 02/06/19 13:30 Oxygen Flow Rate (L/min) [3] 2 Oxygen Flow Rate (L/min) [2] 2 Oxygen Flow Rate (L/min) [1 ( 2 Initial Baseline)] Oxygen Flow Rate (L/min) 2 Oxygen Delivery Method [3] Room Air Oxygen Delivery Method [2] Room Air Oxygen Delivery Method [1 ( Room Air Initial Baseline)] Oxygen Delivery Method Nasal Cannula Weight: 111.6 kg Body Mass Index (BMI) 43.5 Finger Stick Blood Glucose 129 Intake and Output for Last 24 Hours 02/04/19 02/05/19 02/06/19 23:59 23:59 23:59 Intake Total 2407.25 / 2407.25 2510.0 / 2510.0 52.33 / 52.33 Output Total 650 / 650 5770 / 5770 150 / 150 Balance 1757.25 / 1757.25 -3260.0 / -3260.0 -97.67 / -97.67 Microbiology Past 72 Hours 02/05/19 14:30 Fluid - Ascites Gram Stain - Preliminary 02/05/19 14:30 Fluid - Ascites Body Fluid Culture - Preliminary Gram negative brian Laboratory Results 02/05/19 14:30: Acid Fast Stain Pending, Miscellaneous Cytology Pending 02/05/19 14:30: Fluid Source OTHER, Fluid Color YELLOW, Fluid Appearance CLOUDY, Fluid WBC 0.538, Fluid RBC 0.003, Fluid Tot Cell Count 0.553 H, Fld Polynuclear WBCs # 0.182, Fld Polynuclear WBCs % 33.8, Fluid Mononuclear WBCs 0.356, Fld Mononuclear WBCs % 66.2, Fluid Neutrophils 25, Fluid Lymphocytes 63, Fluid Monocytes 7, Fld Mesothelial Cells 2, Fluid Other Cells 3, Fl Pathologist Comment May follow, Fluid Comment 2 Not Reportable 02/05/19 14:30: Fluid Glucose 308 H, Fluid Total Protein 2.0, Fluid LDH 232 02/05/19 18:29: POC Glucose 328 H 02/05/19 20:15: Troponin I < 0.015 02/06/19 00:30: POC Glucose 184 H 02/06/19 05:13: WBC 16.5 H, RBC 5.19, Hgb 13.6, Hct 42.8, MCV 82.5, MCH 26.2 L, MCHC 31.8 L, RDW Std Deviation 46.0 H, RDW Coeff of Pawel 15.9 H, Plt Count 151, MPV 9.8, Neut % (Auto) Not Reportable, Absolute Neuts (auto) 1.7 L, Absolute Lymphs (auto) 1.65, Total Counted 100, Neutrophils % (Manual) 84 H, Band Neutrophils % 3, Lymphocytes % (Manual) 10 L, Monocytes % (Manual) 2, Metamyelocytes % 1, Diff Path Review May foll, Toxic Granulation 2+ 02/06/19 05:13: Sodium 131 L, Potassium 4.6, Chloride 95 L, Carbon Dioxide 27.0, Anion Gap 9, BUN 40 H, Creatinine 0.98, Estim Creat Clear Calc 46.71, Est GFR (MDRD) Af Amer 73, Est GFR (MDRD) Non-Af 60, BUN/Creatinine Ratio 40.8 H, Glucose 185 H, Calcium 7.7 L 02/06/19 05:16: POC Glucose 197 H 02/06/19 11:44: POC Glucose 221 H Current Medications Dextrose (D50w Syringe) 0 gm IV X1 PRN; Protocol PRN Reason: Hypoglycemia Gabapentin (Neurontin) 300 mg PO TIDCM [facility] Last Admin: 02/06/19 12:18 Dose: Not Given Documented by: Glucagon () 1 mg IM .X1 PRN PRN Reason: Hypoglycemia Heparin Sodium (Beef Lung) () 50 units IV UD PRN PRN Reason: Port-a-Cath (VAD)Heparin Flush Hydromorphone HCl (Dilaudid Tablet) 1 mg PO Q3H PRN PRN PRN Reason: Pain Score 6-10/10 Sodium Chloride () 250 mls @ 15 mls/hr IV .[id number] PRN PRN Reason: Saline Flush Diltiazem HCl 125 mg/ Dextrose 125 mls @ 5 mls/hr IV .Q25H [facility]; Protocol Last Titration: 02/06/19 13:30 Dose: 0 mg/hr, 0 mls/hr Documented by: Insulin Human Lispro (Humalog Kwikpen (Bkc)) 0 unit SC ACHS [facility]; Protocol Last Admin: 02/06/19 12:27 Dose: 1 units Documented by: Lidocaine/Diphenhydr/Alum/Mg/Simeth () 10 ml PO Q3H PRN PRN PRN Reason: dysphagia Metoprolol Tartrate (Lopressor (Beta Francia)) 25 mg PO BID [facility] Last Admin: 02/06/19 10:48 Dose: 25 mg Documented by: Nystatin (Nystatin) 500,000 unit PO 4X/DAY [facility] Last Admin: 02/06/19 14:20 Dose: Not Given Documented by: Prochlorperazine Maleate (Compazine Tablet) 10 mg PO Q4H PRN PRN PRN Reason: NAUSEA/VOMITING Promethazine HCl (Phenergan Tablet) 12.5 mg PO Q6H PRN PRN PRN Reason: NAUSEA/VOMITING Last Admin: 02/06/19 10:16 Dose: 12.5 mg Documented by: Sodium Chloride () 10 - 40 ml IV UD PRN PRN Reason: Port-a-Cath (VAD) Flush Last Admin: 02/06/19 06:23 Dose: 10 ml Documented by: Sodium Chloride (0.9% Nacl (Sterile) Posiflush) 10 - 40 ml IV UD PRN PRN Reason: Port access or dressing change Discharge Diet: No Restrictions Discharge Activity: Return to Normal Activity Home Medications: Medications to take at Discharge Cyanocobalamin (Vitamin B-12) [Vitamin B-12] 1,000 mcg IM QMONTH 06/18/14 Cholecalciferol (VIT D3) [Vitamin D3] 1,000 unit PO DAILY 09/08/18 Venlafaxine XR [Effexor Xr] 75 mg PO QHS 09/08/18 Acetaminophen [Tylenol Extra Strength] 1,000 mg PO Q6H PRN PRN 01/21/19 Oxycodone [Oxyir] 5 mg PO Q4H PRN PRN 01/21/19 proMETHazine suppository [Phenergan Suppository] 25 mg RECTAL Q6H PRN PRN #20 suppos. 01/29/19 Bmx Liquid 10 ml PO Q3H PRN PRN ml 02/06/19 Gabapentin [Neurontin] 300 mg PO TIDCM 02/06/19 HYDROmorphone tablet [Dilaudid] 1 mg PO Q3H PRN PRN 5 Days #30 tab 02/06/19 Insulin Lispro [Humalog KwikPen] See Protocol SUBCUT ACHS 02/06/19 Metoprolol Tartrate [Lopressor (beta francia)] 25 mg PO BID 02/06/19 Nystatin 500,000 unit PO 4X/DAY 02/06/19 proCHLORPERazine tablet [Compazine tablet] 10 mg PO Q4H PRN PRN tab 02/06/19 proMETHazine tablet [Phenergan tablet] 12.5 mg PO Q6H PRN PRN tab 02/06/19 Primary Care Physician: Lenny Pryor Chi, MD [Primary Care Provider] - Please follow up with your Primary Care Physician in: within 1-2 weeks Please Follow Up With: Gonzalo Moscoso DO When: Follow-up with Dr. Moscoso in 2 weeks Disposition: [facility] facility Minutes spent on discharge:: 50 Patient Condition:: Stable Medical Necessity - Tobacco Use Smoking Status: Never smoker Tobacco Use: Non-smoker Meaningful Use Info Meaningful Use Diagnoses (Choose all that apply): None applicable Code Visit Inpatient E&M: 09655 Subs Hosp L2
--- NOTE | 2019-02-06 15:10 | PHA.DC.MR ---
Pharmacy Service has performed discharge medication reconciliation for this patient. I noticed GNR growing in paracentesis fluid. Made Dr. Davison aware. Home Medications Cyanocobalamin (Vitamin B-12) [Vitamin B-12] 1,000 mcg IM QMONTH 06/18/14 Cholecalciferol (VIT D3) [Vitamin D3] 1,000 unit PO DAILY 09/08/18 Venlafaxine XR [Effexor Xr] 75 mg PO QHS 09/08/18 Acetaminophen [Tylenol Extra Strength] 1,000 mg PO Q6H PRN PRN 01/21/19 Oxycodone [Oxyir] 5 mg PO Q4H PRN PRN 01/21/19 proMETHazine suppository [Phenergan Suppository] 25 mg RECTAL Q6H PRN PRN #20 suppos. 01/29/19 Bmx Liquid 10 ml PO Q3H PRN PRN ml 02/06/19 Gabapentin [Neurontin] 300 mg PO TIDCM cap 02/06/19 HYDROmorphone tablet [Dilaudid] 1 mg PO Q3H PRN PRN 5 Days #30 tab 02/06/19 Insulin Lispro [Humalog KwikPen] See Protocol SUBCUT ACHS insuln.pen 02/06/19 Metoprolol Tartrate [Lopressor (beta krystian)] 25 mg PO BID tab 02/06/19 Nystatin 500,000 unit PO 4X/DAY udc 02/06/19 proCHLORPERazine tablet [Compazine tablet] 10 mg PO Q4H PRN PRN tab 02/06/19 proMETHazine tablet [Phenergan tablet] 12.5 mg PO Q6H PRN PRN tab 02/06/19 The patient's discharge medication list was reviewed for discrepancies and discrepancies were resolved.
[2019-02-06] MEDS: proCHLORPERazine 5 MG Tablet 10 MG PO (15:34)
[2019-02-06 15:40] LABS: Pathologist Comment/Body Fluid Reviewed
[2019-02-06 15:44] LABS: Pathologist Review Reviewed
[2019-02-06 16:55] LABS: Bedside Glucose 248 mg/dL (70-110)
== END 2019-02-06 16:23 | disposition skilled nursing facility (03) | DRG 755 ==
LOC: ED 17:01 → MS3 18:17 → PCU 02-05 20:33
PROVIDERS: Hospitalist; Internal Medicine Hematology & Oncology; Admitting Provider Internal Medicine; Emergency Provider Emergency Medicine; Family Provider Family Medicine Geriatric Medicine; PCP Family Medicine Geriatric Medicine; Referring Provider Internal Medicine; Visit Provider Internal Medicine
DX: C56.9 Malignant neoplasm of unspecified ovary (principal); R18.0 Malignant ascites; Z68.41 Body mass index [BMI] 40.0-44.9, adult; E87.1 Hypo-osmolality and hyponatremia; E66.01 Morbid (severe) obesity due to excess calories; F32.9 Major depressive disorder, single episode, unspecified; G47.33 Obstructive sleep apnea (adult) (pediatric); D70.1 Agranulocytosis secondary to cancer chemotherapy; T45.1X5A Adverse effect of antineoplastic and immunosuppressive drugs, initial encounter; R09.02 Hypoxemia; E83.39 Other disorders of phosphorus metabolism; R73.03 Prediabetes; R73.9 Hyperglycemia, unspecified; E83.42 Hypomagnesemia; E87.6 Hypokalemia; Z66 Do not resuscitate; Z80.3 Family history of malignant neoplasm of breast; Z80.49 Family history of malignant neoplasm of other genital organs; Z82.49 Family history of ischemic heart disease and other diseases of the circulatory system; Z85.43 Personal history of malignant neoplasm of ovary; Z83.3 Family history of diabetes mellitus; Z86.711 Personal history of pulmonary embolism; Z90.710 Acquired absence of both cervix and uterus; Z91.81 History of falling; Z96.641 Presence of right artificial hip joint; Z98.84 Bariatric surgery status; E53.8 Deficiency of other specified B group vitamins; M51.36 Other intervertebral disc degeneration, lumbar region; I48.0 Paroxysmal atrial fibrillation
CPT/HCPCS: 36591; 49083; 71045; 80048; 80053; 80069; 82945; 82962; 83036; 83615; 83735; 84100; 84157; 84484; 85025; 85610; 85730; 87070; 87075; 87077; 87186; 87205; 88108; 88305; 88313; 89050; 92610; 93005; 93306; 93922; 96361; 96374; 96375; 97116; 97162; 97165; 97530; 97802; 99285; J7030; J7040; J7050; P9047; A4216; J1447; J1940; J2405; J3490

== ENCOUNTER 2019-02-06 16:35 | Inpatient (IN) | payer MEDICARE, SELFPAY ==
[2019-01-31 18:49] VITALS: BMI 43.5
[2019-02-06 17:03] VITALS: BP 104/82; PULSE 89; RESP 20; TEMP 36.1; O2SAT 99
[2019-02-06 17:45] VITALS: BMI 38.9
[2019-02-06 17:47] VITALS: BMI 38.9
[2019-02-06 18:21] VITALS: BP 104/82; PULSE 89
[2019-02-06] MEDS: Metoprolol Tartrate 25 MG Tablet PO (18:21)
[2019-02-06] MEDS: Gabapentin 300 MG Capsule PO (18:22)
[2019-02-06] MEDS: HYDROmorphone 2 MG TABLET 1 MG PO ×2 (18:22→22:38)
[2019-02-06] MEDS: proMETHazine 25 MG Tablet 12.5 MG PO (18:53)
--- NOTE | 2019-02-06 20:26 | EKG12_ITS ---
Test Reason : CP Blood Pressure : / mmHG Vent. Rate : 087 BPM Atrial Rate : 357 BPM P-R Int : 000 ms QRS Dur : 096 ms QT Int : 364 ms P-R-T Axes : 000 080 044 degrees QTc Int : 438 ms Atrial fibrillation Nonspecific T wave abnormality , probably digitalis effect Abnormal ECG When compared with ECG of 06-FEB-2019 09:36, MANUAL COMPARISON REQUIRED, DATA IS UNCONFIRMED Confirmed by MERCEDES ORTIZ ([id number]), society editor VANESSA TONEY ([id number]) on 02/12/2019 2:25:06 PM Referred By: Lenny Pryor Confirmed By:MERCEDES ORTIZ
[2019-02-06] MEDS: proCHLORPERazine 5 MG Tablet 10 MG PO (20:33)
[2019-02-06 20:36] LABS: Bedside Glucose 204 mg/dL (70-110)
--- NOTE | 2019-02-06 20:49 | NURSING ---
Pt complaint of heart palpations, nausea, SOB, and dizziness. HR running between 55-70's irregular. BP 112/58 Temp 98.4. O2 99% 4L via NC. Dr. Pryor updated. PRN nausea administered per pt request. Stat EKG showed Afib HR 87. Continue to monitor per Dr. Pryor.
[2019-02-06 20:52] VITALS: BP 112/58; PULSE 87; RESP 19; TEMP 36.9; O2SAT 99
[2019-02-06 22:05] LABS: Bedside Glucose 219 mg/dL (70-110)
[2019-02-06] MEDS: Venlafaxine XR 75 MG Capsule PO (22:38)
[2019-02-06] MEDS: NYSTATIN 500,000 UNIT/5 ML UDC 500000 UNIT PO (22:39)
[2019-02-06] MEDS: Insulin Lispro 100 UNIT/ML INSULN.PEN SC (22:39)
--- NOTE | 2019-02-06 23:21 | HP.PCM_ITS ---
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 Status: Acute (3) Malignant ascites Status: Acute (4) Atrial fibrillation with rapid ventricular response Status: Acute (5) Appetite loss Status: Acute (6) Osteoarthritis Status: Chronic (7) Lumbar spinal stenosis Status: Chronic (8) Neuropathic pain Status: Chronic (9) Shortness of breath Status: Acute (10) Chemotherapy induced nausea and vomiting Status: Acute (11) Chemotherapy induced neutropenia Status: Acute (12) Depression Status: Chronic (13) MARIA ANTONIA (obstructive sleep apnea) Status: Chronic (14) Vitamin B12 deficiency Status: Chronic History of Present Illness Date of Admission: 02/06/19 Chief Complaint: Here for rehabilitation, strengthening, prior to discharge home with . The patient is a 68 year old Female with below past medical history presented to [facility] Emergency Department 01/31/2019 with shortness of breath. 01/31/2019 Chest X-ray negative. Gradual shortness of breath, patient thought secondary to accumulating ascites. Nausea, vomiting, fatigue, unable to eat. Chemotherapy for metastatic ovarian cancer per Dr. Moscoso. Paracentesis 2 weeks prior removed 14 liters of fluid. 01/21/2019 CTA chest negative pulmonary embolism. Morphine, Zofran given. 01/31/2019 Admit to Hospital. Lasix, paracentesis for ascites. Med port right IJ okay to use. 02/01/2019 Ankle Brachial Index bilateral lower extremity normal. 02/01/2019 Paracentesis 7.65 liters fluid. 02/05/2019 Paracentesis 5.2 liters fluid. 02/05/2019 Atrial fibrillation with rapid ventricular response responded to Metoprolol 25MG BID. Neutropenia treated with GranX. 02/06/2019 Admit to TCU with debility, here for rehabilitation, strengthening, prior to discharge home with . Metastatic ovarian cancer treatment plan, chemotherapy in future, then debulking surgery. Past Medical History Past Medical History (Chronic Problems): Chronic Problems Osteoarthritis (Chronic) Lumbar spinal stenosis (Chronic) Neuropathic pain (Chronic) Morbid (severe) obesity due to excess calories (Chronic) History of gastric bypass (Chronic) Depression (Chronic) Degenerative joint disease (DJD) of lumbar spine (Chronic) Spinal stenosis (Chronic) MARIA ANTONIA (obstructive sleep apnea) (Chronic) Generalized osteoarthrosis (Chronic) Vitamin B12 deficiency (Chronic) Neuropathic pain (Chronic) Allergies aspirin Adverse Reaction (Verified 01/31/19 16:24) Other D/T STOMACH SURGERY NSAIDS (Non-Steroidal Anti-Inflamma Adverse Reaction (Verified 01/31/19 16:24) Other D/T STOMACH SURGERY STEROIDS Adverse Reaction (Uncoded 01/31/19 16:24) Other D/T STOMACH SURGERY Home Medications: Ambulatory Orders Medication Instructions Recorded Cyanocobalamin (Vitamin B-12) 1,000 mcg IM QMONTH 06/18/14 [Vitamin B-12] Cholecalciferol (VIT D3) [Vitamin 1,000 unit PO DAILY 09/08/18 D3] Venlafaxine XR [Effexor Xr] 75 mg PO QHS 09/08/18 Acetaminophen [Tylenol Extra 1,000 mg PO Q6H PRN PRN 01/21/19 Strength] Oxycodone [Oxyir] 5 mg PO Q4H PRN PRN 01/21/19 proMETHazine suppository 25 mg RECTAL Q6H PRN PRN #20 01/29/19 [Phenergan Suppository] suppos. Bmx Liquid 10 ml PO Q3H PRN PRN ml 02/06/19 Gabapentin [Neurontin] 300 mg PO TIDCM 02/06/19 HYDROmorphone tablet [Dilaudid] 1 mg PO Q3H PRN PRN 5 Days #30 tab 02/06/19 Insulin Lispro [Humalog KwikPen] See Protocol SUBCUT ACHS 02/06/19 Metoprolol Tartrate [Lopressor 25 mg PO BID 02/06/19 (beta francia)] Nystatin 500,000 unit PO 4X/DAY 02/06/19 proCHLORPERazine tablet [Compazine 10 mg PO Q4H PRN PRN tab 02/06/19 tablet] proMETHazine tablet [Phenergan 12.5 mg PO Q6H PRN PRN tab 02/06/19 tablet] Surgical History: cataract, gastric bypass, hysterectomy, total hip arthroplasty, total knee arthroplasty, - - Med Port right IJ Psychiatric History: Depression [employer]ERK History: ovarian cancer - Metastatic. Lives: Spouse/ Significant Other Smoking Status: Former smoker Alcohol: None Drugs: None - *Family History Maternal History Items: Cancer - Her maternal grandmother had breast cancer. She has maternal aunt with cervical cancer., Diabetes, Heart Disease, Hypertension Paternal History Items: Hypertension Review of Systems Constitutional: Reports: Anorexia, Malaise, Weakness, Fatigue. Denies: Chills, Fever, Weight Change HEENT: Denies: Head Aches, Sinus Congestion, Sinus Drainage Cardiovascular: Denies: Chest Pain, Palpitations Respiratory: Denies: Cough, Shortness of breath at rest, Sputum production Gastrointestinal: Reports: Abdominal Pain, Nausea, Vomiting Genitourinary: Denies: Dysuria Musculoskeletal: Denies: Joint Pain, Joint Tenderness Skin: Denies: Rash, Wounds Neurological: Denies: Numbness, Tingling, Focal weakness Psychiatric: Denies: Anxiety, Depression, Homicidal Ideations, Suicidal Ideations Hematologic/ Lymphatic: Denies: Easy Bruising, Easy Bleeding VTE Information - Inpt Only VTE Present on Admission: No VTE Mechan Device Prophylaxis: Knee High CIARAN Hose VTE Pharm Prophylaxis ordered?: No Reason prophylaxis not ordered:: Medical Contraindication 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 (Acute) Malignant ascites (Acute) Atrial fibrillation with rapid ventricular response (Acute) Appetite loss (Acute) Shortness of breath (Acute) - Physical Exam Vitals/I&O's: Vital Signs Temp Pulse Resp BP Pulse Ox 98.4 F 87 19 H 112/58 L 99 02/06/19 20:52 02/06/19 20:52 02/06/19 20:52 02/06/19 20:52 02/06/19 20:52 Oxygen Flow Rate (L/min) 4 Oxygen Delivery Method Nasal Cannula Weight: 99.6 kg Body Mass Index (BMI) 38.9 Finger Stick Blood Glucose 129 Intake and Output for Last 24 Hours 02/04/19 02/05/19 02/06/19 23:59 23:59 23:59 Intake Total 80 / 80 Balance 80 / 80 General: Alert, Oriented x3, Cooperative HEENT: Atraumatic, PERRLA, EOMI, Normocephalic Neck: Supple, No JVD, Negative Carotid Bruits, - - Med Port right IJ Lungs: Clear to auscultation, Normal air movement Cardiovascular: Regular rate, No murmurs Abdomen: Bowel Sounds Present, Soft, Non Tender Extremities: No edema, Capillary Refill Less than 3 Seconds Skin: No rashes, No breakdown Musculoskeletal: No Tenderness to Palpation of Joints or Extremities Neurological: Cranial nerves II-XII grossly intact Psych/Mental Status: Normal Affect, Appropriate Laboratory Results 02/06/19 20:33: POC Glucose 204 H 02/06/19 21:59: POC Glucose 219 H Current Medications Acetaminophen (Tylenol) 1,000 mg PO Q6H PRN PRN PRN Reason: Pain Score 4-5/10 Cholecalciferol (Vitamin D) 1,000 unit PO DAILY [facility] Cyanocobalamin (Vitamin B12) 1,000 mcg IM Q30D [facility] Famotidine (Pepcid) 20 mg PO DAILY [facility] Gabapentin (Neurontin) 300 mg PO TIDCM [facility] Last Admin: 02/06/19 18:22 Dose: 300 mg Documented by: Heparin Sodium (Beef Lung) () 50 units IV UD PRN PRN Reason: Port-a-Cath (VAD)Heparin Flush Hydromorphone HCl (Dilaudid Tablet) 1 mg PO Q3H PRN PRN PRN Reason: Pain Score 6-10/10 Last Admin: 02/06/19 22:38 Dose: 1 mg Documented by: Insulin Human Lispro (Humalog Kwikpen (Bkc)) 0 unit SC ACHS [facility]; Protocol Last Admin: 02/06/19 22:39 Dose: 1 units Documented by: Lidocaine/Diphenhydr/Alum/Mg/Simeth () 10 ml PO Q3H PRN PRN PRN Reason: dysphagia Metoprolol Tartrate (Lopressor (Beta Francia)) 25 mg PO BID [facility] Last Admin: 02/06/19 18:21 Dose: 25 mg Documented by: Nystatin (Nystatin) 500,000 unit PO 4X/DAY [facility] Last Admin: 02/06/19 22:39 Dose: 500,000 unit Documented by: Oxycodone HCl (Oxyir) 5 mg PO Q4H PRN PRN PRN Reason: Pain Score 1-5/10 Prochlorperazine Maleate (Compazine Tablet) 10 mg PO Q4H PRN PRN PRN Reason: NAUSEA/VOMITING Last Admin: 02/06/19 20:33 Dose: 10 mg Documented by: Promethazine HCl (Phenergan Suppository) 25 mg RECTAL Q6H PRN PRN PRN Reason: NAUSEA Promethazine HCl (Phenergan Tablet) 12.5 mg PO Q6H PRN PRN PRN Reason: NAUSEA/VOMITING Last Admin: 02/06/19 18:53 Dose: 12.5 mg Documented by: Sodium Chloride () 10 - 40 ml IV UD PRN PRN Reason: Port-a-Cath (VAD) Flush Sodium Chloride (0.9% Nacl (Sterile) Posiflush) 10 - 40 ml IV UD PRN PRN Reason: Port access or dressing change Tuberculin PPD (Tubersol, Aplisol, Ppd) 5 tu ID X1 ONE Stop: 02/07/19 10:01 Tuberculin PPD (Tubersol, Aplisol, Ppd) 5 tu ID X1 ONE Stop: 02/14/19 10:01 Venlafaxine HCl (Effexor Xr) 75 mg PO QHS [facility] Last Admin: 02/06/19 22:38 Dose: 75 mg Documented by: Assessment/Plan All Active Problems Chemotherapy induced nausea and vomiting (Acute) Chemotherapy induced neutropenia (Acute) Debility (Acute) 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 * Debility - PT/OT. * Pain - Tylenol 1000MG Q6H PRN pain (1-3), Oxycodone 10MG 4H PRN pain (4-5), Dilaudid 2MG Q3H PRN pain (6-10). * Bowel - Miralax 17GM daily, Senna/colace 2 tablets BID, Dulcolax 10MG NM daily PRN. * Adult immunization - Administer Prevnar 13, Pneumovax 23, Fluzone as necessary. * DVT prophylaxis - Hold, risk of bleeding high from tumor burden. * Sore throat - BMX 10ML Q3H PRN. * GERD - Pantoprazole 40MG daily. * Neuropathic pain - Gabapentin 300MG TID. * Diabetes Mellitus II - Monitor blood sugars, add basal, mealtime insulin as necessary. * Atrial fibrillation - Metoprolol 25MG BID. * Thrush - Nystatin 500,000 4x/day thru 02/16/2019. * Depression - Venlafaxine 75MG QHS. * Nausea/Vomiting - Reglan 10MG QACHS, Compazine 10MG Q4H PRN, Phenergan 25MG NM Q6H PRN, 12.5MG Q6H PRN. * Appetite loss - Mirtazapine 7.5MG QHS. * Anxiety - Lorazepam 0.5MG Q4H PRN. * Ascites - Paracentesis every Tuesday, .
[2019-02-07] MEDS: Metoclopramide 10 MG/2 ML Vial 5 MG IV ×2 (00:37→05:44)
[2019-02-07] MEDS: 0.9% Saline Lock 10 ML Syringe IV ×5 (00:37→17:03)
[2019-02-07 05:44] VITALS: BP 112/78; PULSE 80
[2019-02-07] MEDS: Metoprolol Tartrate 25 MG Tablet PO ×2 (05:44→17:01)
[2019-02-07] MEDS: Polyethylene Glycol 3350 17 GM PACKET PO (05:44)
[2019-02-07] MEDS: NYSTATIN 500,000 UNIT/5 ML UDC 500000 UNIT PO ×2 (05:44→16:55)
[2019-02-07] MEDS: Senna/Docusate Sodium 1 Tablet 2 TABLET PO (05:45)
[2019-02-07] MEDS: Pantoprazole Sodium 40 MG Tablet PO (05:45)
[2019-02-07 06:01] LABS: Hematocrit 40.7 % (37-47); Hemoglobin 13.2 g/dL (12.0-15.0); Mean Corp Hgb Conc 32.4 g/dL (32-36); Mean Corpuscular Hgb 26.6 pg (27.0-32.0); Mean Corpuscular Volume 81.9 fL (81-99); POSITIVE COUNT YES; POSITIVE MORPHOLOGY YES; Platelet Count 142 K/mm3 (150-450); RBC Distribution Width CV 15.9 % (11.6-14.6); RBC Distribution Width SD 45.8 fl (35.1-43.9); Red Blood Count 4.97 M/mm3 (4.2-5.4); White Blood Count 15.2 K/mm3 (4.4-11.0)
[2019-02-07] MEDS: proMETHazine 25 MG/ML Syringe 12.5 MG IV ×3 (06:02→18:55)
[2019-02-07 06:07] LABS: Differential Indicated MANUAL DIFF
--- NOTE | 2019-02-07 06:15 | NURSING ---
When placing pt ALEX wraps on this AM pt began to gag and made herself throw up a small amount of clear liquid. Pt complaint of nausea that just came on. IV Phenergan given per pt request.
[2019-02-07 06:20] LABS: Anion Gap 9 (5-15); BUN 53 mg/dL (7-18); BUN/Creat Ratio 34.6 RATIO (10-20); Calcium,Total 7.7 mg/dL (8.5-10.1); Chloride 90 mmol/L (98-107); Creatinine, Serum 1.53 mg/dL (0.55-1.02); EST Glomerular Filtration Rate 36 mL/min (>60); Est Glom Filt Rate - Afr Amer 44 mL/min (>60); Estimated Creatinine Clearance 29.92 ml/min; Glucose 153 mg/dL (74-106); Potassium 5.3 mmol/L (3.5-5.1); Sodium Level 126 mmol/L (136-145)
[2019-02-07 06:52] LABS: Eosinophil 1 % (0-5); Lymphocyte 6 % (19-41); Metamyelocyte 1 % (0-1); Monocyte 3 % (0-10); Myelocyte 1 (0-0); Neutrophil-Band 4 % (0-5); Neutrophil-Segmented 84 % (47-70); Nucleated Red Bld Cells,Manual 1 % (0-5); Total Cells Counted 100 (MANUAL DIFF)
[2019-02-07 06:53] LABS: Platelet Estimate ADEQUATE (ADEQ); Red Cell Morphology NORM C+C NORMAL (NORM C&C); Toxic Granulation 3+
[2019-02-07 06:54] LABS: Absolute Lymphocyte Count 0.91 X10^3/uL (0.83-4.51); Absolute Neutrophil Count 13.4 X10^3/uL (2.0-7.7); Lymphocyte # 0.91 X10^3/ul (4.0); Neutrophil # 13.36 X10^3/uL (2.7-7.7)
[2019-02-07] MEDS: 0.9% Normal Saline 1,000 ML 75 ML IV ×2 (09:44→21:39)
--- NOTE | 2019-02-07 10:00 | NURSING ---
pt nauseated and refusing to take kayexalate & neurontin at this time, phenergan given. will try again later.
--- NOTE | 2019-02-07 10:58 | PCM.PN.RX ---
<Heather Alas M - Last Filed: 02/07/19 10:58> Progress Note - Pharmacy Subjective: TCU Admission Objective: Allergies aspirin Adverse Reaction (Verified 01/31/19 16:24) Other D/T STOMACH SURGERY NSAIDS (Non-Steroidal Anti-Inflamma Adverse Reaction (Verified 01/31/19 16:24) Other D/T STOMACH SURGERY STEROIDS Adverse Reaction (Uncoded 01/31/19 16:24) Other D/T STOMACH SURGERY Current Medications Generic Name Dose Route Start Last Admin Trade Name Freq PRN Reason Stop Dose Admin Acetaminophen 1,000 mg 02/06/19 17:13 Tylenol PO Q6H PRN PRN Pain Score 1-3/10 Bisacodyl 10 mg 02/06/19 23:50 Dulcolax RECTAL DAILY PRN Constipation Gabapentin 300 mg 02/06/19 17:45 02/06/19 18:22 Neurontin PO 300 mg TIDCM ZHOU Administration Heparin Sodium (Beef Lung) 50 units 02/06/19 17:09 IV UD PRN Port-a-Cath (VAD)Heparin Flush Hydromorphone HCl 2 mg 02/06/19 23:53 Dilaudid Tablet PO Q3H PRN PRN Pain Score 6-10/10 Sodium Chloride 1,000 mls @ 75 mls/hr 02/07/19 08:20 02/07/19 09:44 IV 75 mls/hr .[id number] ZHOU Administration Insulin Glargine 10 units 02/07/19 22:00 Lantus (Bkc) SC QHS ZHOU Lidocaine/Diphenhydr/Alum/Mg/Simeth 10 ml 02/06/19 17:13 PO Q3H PRN PRN dysphagia Lorazepam 0.5 mg 02/06/19 23:51 Ativan IV Q4H PRN PRN ANXIETY Metoclopramide HCl 10 mg 02/07/19 12:00 Reglan IV Q6 ZHOU Metoprolol Tartrate 25 mg 02/06/19 18:00 02/07/19 05:44 Lopressor (Beta Francia) PO 25 mg BID ZHOU Administration Mirtazapine 7.5 mg 02/07/19 22:00 Remeron PO QHS ZHOU Nystatin 500,000 unit 02/06/19 22:00 02/07/19 05:44 Nystatin PO 02/16/19 23:59 500,000 unit 4X/DAY ZHOU Administration Oxycodone HCl 10 mg 02/06/19 23:53 Oxyir PO Q4H PRN PRN Pain Score 4-5/10 Pantoprazole Sodium 40 mg 02/07/19 06:00 02/07/19 05:45 Protonix PO 40 mg DAILY ZHOU Administration Polyethylene Glycol 17 gm 02/07/19 06:00 02/07/19 05:44 Miralax PO 17 gm DAILY ZHOU Administration Prochlorperazine Edisylate 10 mg 02/06/19 23:53 Compazine Iv IV Q4H PRN PRN NAUSEA Promethazine HCl 12.5 mg 02/06/19 23:52 02/07/19 10:07 Phenergan IV 12.5 mg Q4H PRN PRN Administration NAUSEA/VOMITING Senna/Docusate Sodium 2 tablet 02/07/19 06:00 02/07/19 05:45 Senokot-S, Geni-Colace PO 1 tablet BID ZHOU Administration Sodium Chloride 10 - 40 ml 02/06/19 17:09 02/07/19 09:44 IV 10 ml UD PRN Administration Port-a-Cath (VAD) Flush Sodium Chloride 10 - 40 ml 02/06/19 17:09 0.9% Nacl (Sterile) Posiflush IV UD PRN Port access or dressing change Tuberculin PPD 5 tu 02/14/19 10:00 Tubersol, Aplisol, Ppd ID 02/14/19 10:01 X1 ONE Venlafaxine HCl 75 mg 02/06/19 22:00 02/06/19 22:38 Effexor Xr PO 75 mg QHS ZHOU Administration Problem List Debility (Acute) 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 (Acute) Malignant ascites (Acute) Atrial fibrillation with rapid ventricular response (Acute) Appetite loss (Acute) Osteoarthritis (Chronic) Lumbar spinal stenosis (Chronic) Neuropathic pain (Chronic) Shortness of breath (Acute) Vital Signs Temp Pulse Resp BP Pulse Ox 98.4 F 80 19 H 112/78 99 02/06/19 20:52 02/07/19 05:44 02/06/19 20:52 02/07/19 05:44 02/06/19 20:52 Oxygen Flow Rate (L/min) 2 Oxygen Delivery Method Nasal Cannula Weight: 99.6 kg Body Mass Index (BMI) 38.9 Finger Stick Blood Glucose 129 Sodium 126 mmol/L (136-145) L 02/07/19 05:50 Potassium 5.3 mmol/L (3.5-5.1) H 02/07/19 05:50 Chloride 90 mmol/L (98-107) L 02/07/19 05:50 Carbon Dioxide 27.0 mmol/L (21.0-32.0) 02/07/19 05:50 Anion Gap 9 (5-15) 02/07/19 05:50 BUN 53 mg/dL (7-18) H 02/07/19 05:50 Creatinine 1.53 mg/dL (0.55-1.02) H 02/07/19 05:50 Est GFR (MDRD) Af Amer 44 mL/min (>60) L 02/07/19 05:50 Est GFR (MDRD) Non-Af 36 mL/min (>60) L 02/07/19 05:50 BUN/Creatinine Ratio 34.6 RATIO (10-20) H 02/07/19 05:50 Glucose 153 mg/dL (74-106) H 02/07/19 05:50 Assessment/Plan: 1. Pain: Tylenol 1000mg PO Q6H PRN pain (1-3), Oxycodone 10mg PO 4H PRN pain (4-5), Dilaudid 2mg PO Q3H PRN pain (6-10). Please continue to monitor for increased/decreased pain, PRN usage 2. Sore throat: BMX 10ML PO Q3H PRN. Please continue to monitor for PRN usage, medication effectiveness 3. GERD: Pantoprazole 40mg PO daily. Please continue to monitor for increased/decreased GERD symptoms 4. Neuropathic pain: Gabapentin 300mg PO TID. Please continue to monitor for medication effectiveness, renal function 5. Atrial fibrillation: Metoprolol tartrate 25mg PO BID. Please continue to monitor BP, pulse 6. Thrush: Nystatin 500,000 PO 4x/day thru 02/16/2019. Please continue to monitor for resolution of thrush 7. Nausea/Vomiting: Reglan 10mg IV Q6, Compazine 10mg IV Q4H PRN, Phenergan 25mg IV Q4H PRN. Please continue to monitor for increased/decreased symptoms, PRN usage 8. Diabetes Type II: [place] 10 units SC QHS. Please continue to monitor blood glucose and monitor for S/S hyper/hypoglycemia Psychotropic Medications: *9. Depression: Venlafaxine XR 75mg PO QHS. Please consider a GDR by 07/2019 if clinically indicated *10. Anxiety: Lorazepam 0.5mg PO Q4H PRN. Please consider a GDR by 07/2019 if clinically indicated *11. Appetite loss: Mirtazapine 7.5mg PO QHS. Please consider a GDR by 07/2019 if clinically indicated Unnecessary Medications: Bowel Regimen: Miralax 17g PO daily, Senna/Docusate 2 tablets PO BID, Dulcolax 10mg NH daily PRN. Please continue to monitor for increased/decreased constipation and/or diarrhea Date of Note:: 02/07/19 - Provider Comments Provider responsibility: Provider responsible to enter orders to implement recommendations <Lenny Pryor Chi - Last Filed: 02/07/19 13:00> Progress Note - Pharmacy Subjective: [] Objective: Allergies aspirin Adverse Reaction (Verified 01/31/19 16:24) Other D/T STOMACH SURGERY NSAIDS (Non-Steroidal Anti-Inflamma Adverse Reaction (Verified 01/31/19 16:24) Other D/T STOMACH SURGERY STEROIDS Adverse Reaction (Uncoded 01/31/19 16:24) Other D/T STOMACH SURGERY Current Medications Generic Name Dose Route Start Last Admin Trade Name Freq PRN Reason Stop Dose Admin Acetaminophen 1,000 mg 02/06/19 17:13 Tylenol PO Q6H PRN PRN Pain Score 1-3/10 Bisacodyl 10 mg 02/06/19 23:50 Dulcolax RECTAL DAILY PRN Constipation Gabapentin 300 mg 02/06/19 17:45 02/06/19 18:22 Neurontin PO 300 mg TIDCM ZHOU Administration Heparin Sodium (Beef Lung) 50 units 02/06/19 17:09 IV UD PRN Port-a-Cath (VAD)Heparin Flush Hydromorphone HCl 2 mg 02/06/19 23:53 Dilaudid Tablet PO Q3H PRN PRN Pain Score 6-10/10 Sodium Chloride 1,000 mls @ 75 mls/hr 02/07/19 08:20 02/07/19 09:44 IV 75 mls/hr .[id number] ZHOU Administration Insulin Glargine 10 units 02/07/19 22:00 Lantus (Bkc) SC QHS ZHOU Lidocaine/Diphenhydr/Alum/Mg/Simeth 10 ml 02/06/19 17:13 PO Q3H PRN PRN dysphagia Lorazepam 0.5 mg 02/06/19 23:51 Ativan IV Q4H PRN PRN ANXIETY Metoclopramide HCl 10 mg 02/07/19 12:00 Reglan IV Q6 [facility] Metoprolol Tartrate 25 mg 02/06/19 18:00 02/07/19 05:44 Lopressor (Beta Francia) PO 25 mg BID [facility] Administration Mirtazapine 7.5 mg 02/07/19 22:00 Remeron PO QHS [facility] Nystatin 500,000 unit 02/06/19 22:00 02/07/19 05:44 Nystatin PO 02/16/19 23:59 500,000 unit 4X/DAY ZHOU Administration Oxycodone HCl 10 mg 02/06/19 23:53 02/07/19 12:41 Oxyir PO 10 mg Q4H PRN PRN Administration Pain Score 4-5/10 Pantoprazole Sodium 40 mg 02/07/19 06:00 02/07/19 05:45 Protonix PO 40 mg DAILY ZHOU Administration Polyethylene Glycol 17 gm 02/07/19 06:00 02/07/19 05:44 Miralax PO 17 gm DAILY ZHOU Administration Prochlorperazine Edisylate 10 mg 02/06/19 23:53 Compazine Iv IV Q4H PRN PRN NAUSEA Promethazine HCl 12.5 mg 02/06/19 23:52 02/07/19 10:07 Phenergan IV 12.5 mg Q4H PRN PRN Administration NAUSEA/VOMITING Senna/Docusate Sodium 2 tablet 02/07/19 06:00 02/07/19 05:45 Senokot-S, Geni-Colace PO 1 tablet BID ZHOU Administration Sodium Chloride 10 - 40 ml 02/06/19 17:09 02/07/19 09:44 IV 10 ml UD PRN Administration Port-a-Cath (VAD) Flush Sodium Chloride 10 - 40 ml 02/06/19 17:09 0.9% Nacl (Sterile) Posiflush IV UD PRN Port access or dressing change Tuberculin PPD 5 tu 02/14/19 10:00 Tubersol, Aplisol, Ppd ID 02/14/19 10:01 X1 ONE Venlafaxine HCl 75 mg 02/06/19 22:00 02/06/19 22:38 Effexor Xr PO 75 mg QHS ZHOU Administration Problem List Debility (Acute) 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 (Acute) Malignant ascites (Acute) Atrial fibrillation with rapid ventricular response (Acute) Appetite loss (Acute) Osteoarthritis (Chronic) Lumbar spinal stenosis (Chronic) Neuropathic pain (Chronic) Shortness of breath (Acute) Vital Signs Temp Pulse Resp BP Pulse Ox 98.4 F 80 19 H 112/78 99 02/06/19 20:52 02/07/19 05:44 02/06/19 20:52 02/07/19 05:44 02/07/19 11:16 Oxygen Flow Rate (L/min) 3 Oxygen Delivery Method Nasal Cannula Weight: 99.6 kg Body Mass Index (BMI) 38.9 Finger Stick Blood Glucose 129 Sodium 126 mmol/L (136-145) L 02/07/19 05:50 Potassium 5.3 mmol/L (3.5-5.1) H 02/07/19 05:50 Chloride 90 mmol/L (98-107) L 02/07/19 05:50 Carbon Dioxide 27.0 mmol/L (21.0-32.0) 02/07/19 05:50 Anion Gap 9 (5-15) 02/07/19 05:50 BUN 53 mg/dL (7-18) H 02/07/19 05:50 Creatinine 1.53 mg/dL (0.55-1.02) H 02/07/19 05:50 Est GFR (MDRD) Af Amer 44 mL/min (>60) L 02/07/19 05:50 Est GFR (MDRD) Non-Af 36 mL/min (>60) L 02/07/19 05:50 BUN/Creatinine Ratio 34.6 RATIO (10-20) H 02/07/19 05:50 Glucose 153 mg/dL (74-106) H 02/07/19 05:50 Assessment/Plan: Psychotropic Medications: Unnecessary Medications: Bowel Regimen: - Provider Comments Provider responsibility: Provider responsible to enter orders to implement recommendations Provider Comments to Recommendations by Pharmacy: Agree
[2019-02-07 11:14] VITALS: O2SAT 99
[2019-02-07 11:16] VITALS: O2SAT 99
[2019-02-07 11:26] LABS: Bedside Glucose 164 mg/dL (70-110)
[2019-02-07] MEDS: oxyCODONE 5 MG Tablet 10 MG PO ×2 (12:41→20:39)
[2019-02-07] MEDS: Metoclopramide 10 MG/2 ML Vial IV ×3 (13:32→23:49)
--- NOTE | 2019-02-07 14:32 | CHAPLAIN ---
talked with spouse only; met patient yesterday in PCU; family members are seeing pt at this time
--- NOTE | 2019-02-07 14:32 | NURSING ---
ultrasound guided paracentesis ordered for mondays & , scheduling notified, will return call with next time and day.
[2019-02-07 14:36] LABS: Pathologist Review Reviewed
[2019-02-07 15:15] VITALS: BP 116/90; PULSE 105; RESP 24; TEMP 36.7; O2SAT 97
[2019-02-07 16:45] LABS: Bedside Glucose 166 mg/dL (70-110)
[2019-02-07] MEDS: Tuberculin,Purif.prot.deriv. 50 TU/ML Vial 5 ML ID (16:54)
[2019-02-07 17:01] VITALS: PULSE 105
--- NOTE | 2019-02-07 17:24 | NURSING ---
Addendum entered by Hodan Cancino 02/07/19 18:46: hospice here to see pt and , pt and want to speak with sons before making a final decision. Dr Pryor updated, new order to consult general surgery for possible pleurix catheter. Original Note: Dr Pryor spoke in length with pt regarding end of life care. Pt agreeable to inpt hospice. hospice notified. PT with nausea, vomiting, pain.
[2019-02-07] MEDS: Mirtazapine 15 MG Tablet 7.5 MG PO (20:41)
[2019-02-07 21:05] LABS: Bedside Glucose 212 mg/dL (70-110)
[2019-02-08 05:02] VITALS: BP 117/79; PULSE 102
[2019-02-08] MEDS: Metoclopramide 10 MG/2 ML Vial IV ×4 (05:07→23:10)
[2019-02-08] MEDS: proMETHazine 25 MG/ML Syringe 12.5 MG IV ×3 (06:07→20:12)
[2019-02-08] MEDS: 0.9% Saline Lock 10 ML Syringe IV ×5 (06:11→17:20)
[2019-02-08 06:21] LABS: Bedside Glucose 135 mg/dL (70-110)
[2019-02-08 06:46] LABS: Anion Gap 9 (5-15); BUN 63 mg/dL (7-18); BUN/Creat Ratio 41.2 RATIO (10-20); Calcium,Total 7.6 mg/dL (8.5-10.1); Chloride 94 mmol/L (98-107); Creatinine, Serum 1.53 mg/dL (0.55-1.02); EST Glomerular Filtration Rate 36 mL/min (>60); Est Glom Filt Rate - Afr Amer 44 mL/min (>60); Estimated Creatinine Clearance 29.92 ml/min; Glucose 133 mg/dL (74-106); Potassium 5.4 mmol/L (3.5-5.1); Sodium Level 128 mmol/L (136-145)
[2019-02-08 06:53] VITALS: O2SAT 95
[2019-02-08] MEDS: oxyCODONE 5 MG Tablet 10 MG PO ×3 (09:47→22:07)
[2019-02-08] MEDS: proCHLORPERazine 10 MG/2 ML Vial IV ×3 (09:54→21:14)
[2019-02-08] MEDS: 0.9% Normal Saline 1,000 ML 75 ML IV ×2 (10:58→23:11)
[2019-02-08 11:15] LABS: Bedside Glucose 144 mg/dL (70-110)
[2019-02-08] MEDS: NYSTATIN 500,000 UNIT/5 ML UDC 500000 UNIT PO (11:59)
[2019-02-08 15:32] VITALS: BP 121/76; PULSE 104; RESP 20; TEMP 36; O2SAT 99
[2019-02-08] MEDS: Sodium Polystyrene Sulfonate 15 GM/60 ML UDC 30 GM PO (15:52)
[2019-02-08 16:50] LABS: Bedside Glucose 144 mg/dL (70-110)
[2019-02-08 17:19] VITALS: BP 121/76; PULSE 104
[2019-02-08] MEDS: Metoprolol Tartrate 25 MG Tablet PO (17:19)
--- NOTE | 2019-02-08 18:43 | NURSING ---
pt attempted to drink kayexalate, got 30ml in and then had emesis. will notify Dawood Prakash HEAT TREATER APPRENTICE
[2019-02-08 19:55] VITALS: BP 107/75; PULSE 110; RESP 20; TEMP 35.9; O2SAT 100
[2019-02-08 21:05] LABS: Bedside Glucose 162 mg/dL (70-110)
--- NOTE | 2019-02-08 21:32 | EKG12_ITS ---
Test Reason : CP Blood Pressure : / mmHG Vent. Rate : 104 BPM Atrial Rate : 104 BPM P-R Int : 132 ms QRS Dur : 090 ms QT Int : 316 ms P-R-T Axes : 000 081 -41 degrees QTc Int : 415 ms Sinus tachycardia with Premature supraventricular complexes with occasional Premature ventricular com plexes Otherwise normal ECG When compared with ECG of 06-FEB-2019 20:37, MANUAL COMPARISON REQUIRED, DATA IS UNCONFIRMED Confirmed by MERCEDES ORTIZ ([id number]), order editor VANESSA TONEY ([id number]) on 02/12/2019 2:24:58 PM Referred By: Lenny Pryor Confirmed By:MERCEDES ORTIZ
--- NOTE | 2019-02-08 21:33 | NURSING ---
Addendum entered by Haylie Rangel 02/09/19 00:14: 0010- pt awoke confused to place/time. States she knows she is at [facility] but her room does not look the same. Was unsure of time of day. Pt reoriented to room/time. Attempted to use bedpan but did not void. Repositioned in bed. Call light within reach. Addendum entered by Haylie Rangel 02/08/19 22:26: 2218- Dawood Prakash NP updated on EKG, no new orders at this time. Original Note: 1954- pt c/o not being able to take a deep breath. VS completed T96.6 R20 SaO2 100% on 3L BP107/75 P110. Had a large, clear emesis. Pt is A&Ox3, drowsy but easily aroused. Bilateral feet cold to touch and mottling noted on toes of left foot. Hands cold to touch bilaterally. Discussed diagnosis and care plan with patient as well as code status with pt and asked pt if she would like any family called. Pt declines at this time stating my just left. 2016 PRN phenergan administered, pt had emesis x3 during care. 2114- pt c/o chest heaviness & nausea. PRN compazine administered and Dawood Prakash NP notified. New orders received for EKG. RT notified.
[2019-02-08] MEDS: LORazepam 2 MG/ML Syringe 0.5 MG IV (22:07)
[2019-02-09] MEDS: proMETHazine 25 MG/ML Syringe 12.5 MG IV ×4 (00:28→23:18)
[2019-02-09 05:06] VITALS: BP 104/66; PULSE 94; RESP 16; O2SAT 100
[2019-02-09] MEDS: NYSTATIN 500,000 UNIT/5 ML UDC 500000 UNIT PO ×2 (05:08→12:54)
[2019-02-09] MEDS: Metoclopramide 10 MG/2 ML Vial IV ×4 (05:08→23:18)
[2019-02-09] MEDS: Pantoprazole Sodium 40 MG Tablet PO (05:08)
[2019-02-09 05:17] LABS: Anion Gap 7 (5-15); BUN 66 mg/dL (7-18); BUN/Creat Ratio 45.2 RATIO (10-20); Calcium,Total 7.7 mg/dL (8.5-10.1); Chloride 96 mmol/L (98-107); Creatinine, Serum 1.46 mg/dL (0.55-1.02); EST Glomerular Filtration Rate 38 mL/min (>60); Est Glom Filt Rate - Afr Amer 46 mL/min (>60); Estimated Creatinine Clearance 31.35 ml/min; Glucose 110 mg/dL (74-106); Potassium 5.3 mmol/L (3.5-5.1); Sodium Level 128 mmol/L (136-145)
[2019-02-09] MEDS: Menthol/Lanolin/Calamine/Znox 113 GM Tube 1 APPLIC TOPICAL ×2 (05:19→18:27)
[2019-02-09] MEDS: Nystatin Powder 15gm Bottle 1 APPLIC TOPICAL ×2 (05:20→22:05)
[2019-02-09 06:45] LABS: Bedside Glucose 116 mg/dL (70-110)
--- NOTE | 2019-02-09 07:03 | NURSING ---
0700- pt's last void was approximately 8pm yesterday. Attempted to use bedpan x3 this shift with no results. Bladder scan done showing 237mL Pt c/o overall abdominal pressure at baseline due to ascites, denies pelvic pressure or urge to void. Will monitor.
--- NOTE | 2019-02-09 08:10 | PCM.CONS.B ---
- Consult Date of Consult: 02/09/19 - Reason for Consult Chief Complaint ? malignant ascites HPI: Patient is a 68-year-old female with malignant ascites due to metastatic ovarian cancer. Her past medical history significant for left parietal extracranial hematoma and mild right frontal subarachnoid hemorrhage following a fall in April 2017, osteoarthritis, pulmonary embolism in 2013, obesity, gastric bypass surgery (loss 200 pounds). With regard to her ovarian cancer: CA125 01/13 was 140 U/mL. Patient underwent CT guided biopsy of omental mass seen on CT scan for cytology and culture on 01/15. Pathology: Pelvic mass, needle core biopsy High grade malignant neoplasm, favor poorly-differentiated carcinoma. She had presented with shortness of breath and increasing weakness. She is scheduled for hospice, however this requires drainage catheter placement for malignant ascites drainage for which she requires on a regular basis. PAST SURGICAL HISTORY: CARPAL TUNNEL GASTRIC BYPASS FOR MORBID OBESITY W/SM INT August 15, 2013 [facility] PAST SURGICAL HISTORY OF Right Hip replacement PAST SURGICAL HISTORY OF Bilateral Knee replacement KNEE PARTIAL 2001 FAMILY HISTORY: ? Diabetes Mother ? other (heart disease) Father SOCIAL HISTORY: Tobacco Use ? Smoking status: Never Smoker ? Smokeless tobacco: Never Used Substance Use Topics ? Alcohol use: No ? Drug use: No MEDICATIONS: acetaminophen (TYLENOL) 500 mg tablet, Take 2 tablets by mouth every 6 hours., oxyCODONE IR (ROXICODONE) 5 mg immediate release tablet, Take 1 tablet by polyethylene glycol 3350 (MIRALAX, GLYCOLAX) 17 gram packet, Take 1 Packet by ondansetron orally disintegrating (ZOFRAN ODT) 4 mg disintegrating tablet, Take 1 meclizine (ANTIVERT) 12.5 mg tab, Take 1 tablet by mouth three times daily as scopolamine (TRANSDERM-SCOP) 1 mg over 3 days, Apply 1 Patch as directed every promethazine (PHENERGAN) 25 mg tablet, Take 1 tablet by mouth every 8 hours as docusate sodium (COLACE) 100 mg capsule, Take 1 capsule by mouth twice daily as gabapentin (NEURONTIN) 300 mg capsule, Take 2 capsules by mouth daily at bedtime., venlafaxine ER (EFFEXOR XR) 75 mg 24 hr capsule, Take 75 mg by mouth once daily., lisinopril (ZESTRIL, PRINIVIL) 5 mg tablet, Take 5 mg by mouth once daily., Disp: , rOPINIRole (REQUIP) 0.25 mg tablet, Take 0.25 mg by mouth at bedtime as needed MULTIVIT &MINERALS/FERROUS FUM (MULTI VITAMIN ORAL), Take by CHOLECALCIFEROL, VITAMIN D3, (VITAMIN D3 ORAL), Take 1,000 Units by CURRENT ALLERGIES: No Known Allergies ROS: Constitutional: poor appetite Neuro: Denies MEDINA and symptoms of neuropathy. HEENT: No recent change in voice, vision or hearing. Resp: More short of breath without productive cough. CVS: Denies chest pain, PND and orthopnea. Bilateral lower extremity swelling/edema. GI: abdominal pain, nausea : Denies dysuria or gross hematuria. Endo: Denies hot flashes. Musculoskeletal: Denies bone, back, joint and muscular pain. Derm: Denies rash. Denies jaundice and diffuse pruritis. Heme: Denies unusual bleeding and unexplained bruising. Psych: Depressed mood. PHYSICAL EXAM: Vitals: Blood pressure 150/92, pulse 58, temperature 97.6 ?F. Ill-appearing and in no acute distress. EYES: Sclerae are anicteric bilaterally. ENT: Oral mucosa is dry. NECK: Supple. LYMPHATIC: There is no palpable cervical or supraclavicular adenopathy. RESPIRATORY: Decreased air entry in all [place]. CARDIOVASCULAR: Rhythm is irregular. ABDOMEN: The abdomen is obese and distended, non tender, no peritoneal signs noted. Exam consistent with ascites. Extremities: Bilateral lower extremity swelling. SKIN: No jaundice or rash. NEUROLOGIC: non focal Impression: ascites due to ovarian cancer Plan: Plan for Placement of PleurX pericentesis catheter placement I have described the procedure to the patient and her . The patient is not wholly cognizant, however, she is able to answer directed questions. I have explained the risks of the procedure, including but not limited to: infection, bleeding, scar tissue, chronic pain in the area, leakage of fluid in the area, peritonitis, injury to any intraabdominal organ, complications of anesthesia, etc - she and her understand. They have no further questions. Will schedule for procedure on Tuesday.
[2019-02-09] MEDS: oxyCODONE 5 MG Tablet 10 MG PO (09:37)
[2019-02-09 10:46] LABS: Bedside Glucose 116 mg/dL (70-110)
[2019-02-09] MEDS: 0.9% Normal Saline 1,000 ML 75 ML IV (11:24)
[2019-02-09] MEDS: LORazepam 2 MG/ML Syringe 0.5 MG IV (13:01)
--- NOTE | 2019-02-09 13:10 | CASEMGMT ---
Social Work Spoke with [facility] whom states pt would like the drain placed and that must be completed prior to hospice transfers. Nursing contacted physician's office about having [facility] placed on [facility] - physician unable and will continue with scheduled procedure Monday 02/12. Spoke with and patient on hospice and procedure. Pt choosing to wait for scheduled procedure 02/12 and then admit to [facility]. Notified [facility] and [facility]. SW completed advanced directives with pt whom named , Palacio Cogar as HPOA. Copies placed on chart. Will continue to follow. AKOSUA Patten LW
[2019-02-09 15:32] VITALS: BP 121/76; PULSE 109; RESP 20; TEMP 35.8; O2SAT 100
[2019-02-09] MEDS: Morphine 2 MG/ML Syringe 0.5 MG IV ×2 (16:08→20:47)
[2019-02-09 17:11] LABS: Bedside Glucose 111 mg/dL (70-110)
[2019-02-09 18:42] VITALS: PULSE 109
--- NOTE | 2019-02-09 20:06 | NURSING ---
Pulled 2 mg of lorazepam 02/09 and wasted 1.5 mg in accudose, but not expelled out of syringe. Was not administered. Sent to pharmacy with [employer] information technology consultant. Pulled in error. Morphine was intended med.
[2019-02-09 20:45] LABS: Bedside Glucose 113 mg/dL (70-110)
--- NOTE | 2019-02-09 22:15 | NURSING ---
This nurse into assess pt and ask about PM medications. Pt A&O x4.Pt refusing all meds including insulin. Pt at bedside. Pt talking about the plan for Tuesday and stating how thankful he and his are for all the care staff has provided. Pt stating If it is my time to go I am willing to go. This nurse discussed in depth the difference between DNRCC-A and DNRCC. Pt and wishing to change code status to DNRCC. Paper signed and placed in chart. Pt denying any further needs at this time. 2L via NC on 98%. HR 100. Pt resting in bed, at bedside with call light in reach.
[2019-02-09 22:20] VITALS: PULSE 100; O2SAT 99
[2019-02-10] MEDS: 0.9% Saline Lock 10 ML Syringe IV ×10 (01:17→21:25)
[2019-02-10] MEDS: Morphine 2 MG/ML Syringe 0.5 MG IV ×3 (01:17→14:57)
[2019-02-10] MEDS: 0.9% Normal Saline 1,000 ML 60 ML IV (02:21)
[2019-02-10] MEDS: LORazepam 2 MG/ML Syringe 0.5 MG IV ×3 (04:45→23:48)
[2019-02-10] MEDS: Nystatin Powder 15gm Bottle 1 APPLIC TOPICAL ×2 (04:47→20:10)
[2019-02-10] MEDS: Menthol/Lanolin/Calamine/Znox 113 GM Tube 1 APPLIC TOPICAL ×2 (04:51→17:53)
[2019-02-10] MEDS: Metoclopramide 10 MG/2 ML Vial IV ×4 (06:52→23:21)
[2019-02-10] MEDS: proMETHazine 25 MG/ML Syringe 12.5 MG IV ×3 (06:52→20:06)
[2019-02-10 07:03] VITALS: BP 109/58; PULSE 101; RESP 19; O2SAT 99
[2019-02-10 07:25] LABS: Bedside Glucose 106 mg/dL (70-110)
[2019-02-10 11:15] LABS: Bedside Glucose 136 mg/dL (70-110)
[2019-02-10] MEDS: proCHLORPERazine 10 MG/2 ML Vial IV (15:28)
[2019-02-10 16:00] VITALS: BP 118/79; PULSE 109; RESP 24; TEMP 36.8; O2SAT 100
[2019-02-10] MEDS: Morphine 2 MG/ML Syringe 1 MG IV ×2 (16:45→21:25)
[2019-02-10 17:05] LABS: Bedside Glucose 130 mg/dL (70-110)
[2019-02-10 20:13] VITALS: PULSE 102; O2SAT 99
[2019-02-10 20:51] LABS: Bedside Glucose 130 mg/dL (70-110)
--- NOTE | 2019-02-10 23:40 | NURSING ---
Dawood Prakash [employer] updated on pt being super restless and yelling at staff and and has not urinated since this nurse has been on shift. New order to give x1 Ativan 0.5mg now and increase morphine to Q3H.
[2019-02-11] VITALS (7 sets, daily range): BP systolic 103–145; BP diastolic 67–80; PULSE 65–108; RESP 16–24; TEMP 36.2–36.8; O2SAT 95–100
[2019-02-11] MEDS: Morphine 2 MG/ML Syringe 1 MG IV ×7 (01:36→21:47)
[2019-02-11] MEDS: 0.9% Saline Lock 10 ML Syringe IV ×12 (01:36→23:07)
[2019-02-11] MEDS: proMETHazine 25 MG/ML Syringe 12.5 MG IV (02:50)
[2019-02-11] MEDS: Metoclopramide 10 MG/2 ML Vial IV ×4 (04:41→23:07)
[2019-02-11] MEDS: Nystatin Powder 15gm Bottle 1 APPLIC TOPICAL ×2 (04:45→21:49)
[2019-02-11] MEDS: Menthol/Lanolin/Calamine/Znox 113 GM Tube 1 APPLIC TOPICAL ×2 (04:46→17:09)
[2019-02-11 06:31] LABS: Bedside Glucose 129 mg/dL (70-110)
[2019-02-11] MEDS: LORazepam 2 MG/ML Syringe 0.5 MG IV ×3 (07:05→23:06)
--- NOTE | 2019-02-11 09:27 | NURSING ---
pt removing gown, reapplied couple times. fan turned on per pt request. covered with thin sheet. oral care given several times this AM. Pt too weak to drink from straw. pt did suck on swab for some ice water. pt consistently wanting to sit on side of bed, pt to weak, high fall risk. Son at bedside. Son hoping pt can get pleurX cath to remove ascities RAMONA tomorrow so less pain med can be used. Mottling noted to bilateral toes. pt resting in bed, HOB elevated. Oxygen @ 2 liters via NC.
[2019-02-11 11:11] LABS: Bedside Glucose 133 mg/dL (70-110)
--- NOTE | 2019-02-11 15:27 | NURSING ---
pt resting in bed, doing better with morphine IV and Ativan IV as needed. son at bedside. repositioning for comfort. oral care provided. call light in reach. oxygen remains at 2.5 liters for comfort. pt awakens easily able to answer questions appropriately. When restless will yell out instead of using call light. feet cold to touch. mottled. RT chest port accessed for IV medication administration. Cuenca drng dark yellow urine.
[2019-02-11] MEDS: NYSTATIN 500,000 UNIT/5 ML UDC 500000 UNIT PO (17:11)
--- NOTE | 2019-02-11 17:16 | NURSING ---
Pt spilled glass water on gown and in bed, gown & linens changed. pt repositioned to LT side. mouth care provided, lips moisturized. HOB elevated, oxygen at 2 L via NC. smear of BM in attends. onesimo applied after cleansing skin.
--- NOTE | 2019-02-11 19:41 | NURSING ---
Pt resting in bed. Pt easily arousable and A&Ox3, denies needs at this time. O2 99% NC 2L. Mottling noted to bilateral feet. Cuenca with scant amount of dark urine noted. Soft music playing on low and call light in reach.
--- NOTE | 2019-02-11 23:16 | NURSING ---
Pt yelling out, taking clothes off and trying to swing her legs off the bed. O2 99% on RA. HR 106. Pt repositioned in bed x2 assist complete dependant. PRN Ativan given for comfort through Rt chest port. Oral care provided and lip moisturizer applied. Heels elevated. Mottling noted to be darker on bilateral feet. Pt resting in bed, eyes closed at this time with call light in reach.
[2019-02-12] MEDS: 0.9% Saline Lock 10 ML Syringe IV ×6 (01:14→20:44)
[2019-02-12] MEDS: Morphine 2 MG/ML Syringe 1 MG IV ×5 (01:14→20:41)
[2019-02-12] MEDS: LORazepam 2 MG/ML Syringe 0.5 MG IV ×2 (03:27→13:03)
[2019-02-12] MEDS: Metoclopramide 10 MG/2 ML Vial IV ×3 (05:23→20:41)
[2019-02-12] MEDS: Nystatin Powder 15gm Bottle 1 APPLIC TOPICAL ×2 (05:26→20:50)
[2019-02-12] MEDS: Menthol/Lanolin/Calamine/Znox 113 GM Tube 1 APPLIC TOPICAL ×2 (05:26→20:50)
[2019-02-12 05:27] VITALS: PULSE 110; RESP 19; TEMP 36.8; O2SAT 99
--- NOTE | 2019-02-12 05:28 | NURSING ---
Pt yelling out and screaming. Taking her clothes and sheet off and throwing them on the floor. Removing O2 and throwing it on the floor. Pt A&Ox3. When asking pt what staff could do to help pt stating numerous times I don't know. PRN morphine given. Pt rating pain 10/10. Pt AM care provided along with catheter care. O2 2L via NC reapplied for comfort. Pt adjusted to her Rt side and heels elevated. Mottling noted to bilateral feel. Call light in reach.
--- NOTE | 2019-02-12 11:25 | CASEMGMT ---
Addendum entered by Adina Casas 02/12/19 15:37: Spoke with family and [facility] - pt to transfer to [facility] 02/13. Original Note: Social Work Patient's procedure scheduled for 02/12 at 4:45 pm. Spoke with [facility] to relay info. Hospice will determine availability for admit to [facility] after procedure and contact SW. Will continue to follow for DC 02/12 or 02/13. Adina Casas, AKOSUA BONILLAW
--- NOTE | 2019-02-12 12:30 | NURSING ---
Addendum entered by Shelby Barakat 02/12/19 13:12: R' GETTING ANXIOUS, PULLING AT PORT LINE. ABD PLACED OVER SITE TO PROTECT. ATIVAN GIVEN AT THIS TIME. ROOM TEMP ADJUSTED AND COOL WASH CLOTH PROVIDED. FAMILY AT SIDE. WILL CONT' TO MONITOR. Original Note: R' RESTING IN BED. OCCASIONALLY YELLING OUT. MORPHINE GIVEN AT THIS TIME. R' STATES SHE IS A LOT OF PAIN. RECENTLY REPOSITIONED. HOB ELEVATED SLIGHTLY FOR COMFORT. O2 IN PLACE. FAMILY AT SIDE. WILL CONTINUE TO MONITOR.
--- NOTE | 2019-02-12 15:12 | NURSING ---
CALLED REPORT TO [facility]. PT LEFT FOR SURGERY
--- NOTE | 2019-02-12 15:24 | NURSING ---
R' LEFT UNIT FOR PROCEDURE
[2019-02-12 15:53] VITALS: BP 108/60; PULSE 58; RESP 20; TEMP 35.4; O2SAT 92
[2019-02-12 20:15] VITALS: BP 107/49; PULSE 110; RESP 22; O2SAT 78
[2019-02-12 20:30] VITALS: RESP 22
--- NOTE | 2019-02-12 20:56 | DCINST_ITS ---
- Discharge Diagnoses Current Active Problems: Current Active and Chronic Problems Debility (Acute) 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 (Acute) Malignant ascites (Acute) Atrial fibrillation with rapid ventricular response (Acute) Appetite loss (Acute) Osteoarthritis (Chronic) Lumbar spinal stenosis (Chronic) Neuropathic pain (Chronic) Shortness of breath (Acute) You will use the following diet at home:: No restrictions, Regular Your food should be the consistency of: Regular Your liquids should be the consistency of: Regular/Thin Discharge Activity: Return to Normal Activity Weight Bearing Status: Weight bearing as tolerated Allergies/Adverse Reactions: Allergies aspirin Adverse Reaction (Verified 02/12/19 15:34) Other D/T STOMACH SURGERY NSAIDS (Non-Steroidal Anti-Inflamma Adverse Reaction (Verified 02/12/19 15:34) Other D/T STOMACH SURGERY STEROIDS Adverse Reaction (Uncoded 02/12/19 15:34) Other D/T STOMACH SURGERY Medications to take at Discharge Acetaminophen [Tylenol Extra Strength] 1,000 mg PO Q6H PRN PRN 01/21/19 0.9 % NaCl (Sterile) Posiflush [0.9% NaCl (Sterile) Posiflush] 10 - 40 ml IV UD PRN disp.syrin 02/12/19 0.9% Saline Lock 10 - 40 ml IV UD PRN syringe 02/12/19 Heparin Pf Lock 10 units/ml 50 units IV UD PRN syringe 02/12/19 Lorazepam [Ativan] 0.5 mg IV Q4H PRN PRN syringe 02/12/19 Menthol/Lanolin/Calamine/Znox [Calmoseptine Ointment] 1 applic TOPICAL 0600,1800 tube 02/12/19 Nystatin Powder [Mycostatin Powder] 1 applic TOPICAL 0600,2200 bottle 02/12/19 Primary Care Physician: Lenny Pryor Chi, MD [Primary Care Provider] - Please follow up with your Primary Care Physician in: As needed. Test Results: Test results from this visit will be discussed in further detail at your follow- up appointment, if applicable. Please Follow Up With: Gonzalo Moscoso DO When: N/A. Please Follow Up With: Lenny Pryor Chi, MD When: As needed. Please Follow Up With: Ultrasound Paracentesis When: N/A. Proposed Discharge Date: 02/13/19
--- NOTE | 2019-02-12 20:58 | PCM.DC.SUM ---
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 (Acute) Malignant ascites (Acute) Atrial fibrillation with rapid ventricular response (Acute) Appetite loss (Acute) Shortness of breath (Acute) Date of Admission: 02/06/19 Date of Discharge: 02/13/19 - Primary Discharge Diagnosis Active and Suspected Problems Debility (Acute) 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 (Acute) Malignant ascites (Acute) Atrial fibrillation with rapid ventricular response (Acute) Appetite loss (Acute) Shortness of breath (Acute) - Secondary Discharge Diagnosis Chronic Problems Osteoarthritis (Chronic) Lumbar spinal stenosis (Chronic) Neuropathic pain (Chronic) Morbid (severe) obesity due to excess calories (Chronic) History of gastric bypass (Chronic) Depression (Chronic) Degenerative joint disease (DJD) of lumbar spine (Chronic) Spinal stenosis (Chronic) MARIA ANTONIA (obstructive sleep apnea) (Chronic) Generalized osteoarthrosis (Chronic) Vitamin B12 deficiency (Chronic) Neuropathic pain (Chronic) Hospital Course and Treatment Imaging Results: 02/12/19 10:00 Diet: Nothing Per Oral Is pt able to select menu?: Yes Labs (Last 48 Hours) 02/11/19 02/11/19 06:17 11:05 POC Glucose 129 H 133 H Operations: None Procedures: - - Abdominal PleurX catheter insertion. Summary of Care Provided: The patient is a 68 year old Female with below past medical history significant for metastatic ovarian cancer, hospitalized for shortness of breath secondary to malignant ascites, complicated by neutropenia, atrial fibrillation with rapid ventricular response, admitted to TCU with debility, here for rehabilitation, strengthening, prior to discharge home with . Resident's status declined, she is actively dying. She was concerned about discomfort of recurrent malignant ascites. 02/12/2019 Dr. Florez placed abdominal Pleurx catheter to drain malignant ascites. Discharge to Inpatient Hospice Facility. 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 (Acute) Malignant ascites (Acute) Atrial fibrillation with rapid ventricular response (Acute) Appetite loss (Acute) Shortness of breath (Acute) - Physical Exam Vitals/I&O's: Vital Signs Temp Pulse Resp BP Pulse Ox 95.7 F L 58 L 20 H 108/60 92 02/12/19 15:53 02/12/19 15:53 02/12/19 15:53 02/12/19 15:53 02/12/19 15:53 Oxygen Flow Rate (L/min) 3 Oxygen Delivery Method Nasal Cannula Weight: 99.6 kg Body Mass Index (BMI) 38.9 Finger Stick Blood Glucose 129 Intake and Output for Last 24 Hours 02/10/19 02/11/19 02/12/19 23:59 23:59 23:59 Intake Total 1458 / 1458 Output Total 350 / 350 25 / 25 Balance 1458 / 1458 -350 / -350 -25 / -25 Current Medications Acetaminophen (Tylenol) 1,000 mg PO Q6H PRN PRN PRN Reason: Pain Score 1-3/10 Calamine/Phenol (Calmoseptine Ointment) 1 applic TOPICAL 0600,1800 ZHOU; Protocol Last Admin: 02/12/19 20:50 Dose: 1 applicatio Documented by: Dextrose (D50w Syringe) 0 gm IV X1 PRN; Protocol PRN Reason: Hypoglycemia Heparin Sodium (Beef Lung) () 50 units IV UD PRN PRN Reason: Port-a-Cath (VAD)Heparin Flush Lorazepam (Ativan) 0.5 mg IV Q4H PRN PRN PRN Reason: ANXIETY Last Admin: 02/12/19 13:03 Dose: 0.5 mg Documented by: Metoclopramide HCl (Reglan) 10 mg IV Q6 ZHOU Last Admin: 02/12/19 20:41 Dose: 10 mg Documented by: Morphine Sulfate () 1 mg IV Q3H PRN PRN PRN Reason: Pain Score 1-10/10 Last Admin: 02/12/19 20:41 Dose: 1 mg Documented by: Nystatin (Mycostatin Powder) 1 applic TOPICAL 0600,2200 ZHOU; Protocol Last Admin: 02/12/19 20:50 Dose: 1 applicatio Documented by: Prochlorperazine Edisylate (Compazine Iv) 10 mg IV Q4H PRN PRN PRN Reason: NAUSEA Last Admin: 02/10/19 15:28 Dose: 10 mg Documented by: Promethazine HCl (Phenergan) 12.5 mg IV Q4H PRN PRN PRN Reason: NAUSEA/VOMITING Last Admin: 02/11/19 02:50 Dose: 12.5 mg Documented by: Sodium Chloride () 10 - 40 ml IV UD PRN PRN Reason: Port-a-Cath (VAD) Flush Last Admin: 02/12/19 20:44 Dose: 10 ml Documented by: Sodium Chloride (0.9% Nacl (Sterile) Posiflush) 10 - 40 ml IV UD PRN PRN Reason: Port access or dressing change Tuberculin PPD (Tubersol, Aplisol, Ppd) 5 tu ID [id number] ONE Stop: 02/14/19 10:01 Discharge Diet: No Restrictions Discharge Activity: Return to Normal Activity Weight Bearing Status: Weight bearing as tolerated Home Medications: Medications to take at Discharge Acetaminophen [Tylenol Extra Strength] 1,000 mg PO Q6H PRN PRN 01/21/19 0.9 % NaCl (Sterile) Posiflush [0.9% NaCl (Sterile) Posiflush] 10 - 40 ml IV UD PRN disp.syrin 02/12/19 0.9% Saline Lock 10 - 40 ml IV UD PRN syringe 02/12/19 Heparin Pf Lock 10 units/ml 50 units IV UD PRN syringe 02/12/19 Lorazepam [Ativan] 0.5 mg IV Q4H PRN PRN syringe 02/12/19 Menthol/Lanolin/Calamine/Znox [Calmoseptine Ointment] 1 applic TOPICAL 0600,1800 tube 02/12/19 Nystatin Powder [Mycostatin Powder] 1 applic TOPICAL 0600,2200 bottle 02/12/19 Primary Care Physician: Lenny Pryor Chi, MD [Primary Care Provider] - Please follow up with your Primary Care Physician in: As needed. Please Follow Up With: Gonzalo Moscoso DO When: N/A. Please Follow Up With: Lenny Pryor Chi, MD When: As needed. Please Follow Up With: Ultrasound Paracentesis When: N/A. Disposition: Hospice Medical Facility Minutes spent on discharge:: 30 Patient Condition:: Poor Medical Necessity - Tobacco Use Smoking Status: Former smoker Meaningful Use Info Meaningful Use Diagnoses (Choose all that apply): None applicable
--- NOTE | 2019-02-12 23:33 | NURSING ---
2015- pt returned to floor from pleurex placement. vital signs and assessment completed. family update on pt status and POC. PRN pain medication administered for moaning/grimacing. pt is alert to name, not attempting to verbally communicate at this time.
[2019-02-12 23:36] VITALS: BP 100/58; PULSE 108; RESP 22; O2SAT 98
[2019-02-13] MEDS: Morphine 2 MG/ML Syringe 1 MG IV ×2 (00:52→04:00)
[2019-02-13] MEDS: Metoclopramide 10 MG/2 ML Vial IV ×3 (00:53→11:58)
[2019-02-13] MEDS: 0.9% Saline Lock 10 ML Syringe IV ×4 (00:53→11:58)
[2019-02-13] MEDS: Nystatin Powder 15gm Bottle 1 APPLIC TOPICAL (04:05)
[2019-02-13] MEDS: Menthol/Lanolin/Calamine/Znox 113 GM Tube 1 APPLIC TOPICAL (04:05)
[2019-02-13 04:35] LABS: International Normalized Ratio 1.9; Prothrombin Time (Protime)PT. 21.9 SECONDS (11.7-14.9)
[2019-02-13 04:36] LABS: Partial Thromboplast Time 36.2 Seconds (24.1-36.2)
--- NOTE | 2019-02-13 10:57 | CASEMGMT ---
Social Work Spoke with [facility] - worm picker for pt transfer is 5 pm. Adina Casas MSW SWIMMING POOL SERVICE TECHNICIAN
--- NOTE | 2019-02-13 11:25 | NURSING ---
Addendum entered by Lisa Flood 02/13/19 12:36: Spouse here and updated that we will keep site clean and dry with dry dressings. Addendum entered by Lisa Flood 02/13/19 12:23: No new orders given by Dr Pryor. Dr Florez called as well and she states there is nothing more she can do with it at this time as resident did not tolerate anesthesia very well yesterday during the placement. Orders given to place dry dressings over the site and keep covered. Will update spouse in regards of all this. Addendum entered by Lisa Flood 02/13/19 12:19: Dr pryor notified of paracentisis catheter being pulled out. Spouse here and is aware as well. Original Note: Assisted by nurses aide. Leaking noted around abdomen. Resident restless and abdominal catheter noted to not be in place at this time. Will medicated with IV Ativan for restlessness. resident pulling off oxygen cannula and pulling at clothes.
[2019-02-13] MEDS: LORazepam 2 MG/ML Syringe 0.5 MG IV (11:58)
--- NOTE | 2019-02-13 13:00 | NURSING ---
Dr. Florez in to see pt. Will not replace pleurix cathether. Place dressing and change as needed to site. Ok to send to hospice as planned
--- NOTE | 2019-02-13 13:08 | PCM.PN.BLA ---
Progress Note Patient pulled out PleurX paracentesis catheter that was placed last night. I have discussed with patient's . The nurses have stated that the patient is very restless and agitated in her movements, and has pulled on other items attached to her body in the past. If the catheter were to be replaced, the patient would pull this out in hospice also. At this point, would apply dressings to the area as per needed. Patient to be transferred to hospice for patient's comfort, as her condition is terminal and her condition will continue to deteriorate. I have discussed above with patient's and he agrees.
--- NOTE | 2019-02-13 13:30 | NURSING ---
Report given to Laura at [facility] center
--- NOTE | 2019-02-13 15:45 | NURSING ---
Spouse at bedside. resident repositioned. oral care done. Respirations even and non labored. Does not appear restless at this time.
[2019-02-13 16:00] VITALS: BP 80/35; PULSE 86; RESP 35; TEMP 36.3; O2SAT 100
--- NOTE | 2019-02-13 16:36 | CHAPLAIN ---
Type of Pastoral Visit ___ Initial Visit _x__ Follow-up Visit ___ On-call Visit ___ General Patient Visit ___ Spiritual Assessment ___ Family Conference ___ Bereavement ___ Rapid Response ___ Code Blue ___ Other (describe below) Pastoral Care Referral From ___ Patient _x__ Family ___ Nurse ___ Physician ___ Lumber Cutter ___ Route Sales Trainee ___ Other (describe below) Sacrament/Intervention ___ Active listening ___ Anointing ___ Hinduism _x__ Bereavement ___ Communion ___ Tavia exploration ___ ___ Life review ___ Prayer ___ Reconciliation ___ Sacrament of Sick _x__ Supportive presence ___ Wedding ___ Other (describe below) Pastoral Comments patient is to be moved to [facility] and is not expected to live very long; offer of support to spouse, sister, and grandson;
--- NOTE | 2019-02-22 10:43 | MDS.RN ---
Information for the mds was obtained from review of the clinical record, interview of resident, staff, and direct observation of resident's care.
== END 2019-02-13 17:11 | disposition hospice, inpatient (51) | DRG 844 ==
PROVIDERS: Nurse Practitioner Family; Admitting Provider Family Medicine Geriatric Medicine; Family Provider Family Medicine Geriatric Medicine; PCP Family Medicine Geriatric Medicine; Referring Provider Family Medicine Geriatric Medicine; Visit Provider Family Medicine Geriatric Medicine
DX: C80.1 Malignant (primary) neoplasm, unspecified (principal); R18.0 Malignant ascites; B37.0 Candidal stomatitis; C79.60 Secondary malignant neoplasm of unspecified ovary; F32.9 Major depressive disorder, single episode, unspecified; I48.91 Unspecified atrial fibrillation; G47.33 Obstructive sleep apnea (adult) (pediatric); E66.01 Morbid (severe) obesity due to excess calories; M15.9 Polyosteoarthritis, unspecified; E11.40 Type 2 diabetes mellitus with diabetic neuropathy, unspecified; F41.9 Anxiety disorder, unspecified; K21.9 Gastro-esophageal reflux disease without esophagitis; Z98.84 Bariatric surgery status; Z68.38 Body mass index [BMI] 38.0-38.9, adult; Z71.3 Dietary counseling and surveillance; Z87.891 Personal history of nicotine dependence
CPT/HCPCS: 80048; 82962; 85025; 85610; 85730; 93005; 97110; 97162; 97166; 97530; 97535; 97802; J7030; J7120; A4216

== ENCOUNTER 2019-02-12 15:24 | Day surgery (SDC) | payer MEDICARE, SELFPAY ==
[2019-02-12] MEDS: Lactated Ringers 1,000 ML 100 ML IV (15:32)
[2019-02-12 15:35] VITALS: BP 104/81; PULSE 107; RESP 24; TEMP 35.9; O2SAT 98
[2019-02-12] MEDS: Cefazolin 2 GM in 0.9% Normal Saline 100 ML IV (19:22)
[2019-02-12] MEDS: Bupivacaine Mpf 0.5% 30 ML VIAL (19:47)
[2019-02-12 19:56] VITALS: BP 104/81; BP 72/55; PULSE 103; RESP 24; TEMP 36.6; O2SAT 100
--- NOTE | 2019-02-12 19:59 | PCM.OPRPT ---
Report of Operation Date of Procedure: 02/12/19 Pre-Operative Diagnosis: malignant ascites Post-Operative Diagnosis: same Surgery/Procedure Performed:: Placement of PleurX catheter in the intraabdominal cavity for malignant ascites Description of Surgical Findings:: large amount of ascites, drained 800 ml, however, patient blood pressure decreased and did not tolerate any further attempt at drainage of peritoneal fluid. Type of Anesthesia:: Local MAC Anesthesiologist: Nav Peterson Specimen's removed: 800 ml ascites fluid Drains: PleurX catheter Estimated Blood Loss (mL): minimal Fluids Replaced: see anesthesia note Description of Procedure: This patient is DNR-CC as per TCU staff. I have discussed with patient's and son. She presents to the Operating Room with a low blood pressure of systolic mid 80s. The family has stated that if patient stops breathing or her heart stops, they do not want her resuscitated. They wish placement of the paracentesis catheter. After informed consent was given, the patient was brought to the Operating Room. Appropriate time out protocol was followed. She was then placed in the supine position. IV conscious sedation was then administered by the anesthesia provider. The patient?s abdomen was then prepped with a surgical skin preparation and sterile surgical drapes were placed. The US transducer was brought into the sterile field. Real time US images were obtained to locate the location of the ascites. Placement would be in the right lateral position of the abdominal wall. Sites were chosen for insertion of the catheter into the intraabdominal cavity and the exit site of the catheter and these were marked out on the patient's skin. The skin and subcutaneous tissues in and around the sites were then infiltrated with 1% xylocaine. A skin incision was then made with a 15 blade scalpel at both sites - < 1 cm. The needle trocar was then directed into the intraabdominal cavity under US guidance and aspiration was done. Once there was good aspiration of peritoneal fluid (clear yellow) then the needle was removed and a wire was threaded through the catheter. The tunnelling device was used to bring the catheter via the exit site and out through the wire site. It was placed so that the cuff was about 1 cm from the wound opening. The dilator was then threaded over the wire into the intraabdominal cavity, then the dilator with the introducer sheath was threaded over the wire. The wire and dilator was then removed and finger placed over the introducer opening. The catheter was then inserted into the intraabdominal cavity via the introducer sheath and placed so that the catheter openings were well beyond the entrance site. The catheter was sutured to the exit site using 3-0 silk suture. The skin incisions were closed with subdermal 4-0 monocryl. The extension tubing with three way stop-cock was attached to the catheter and 800 ml of clear yellow fluid was removed from the intraabdominal cavity. At this point, the anesthesia provider stated that the patient's blood pressure was low and therefore any further drainage of peritoneal fluid was aborted. The catheter site was then covered with a sterile dressing and a closing device was placed at the end of the catheter. She was brought to the Recovery Room with a blood pressure systolic in the 70s. The family was in the Recovery Room and appraised of the patient's status. - Complications none noted
[2019-02-12 20:00] VITALS: BP 104/81; BP 73/40; PULSE 105; RESP 22; O2SAT 100
[2019-02-12 20:05] VITALS: BP 104/81; BP 68/26; PULSE 101; RESP 22; O2SAT 99
[2019-02-12 20:11] VITALS: BP 104/81; BP 86/51; PULSE 107; RESP 24; TEMP 37.1; O2SAT 98
--- NOTE | 2019-02-13 20:20 | DCINST_ITS ---
Discharge Diet: - - as per previous Discharge Activity: Return to Normal Activity Call your doctor if your incision/area has: Continuous Slow Oozing, Foul Smelling Discharge Additional Dressing/Incision Instructions:: as per hospice nurses Allergies/Adverse Reactions: Allergies aspirin Adverse Reaction (Verified 02/12/19 15:34) Other D/T STOMACH SURGERY NSAIDS (Non-Steroidal Anti-Inflamma Adverse Reaction (Verified 02/12/19 15:34) Other D/T STOMACH SURGERY STEROIDS Adverse Reaction (Uncoded 02/12/19 15:34) Other D/T STOMACH SURGERY Medications to take at Discharge Acetaminophen [Tylenol Extra Strength] 1,000 mg PO Q6H PRN PRN 01/21/19 0.9 % NaCl (Sterile) Posiflush [0.9% NaCl (Sterile) Posiflush] 10 - 40 ml IV UD PRN disp.syrin 02/12/19 0.9% Saline Lock 10 - 40 ml IV UD PRN syringe 02/12/19 Heparin Pf Lock 10 units/ml 50 units IV UD PRN syringe 02/12/19 Lorazepam [Ativan] 0.5 mg IV Q4H PRN PRN syringe 02/12/19 Menthol/Lanolin/Calamine/Znox [Calmoseptine Ointment] 1 applic TOPICAL 0600,1800 tube 02/12/19 Nystatin Powder [Mycostatin Powder] 1 applic TOPICAL 0600,2200 bottle 02/12/19 Primary Care Physician: Lenny Pryor Chi, MD [Primary Care Provider] - Test Results: Test results from this visit will be discussed in further detail at your follow- up appointment, if applicable. Please Follow Up With: Sonia Florez MD When: as per needed
--- NOTE | 2019-02-13 20:20 | PCM.HP.BLA ---
History and Physical Date of Admission: 02/12/19 Chief Complaint ? malignant ascites HPI: Patient is a 68-year-old female with malignant ascites due to metastatic ovarian cancer. Her past medical history significant for left parietal extracranial hematoma and mild right frontal subarachnoid hemorrhage following a fall in April 2017, osteoarthritis, pulmonary embolism in 2013, obesity, gastric bypass surgery (loss 200 pounds). With regard to her ovarian cancer: CA125 01/13 was 140 U/mL. Patient underwent CT guided biopsy of omental mass seen on CT scan for cytology and culture on 01/15. Pathology: Pelvic mass, needle core biopsy High grade malignant neoplasm, favor poorly-differentiated carcinoma. She had presented with shortness of breath and increasing weakness. She is scheduled for hospice, however this requires drainage catheter placement for malignant ascites drainage for which she requires on a regular basis. PAST SURGICAL HISTORY: CARPAL TUNNEL GASTRIC BYPASS FOR MORBID OBESITY W/SM INT August 15, 2013 LEFT HEART CATH 1999 [facility] PAST SURGICAL HISTORY OF Right Hip replacement PAST SURGICAL HISTORY OF Bilateral Knee replacement KNEE PARTIAL 2001 FAMILY HISTORY: ? Diabetes Mother ? other (heart disease) Father SOCIAL HISTORY: Tobacco Use ? Smoking status: Never Smoker ? Smokeless tobacco: Never Used Substance Use Topics ? Alcohol use: No ? Drug use: No MEDICATIONS: acetaminophen (TYLENOL) 500 mg tablet, Take 2 tablets by mouth every 6 hours., oxyCODONE IR (ROXICODONE) 5 mg immediate release tablet, Take 1 tablet by polyethylene glycol 3350 (MIRALAX, GLYCOLAX) 17 gram packet, Take 1 Packet by ondansetron orally disintegrating (ZOFRAN ODT) 4 mg disintegrating tablet, Take 1 meclizine (ANTIVERT) 12.5 mg tab, Take 1 tablet by mouth three times daily as scopolamine (TRANSDERM-SCOP) 1 mg over 3 days, Apply 1 Patch as directed every promethazine (PHENERGAN) 25 mg tablet, Take 1 tablet by mouth every 8 hours as docusate sodium (COLACE) 100 mg capsule, Take 1 capsule by mouth twice daily as gabapentin (NEURONTIN) 300 mg capsule, Take 2 capsules by mouth daily at bedtime., venlafaxine ER (EFFEXOR XR) 75 mg 24 hr capsule, Take 75 mg by mouth once daily., lisinopril (ZESTRIL, PRINIVIL) 5 mg tablet, Take 5 mg by mouth once daily., Disp: , rOPINIRole (REQUIP) 0.25 mg tablet, Take 0.25 mg by mouth at bedtime as needed MULTIVIT &MINERALS/FERROUS FUM (MULTI VITAMIN ORAL), Take by CHOLECALCIFEROL, VITAMIN D3, (VITAMIN D3 ORAL), Take 1,000 Units by CURRENT ALLERGIES: No Known Allergies ROS: Constitutional: poor appetite Neuro: Denies MEDINA and symptoms of neuropathy. HEENT: No recent change in voice, vision or hearing. Resp: More short of breath without productive cough. CVS: Denies chest pain, PND and orthopnea. Bilateral lower extremity swelling/edema. GI: abdominal pain, nausea : Denies dysuria or gross hematuria. Endo: Denies hot flashes. Musculoskeletal: Denies bone, back, joint and muscular pain. Derm: Denies rash. Denies jaundice and diffuse pruritis. Heme: Denies unusual bleeding and unexplained bruising. Psych: Depressed mood. PHYSICAL EXAM: Vitals: Blood pressure 150/92, pulse 58, temperature 97.6 ?F. Ill-appearing and in no acute distress. EYES: Sclerae are anicteric bilaterally. ENT: Oral mucosa is dry. NECK: Supple. LYMPHATIC: There is no palpable cervical or supraclavicular adenopathy. RESPIRATORY: Decreased air entry in all [place]. CARDIOVASCULAR: Rhythm is irregular. ABDOMEN: The abdomen is obese and distended, non tender, no peritoneal signs noted. Exam consistent with ascites. Extremities: Bilateral lower extremity swelling. SKIN: No jaundice or rash. NEUROLOGIC: non focal Impression: ascites due to ovarian cancer Plan: Plan for Placement of PleurX pericentesis catheter placement I have described the procedure to the patient and her . The patient is not wholly cognizant, however, she is able to answer directed questions. I have explained the risks of the procedure, including but not limited to: infection, bleeding, scar tissue, chronic pain in the area, leakage of fluid in the area, peritonitis, injury to any intraabdominal organ, complications of anesthesia, etc - she and her understand. They have no further questions.
== END 2019-02-12 20:20 | disposition skilled nursing facility (03) ==
LOC: SDC 15:26 → AC 15:27
PROVIDERS: Family Provider Family Medicine Geriatric Medicine; PCP Family Medicine Geriatric Medicine; Referring Provider Surgery; Visit Provider Surgery
PROC: (CPT 32550; principal; 2019-02-12 16:30)
DX: C56.9 Malignant neoplasm of unspecified ovary (principal); R18.0 Malignant ascites; E11.9 Type 2 diabetes mellitus without complications; Z79.899 Other long term (current) drug therapy; Z86.711 Personal history of pulmonary embolism; Z96.641 Presence of right artificial hip joint; Z96.653 Presence of artificial knee joint, bilateral; Z98.84 Bariatric surgery status
CPT/HCPCS: 00800; 49084; C1729; J2405